=== PATIENT | male | born 1950 | race Caucasian/White ===

== ENCOUNTER 2017-04-11 02:53 | Emergency (ER) | payer BC, OTHER ==
[~2017-04-11] VITALS: Ht 182.9 cm; Wt 89.1 kg
[~2017-04-11 02:53] MED LIST: HYDR-3714 PO
[2017-04-11 02:56] VITALS: TEMP 37; Ht 182.9 cm; Wt 89.1 kg
[2017-04-11] MEDS ORDERED: ONDANSETRON INJ 2 MG/ML 2 ML VIAL IV STA (03:18)
[2017-04-11] MEDS ORDERED: HYDROmorphone INJ 1 MG/ML SYR IV STA (03:18)
[2017-04-11] MEDS ORDERED: SODIUM CHLORIDE 0.9% 1000ML 1,000 ML IV ONE (03:30)
[2017-04-11] MEDS ORDERED: OPTIRAY 320 IV PRN (03:30)
[2017-04-11] MEDS ORDERED: BISA1TAB25 PO (03:37)
[2017-04-11] MEDS ORDERED: ONDA8TAB6 PO (03:37)
[2017-04-11] MEDS ORDERED: CHEMO DRUG PO (03:37)
[2017-04-11] MEDS ORDERED: XLD/500 PO (03:37)
[2017-04-11] MEDS ORDERED: OXYC-57 PO (03:37)
[2017-04-11 03:46] LABS: BASO % 0.2 %; BASO ABS # 0.01 K/uL (0-0.2); COMPLETE YES; EOS % 3.8 %; HEMATOCRIT 37.4 % (42-52); IG% 0.2 %; LYMPH % 8.7 %; LYMPH ABS # 0.55 K/uL (1.2-3.4); MEAN CORPUSCULAR HEMOGLOBIN 29.2 pg (25-34); MEAN CORPUSCULAR HGB CONC 33.2 g/dl (32-36); MEAN PLATELET VOLUME 10.3 fL (7.4-10.4); MONO % 10.1 %; PLATELET COUNT 139 K/uL (130-400); RED BLOOD COUNT 4.25 M/uL (4.7-6.1); WHITE BLOOD COUNT 6.34 K/uL (4.8-10.8)
[2017-04-11 04:04] LABS: URINE APPEARANCE CLEAR (CLEAR); URINE BILIRUBIN NEG (NEG); URINE COLOR YELLOW; URINE NITRITE NEG (NEG); URINE SPECIFIC GRAVITY 1.023 (1.000-1.030); UROBILINOGEN NEG (NEG); ZZUR CULT IF INDIC CLEAN CATCH NO
[2017-04-11 04:04] LABS: BUN/CREATININE RATIO 11.7 (10-20); CALCIUM 8.7 mg/dl (8.5-10.1); CREATININE 1.1 mg/dl (0.60-1.40); MAGNESIUM 1.9 mg/dl (1.8-2.4); POTASSIUM 3.9 mmol/L (3.5-5.1)
[2017-04-11 04:05] LABS: MANUAL MICROSCOPIC REQUIRED? NO; REVIEW REQ? NO
[2017-04-11 04:06] LABS: ALB/GLOB RATIO 0.8 (0.9-2); INR 1.1 (0.9-1.1); PARTIAL THROMBOPLASTIN RATIO 1.1; PROTHROMBIN TIME (PATIENT) 11.8 SECONDS (9.0-12.0)
[2017-04-11] MEDS ORDERED: HYDROmorphone INJ 0.5 MG/0.5 ML SYR IV STA (05:57)
[2017-04-11] MEDS ORDERED: OXYC1TAB3 PO (05:58)
[2017-04-11 06:09] VITALS: BP 131/79; PULSE 77; O2SAT 96
--- NOTE | 2017-04-11 06:33 | EMERGENCY ROOM VISIT NOTE ---
ED Visit Note First contact with patient: 03:01 I have personally evaluated and examined this patient. I agree with assessment and plan of Saurabh Roque PA-C. Sudden onset left posterior back pain of uncertain etiology though now appears to be feeling better. Work-up benign with stable if not improving pancreatic mass that he is on oral chemo for.
--- NOTE | 2017-04-11 06:46 | DIAGNOSTIC IMAGING REPORT ---
CT ABD/PELVIS IV CONTRAST ONLY CLINICAL HISTORY: Abdominal pain, pancreatic carcinoma, nausea, vomiting. COMPARISON STUDY: 02/24/2015 TECHNIQUE: Following the IV administration of mL of Optiray-320, CT scan of the abdomen and pelvis was performed from the lung bases to the proximal femurs. Images are reviewed in the axial, sagittal, and coronal planes. IV contrast was administered without complication. A dose lowering technique was utilized adhering to the principles of ALARA. CT DOSE: 602.07 mGy.cm FINDINGS: Lower chest: The heart is normal in size and configuration, without pericardial effusion. The lung bases and pleural spaces are clear. Liver: There is mild hepatic steatosis. No focal masses are visualized. Gallbladder: Unremarkable. Spleen: Normal in size and attenuation. Pancreas: There is an enlarging pancreatic mass demonstrating vascular encasement. The mass currently measures 6.4 cm in diameter. 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 There are secondary upper abdominal varices/collaterals. The mass abuts and may invade the stomach. Adrenal glands: Unremarkable. Kidneys: There is symmetric renal cortical enhancement. The kidneys are normal in size without hydronephrosis. Bowel: There are no transition zones to indicate bowel obstruction. There are no findings to indicate acute diverticulitis. There are no findings to indicate acute appendicitis. There are multiple small ventral hernias, one of which contains a small knuckle of small bowel. This does not result in obstructive symptoms. Peritoneum: No free air is visualized. There is a small amount of free fluid in the pelvis. Vasculature: The abdominal aorta is normal in course and caliber. Adenopathy: There are no mildly enlarged perigastric lymph nodes, suspicious for metastatic adenopathy. Pelvic viscera: The bladder, and pelvic viscera are unremarkable. Skeletal structures: No destructive osseous lesions are seen. IMPRESSION: 1. Enlarging pancreatic mass currently measuring 6.4 cm. There is secondary vascular encasement with involvement of the splenic vein, celiac artery, and superior mesenteric artery and vein. The splenic vein appears occluded. 2. The mass abuts and may invade the stomach 3. Ventral hernias. No evidence of bowel obstruction. No evidence of free air Electronically signed by: Jose Starks M.D. 04/11/2017 6:44 AM Dictated Date/Time: 04/11/2017 6:37 AM
--- NOTE | 2017-04-11 06:50 | EMERGENCY ROOM VISIT NOTE ---
History First contact with patient: 03:01 Chief Complaint: ABDOMINAL PAIN Stated Complaint: PAINS IN STOMACH Nursing Triage Summary: Patient reports abdominal pain radiating around to back began a couple days ago. Patient is currently being treated for a tumor on his pancreas with oral medicine. Reports nausea, denies V/D. History of Present Illness The patient is a 67 year old male who presents to the Emergency Room with complaints of abdominal pain radiating to his back that began slowly worsening about 2 days ago. The patient has a history of pancreatic mass and is in the early stages of a new round of chemotherapy. He started chemotherapy 2 days ago , and is evidently scheduled for 14 more days. He is taking oral medication for this. The patient states that he is nauseated without vomiting. He does not have diarrhea. He is intermittently taking Percocet which usually controls his discomfort, he states last 2 days his pain has worsened. He does have Zofran at home which has helped him to prevent vomiting. He has not had fever or chills. No chest pain, chest tightness, or shortness of breath. No lower abdominal pain. He is able to use the bathroom is normal. Review of Systems More than 10 systems were reviewed and otherwise negative with the exception of history of present illness. Past Medical/Surgical History Medical Problems: (1) Pancreatic cancer (2) Pancreatic mass Family History Cancer Heart disease Hypertension Kidney stones Seizures Social History Smoking Status: Never Smoker Marital Status: Housing Status: lives with family Current/Historical Medications Scheduled Capecitabine (Xeloda), 1,500 MG PO Q12H Oxycodone Immediate Rel Tab (Roxicodone Ir), 1-2 TAB PO Q4H [Chemo Drug], 2 CAP PO HS Scheduled PRN Bisacodyl (Bisacodyl Ec), 5 MG PO HS PRN for Constipation Ondansetron Hcl (Zofran), 8 MG PO Q8 PRN for Nausea Oxycodone/Acetaminophen 5MG/325MG (Percocet 5MG/325MG), 1-2 TABLETS PO Q4H PRN for Pain Allergies Coded Allergies: No Known Allergies (Unverified , 04/11/17) Physical Exam Vital Signs Date Time Temp Pulse Resp B/P (MAP) Pulse Ox O2 Delivery O2 Flow Rate FiO2 04/11/17 06:09 77 16 131/79 96 04/11/17 04:29 87 18 110/70 95 Room Air 10/9/17 02:56 37.0 109 18 114/73 98 Room Air Physical Exam VITALS: Vitals are noted on the nurse's note and reviewed by myself. Vital signs stable. GENERAL: Well-appearing white male who is in no acute distress. She is cooperative with the examination. HEART: Regular rate and rhythm without murmurs gallops or rubs. LUNGS: Clear to auscultation bilaterally without wheezes, rales or rhonchi. No retractions or accessory muscle use. ABDOMEN: Positive normal bowel sounds x 4. Soft with mild tenderness in the epigastrium. No rebound or guarding. No lower abdominal tenderness. MUSCULOSKELETAL: No muscle atrophy, erythema, or edema noted. Full range of motion without joint tenderness in all extremities. No significant spinal tenderness or SI joint tenderness. Medical Decision & Procedures ER Provider Diagnostic Interpretation: Preliminary Findings Only See Final Report For Complete Findings CT ABDOMEN & PELVIS With Contrast: Impression: Large mass centered within the head/neck/body of the pancreas measuring 5.7 x 6.4 cm (2-24), consistent with known pancreatic cancer. This insinuates splenic vein, celiac artery, proximal SMA and SMV with multiple collaterals seen within the abdomen. Additionally, this mass appears to extend to the lesser curvature of the stomach with probable involvement. Additional findings: Lower thorax is unremarkable. Liver, gallbladder, spleen, and adrenal glands are unremarkable. Kidneys, ureters and urinary bladder are unremarkable. Appendix is unremarkable. Noninflamed colonic diverticulosis. Diastasis of the anterior abdominal wall musculature. Laboratory Results 04/11/17 03:30 Red Blood Count 4.25, Mean Corpuscular Volume 88.0, Mean Corpuscular Hemoglobin 29.2, Mean Corpuscular Hemoglobin Concent 33.2, Mean Platelet Volume 10.3, Neutrophils (%) (Auto) 77.0, Lymphocytes (%) (Auto) 8.7, Monocytes (%) (Auto) 10.1, Eosinophils (%) (Auto) 3.8, Basophils (%) (Auto) 0.2, Neutrophils # (Auto ) 4.89, Lymphocytes # (Auto) 0.55, Monocytes # (Auto) 0.64, Eosinophils # (Auto ) 0.24, Basophils # (Auto) 0.01 04/11/17 03:30 Test 04/11/17 03:18 04/11/17 03:30 Urine Color YELLOW Urine Appearance CLEAR (CLEAR) Urine pH 5.0 (4.5-7.5) Urine Specific [place] 1.023 (1.000-1.030) Urine Protein NEG (NEG) Urine Glucose (UA) NEG (NEG) Urine Ketones NEG (NEG) Urine Occult Blood NEG (NEG) Urine Nitrite NEG (NEG) Urine Bilirubin NEG (NEG) Urine Urobilinogen NEG (NEG) Urine Leukocyte Esterase NEG (NEG) White Blood Count 6.34 K/uL (4.8-10.8) Red Blood Count 4.25 M/uL (4.7-6.1) Hemoglobin 12.4 g/dL (14.0-18.0) Hematocrit 37.4 % (42-52) Mean Corpuscular Volume 88.0 fL (80-100) Mean Corpuscular Hemoglobin 29.2 pg (25-34) Mean Corpuscular Hemoglobin Concent 33.2 g/dl (32-36) Platelet Count 139 K/uL (130-400) Mean Platelet Volume 10.3 fL (7.4-10.4) Neutrophils (%) (Auto) 77.0 % Lymphocytes (%) (Auto) 8.7 % Monocytes (%) (Auto) 10.1 % Eosinophils (%) (Auto) 3.8 % Basophils (%) (Auto) 0.2 % Neutrophils # (Auto) 4.89 K/uL (1.4-6.5) Lymphocytes # (Auto) 0.55 K/uL (1.2-3.4) Monocytes # (Auto) 0.64 K/uL (0.11-0.59) Eosinophils # (Auto) 0.24 K/uL (0-0.5) Basophils # (Auto) 0.01 K/uL (0-0.2) RDW Standard Deviation 49.1 fL (36.4-46.3) RDW Coefficient of Variation 15.4 % (11.5-14.5) Immature Granulocyte % (Auto) 0.2 % Immature Granulocyte # (Auto) 0.01 K/uL (0.00-0.02) Prothrombin Time 11.8 SECONDS (9.0-12.0) Prothromb Time International Ratio 1.1 (0.9-1.1) Activated Partial Thromboplast Time 28.7 SECONDS (21.0-31.0) Partial Thromboplastin Ratio 1.1 Anion Gap 7.0 mmol/L (3-11) Est Creatinine Clear Calc Drug Dose 72.5 ml/min Estimated GFR () 80.6 Estimated GFR (Non- 69.6 BUN/Creatinine Ratio 11.7 (10-20) Calcium Level 8.7 mg/dl (8.5-10.1) Magnesium Level 1.9 mg/dl (1.8-2.4) Total Bilirubin 0.6 mg/dl (0.2-1) Aspartate Amino Transf (AST/SGOT) 6 U/L (15-37) Alanine Aminotransferase (ALT/SGPT) 11 U/L (12-78) Alkaline Phosphatase 84 U/L (45-117) Total Protein 7.1 gm/dl (6.4-8.2) Albumin 3.2 gm/dl (3.4-5.0) Globulin 3.9 gm/dl (2.5-4.0) Albumin/Globulin Ratio 0.8 (0.9-2) Amylase Level 16 U/L (25-115) Lipase 52 U/L (73-393) Medications Administered Medications (Trade) Dose Ordered Sig/Yolis Route Start Time Stop Time Status Last Admin Dose Admin Hydromorphone HCl (Dilaudid Inj) 1 mg NOW STAT IV 04/11/17 03:18 04/11/17 03:22 DC 04/11/17 03:48 1 MG Sodium Chloride 1,000 ml @ 999 mls/hr Q1H1M ONCE IV 04/11/17 03:30 04/11/17 04:30 DC 04/11/17 03:48 999 MLS/HR Ondansetron HCl (Zofran Inj) 4 mg NOW STAT IV 04/11/17 03:18 04/11/17 03:22 DC 04/11/17 03:48 4 MG Hydromorphone HCl (Dilaudid Inj) 0.5 mg NOW STAT IV 04/11/17 05:57 04/11/17 05:58 DC 04/11/17 06:00 0.5 MG ED Course Physical exam and history were performed. Nursing notes, EMR, and Medication List were personally reviewed. Patient appears to have abdominal pain after starting another round of chemotherapy 2 days ago for pancreatic cancer. On examination the patient has some mild tenderness in the epigastrium. IV access was established and labs were obtained. The patient was hydrated and medicated as above. Because of his history I did elect to perform a CT scan of the abdomen and pelvis with IV contrast. The patient is nauseated and I do not feel he is able tolerate oral contrast. The patient's blood work is as above and was reviewed. He does not have a significantly elevated white blood cell count, gross anemia, bandemia, or significant electrolyte imbalance. Lipase and transaminases are nondiagnostic. The patient CT scan is as above. He last had a CT scan here in this facility about 2 years ago, but did have outpatient CT scan done at [facility] in January 2017. His measurements appears to be stable if not slightly improved as far as size and dimension. He does not have signs of bleed or perforation on CT. I had a lengthy discussion with patient regarding his symptoms. I discussed the case with my attending physician, Dr. Ureña, who also independently evaluated the patient and remain closely involved in care and decision making. I had a lengthy discussion with patient regarding his diagnostic findings today. The patient did feel significantly better after medication here in the department. The patient does have Percocet at home and has sparingly been using this. He certainly could be reacting to the chemotherapy and require a higher dose of medication for the next few days. I will give him a prescription for OxyIR that he may use in addition to his Percocet if necessary. I also strongly recommended that he have close follow-up with his oncologist and primary care physician. The patient understands that it is appropriate to return to the ER with any worsening of his symptoms. He would like to try discharge home at this time, and I feel this is reasonable. The patient will be discharged home under the care of his who is acting as the pole truck driver today. The chart was completed utilizing [employer] Voice Recognition Software. Grammatical errors, random word insertions, pronoun errors, and incomplete sentences are an occasional consequence of this system due to software limitations, ambient noise, and hardware issues. Any formal questions or concerns about the content, text, or information contained within the body of this dictation should be directly addressed to the provider for clarification. . Medical Decision Differential diagnosis: Etiologies such as cancer pain, medication reaction to chemotherapy, perforation , appendicitis, diverticulitis, PUD, biliary pathology, UTI, pancreatitis, obstruction, mesenteric ischemia, aortic pathology, infections, inflammatory bowel disease, renal colic, as well as others were entertained. Impression Primary Impression: Abdominal pain Additional Impression: Pancreatic cancer Departure Information Dispostion Home / Self-Care Condition GOOD Prescriptions Oxycodone Immediate Rel Tab (ROXICODONE IR) 5 Mg Tab 1-2 TAB PO Q4H for Pain, #24 TAB Prov: Saurabh Roque PA-C 04/11/17 Forms Call Back Authorization, HOME CARE DOCUMENTATION FORM, IMPORTANT VISIT INFORMATION Patient Instructions [facility] Additional Instructions You were seen and evaluated today on an emergency basis only. This is not a substitute for, or an effort to provide, complete comprehensive medical care. It is not possible to recognize and treat all injuries or illnesses in a single emergency department visit. For this reason it is recommended that you followup with your oncologist and primary care physician today for ongoing care and evaluation. Oxycodone (OxyIR) 5mg: Take ONE or TWO pills every FOUR to SIX hours for breakthrough pain. Avoid alcohol, operating machinery or dangerous equipment, working on ladders or roofs, DRIVING, or situations where being under the influence may be dangerous. It is recommended to use an [id number] stool softener such as Colace, 100mg twice daily while taking this medication to avoid constipation. You are welcome to return to the emergency department anytime with new, worsening, or concerning symptoms. Problem Qualifiers
== END 2017-04-11 06:10 | disposition home or self-care (01) ==
LOC: C.EDB 02:54 → C.EDA 06:10
DX: R10.9 Unspecified abdominal pain (principal); C25.9 Malignant neoplasm of pancreas, unspecified; Z80.9 Family history of malignant neoplasm, unspecified; Z82.49 Family history of ischemic heart disease and other diseases of the circulatory system; Z84.1 Family history of disorders of kidney and ureter; Z82.0 Family history of epilepsy and other diseases of the nervous system; Z79.899 Other long term (current) drug therapy

== ENCOUNTER 2017-04-24 08:45 | Emergency (ER) | payer OTHER ==
[~2017-04-24] VITALS: Ht 182.9 cm; Wt 86.1 kg
[~2017-04-24 08:45] MED LIST changes: +BISA1TAB25 PO; +CHEMO DRUG PO; -HYDR-3714 PO; +OXYC1TAB3 PO; +XLD/500 PO
[2017-04-24 08:51] VITALS: TEMP 36.9; Ht 182.9 cm; Wt 86.1 kg
[2017-04-24] MEDS ORDERED: SODIUM CHLORIDE 0.9% 500ML 500 ML IV STA (09:11)
[2017-04-24] MEDS ORDERED: ONDANSETRON INJ 2 MG/ML 2 ML VIAL IV STA (09:11)
[2017-04-24] MEDS ORDERED: MoRPHine SULFATE 4 MG/ML 1 ML CARP\\VIAL IV STA (09:11)
[2017-04-24] MEDS ORDERED: SODIUM CHLORIDE 0.9% 1000ML 1,000 ML IV STA (09:11)
[2017-04-24 09:29] LABS: BASO % 0.2 %; BASO ABS # 0.02 K/uL (0-0.2); COMPLETE YES; EOS % 1.5 %; IG% 0.3 %; LYMPH % 4.3 %; LYMPH ABS # 0.48 K/uL (1.2-3.4); MEAN CORPUSCULAR HGB CONC 33.7 g/dl (32-36); MEAN PLATELET VOLUME 9.9 fL (7.4-10.4); MONO % 6.3 %; NEUT % 87.4 %; PLATELET COUNT 218 K/uL (130-400); RED BLOOD COUNT 4.27 M/uL (4.7-6.1); WHITE BLOOD COUNT 11.08 K/uL (4.8-10.8)
[2017-04-24] MEDS ORDERED: HYDROmorphone INJ 0.5 MG/0.5 ML SYR IV STA (09:37)
--- NOTE | 2017-04-24 09:41 | EMERGENCY ROOM VISIT NOTE ---
History Report prepared by Kianna: Tavo García Under the Supervision of: Dr. Chiquis Marshall M.D. First contact with patient: 09:08 Chief Complaint: ABDOMINAL PAIN Stated Complaint: SEVERE STOMACH PAINS Nursing Triage Summary: pt reports currently being tx for pancreatic CA last chemo . started with abdominal pain at that time , the nausea and pain have increased overnight and home meds not helping History of Present Illness The patient is a 67 year old male who presents to the Emergency Room with complaints of waxing and waning lower abdominal pain beginning a few weeks ago. The patient states that he is also experiencing some back pain that radiates from his abdomen. He notes that he can only lay on one side and any shift in position to his other side causes him pain. He denies any vomiting. He reports that he is able to pass gas. The patient states that he just recently finished chemotherapy for a pancreatic tumor. He reports that he had exploratory surgery but did have the tumor removed. He notes that the last time he ate was last night and that he ate a chicken pot pie. Source of History: patient Onset: the past few weeks Position: abdomen Timing: waxes/wanes Modifying Factors (Worsening): movement (from lying on one side to the other ) Associated Symptoms: + back pain, No vomiting Note: he states that he is able to pass gas. Review of Systems See HPI for pertinent positives & negatives. A total of 10 systems reviewed and were otherwise negative. Past Medical & Surgical Medical Problems: (1) Pancreatic cancer (2) Pancreatic mass Family History Cancer Heart disease Hypertension Kidney stones Seizures Social History Smoking Status: Never Smoker Marital Status: Housing Status: lives with family Current/Historical Medications Scheduled Fentanyl (Fentanyl), 1 PATCH TD q three days Oxycodone Immediate Rel Tab (Roxicodone Ir), 1-2 TAB PO Q4H Polyethylene Glycol 3350 (Miralax), 17 GM PO DAILY Scheduled PRN Bisacodyl (Bisacodyl Ec), 5 MG PO HS PRN for Constipation Morphine Sulfate Ir (Morphine Sulfate Ir), 15 MG PO Q12H PRN for Pain Ondansetron Hcl (Zofran), 8 MG PO Q8 PRN for Nausea Oxycodone/Acetaminophen 5MG/325MG (Percocet 5MG/325MG), 1-2 TABLETS PO Q4H PRN for Pain Allergies Coded Allergies: No Known Allergies (Unverified , 04/24/17) Physical Exam Vital Signs Date Time Temp Pulse Resp B/P (MAP) Pulse Ox O2 Delivery O2 Flow Rate FiO2 04/24/17 14:00 75 16 103/63 97 04/24/17 12:15 78 16 114/74 100 Room Air 04/24/17 09:44 87 20 116/72 98 Room Air 04/24/17 09:10 89 04/24/17 08:51 36.9 139 20 105/71 97 Room Air Physical Exam Vital signs reviewed. General: Chronically ill appearing, in some discomfort. HEENT: No scleral icterus, PERRLA, neck supple. Atraumatic. Cardiovascular: Regular rate and rhythm, no extra sounds. Pulmonary: Clear to auscultation bilaterally, normal work of breathing. Abdomen: Soft, nondistended, positive bowel sounds. Diffuse abdominal tenderness , no rebound, no guarding. No CVA tenderness. Musculoskeletal: Atraumatic, no peripheral edema. Neurologic: Patient awake alert and oriented x 3, full strength in all 4 extremities. Cranial nerves 2 through 12 grossly intact. Skin: Warm, dry, no rash Medical Decision & Procedures ER Provider Diagnostic Interpretation: Radiology results as stated below per my review and radiologist interpretation: CT ABD/PELVIS IV CONTRAST ONLY Lower chest: The heart is normal in size and configuration, without pericardial effusion. The lung bases and pleural spaces are clear. Liver: The contrast-enhanced liver is normal in size, contour, and attenuation. There is no intrahepatic biliary ductal dilatation. The hepatic veins and portal veins are patent. Gallbladder: Distended. No calculi are visualized. Spleen: Normal in size and attenuation. Pancreas: There is been no significant change in the 6.5 cm pancreatic head/neck mass. There is encasement of the superior mesenteric vein. There is encasement of the splenic artery. There is occlusion of the splenic vein. There is encasement of the superior mesenteric artery. The mass abuts the stomach and invasion cannot be excluded. Adrenal glands: Unremarkable. Kidneys: There is symmetric renal cortical enhancement. The kidneys are normal in size without hydronephrosis. Bowel: There are no transition zone to indicate bowel obstruction. There is colonic diverticulosis. There are no acute peridiverticular inflammatory changes. There are no findings to indicate acute appendicitis. There is mild fecal retention. Peritoneum: A ventral hernia is again visualized. Vasculature: There is no aortic dilatation. Upper abdominal varices are again evident. Adenopathy: There are mildly prominent lymph nodes in the gastrohepatic ligament and celiac region. Pelvic viscera: The prostate remains enlarged. Skeletal structures: No destructive osseous lesions are seen. IMPRESSION: 1. No significant change in the 6.5 cm hypodense pancreatic mass 2. Persistent splenic vein occlusion, persistent celiac, and superior mesenteric artery encasement. Persistent superior mesenteric vein and portal vein narrowing. 3. No evidence of bowel obstruction. No evidence of free air 4. Mild fecal retention Electronically signed by: Jose Starks M.D. 04/24/2017 12:13 PM Laboratory Results 04/24/17 09:00 Red Blood Count 4.27, Mean Corpuscular Volume 89.0, Mean Corpuscular Hemoglobin 30.0, Mean Corpuscular Hemoglobin Concent 33.7, Mean Platelet Volume 9.9, Neutrophils (%) (Auto) 87.4, Lymphocytes (%) (Auto) 4.3, Monocytes (%) (Auto) 6.3, Eosinophils (%) (Auto) 1.5, Basophils (%) (Auto) 0.2, Neutrophils # (Auto) 9.68, Lymphocytes # (Auto) 0.48, Monocytes # (Auto) 0.70, Eosinophils # (Auto) 0.17, Basophils # (Auto) 0.02 04/24/17 09:00 Test 04/24/17 09:00 White Blood Count 11.08 K/uL (4.8-10.8) Red Blood Count 4.27 M/uL (4.7-6.1) Hemoglobin 12.8 g/dL (14.0-18.0) Hematocrit 38.0 % (42-52) Mean Corpuscular Volume 89.0 fL (80-100) Mean Corpuscular Hemoglobin 30.0 pg (25-34) Mean Corpuscular Hemoglobin Concent 33.7 g/dl (32-36) Platelet Count 218 K/uL (130-400) Mean Platelet Volume 9.9 fL (7.4-10.4) Neutrophils (%) (Auto) 87.4 % Lymphocytes (%) (Auto) 4.3 % Monocytes (%) (Auto) 6.3 % Eosinophils (%) (Auto) 1.5 % Basophils (%) (Auto) 0.2 % Neutrophils # (Auto) 9.68 K/uL (1.4-6.5) Lymphocytes # (Auto) 0.48 K/uL (1.2-3.4) Monocytes # (Auto) 0.70 K/uL (0.11-0.59) Eosinophils # (Auto) 0.17 K/uL (0-0.5) Basophils # (Auto) 0.02 K/uL (0-0.2) RDW Standard Deviation 52.3 fL (36.4-46.3) RDW Coefficient of Variation 16.2 % (11.5-14.5) Immature Granulocyte % (Auto) 0.3 % Immature Granulocyte # (Auto) 0.03 K/uL (0.00-0.02) Anion Gap 9.0 mmol/L (3-11) Est Creatinine Clear Calc Drug Dose 65.4 ml/min Estimated GFR () 71.2 Estimated GFR (Non- 61.4 BUN/Creatinine Ratio 12.4 (10-20) Calcium Level 9.1 mg/dl (8.5-10.1) Total Bilirubin 0.6 mg/dl (0.2-1) Direct Bilirubin mg/dl (0-0.2) Aspartate Amino Transf (AST/SGOT) 17 U/L (15-37) Alanine Aminotransferase (ALT/SGPT) 15 U/L (12-78) Alkaline Phosphatase 77 U/L (45-117) Total Protein 7.6 gm/dl (6.4-8.2) Albumin 3.3 gm/dl (3.4-5.0) Lipase 44 U/L (73-393) Chemistry Specimen Hemolysis Laboratory results per my review. Medications Administered Medications (Trade) Dose Ordered Sig/Yolis Route Start Time Stop Time Status Last Admin Dose Admin Sodium Chloride 500 ml @ 999 mls/hr Q31M STAT IV 04/24/17 09:11 04/24/17 09:41 DC 04/24/17 09:11 999 MLS/HR Sodium Chloride 1,000 ml @ 125 mls/hr Q8H STAT IV 04/24/17 09:11 04/24/17 14:23 DC 04/24/17 09:22 125 MLS/HR Ondansetron HCl (Zofran Inj) 4 mg NOW STAT IV 04/24/17 09:11 04/24/17 09:13 DC 04/24/17 09:23 4 MG Morphine Sulfate (MoRPHine SULFATE INJ) 4 mg NOW STAT IV 04/24/17 09:11 04/24/17 09:13 DC 04/24/17 09:23 4 MG Hydromorphone HCl (Dilaudid Inj) 0.5 mg NOW STAT IV 04/24/17 09:37 04/24/17 09:38 DC 04/24/17 09:42 0.5 MG Hydromorphone HCl (Dilaudid Inj) 1 mg Q1HWA PRN IV 04/24/17 10:30 04/24/17 14:23 DC 04/24/17 12:15 1 MG Fentanyl (Duragesic Patch) 25 mcg NOW STAT TD 04/24/17 12:25 04/24/17 13:22 DC 04/24/17 13:20 25 MCG Fentanyl (Duragesic Patch) 50 mcg NOW STAT TD 04/24/17 13:20 04/24/17 13:22 DC 04/24/17 13:57 50 MCG ECG Indication: abdominal pain Rate (beats per minute): 89 Rhythm: normal sinus Findings: no acute ischemic change, no ectopy, other (previous anterior infarct ) ED Course 0910: Past medical records reviewed. The patient was evaluated in room A3. A complete history and physical examination was performed. 0911: Morphine Sulfate 4mg IV, Zofran Inj 4mg IV, Sodium Chloride 500 ml @ 999 mls/hr IV 0937: Dilaudid Inj 0.5mg IV 1225: Fentanyl 25mcg TD 1311: I reevaluated and updated the patient. 1320: Fentanyl 50mcg TD 1325: Upon reevaluation, the patient appeared to have improvement of his symptoms. I discussed findings with him. He verbalized agreement of the treatment plan. The patient was discharged home. Medical Decision Differentials include: small bowel obstruction, ischemic bowel, kidney stone, muscular strain, viral illness, post chemotherapeutic effects. This patient was evaluated and appeared to be in no significant distress. IV access was obtained and laboratory work was drawn. Patient was placed on the cardiac exercise physiologist. IV fluids were initiated. The patient was given IV morphine and Zofran without significant relief. He did receive several doses of IV Dilaudid for pain control. CT scan abdomen and pelvis was performed and reveals no significant changes from previous. There is a large pancreatic mass with significant vascular obstructions. Patient's laboratory work is fairly unrevealing. I suspect the patient is suffering from chronic pain related to the malignancy. He is not receiving any relief with oral morphine and when necessary Percocet. Patient was given a 50 g fentanyl patch. He was advised to use the Percocet as needed. He will use MiraLAX as needed for constipation. The patient will follow-up with his oncologist later in the week, case management will assist in scheduling this appointment. He will return to the ER for worsening of symptoms or any medical concerns. Blood Pressure Screening Patient's blood pressure: Normal blood pressure Blood pressure disposition: Did not require urgent referral Impression Primary Impression: Intractable abdominal pain Additional Impression: Pancreatic cancer Scribe Attestation The scribe's documentation has been prepared under my direction and personally reviewed by me in its entirety. I confirm that the note above accurately reflects all work, treatment, procedures, and medical decision making performed by me. Departure Information Dispostion Home / Self-Care Prescriptions Fentanyl (Fentanyl) 50 Mcg Tdsy 1 PATCH TD q three days for 14 Days, #5 PATCH Prov: Chiquis Marshall M.D. 04/24/17 Referrals No Doctor, Assigned (PCP) Forms Call Back Authorization, HOME CARE DOCUMENTATION FORM, IMPORTANT VISIT INFORMATION Patient Instructions My [facility] Additional Instructions Diagnosis: Intractable abdominal pain, pancreatic cancer Fentanyl patch 50 g every 3 days. Percocet one to 2 tablets every 4-6 hours as needed for severe pain. MiraLAX 1-2 capfuls daily as needed for BM. Increase the fiber in your diet. Case management will help arrange follow up with oncology, Dr. Hinojosa, this week. Return to the ER for worsening of symptoms or any medical concerns. Problem Qualifiers
[2017-04-24 09:47] LABS: ALKALINE PHOSPHATASE 77 U/L (45-117); ALT/SGPT 15 U/L (12-78); AST/SGOT 17 U/L (15-37); BLOOD UREA NITROGEN 15 mg/dl (7-18); BUN/CREATININE RATIO 12.4 (10-20); CALCIUM 9.1 mg/dl (8.5-10.1); CARBON DIOXIDE 25 mmol/L (21-32); CHLORIDE 98 mmol/L (98-107); CREATININE 1.22 mg/dl (0.60-1.40); GLUCOSE 155 mg/dl (70-99); SODIUM 132 mmol/L (136-145)
[2017-04-24] MEDS ORDERED: MORP15TA PO (10:09)
[2017-04-24] MEDS: HYDROmorphone INJ 1 MG/ML SYR IV PRN ×2 (10:23→12:15)
[2017-04-24] MEDS ORDERED: OPTIRAY 320 IV PRN (12:15)
--- NOTE | 2017-04-24 12:15 | DIAGNOSTIC IMAGING REPORT ---
CT ABD/PELVIS IV CONTRAST ONLY CLINICAL HISTORY: Abdominal pain, pancreatic carcinoma, COMPARISON STUDY: 04/11/2017 TECHNIQUE: Following the IV administration of 93 mL of Optiray-320, CT scan of the abdomen and pelvis was performed from the lung bases to the proximal femurs. Images are reviewed in the axial, sagittal, and coronal planes. IV contrast was administered without complication. A dose lowering technique was utilized adhering to the principles of ALARA. CT DOSE: 463.62 mGy.cm FINDINGS: Lower chest: The heart is normal in size and configuration, without pericardial effusion. The lung bases and pleural spaces are clear. Liver: The contrast-enhanced liver is normal in size, contour, and attenuation. There is no intrahepatic biliary ductal dilatation. The hepatic veins and portal veins are patent. Gallbladder: Distended. No calculi are visualized. Spleen: Normal in size and attenuation. Pancreas: There is been no significant change in the 6.5 cm pancreatic head/neck mass. There is encasement of the superior mesenteric vein. There is encasement of the splenic artery. There is occlusion of the splenic vein. There is encasement of the superior mesenteric artery. The mass abuts the stomach and invasion cannot be excluded. Adrenal glands: Unremarkable. Kidneys: There is symmetric renal cortical enhancement. The kidneys are normal in size without hydronephrosis. Bowel: There are no transition zone to indicate bowel obstruction. There is colonic diverticulosis. There are no acute peridiverticular inflammatory changes. There are no findings to indicate acute appendicitis. There is mild fecal retention. Peritoneum: A ventral hernia is again visualized. Vasculature: There is no aortic dilatation. Upper abdominal varices are again evident. Adenopathy: There are mildly prominent lymph nodes in the gastrohepatic ligament and celiac region. Pelvic viscera: The prostate remains enlarged. Skeletal structures: No destructive osseous lesions are seen. IMPRESSION: 1. No significant change in the 6.5 cm hypodense pancreatic mass 2. Persistent splenic vein occlusion, persistent celiac, and superior mesenteric artery encasement. Persistent superior mesenteric vein and portal vein narrowing. 3. No evidence of bowel obstruction. No evidence of free air 4. Mild fecal retention Electronically signed by: Jose Starks M.D. 04/24/2017 12:13 PM Dictated Date/Time: 04/24/2017 12:05 PM
[2017-04-24] MEDS ORDERED: FENTANYL 25 MCG/HR TDSY TD STA (12:25)
[2017-04-24] MEDS ORDERED: FENTANYL 50 MCG/HR TDSY TD STA (13:20)
[2017-04-24] MEDS ORDERED: DRGTP50 TD (13:27)
[2017-04-24 14:00] VITALS: BP 103/63; PULSE 75; O2SAT 97
[2017-04-26] MEDS ORDERED: OXYC-57 PO (03:37)
[2017-04-29] MEDS ORDERED: DRGTP75 TD ×2 (15:23→15:49)
[2017-04-29] MEDS ORDERED: DLD2 PO (15:23)
[2017-05-02] MEDS ORDERED: ONDA8TAB6 PO (03:37)
[2017-05-02] MEDS ORDERED: POLY335019 PO (10:09)
[2017-05-02] MEDS ORDERED: DLC5 PO (16:03)
[2017-05-02] MEDS ORDERED: TEMO1CAP PO (16:45)
[2017-05-02] MEDS ORDERED: XLD/500 PO (16:45)
== END 2017-04-24 13:55 | disposition home or self-care (01) ==
LOC: C.EDB 08:46 → C.EDA 13:55
DX: G89.3 Neoplasm related pain (acute) (chronic) (principal); C25.9 Malignant neoplasm of pancreas, unspecified; Z80.9 Family history of malignant neoplasm, unspecified; Z82.49 Family history of ischemic heart disease and other diseases of the circulatory system; Z84.1 Family history of disorders of kidney and ureter; Z82.0 Family history of epilepsy and other diseases of the nervous system; Z79.899 Other long term (current) drug therapy

== ENCOUNTER 2017-04-26 13:00 | Inpatient (IN) | payer OTHER, BC ==
[~2017-04-26] VITALS: Ht 182.9 cm; Wt 87.4 kg
[~2017-04-26 13:00] MED LIST changes: -CHEMO DRUG PO; +DRGTP50 TD; +MORP15TA PO; +OXYC-57 PO; -XLD/500 PO
[2017-04-26] MEDS ORDERED: ONDANSETRON INJ 2 MG/ML 2 ML VIAL IV STA (13:33)
[2017-04-26] MEDS ORDERED: MoRPHine SULFATE 10 MG/ML CARP/VIAL IV STA (13:33)
[2017-04-26 14:31] LABS: BASO % 0.1 %; BASO ABS # 0.01 K/uL (0-0.2); COMPLETE YES; EOS % 1.6 %; HEMATOCRIT 36.8 % (42-52); IG% 0.2 %; LYMPH % 5.1 %; LYMPH ABS # 0.48 K/uL (1.2-3.4); MEAN CELL VOLUME 88.5 fL (80-100); MEAN CORPUSCULAR HEMOGLOBIN 29.3 pg (25-34); MEAN CORPUSCULAR HGB CONC 33.2 g/dl (32-36); MEAN PLATELET VOLUME 10.3 fL (7.4-10.4); MONO % 5.6 %; NEUT % 87.4 %; PLATELET COUNT 225 K/uL (130-400); RED BLOOD COUNT 4.16 M/uL (4.7-6.1)
[2017-04-26 14:41] LABS: BUN/CREATININE RATIO 12.5 (10-20); CREATININE 1.2 mg/dl (0.60-1.40); POTASSIUM 3.9 mmol/L (3.5-5.1)
[2017-04-26] MEDS ORDERED: HYDROmorphone INJ 1 MG/ML SYR IV STA (15:04)
[2017-04-26] MEDS ORDERED: SODIUM CHLORIDE 0.9% 1000ML 1,000 ML IV SCH (15:48)
[2017-04-26] MEDS ORDERED: BISACODYL 10 MG SUPP PR PRN (16:00)
[2017-04-26] MEDS ORDERED: NALOXONE HCL 0.4 MG/1 ML VIAL/CARP IV PRN (16:00)
[2017-04-26] MEDS: ENOXAPARIN 40 MG/0.4 ML SYR SQ SCH ×2 (16:00→18:00)
[2017-04-26] MEDS ORDERED: HYDROmorphone HCL 0.5MG/ML 50 ML CASSETTE IV PRN (16:00)
[2017-04-26] MEDS ORDERED: XLD/500 PO (16:06)
[2017-04-26] MEDS ORDERED: TEMO1CAP7 PO (16:06)
[2017-04-26] MEDS: SODIUM CHLORIDE 0.9% 1000ML 1,000 ML IV SCH ×2 (16:41→23:06)
--- NOTE | 2017-04-26 16:58 | History and Physical ---
History & Physical Date & Time of Service: Apr 26, 2017 at 16:13 Chief Complaint: Abdominal Pain, Pancreatic Cancer Primary Care Physician: Blake Bush M.D. History of Present Illness Source: patient, clinic records, hospital records This is a 67 year old male with PMH of primary pancreatic neuroendocrine tumor who presents to the ED with abdominal pain. Patient follows with Dr. Hinojosa. Surgery was attempted in 2014 but he was found to have unresectable disease. Patient has undergone radiation approximately 2 years ago. He underwent chemotherapy infusion in the past (Etoposide/Platinol) which he did not respond to. He is currently on oral chemo, Xeloda and Temodar, and finished most recent cycle on Tuesday04/22/17. Pt reports abdominal pain throughout the course of his cancer which was previously controlled, but is more severe over the past 2 weeks. He localizes pain to periumbilical area and left and right mid-abdomen. Pt was seen in [facility] 2 days ago for abdominal pain, at which time CT a/p showed no significant change in the 6.5 cm hypodense pancreatic mass, persistent splenic vein occlusion, persistent celiac, and superior mesenteric, artery encasement, persistent superior mesenteric vein and portal vein narrowing , no evidence of bowel obstruction, no evidence of free air, mild fecal retention. Patient's morphine sulfate extended release was discontinued. He was started on 50 mcg Fentanyl patch and continued on Percocet 5-325 1-2 tabs q4h PRN. Pt continues with pain rated 10/10. Morphine 6 mg IV and Dilaudid 1 mg IV given in the ER did not help. He reports his nausea has been worse with the last round of oral chemo. No vomiting. Has been taking Zofran 8 mg q8h. He was eating normally before, but over past few days he is not eating/ drinking much. Last BM was 2 days ago. Has been taking Dulcolax and Miralax PRN. Pt's weight has trended down approximately 20 lb in past 6 weeks. He denies fever, chills, URI symptoms, cough, SOB, chest pain, diarrhea, dysuria, frequency, urgency, calf pain, edema. Past Medical/Surgical History Medical Problems: (1) History of renal stone Status: Chronic (2) Pancreatic cancer Permanent Comment: Back pain Studies revealing a mass of the head of the pancreas Status post EUS with biopsy 12/10/2013 high-grade neuroendocrine carcinoma Stage [id number] Status post neoadjuvant chemotherapy with etoposide and cisplatin for 4 cycles On 10/04/2014 surgical attempt and unresectable Status post completion of radiation therapy 01/19/2015 received 5400 cGy Status: Chronic Surgical Problems: (1) S/P laparotomy Permanent Comment: 10/04/2014, Dr. Otero, [facility] – [place], found to have unresectable disease Status: Chronic Family History Cancer Heart disease Hypertension Kidney stones Seizures Social History Smoking Status: Never Smoker Alcohol Use: none Marital Status: Housing status: lives with significant other Allergies Coded Allergies: No Known Allergies (Unverified , 04/26/17) Home Medications Scheduled Capecitabine (Xeloda), 500 MG PO UD Fentanyl (Fentanyl), 1 PATCH TD q three days Temozolomide (Temodar), 180 MG PO UD Scheduled PRN Bisacodyl (Bisacodyl EC), 1 TAB PO BID PRN for Constipation Ondansetron Hcl (Zofran), 8 MG PO Q8 PRN for Nausea Oxycodone/Acetaminophen 5MG/325MG (Percocet 5MG/325MG), 1-2 TABLETS PO Q4H PRN for Pain Polyethylene Glycol 3350 (Miralax), 17 GM PO DAILY PRN for Constipation Review of Systems Ten systems reviewed and negative except as noted in HPI. Physical Exam Vital Signs Date Time Temp Pulse Resp B/P (MAP) Pulse Ox O2 Delivery O2 Flow Rate FiO2 04/26/17 15:34 37.2 92 16 113/69 93 04/26/17 15:32 92 16 113/69 93 Room Air 04/26/17 13:15 37.2 104 20 98 Room Air General Appearance: WD/WN, + mild distress (mild distress due to pain), + pertinent finding (alert cooperative 67 year old male, lying in bed, at bedside) Head: normocephalic, atraumatic Eyes: normal inspection, sclerae normal ENT: normal ENT inspection (normal external inspection of ears, nose, lips), hearing grossly normal, pharynx normal Neck: supple, trachea midline Respiratory/Chest: lungs clear, normal breath sounds, no respiratory distress, no accessory muscle use Cardiovascular: regular rate, rhythm, no murmur Abdomen/GI: normal bowel sounds, soft, + pertinent finding (mildly tender in periumbilical area) Back: normal inspection, no CVA tenderness Extremities/Musculoskelatal: normal inspection, no calf tenderness, no pedal edema Neurologic/Psych: alert, normal mood/affect, oriented x 3 Skin: normal color, warm/dry Diagnostics Laboratory Results Results Past 24 Hours Test 04/26/17 14:02 04/26/17 14:59 Range/Units White Blood Count 9.40 4.8-10.8 K/uL Red Blood Count 4.16 4.7-6.1 M/uL Hemoglobin 12.2 14.0-18.0 g/dL Hematocrit 36.8 42-52 % Mean Corpuscular Volume 88.5 80-100 fL Mean Corpuscular Hemoglobin 29.3 25-34 pg Mean Corpuscular Hemoglobin Concent 33.2 32-36 g/dl Platelet Count 225 130-400 K/uL Mean Platelet Volume 10.3 7.4-10.4 fL Neutrophils (%) (Auto) 87.4 % Lymphocytes (%) (Auto) 5.1 % Monocytes (%) (Auto) 5.6 % Eosinophils (%) (Auto) 1.6 % Basophils (%) (Auto) 0.1 % Neutrophils # (Auto) 8.21 1.4-6.5 K/uL Lymphocytes # (Auto) 0.48 1.2-3.4 K/uL Monocytes # (Auto) 0.53 0.11-0.59 K/uL Eosinophils # (Auto) 0.15 0-0.5 K/uL Basophils # (Auto) 0.01 0-0.2 K/uL RDW Standard Deviation 52.0 36.4-46.3 fL RDW Coefficient of Variation 16.2 11.5-14.5 % Immature Granulocyte % (Auto) 0.2 % Immature Granulocyte # (Auto) 0.02 0.00-0.02 K/uL Sodium Level 132 136-145 mmol/L Potassium Level 3.9 3.5-5.1 mmol/L Chloride Level 98 98-107 mmol/L Carbon Dioxide Level 26 21-32 mmol/L Anion Gap 8.0 3-11 mmol/L Blood Urea Nitrogen 15 7-18 mg/dl Creatinine 1.20 0.60-1.40 mg/dl Est Creatinine Clear Calc Drug Dose 66.5 ml/min Estimated GFR () 72.6 Estimated GFR (Non- 62.6 BUN/Creatinine Ratio 12.5 10-20 Random Glucose 194 70-99 mg/dl Calcium Level 9.0 8.5-10.1 mg/dl Total Bilirubin 0.6 0.2-1 mg/dl Direct Bilirubin 0.2 0-0.2 mg/dl Aspartate Amino Transf (AST/SGOT) 9 15-37 U/L Alanine Aminotransferase (ALT/SGPT) 16 12-78 U/L Alkaline Phosphatase 76 45-117 U/L Total Protein 7.8 6.4-8.2 gm/dl Albumin 3.3 3.4-5.0 gm/dl Lipase 47 73-393 U/L Lactic Acid Level 1.3 0.4-2.0 mmol/L Impression Assessment and Plan INTRACTABLE ABDOMINAL PAIN In setting of pancreatic cancer Failed home Fentanyl patch and PRN Percocet CT a/p 04/24/17- no significant change in the 6.5 cm hypodense pancreatic mass , persistent splenic vein occlusion, persistent celiac, and superior mesenteric , artery encasement, persistent superior mesenteric vein and portal vein narrowing, no evidence of bowel obstruction, no evidence of free air, mild fecal retention LFT's, lipase WNL, will recheck in AM Consult pain management, discussed with Dr. 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 Hinojosa Consult oncology, Dr. Walter aware, will have Dr. Hinojosa see the patient Consider palliative care consult DVT PROPHYLAXIS Lovenox SQ- declined by patient, will add SCD's CODE STATUS Full code per my discussion with the patient DISPOSITION Admission med/ surg Follows with Dr. Bush for primary care Patient seen in collaboration with Dr. Augustine. Please see her addendum. ADDENDUM: I have seen and examined the patient and agree with the assessment and plan as above. On exam his abdomen is soft and non-tender with positive bowel sounds. Food is making the pain worse somewhat. May be caused by decreased blood flow to vessels that are encased by the mass vs referred pain vs other. Dilaudid ENGINEERING PATTERNMAKER, Pain Management consulted. Apprec recs in am. Cont IVF and supportive care measures. Davide, DO Resuscitation Status FULL RESUSCITATION VTE Prophylaxis VTE Risk Assessment Done? Y/N: Yes Risk Level: Moderate Given or contraindicated: Enoxaparin (Lovenox)SQ
[2017-04-26 17:16] VITALS: BP 103/76; PULSE 80; TEMP 36.7; O2SAT 99; Ht 182.9 cm; Wt 87.4 kg
[2017-04-26 17:42] LABS: INR 1.2 (0.9-1.1); PARTIAL THROMBOPLASTIN RATIO 1.2; PROTHROMBIN TIME (PATIENT) 12.4 SECONDS (9.0-12.0)
--- NOTE | 2017-04-26 17:48 | EMERGENCY ROOM VISIT NOTE ---
History Report prepared by Kianna: Tay Fine Under the Supervision of: Dr. Hugo Wolff D.O. First contact with patient: 13:20 Chief Complaint: ABDOMINAL PAIN Stated Complaint: SEVERE STOMACH PAINS History of Present Illness The patient is a 67 year old male who presents to the Emergency Room with complaints of persistent generalized abdominal pain beginning two weeks ago. He has a history of pancreatic cancer. He recently finished a 14 day treatment of chemotherapy. The patient also complains of nausea. He was seen in the ED two days ago for with similar symptoms. He states that he has not been eating much recently. The patient denies vomiting, fevers, urinary symptoms or diarrhea. He has a Fentanyl patch, and takes Oxycodone PRN. The patient's last bowel movement was two days ago. He has been taking Miralax for constipation. Nothing worsens his pain. Source of History: patient Onset: Two weeks ago Position: abdomen (generalized) Timing: other (persistent) Modifying Factors (Worsening): other (none) Associated Symptoms: + nausea, No fevers, No vomiting, No diarrhea, No urinary symptoms Review of Systems See HPI for pertinent positives & negatives. A total of 10 systems reviewed and were otherwise negative. Past Medical & Surgical Medical Problems: (1) History of renal stone (2) Pancreatic cancer Surgical Problems: (1) S/P laparotomy Family History Cancer Heart disease Hypertension Kidney stones Seizures Social History Smoking Status: Never Smoker Marital Status: Housing Status: lives with family Current/Historical Medications Scheduled Capecitabine (Xeloda), 500 MG PO UD Fentanyl (Fentanyl), 1 PATCH TD q three days Temozolomide (Temodar), 180 MG PO UD Scheduled PRN Bisacodyl (Bisacodyl EC), 1 TAB PO BID PRN for Constipation Ondansetron Hcl (Zofran), 8 MG PO Q8 PRN for Nausea Oxycodone/Acetaminophen 5MG/325MG (Percocet 5MG/325MG), 1-2 TABLETS PO Q4H PRN for Pain Polyethylene Glycol 3350 (Miralax), 17 GM PO DAILY PRN for Constipation Allergies Coded Allergies: No Known Allergies (Unverified , 04/26/17) Physical Exam Vital Signs Date Time Temp Pulse Resp B/P (MAP) Pulse Ox O2 Delivery O2 Flow Rate FiO2 04/26/17 13:15 37.2 104 20 98 Room Air Physical Exam GENERAL: Sitting up in bed, chronically ill appearing, in mild distress. EYE EXAM: normal conjunctiva. OROPHARYNX: no exudate, no erythema, lips, buccal mucosa, and tongue normal and mucous membranes are moist NECK: supple, no nuchal rigidity, no adenopathy, non-tender LUNGS: Clear to auscultation. Normal chest wall mechanics HEART: no murmurs, S1 normal and S2 normal ABDOMEN: abdomen soft, non-tender, normo-active bowel sounds, no masses, no rebound or guarding. BACK: Back is symmetrical on inspection and there is no deformity, no midline tenderness, no CVA tenderness. SKIN: no rashes and no bruising UPPER EXTREMITIES: upper extremities are grossly normal. LOWER EXTREMITIES: No pitting edema. NEURO EXAM: Normal sensorium, cranial nerves II-XII grossly intact, normal speech, no gross weakness of arms, no gross weakness of legs. Medical Decision & Procedures Laboratory Results 04/26/17 14:02 Red Blood Count 4.16, Mean Corpuscular Volume 88.5, Mean Corpuscular Hemoglobin 29.3, Mean Corpuscular Hemoglobin Concent 33.2, Mean Platelet Volume 10.3, Neutrophils (%) (Auto) 87.4, Lymphocytes (%) (Auto) 5.1, Monocytes (%) (Auto) 5.6, Eosinophils (%) (Auto) 1.6, Basophils (%) (Auto) 0.1, Neutrophils # (Auto) 8.21, Lymphocytes # (Auto) 0.48, Monocytes # (Auto) 0.53, Eosinophils # (Auto) 0.15, Basophils # (Auto) 0.01 04/26/17 14:02 Test 04/26/17 14:02 White Blood Count 9.40 K/uL (4.8-10.8) Red Blood Count 4.16 M/uL (4.7-6.1) Hemoglobin 12.2 g/dL (14.0-18.0) Hematocrit 36.8 % (42-52) Mean Corpuscular Volume 88.5 fL (80-100) Mean Corpuscular Hemoglobin 29.3 pg (25-34) Mean Corpuscular Hemoglobin Concent 33.2 g/dl (32-36) Platelet Count 225 K/uL (130-400) Mean Platelet Volume 10.3 fL (7.4-10.4) Neutrophils (%) (Auto) 87.4 % Lymphocytes (%) (Auto) 5.1 % Monocytes (%) (Auto) 5.6 % Eosinophils (%) (Auto) 1.6 % Basophils (%) (Auto) 0.1 % Neutrophils # (Auto) 8.21 K/uL (1.4-6.5) Lymphocytes # (Auto) 0.48 K/uL (1.2-3.4) Monocytes # (Auto) 0.53 K/uL (0.11-0.59) Eosinophils # (Auto) 0.15 K/uL (0-0.5) Basophils # (Auto) 0.01 K/uL (0-0.2) RDW Standard Deviation 52.0 fL (36.4-46.3) RDW Coefficient of Variation 16.2 % (11.5-14.5) Immature Granulocyte % (Auto) 0.2 % Immature Granulocyte # (Auto) 0.02 K/uL (0.00-0.02) Prothrombin Time 12.4 SECONDS (9.0-12.0) Prothromb Time International Ratio 1.2 (0.9-1.1) Activated Partial Thromboplast Time 31.5 SECONDS (21.0-31.0) Partial Thromboplastin Ratio 1.2 Anion Gap 8.0 mmol/L (3-11) Est Creatinine Clear Calc Drug Dose 66.5 ml/min Estimated GFR () 72.6 Estimated GFR (Non- 62.6 BUN/Creatinine Ratio 12.5 (10-20) Calcium Level 9.0 mg/dl (8.5-10.1) Total Bilirubin 0.6 mg/dl (0.2-1) Direct Bilirubin 0.2 mg/dl (0-0.2) Aspartate Amino Transf (AST/SGOT) 9 U/L (15-37) Alanine Aminotransferase (ALT/SGPT) 16 U/L (12-78) Alkaline Phosphatase 76 U/L (45-117) Total Protein 7.8 gm/dl (6.4-8.2) Albumin 3.3 gm/dl (3.4-5.0) Lipase 47 U/L (73-393) Laboratory results per my review. Medications Administered Medications (Trade) Dose Ordered Sig/Yolis Route Start Time Stop Time Status Last Admin Dose Admin Morphine Sulfate (MoRPHine SULFATE INJ) 6 mg NOW STAT IV 04/26/17 13:33 04/26/17 13:34 DC 04/26/17 14:01 6 MG Ondansetron HCl (Zofran Inj) 4 mg NOW STAT IV 04/26/17 13:33 04/26/17 13:34 DC 04/26/17 14:00 4 MG ED Course ED COURSE: Vital signs were reviewed and showed tachycardia The patients medical record was reviewed The above diagnostic studies were performed and reviewed. ED treatments and interventions as stated above. 1321: The patient was evaluated in room B3B. A complete history and physical examination was performed. 1333: Ordered Zofran Inj 4 mg IV, Morphine Sulfate 6 mg IV. 1445: Upon reevaluation, the patient is resting comfortably. I discussed my findings with the patient and he understands and agrees with the treatment plan. Based on the patients age, coexisting illnesses, exam and lab findings the decision to treat as an inpatient was made. The patient remained stable while under my care. The patient will be evaluated for further management. Medical Decision Differential diagnoses includes but is not limited to gastritis, peptic ulcer disease, GERD, gallbladder disease, pancreatitis, small bowel obstruction, acute coronary syndrome, pericarditis, ischemic bowel, irritable bowel disease, irritable bowel syndrome, appendicitis, diverticulitis, malignancy, hernia, urinary tract infection, torsion, perforation, trauma, infectious. Patient is a 67-year-old male who presents to ER for a pancreatic mass and abdominal pain. He notes he has been having worsening abdominal pain for the past 2-3 weeks. He is referred in by hematology/oncology for admission or worsening pain. He is currently taking Percocet 2 tabs every 4 hours along with afebrile patch. CBC all BMP, LFTs, bilirubin and lipase is unremarkable. Lactic acid was normal. INR was 1.2. Recent CT on 04/24 was reviewed. Discussed with hematology oncology. They recommend a holding on the CT and admission and discussion with GI for additional imaging. I felt this was reasonable as his abdominal exam was benign. He was given IV Dilaudid and morphine. Patient was updated at bedside and admitted to internal medicine. Consults Time Called: [phone] Consulting Physician: Dr. Hinojosa -Oncology Returned Call: [phone] I reviewed the patient's case with Dr. Hinojosa. He recommends admission for pain control. Additional Consults: Time Called: 1440 Consulted Physician: Dr. Davide Mosquera Returned Call: [phone] Additional Comments: I reviewed the patient's case with Dr. Augustine. Rj will evaluate the patient for further management. Impression Primary Impression: Intractable abdominal pain Additional Impression: Pancreatic cancer Scribe Attestation The scribe's documentation has been prepared under my direction and personally reviewed by me in its entirety. I confirm that the note above accurately reflects all work, treatment, procedures, and medical decision making performed by me. Departure Information Dispostion Being Evaluated By Hospitalist Referrals Blake Bush M.D. (PCP) Patient Instructions [facility] Problem Qualifiers Additional Impression: Pancreatic cancer Pancreatic malignancy location: unspecified Qualified Codes: C25.9 - Malignant neoplasm of pancreas, unspecified
[2017-04-26 19:19] VITALS: BP 121/71; PULSE 89; TEMP 37.4; O2SAT 98
[2017-04-26] MEDS: POLYETHYLENE (MIRALAX) 17 GM PACK PO SCH (20:07)
[2017-04-26] MEDS: BISACODYL 5 MG TABEC PO SCH (20:07)
[2017-04-26 20:39] LABS: URINE APPEARANCE CLEAR (CLEAR); URINE BILIRUBIN NEG (NEG); URINE COLOR YELLOW; URINE NITRITE NEG (NEG); URINE SPECIFIC GRAVITY 1.024 (1.000-1.030); UROBILINOGEN NEG (NEG); ZZUR CULT IF INDIC CLEAN CATCH NO
[2017-04-26 20:41] LABS: MANUAL MICROSCOPIC REQUIRED? NO; REVIEW REQ? NO
[2017-04-26] MEDS: ONDANSETRON INJ 2 MG/ML 2 ML VIAL IV PRN (23:05)
[2017-04-26] MEDS: CHECK FENTANYL PATCH PLACEMENT SCH (23:12)
[2017-04-26 23:43] VITALS: BP 103/66; PULSE 85; TEMP 37.2; O2SAT 96
[2017-04-27 04:20] VITALS: BP 104/65; PULSE 78; TEMP 37.4; O2SAT 96
[2017-04-27 06:18] LABS: BASO % 0.2 %; BASO ABS # 0.02 K/uL (0-0.2); COMPLETE YES; EOS % 2.1 %; HEMATOCRIT 35.4 % (42-52); IG% 0.2 %; LYMPH % 5.7 %; LYMPH ABS # 0.53 K/uL (1.2-3.4); MEAN CELL VOLUME 89.8 fL (80-100); MEAN CORPUSCULAR HEMOGLOBIN 29.9 pg (25-34); MEAN CORPUSCULAR HGB CONC 33.3 g/dl (32-36); NEUT % 83.8 %; PLATELET COUNT 229 K/uL (130-400); RED BLOOD COUNT 3.94 M/uL (4.7-6.1); WHITE BLOOD COUNT 9.24 K/uL (4.8-10.8)
[2017-04-27 06:44] LABS: BUN/CREATININE RATIO 10.9 (10-20); CALCIUM 8.7 mg/dl (8.5-10.1); CREATININE 1.09 mg/dl (0.60-1.40); POTASSIUM 4.1 mmol/L (3.5-5.1)
[2017-04-27 06:47] LABS: ALB/GLOB RATIO 0.8 (0.9-2)
[2017-04-27 07:07] VITALS: BP 110/56; PULSE 95; TEMP 37.3; O2SAT 97
[2017-04-27] MEDS: CHECK FENTANYL PATCH PLACEMENT SCH ×3 (07:37→23:40)
[2017-04-27] MEDS: POLYETHYLENE (MIRALAX) 17 GM PACK PO SCH ×2 (07:38→20:15)
[2017-04-27] MEDS: SODIUM CHLORIDE 0.9% 1000ML 1,000 ML IV SCH ×3 (07:39→23:40)
[2017-04-27] MEDS: BISACODYL 5 MG TABEC PO SCH ×2 (07:47→20:15)
[2017-04-27 08:19] VITALS: O2SAT 96
[2017-04-27] MEDS ORDERED: OXYCODONE HCL IR 5 MG TAB (IMMEDIATE RELEASE) PO ONE (09:30)
[2017-04-27] MEDS ORDERED: OXYCODONE HCL IR 5 MG TAB (IMMEDIATE RELEASE) ONE (09:33)
[2017-04-27] MEDS ORDERED: FENTANYL PATCH REMOVE & WASTE SCH (09:59)
[2017-04-27] MEDS ORDERED: FENTANYL 75 MCG/HR TDSY TD SCH (10:00)
--- NOTE | 2017-04-27 10:14 | Pain Management Consultation ---
Pain Management Consultation Date of Consultation Apr 27, 2017. Reason for Consultation Abdominal pain Pain Location 1 - 2 - History Mr. Engle is a 67 year old white male that is being seen in consultation at the [facility] for abdominal pain secondary to Pancreatic cancer. The abdominal pain is located in the upper abdomen and radiates into the back. He describes a constant aching and occasional sharp stabbing pains. He states that the pain cannot be aggravated with palpation but feels deeper in the abdomen. When he leans towards the right he develops increased pain, nausea , and vomiting. Patient was on Fentanyl patch 50mcg/hr and Percocet at home which was not adequately controlling his pain. Patient's last chemotherapy treatment was 04/22/17. He is not a surgical candidate at this time. Pain is currently 8/10. He denies any currently nausea, vomiting, constipation, or urinary sx. + decreased appetite. Case discussed with Dr. Rogers Past Medical/Surgical History (1) Intractable abdominal pain (2) History of renal stone (3) Pancreatic cancer (4) S/P laparotomy Family History Cancer Heart disease Hypertension Kidney stones Seizures Social / Work History Alcohol Use: none Drug Use: none Marital Status: Housing Status: lives with significant other Allergies Coded Allergies: No Known Allergies (Unverified , 04/26/17) Medications Current Inpatient Medications Medications (Trade) Dose Ordered Sig/Yolis Route Start Time Stop Time Status Last Admin Dose Admin Enoxaparin Sodium (Lovenox Inj) 40 mg Q24H SQ 04/26/17 16:00 05/26/17 15:59 04/26/17 18:00 40 MG Ondansetron HCl (Zofran Inj) 4 mg Q6H PRN IV 04/26/17 15:30 05/26/17 15:29 04/26/17 23:05 4 MG Sodium Chloride 1,000 ml @ 125 mls/hr Q8H IV 04/26/17 16:00 05/26/17 15:59 04/27/17 07:39 125 MLS/HR Bisacodyl (Dulcolax Tab) 5 mg BID PO 04/26/17 20:00 05/26/17 19:59 04/27/17 07:47 5 MG Polyethylene (Miralax Powder Packet) 17 gm BID PO 04/26/17 20:00 05/26/17 19:59 04/27/17 07:38 17 GM Bisacodyl (Dulcolax Supp) 10 mg DAILY PRN OK 04/26/17 16:00 05/26/17 15:59 Fentanyl (Duragesic Patch) 75 mcg Q3D@0900 TD 04/27/17 10:00 05/11/17 09:59 Miscellaneous (Fentanyl Patch Remove & Waste) 1 ea Q3D@0859 N/A 04/27/17 09:59 05/27/17 09:58 Miscellaneous Information (Check Fentanyl Patch Placement) 1 ea QS N/A 04/27/17 16:00 05/27/17 15:59 Hydromorphone HCl (Dilaudid Tab) 2 mg Q4 PRN PO 04/27/17 10:00 05/11/17 09:59 UNV Hydromorphone HCl (Dilaudid Inj) 1 mg Q3HWA PRN IV 04/27/17 10:00 05/11/17 09:59 UNV Review of Systems Denies any constitutional, cardiac, pulmonary, neurological, GI, , extremity, endocrine, neuro, ENT, dermatological, or musculoskeletal complaints other than stated in HPI Physical Exam Height & Weight: Height 6 feet, 0.00 inches. Weight 86.000 (Kilograms) 189 (Pounds) Last Vital Signs Documentation Date Time Temp Pulse Resp B/P (MAP) Pulse Ox O2 Delivery O2 Flow Rate FiO2 04/27/17 08:19 96 Room Air 04/27/17 07:07 37.3 95 14 110/56 (74) Exam: GENERAL: Mr. Engle is a 67 y/o white male that appears his stated age. Speech and cognition is intact. Mood and affect is appropriate. He is sitting quietly in the exam room, in no acute distress. HEAD: Normocephalic; atraumatic. EYES: Pupils are round, equal, and reactive to light; EOM intact. CHEST: Regular chest respiration and excursion. ABDOMEN: Active bowel sounds throughout; mild distention. Non-tender to palpation. No peritoneal signs. No CVA tenderness bilaterally. BACK: No midline or facet tenderness. Negative straight leg raise bilaterally. No SI joint tenderness. NEURO: CN II-XII grossly intact with no focal deficits noted. SKIN: No lesions, erythema, or rashes noted. Laboratory Laboratory Results (Last CBC): 04/27/17 05:39 Red Blood Count 3.94 L, Mean Corpuscular Volume 89.8, Mean Corpuscular Hemoglobin 29.9, Mean Corpuscular Hemoglobin Concent 33.3, Mean Platelet Volume 10.0, Neutrophils (%) (Auto) 83.8, Lymphocytes (%) (Auto) 5.7, Monocytes (%) ( Auto) 8.0, Eosinophils (%) (Auto) 2.1, Basophils (%) (Auto) 0.2, Neutrophils # ( Auto) 7.74 H, Lymphocytes # (Auto) 0.53 L, Monocytes # (Auto) 0.74 H, Eosinophils # (Auto) 0.19, Basophils # (Auto) 0.[address] ABD/PELVIS IV CONTRAST ONLY CLINICAL HISTORY: Abdominal pain, pancreatic carcinoma, COMPARISON STUDY: 04/11/2017 TECHNIQUE: Following the IV administration of 93 mL of Optiray-320, CT scan of the abdomen and pelvis was performed from the lung bases to the proximal femurs. Images are reviewed in the axial, sagittal, and coronal planes. IV contrast was administered without complication. A dose lowering technique was utilized adhering to the principles of ALARA. CT DOSE: 463.62 mGy.cm FINDINGS: Lower chest: The heart is normal in size and configuration, without pericardial effusion. The lung bases and pleural spaces are clear. Liver: The contrast-enhanced liver is normal in size, contour, and attenuation. There is no intrahepatic biliary ductal dilatation. The hepatic veins and portal veins are patent. Gallbladder: Distended. No calculi are visualized. Spleen: Normal in size and attenuation. Pancreas: There is been no significant change in the 6.5 cm pancreatic head/neck mass. There is encasement of the superior mesenteric vein. There is encasement of the splenic artery. There is occlusion of the splenic vein. There is encasement of the superior mesenteric artery. The mass abuts the stomach and invasion cannot be excluded. Adrenal glands: Unremarkable. Kidneys: There is symmetric renal cortical enhancement. The kidneys are normal in size without hydronephrosis. Bowel: There are no transition zone to indicate bowel obstruction. There is colonic diverticulosis. There are no acute peridiverticular inflammatory changes. There are no findings to indicate acute appendicitis. There is mild fecal retention. Peritoneum: A ventral hernia is again visualized. Vasculature: There is no aortic dilatation. Upper abdominal varices are again evident. Adenopathy: There are mildly prominent lymph nodes in the gastrohepatic ligament and celiac region. Pelvic viscera: The prostate remains enlarged. Skeletal structures: No destructive osseous lesions are seen. IMPRESSION: 1. No significant change in the 6.5 cm hypodense pancreatic mass 2. Persistent splenic vein occlusion, persistent celiac, and superior mesenteric artery encasement. Persistent superior mesenteric vein and portal vein narrowing. 3. No evidence of bowel obstruction. No evidence of free air 4. Mild fecal retention Electronically signed by: Jose Starks M.D. 04/24/2017 12:13 PM Dictated Date/Time: 04/24/2017 12:05 PM [place] Drug Monitoring Program Search Results: patient reviewed within database (Prescriptions from Dr. Hinojosa. Consistent with pharmacy, refill dates.) Opioid Risk Assessment Risk assessment performed, minimal risk identified Assessment 1. Pancreatic cancer Recommendations 1. Increase Fentanyl patch to 75mcg/hr. 2. Will initiate the patient on oral Dilaudid 2mg PO x 4 hours PRN pain. 3. Discontinue Dilaudid MOLD PULLER. 4. Dilaudid 1mg IV x 3 hours for breakthrough pain. 5. We have discussed a possible Celiac Plexus Nerve Block to help with the patient's pain. The procedure was explained to him. He would like to discuss the procedure with his Oncologist prior to deciding on pursuing the procedure. Procedure may be performed in either an inpatient or outpatient basis.
[2017-04-27] MEDS: HYDROmorphone INJ 1 MG/ML SYR IV PRN ×4 (10:24→22:56)
--- NOTE | 2017-04-27 11:47 | Progress Note ---
Medicine Progress Note Date & Time of Visit: Apr 27, 2017 at 11:28. Subjective Pt was seen and examined Sitting in bed with no distress Pt said that he continues to have pain in his abdomen He said that he nausea improves Denies any chest pain, palpitation, dizziness and SOB Objective Last 8 Hrs Date Time Temp Pulse Resp B/P (MAP) Pulse Ox O2 Delivery O2 Flow Rate FiO2 04/27/17 11:01 Room Air 04/27/17 08:19 96 Room Air 04/27/17 07:07 37.3 95 14 110/56 (74) 97 Room Air 04/27/17 04:20 37.4 78 18 104/65 (78) 96 Room Air Physical Exam: General- No acute distress Head- atraumatic Eyes- PERRL, EOMI ENT- oropharynx clear Neck- supple, no JVD Lungs- clear to auscultation Heart- regular rhythm Abdomen- normal bowel sounds, +tender Extremities- no calf tenderness Neuro- alert, oriented x 3; PERRL, EOMI Skin- warm & dry Laboratory Results: Last 24 Hours Test 04/26/17 14:02 04/26/17 14:59 04/27/17 05:39 White Blood Count 9.40 K/uL 9.24 K/uL Red Blood Count 4.16 M/uL 3.94 M/uL Hemoglobin 12.2 g/dL 11.8 g/dL Hematocrit 36.8 % 35.4 % Mean Corpuscular Volume 88.5 fL 89.8 fL Mean Corpuscular Hemoglobin 29.3 pg 29.9 pg Mean Corpuscular Hemoglobin Concent 33.2 g/dl 33.3 g/dl Platelet Count 225 K/uL 229 K/uL Mean Platelet Volume 10.3 fL 10.0 fL Neutrophils (%) (Auto) 87.4 % 83.8 % Lymphocytes (%) (Auto) 5.1 % 5.7 % Monocytes (%) (Auto) 5.6 % 8.0 % Eosinophils (%) (Auto) 1.6 % 2.1 % Basophils (%) (Auto) 0.1 % 0.2 % Neutrophils # (Auto) 8.21 K/uL 7.74 K/uL Lymphocytes # (Auto) 0.48 K/uL 0.53 K/uL Monocytes # (Auto) 0.53 K/uL 0.74 K/uL Eosinophils # (Auto) 0.15 K/uL 0.19 K/uL Basophils # (Auto) 0.01 K/uL 0.02 K/uL RDW Standard Deviation 52.0 fL 53.2 fL RDW Coefficient of Variation 16.2 % 16.4 % Immature Granulocyte % (Auto) 0.2 % 0.2 % Immature Granulocyte # (Auto) 0.02 K/uL 0.02 K/uL Prothrombin Time 12.4 SECONDS Prothromb Time International Ratio 1.2 Activated Partial Thromboplast Time 31.5 SECONDS Partial Thromboplastin Ratio 1.2 Sodium Level 132 mmol/L 134 mmol/L Potassium Level 3.9 mmol/L 4.1 mmol/L Chloride Level 98 mmol/L 100 mmol/L Carbon Dioxide Level 26 mmol/L 26 mmol/L Anion Gap 8.0 mmol/L 8.0 mmol/L Blood Urea Nitrogen 15 mg/dl 12 mg/dl Creatinine 1.20 mg/dl 1.09 mg/dl Est Creatinine Clear Calc Drug Dose 66.5 ml/min 73.2 ml/min Estimated GFR () 72.6 81.5 Estimated GFR (Non- 62.6 70.4 BUN/Creatinine Ratio 12.5 10.9 Random Glucose 194 mg/dl 125 mg/dl Calcium Level 9.0 mg/dl 8.7 mg/dl Total Bilirubin 0.6 mg/dl 0.8 mg/dl Direct Bilirubin 0.2 mg/dl Aspartate Amino Transf (AST/SGOT) 9 U/L 8 U/L Alanine Aminotransferase (ALT/SGPT) 16 U/L 15 U/L Alkaline Phosphatase 76 U/L 68 U/L Total Protein 7.8 gm/dl 7.1 gm/dl Albumin 3.3 gm/dl 3.1 gm/dl Lipase 47 U/L 44 U/L Hepatitis C Antibody Screen NEG Lactic Acid Level 1.3 mmol/L Globulin 4.0 gm/dl Albumin/Globulin Ratio 0.8 Assessment & Plan INTRACTABLE ABDOMINAL PAIN Due to pancreatic cancer Had a CT abd/pelvis done on 04/24/17 showed no significant change in the 6.5 cm hypodense pancreatic mass, persistent splenic vein occlusion, persistent celiac , and superior mesenteric, artery encasement, persistent superior mesenteric vein and portal vein narrowing, no evidence of bowel obstruction, no evidence of free air, mild fecal retention Pain management was consulted Will advanced diet Pain management discussed with pt for possible Celiac Plexus Nerve Block to help with the pain Pt will wait to speak to Dr. Hinojosa before making a decision about the nerve block Was on [employer] TE[employer]ER pump that was discontinued Fentanyl increased to 75mcg and started on Dilaudid PO PANCREATIC NEUROENDOCRINE CARCINOMA Nonresectable disease, s/p radiation, on oral chemotherapy (Xeloda and Temodar) - most recent cycle completed 04/22/17 Oncology on board Will consult palliative care after talking to oncology DVT PROPHYLAXIS Lovenox SQ- declined by patient On SCD's CODE STATUS Full code DISPOSITION Follows with Dr. Bush for primary care Consultants: Pain management Oncology Current Inpatient Medications: Current Inpatient Medications Medications (Trade) Dose Ordered Sig/Yolis Route Start Time Stop Time Status Last Admin Dose Admin Enoxaparin Sodium (Lovenox Inj) 40 mg Q24H SQ 04/26/17 16:00 05/26/17 15:59 04/26/17 18:00 40 MG Ondansetron HCl (Zofran Inj) 4 mg Q6H PRN IV 04/26/17 15:30 05/26/17 15:29 04/26/17 23:05 4 MG Sodium Chloride 1,000 ml @ 125 mls/hr Q8H IV 04/26/17 16:00 05/26/17 15:59 04/27/17 07:39 125 MLS/HR Bisacodyl (Dulcolax Tab) 5 mg BID PO 04/26/17 20:00 05/26/17 19:59 04/27/17 07:47 5 MG Polyethylene (Miralax Powder Packet) 17 gm BID PO 04/26/17 20:00 05/26/17 19:59 04/27/17 07:38 17 GM Bisacodyl (Dulcolax Supp) 10 mg DAILY PRN OK 04/26/17 16:00 05/26/17 15:59 Fentanyl (Duragesic Patch) 75 mcg Q3D@0900 TD 04/27/17 10:00 05/11/17 09:59 04/27/17 10:20 75 MCG Miscellaneous (Fentanyl Patch Remove & Waste) 1 ea Q3D@0859 N/A 04/27/17 09:59 05/27/17 09:58 04/27/17 10:37 1 EA Miscellaneous Information (Check Fentanyl Patch Placement) 1 ea QS N/A 04/27/17 16:00 05/27/17 15:59 Hydromorphone HCl (Dilaudid Tab) 2 mg Q4 PRN PO 04/27/17 10:00 05/11/17 09:59 Hydromorphone HCl (Dilaudid Inj) 1 mg Q3HWA PRN IV 04/27/17 10:00 05/11/17 09:59 04/27/17 10:24 1 MG
[2017-04-27 14:52] VITALS: BP 116/73; PULSE 79; TEMP 37
[2017-04-27] MEDS ORDERED: FENTANYL 50 MCG/HR TDSY TD SCH (16:00)
[2017-04-27] MEDS: ENOXAPARIN 40 MG/0.4 ML SYR SQ SCH (16:20)
[2017-04-27] MEDS: HYDROmorphone HCL 2 MG TAB PO PRN (17:58)
[2017-04-27] MEDS: ONDANSETRON INJ 2 MG/ML 2 ML VIAL IV PRN (19:19)
[2017-04-27 19:26] VITALS: BP 115/71; PULSE 90; TEMP 37.5; O2SAT 98
[2017-04-28] VITALS (8 sets, daily range): BP systolic 102–130; BP diastolic 57–72; PULSE 84–96; TEMP 36.5–37.8; O2SAT 95–99
[2017-04-28] MEDS: HYDROmorphone HCL 2 MG TAB PO PRN ×3 (05:45→19:58)
[2017-04-28] MEDS: ONDANSETRON INJ 2 MG/ML 2 ML VIAL IV PRN ×3 (07:07→23:10)
[2017-04-28] MEDS: SODIUM CHLORIDE 0.9% 1000ML 1,000 ML IV SCH ×2 (07:08→17:22)
[2017-04-28] MEDS: CHECK FENTANYL PATCH PLACEMENT SCH ×2 (07:08→15:29)
--- NOTE | 2017-04-28 07:30 | ONCOLOGY CONSULTATION ---
DATE OF CONSULTATION: 04/28/2017 CONSULTATION WAS REQUESTED BY: Dr. Hernandez. REASON FOR CONSULTATION: Uncontrolled pain, pancreatic cancer. HISTORY OF PRESENT ILLNESS: Mr. Engle is a 67-year-old gentleman with a neuroendocrine cancer of the pancreas, who is currently receiving palliative chemotherapy with Xeloda and Temodar. Despite resuming chemotherapy, he has had progressive increase in midepigastric pain. He had presented multiple times to my office and sent to the Emergency Department at [facility]. He called my office on the day of admission again complaining of severe pain and I instructed him to go to the Emergency Department at [facility] for admission. He was seen this morning in his hospital room. He states he slept all night, which is the first time in many weeks. His pain is currently under fairly good control. He was seen in consultation by pain management. They discussed with him the possibility of a celiac nerve block. I reviewed this with him in detail and told him I felt that that would be very appropriate. I will continue to follow along while he remains hospitalized. I will defer pain management to Dr. Rogers. Again, the patient and I both agree with going ahead with a celiac axis nerve block while he is hospitalized. MEAGHAN
[2017-04-28] MEDS: POLYETHYLENE (MIRALAX) 17 GM PACK PO SCH ×2 (08:00→20:01)
[2017-04-28] MEDS: BISACODYL 5 MG TABEC PO SCH ×2 (08:00→20:01)
--- NOTE | 2017-04-28 09:33 | Pain Management Progress Note ---
Pain Management Progress Note Date of Service Apr 28, 2017. Subjective Mr. Engle is a 67 year old white male with upper abdominal pain secondary to pancreatic cancer. Yesterday the Fentanyl was increased from 50mcg/hr to 75mcg/hr and he was ordered PO Dilaudid 2mg x 4 hours. Patient states that his pain was not well controlled yesterday that he did require IV Dilaudid for breakthrough pain. This morning his pain is a 3/10 but he is limiting his movement as it does exacerbate his pain. Pain does remain in the upper abdomen and radiates into the back. Patient denies any nausea, vomiting, urinary sx, constipation, diarrhea. Case discussed with Dr. Rogers Objective Vital Signs: Last Vital Signs Documentation Date Time Temp Pulse Resp B/P (MAP) Pulse Ox O2 Delivery O2 Flow Rate FiO2 04/28/17 07:10 37.1 84 16 102/63 (76) 99 Room Air 04/27/17 14:52 98 Physical Exam: GENERAL: Mr. Engle is a 67 y/o white male that appears his stated age. Speech and cognition is intact. Mood and affect is appropriate. He is sitting quietly in the exam room, in no acute distress. ABDOMEN: Active bowel sounds throughout; mild distention. Non-tender to palpation. No peritoneal signs. No CVA tenderness bilaterally. NEURO: CN II-XII grossly intact with no focal deficits noted. Laboratory Laboratory Findings 04/27/17 05:39 Red Blood Count 3.94 L, Mean Corpuscular Volume 89.8, Mean Corpuscular Hemoglobin 29.9, Mean Corpuscular Hemoglobin Concent 33.3, Mean Platelet Volume 10.0, Neutrophils (%) (Auto) 83.8, Lymphocytes (%) (Auto) 5.7, Monocytes (%) ( Auto) 8.0, Eosinophils (%) (Auto) 2.1, Basophils (%) (Auto) 0.2, Neutrophils # ( Auto) 7.74 H, Lymphocytes # (Auto) 0.53 L, Monocytes # (Auto) 0.74 H, Eosinophils # (Auto) 0.19, Basophils # (Auto) 0.02 Assessment 1. Intractable abdominal pain secondary to pancreatic cancer. Recommendations 1. Plan for a Celiac Plexus block for tomorrow morning at 815AM with Dr. Rogers. Procedure was again reviewed with the patient and he would like to proceed. NPO after midnight. Levenox has been held. 2. Continue Fentanyl patch 75mcg/hr. 3. Increase Dilaudid PO to 4mg x 4 hours PRN pain 4. Patient will use IV Dilaudid only if PO medications are not effective
[2017-04-28] MEDS ORDERED: NURSING VERBAL MED ORDER ONE (12:30)
--- NOTE | 2017-04-28 12:50 | Anesthesiology Progress Note ---
Anesthesia Progress Note Date of Service Apr 28, 2017. Progress Notes Pt is a 67M for celiac plexus block on 04/29/17. Pt has h/o pancreatic neuroendocrine tumor causing intractable abdominal pain. Pt is otherwise healthy and has good functional status. Pt is an acceptable candidate for MAC vs. GA. Consent was obtained from the pt. All questions/concerns were addressed.
--- NOTE | 2017-04-28 18:47 | Progress Note ---
Medicine Progress Note Date & Time of Visit: Apr 28, 2017 at 09:43. Subjective Pt was seen and examined Sitting in bed with no distress Pt said that his pain improved Plan to get the celiac plexus saad done tomorrow Objective Last 8 Hrs Date Time Temp Pulse Resp B/P (MAP) Pulse Ox O2 Delivery O2 Flow Rate FiO2 04/28/17 16:00 Room Air 04/28/17 14:35 37.1 96 18 105/63 (77) 95 Room Air 04/28/17 12:13 Room Air 04/28/17 11:13 37.1 90 16 130/63 (85) 95 Room Air Physical Exam: General- No acute distress Head- atraumatic Eyes- PERRL, EOMI ENT- oropharynx clear Neck- supple, no JVD Lungs- clear to auscultation Heart- regular rhythm Abdomen- normal bowel sounds, +tender Extremities- no calf tenderness Neuro- alert, oriented x 3; PERRL, EOMI Skin- warm & dry Assessment & Plan INTRACTABLE ABDOMINAL PAIN Due to pancreatic cancer Had a CT abd/pelvis done on 04/24/17 showed no significant change in the 6.5 cm hypodense pancreatic mass, persistent splenic vein occlusion, persistent celiac , and superior mesenteric, artery encasement, persistent superior mesenteric vein and portal vein narrowing, no evidence of bowel obstruction, no evidence of free air, mild fecal retention Pain management was consulted Will advanced diet Pain management discussed with pt for possible Celiac Plexus Nerve Block to help with the pain Pt will wait to speak to Dr. 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 Bush for primary care Consultants: Pain management Oncology Current Inpatient Medications: Current Inpatient Medications Medications (Trade) Dose Ordered Sig/Yolis Route Start Time Stop Time Status Last Admin Dose Admin Enoxaparin Sodium (Lovenox Inj) 40 mg Q24H SQ 04/26/17 16:00 11/23/17 15:59 Future Hold 04/27/17 16:20 40 MG Ondansetron HCl (Zofran Inj) 4 mg Q6H PRN IV 04/26/17 15:30 05/26/17 15:29 04/28/17 14:54 4 MG Sodium Chloride 1,000 ml @ 75 mls/hr [id number] IV 04/26/17 16:00 05/26/17 15:59 04/28/17 17:22 75 MLS/HR Bisacodyl (Dulcolax Tab) 5 mg BID PO 04/26/17 20:00 05/26/17 19:59 04/27/17 20:15 5 MG Polyethylene (Miralax Powder Packet) 17 gm BID PO 04/26/17 20:00 05/26/17 19:59 04/27/17 20:15 17 GM Bisacodyl (Dulcolax Supp) 10 mg DAILY PRN DE 04/26/17 16:00 05/26/17 15:59 Fentanyl (Duragesic Patch) 75 mcg Q3D@0900 TD 04/27/17 10:00 05/11/17 09:59 04/27/17 10:20 75 MCG Miscellaneous (Fentanyl Patch Remove & Waste) 1 ea Q3D@0859 N/A 04/27/17 09:59 05/27/17 09:58 04/27/17 10:37 1 EA Miscellaneous Information (Check Fentanyl Patch Placement) 1 ea QS N/A 04/27/17 16:00 05/27/17 15:59 04/28/17 15:29 1 EA Hydromorphone HCl (Dilaudid Inj) 1 mg Q3HWA PRN IV 04/27/17 10:00 05/11/17 09:59 04/27/17 22:56 1 MG Hydromorphone HCl (Dilaudid Tab) 4 mg Q4 PRN PO 04/28/17 09:15 05/11/17 09:59 04/28/17 09:21 4 MG
[2017-04-28] MEDS ORDERED: ACETAMINOPHEN 325 MG TAB ONE (19:56)
[2017-04-28] MEDS ORDERED: ACETAMINOPHEN 325 MG TAB PO PRN (20:00)
[2017-04-29] VITALS (7 sets, daily range): BP systolic 97–126; BP diastolic 60–80; PULSE 75–98; TEMP 36.8–37.3; O2SAT 95–99
[2017-04-29 04:50] LABS: BASO % 0.1 %; BASO ABS # 0.01 K/uL (0-0.2); EOS % 2.7 %; HEMATOCRIT 29.4 % (42-52); IG% 0.3 %; LYMPH % 6.9 %; LYMPH ABS # 0.48 K/uL (1.2-3.4); MEAN CELL VOLUME 89.4 fL (80-100); MEAN CORPUSCULAR HEMOGLOBIN 29.8 pg (25-34); MEAN PLATELET VOLUME 9.5 fL (7.4-10.4); MONO % 9.7 %; NEUT % 80.3 %; PLATELET COUNT 173 K/uL (130-400); RED BLOOD COUNT 3.29 M/uL (4.7-6.1); WHITE BLOOD COUNT 6.91 K/uL (4.8-10.8)
[2017-04-29 04:59] LABS: INR 1.3 (0.9-1.1); PROTHROMBIN TIME (PATIENT) 13.5 SECONDS (9.0-12.0)
[2017-04-29 05:02] LABS: COMPLETE YES; MEAN CORPUSCULAR HGB CONC 33.3 g/dl (32-36)
[2017-04-29] MEDS: SODIUM CHLORIDE 0.9% 1000ML 1,000 ML IV SCH (07:01)
[2017-04-29] MEDS: HYDROmorphone INJ 1 MG/ML SYR IV PRN (07:02)
[2017-04-29] MEDS: CHECK FENTANYL PATCH PLACEMENT SCH ×3 (07:41→15:52)
[2017-04-29] MEDS: BISACODYL 5 MG TABEC PO SCH (08:00)
[2017-04-29] MEDS: POLYETHYLENE (MIRALAX) 17 GM PACK PO SCH (08:00)
--- NOTE | 2017-04-29 08:07 | History & Physical Bridge Note ---
H&P Re-Evaluation Bridge Note: I have examined the patient, reviewed the History & Physical and in the interval since the performance of the History & Physical I have noted the following changes of clinical significance: No changes noted
[2017-04-29] MEDS ORDERED: EpINEphrine INJ 1MG/ML AMP 1 MG/ML AMP ONE (08:43)
[2017-04-29] MEDS ORDERED: ROPIVACAINE 0.5% 5 MG/ML 30 ML VIAL ONE (08:43)
[2017-04-29] MEDS ORDERED: FENTANYL CITRATE INJ 50 MCG/1 ML 2 ML VIAL ONE (08:55)
[2017-04-29] MEDS ORDERED: DEXAMETHASONE **PF** INJ 10 MG/ML VIAL ONE (08:55)
[2017-04-29] MEDS ORDERED: MIDAZOLAM HCL 1 MG/ML 2ML VIAL ONE (08:55)
[2017-04-29] MEDS ORDERED: LIDOCAINE HCL 1% 20 ML VIAL ONE (08:56)
[2017-04-29] MEDS ORDERED: PROPOFOL IV EMULSION 10 MG/ML 20 ML VIAL IV ONE (08:56)
[2017-04-29] MEDS ORDERED: ONDANSETRON INJ 2 MG/ML 2 ML VIAL ONE (08:56)
[2017-04-29] MEDS ORDERED: ONDANSETRON INJ 2 MG/ML 2 ML VIAL IV PRN (09:00)
[2017-04-29] MEDS ORDERED: HYDROmorphone INJ 1 MG/ML SYR IV PRN (09:00)
[2017-04-29] MEDS ORDERED: FENTANYL CITRATE INJ 50 MCG/1 ML 2 ML VIAL IV PRN (09:00)
[2017-04-29] MEDS ORDERED: EpHEDrine SULFATE INJ 50 MG/ML AMP IV PRN (09:00)
[2017-04-29] MEDS ORDERED: ATROPINE SULFATE 0.1 MG/ML 5ML SYR IV PRN (09:00)
--- NOTE | 2017-04-29 09:41 | Pain Clinic Procedure Note ---
Pain Management Procedure Note Procedure Date Apr 29, 2017. Procedure Description Procedure: celiac plexus block Procedure Time Out: side/site verified, patient ID confirmed, correct procedure Consent Obtained: written Performed By: Dr. China Rogers Indications: diagnostic, therapeutic Contraindications: none Pre Procedure Vital Signs Date Time Temp Pulse Resp B/P (MAP) Pulse Ox O2 Delivery O2 Flow Rate FiO2 04/29/17 07:24 36.9 98 18 126/80 (95) 95 Room Air 04/29/17 03:56 37.2 83 20 110/67 (81) 99 Room Air ASA Class: 3 Description: CELIAC PLEXUS BLOCK Diagnosis: pancreatic cancer Side injected: right Surgeon: Dr. China Rogers Anesthesia: MAC Material forwarded to lab: none Complications noted: none EBL: 0ml IVF: per anesthetic record Prior to starting, the Patients diagnosis and the procedure were reviewed with the patient in detail. Possible risks, complications and alternative therapies were also reviewed. Patients questions were answered. Informed consent was obtained. Allergies and medication list was reviewed. A peripheral IV was started and one liter of normal saline was administered. Ancef was given IV prior to the start of the injection. IV sedation was given per anesthetic record. The patient was brought to the operating room and placed in prone position on the table. Immediately prior to starting the procedure, a time out was conducted with the staff and the patient where the Patient was identified , proposed procedure was verified, consent was reviewed and the proper site for the planned procedure was identified. Fluoroscopy was utilized in performing the procedure to assist in placement of the needle, to evaluate the final position on the needle prior to injection and to avoid intravascular injection. The thoracolumbar spine area was prepped with Duraprep and Betadine solution. Sterile drapes were applied. Next, a true AP view of the L1 vertebral body was identified. The C-arm was then oblique to the appropriate side approximately 35 degrees so that the superior lateral margin of the vertebral body was congruent with the transverse process. 1% lidocaine, 8 cc, was infiltrated in the skin and subcutaneous tissues using a 27 gauge needle. Then a 7 inch Quincke spinal needle was introduced at the superior lateral margin of the L1 vertebral body and advanced until contact was made with the vertebral body. The needle was the rotated and walked off laterally from the vertebral body. Next, a lateral Xray was taken and the needle was advanced until it lied just anterior to the L1 vertebral body. This was confirmed in AP view. A 6 inch micro bore tubing was attached to the needle. Next, 3ml of Isovue 300 contrast was injected showing typical spread along the celiac plexus. Digital subtraction imaging showed no vascular uptake. This was confirmed again in AP view. No heme or paresthesias were noted. No CSF was noted. Next 15ml of 0.5 % Ropivacaine with 1:200,000 Epinephrine mixed with 3ml of contrast and 10mg of preservative free dexamethasone was injected in 5ml aliquots after negative aspiration for blood or CSF. No complications were noted. There were no signs or symptoms of local anesthetic toxicity. The needle was withdrawn. Adequate hemostasis was noted. A sterile Band-Aid was applied at the injection site. Patient was able to log roll back to the supine position. Patient was taken to the recovery room without complications noted. Should the patient have relief with this diagnostic procedure, I will plan for neurolytic block in the future. Complications: none Patient Tolerated Procedure: well Post-procedure Vital Signs: reviewed and stable
[2017-04-29] MEDS ORDERED: IOPAMIDOL IV ONE (10:03)
--- NOTE | 2017-04-29 10:26 | Anesthesiology Progress Note ---
Anesthesia Post Op Note Date & Time Apr 29, 2017 at 10:26 Vital Signs Pain Intensity: 0 Vital Signs Past 12 Hours Date Time Temp Pulse Resp B/P (MAP) Pulse Ox O2 Delivery O2 Flow Rate FiO2 04/29/17 10:15 37 79 14 92/61 (80) 95 Room Air 04/29/17 10:05 79 19 98/55 100 Room Air 04/29/17 09:55 88 15 104/69 100 Mask 10 04/29/17 09:49 37.0 85 16 120/79 100 Mask 10 04/29/17 07:24 36.9 98 18 126/80 (95) 95 Room Air 04/29/17 03:56 37.2 83 20 110/67 (81) 99 Room Air 04/28/17 23:59 36.7 95 20 111/65 (80) 97 Room Air 04/28/17 23:19 Room Air Notes Mental Status: alert / awake / arousable, participated in evaluation Pt Amnestic to Procedure: Yes Nausea / Vomiting: adequately controlled Pain: adequately controlled Airway Patency, RR, SpO2: stable & adequate BP & HR: stable & adequate Hydration State: stable & adequate Anesthetic Complications: no major complications apparent
--- NOTE | 2017-04-29 11:04 | Pain Management Consultation ---
Pain Consultation Date of Service Apr 29, 2017. Pain Consultation The patient reports his pain level went from 8-10/10 to 2/10 with celiac block. He would be good candidate for celiac plexus neurolysis should he have recurrence of pain. I told him that A from a pain perspective, he may be discharged today with sentinel an oral breakthrough medications. He is welcome to follow up in our office should he have recurrence of pain. If he is still admitted early next week we will follow-up with him as inpatient and if he has recurrence of pain would plan to do an inpatient neurolytic celiac plexus block. Because preservative-free dexamethasone was given during his diagnostic celiac block he may have sustained pain relief with this injection. This was discussed with the patient and all his questions were answered.
--- NOTE | 2017-04-29 15:15 | Progress Note ---
Medicine Progress Note Date & Time of Visit: Apr 29, 2017 at 12:57. Subjective Pt was seen and examined Sitting in bed comfortable with no distress Pt said that his pain improved after the celiac plexus block He said that now his pain his very minimal Denies any numbness, palpitation and SOB Objective Last 8 Hrs Date Time Temp Pulse Resp B/P (MAP) Pulse Ox O2 Delivery O2 Flow Rate FiO2 04/29/17 13:00 36.8 83 18 112/74 (87) 98 Room Air 04/29/17 12:30 Room Air 04/29/17 11:30 37.2 89 20 97/60 (72) 95 Room Air 04/29/17 11:30 37.0 81 18 117/71 (86) 97 Room Air 04/29/17 11:00 37.3 88 20 116/70 (85) 97 Room Air 04/29/17 10:45 37 79 17 100/56 94 Room Air 04/29/17 10:35 77 17 92/55 93 Room Air 04/29/17 10:25 76 16 93/51 (71) 93 Room Air 04/29/17 10:15 37 79 14 92/61 (80) 95 Room Air 04/29/17 10:05 79 19 98/55 100 Room Air 04/29/17 09:55 88 15 104/69 100 Mask 10 04/29/17 09:49 37.0 85 16 120/79 100 Mask 10 04/29/17 07:24 36.9 98 18 126/80 (95) 95 Room Air Physical Exam: General- No acute distress Head- atraumatic Eyes- PERRL, EOMI ENT- oropharynx clear Neck- supple, no JVD Lungs- clear to auscultation Heart- regular rhythm Abdomen- normal bowel sounds, +tender Extremities- no calf tenderness Neuro- alert, oriented x 3; PERRL, EOMI Skin- warm & dry Laboratory Results: Last 24 Hours Test 04/29/17 04:41 White Blood Count 6.91 K/uL Red Blood Count 3.29 M/uL Hemoglobin 9.8 g/dL Hematocrit 29.4 % Mean Corpuscular Volume 89.4 fL Mean Corpuscular Hemoglobin 29.8 pg Mean Corpuscular Hemoglobin Concent 33.3 g/dl Platelet Count 173 K/uL Mean Platelet Volume 9.5 fL Neutrophils (%) (Auto) 80.3 % Lymphocytes (%) (Auto) 6.9 % Monocytes (%) (Auto) 9.7 % Eosinophils (%) (Auto) 2.7 % Basophils (%) (Auto) 0.1 % Neutrophils # (Auto) 5.54 K/uL Lymphocytes # (Auto) 0.48 K/uL Monocytes # (Auto) 0.67 K/uL Eosinophils # (Auto) 0.19 K/uL Basophils # (Auto) 0.01 K/uL RDW Standard Deviation 53.4 fL RDW Coefficient of Variation 16.5 % Immature Granulocyte % (Auto) 0.3 % Immature Granulocyte # (Auto) 0.02 K/uL Prothrombin Time 13.5 SECONDS Prothromb Time International Ratio 1.3 Assessment & Plan INTRACTABLE ABDOMINAL PAIN Due to pancreatic cancer Had a CT abd/pelvis done on 04/24/17 showed no significant change in the 6.5 cm hypodense pancreatic mass, persistent splenic vein occlusion, persistent celiac , and superior mesenteric, artery encasement, persistent superior mesenteric vein and portal vein narrowing, no evidence of bowel obstruction, no evidence of free air, mild fecal retention Pain management was consulted Will advanced diet Pain management discussed with pt for possible Celiac Plexus Nerve Block to help with the pain Pt will wait to speak to Dr. 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 pump that was discontinued Fentanyl increased to 75mcg and started on Dilaudid PO Continue fentanyl patch and PO Dilaudid Pain improved S/p Celiac plexus block this morning Tolerated procedure well with no complication Pain improved significantly Case discussed with Pain management If pain reoccurs, he will be candidate for celiac plexus neurolysis as pain management Follow up with pain management in 2 weeks, if pain reoccurs continue fentanyl patch and po Dilaudid for break through pain PANCREATIC NEUROENDOCRINE CARCINOMA Nonresectable disease, s/p radiation, on oral chemotherapy (Xeloda and Temodar) - most recent cycle completed 04/22/17 Oncology on board DVT PROPHYLAXIS Lovenox SQ- declined by patient On SCD's CODE STATUS Full code DISPOSITION Follows with Dr. Bush for primary care on 05/06 @ 9:45 AM Follow up with Pain management Consultants: Pain management Oncology Procedures: Celiac Plexus Block Current Inpatient Medications: Current Inpatient Medications Medications (Trade) Dose Ordered Sig/Yolis Route Start Time Stop Time Status Last Admin Dose Admin Enoxaparin Sodium (Lovenox Inj) 40 mg Q24H SQ 04/26/17 16:00 05/26/17 15:59 Future hold 04/27/17 16:20 40 MG Ondansetron HCl (Zofran Inj) 4 mg Q6H PRN IV 04/26/17 15:30 05/26/17 15:29 04/28/17 23:10 4 MG Sodium Chloride 1,000 ml @ 75 mls/hr [id number] IV 04/26/17 16:00 05/26/17 15:59 04/29/17 07:01 75 MLS/HR Bisacodyl (Dulcolax Tab) 5 mg BID PO 04/26/17 20:00 05/26/17 19:59 04/28/17 20:01 5 MG Polyethylene (Miralax Powder Packet) 17 gm BID PO 04/26/17 20:00 05/26/17 19:59 04/28/17 20:01 17 GM Bisacodyl (Dulcolax Supp) 10 mg DAILY PRN ID 04/26/17 16:00 05/26/17 15:59 Fentanyl (Duragesic Patch) 75 mcg Q3D@0900 TD 04/27/17 10:00 05/11/17 09:59 04/27/17 10:20 75 MCG Miscellaneous (Fentanyl Patch Remove & Waste) 1 ea Q3D@0859 N/A 04/27/17 09:59 05/27/17 09:58 04/27/17 10:37 1 EA Miscellaneous Information (Check Fentanyl Patch Placement) 1 ea QS N/A 04/27/17 16:00 05/27/17 15:59 04/29/17 07:41 1 EA Hydromorphone HCl (Dilaudid Inj) 1 mg Q3HWA PRN IV 04/27/17 10:00 05/11/17 09:59 04/29/17 07:02 1 MG Hydromorphone HCl (Dilaudid Tab) 4 mg Q4 PRN PO 04/28/17 09:15 05/11/17 09:59 04/28/17 19:58 4 MG Acetaminophen (Tylenol Tab) 650 mg Q6 PRN PO 04/28/17 20:00 05/28/17 19:59
[2017-04-29] MEDS ORDERED: DRGTP75 TD ×2 (15:23→15:49)
[2017-04-29] MEDS ORDERED: HYDR2TAB3 PO (15:23)
--- NOTE | 2017-04-29 15:32 | Discharge Instructions ---
Discharge Instructions Date of Service Apr 29, 2017. Admission Reason for Admission: Abdominal Pain, Pancreatic Cancer Discharge Discharge Diagnosis / Problem: INTRACTABLE ABDOMINAL PAIN, PANCREATIC NEUROENDOCRINE CARCINOMA Discharge Goals Goal(s): Decrease discomfort, Improve function, Improve disease control Activity Recommendations Activity Limitations: resume your previous activity (as tolerated) . Instructions / Follow-Up Instructions / Follow-Up Follows with your primary care provider Dr. Bush on 05/06 @ 9:45 AM Follow up with Pain management Dr. Rogers in 2 weeks (Please call to schedule for the appointment) Follow up with your Oncology Dr. Hinojosa ( ( Already had an appointment with Dr. Hinojosa, keep the appointment as per Dr. Hinojosa) Dilaudid as needed for break through pain (Please hold for lethargy and drowsiness) Do not drive or operate any machine while on narcotic (Dilaudid/fentanyl patch) Current Hospital Diet Patient's current hospital diet: Regular Diet Discharge Diet Recommended Diet: Regular Diet Procedures Procedures Performed: Diagnostic Celiac Plexus Block Pending Studies Studies pending at discharge: no Medical Emergencies . Who to Call and When: Medical Emergencies: If at any time you feel your situation is an emergency, please call 911 immediately. . Non-Emergent Contact Non-Emergency issues call your: Primary Care Provider Call Non-Emergent contact if: your pain is not controlled, your pain is worsening, you have any medication questions . . "Provider Documentation" section prepared by Slim Maxwell. . VTE Core Measure Inpt VTE Proph given/why not?: Enoxaparin (Lovenox) [place] Drug Monitoring Program Search Results: patient reviewed within database
[2017-04-29] MEDS ORDERED: FENTANYL PATCH REMOVE & WASTE SCH (16:29)
[2017-04-29] MEDS ORDERED: FENTANYL 75 MCG/HR TDSY TD ONE (16:30)
[2017-04-30] MEDS ORDERED: FENTANYL PATCH REMOVE & WASTE SCH (16:30)
[2017-05-02] MEDS ORDERED: ONDA8TAB6 PO (03:37)
--- NOTE | 2017-05-02 07:52 | Discharge Summary ---
Discharge Summary Date of Service May 02, 2017. Discharge Summary Admission Date: Apr 26, 2017 at 14:56 Discharge Date: Apr 29, 2017 Discharge Disposition: Home Principal Diagnosis: INTRACTABLE ABDOMINAL PAIN Secondary Diagnoses/Problems: PANCREATIC NEUROENDOCRINE CARCINOMA Procedures: Celiac Plexus Block Consultations: Pain management Oncology Medication Reconciliation New Medications: Fentanyl (Duragesic) 75 Mcg Tdsy 75 MCG TD Q3D@0900, #2 hold for drowsiness and lethargy Hydromorphone HCl (Hydromorphone HCl) 2 Mg Tab 2 MG PO Q4 PRN for Pain for 5 Days, #30 TAB Hold for drowsiness and lethargy Continued Medications: Bisacodyl (Bisacodyl EC) 5 Mg Tabec 1 TAB PO BID PRN for Constipation Capecitabine (Xeloda) 500 Mg Tab 500 MG PO UD, TAB Take 3 tabs twice daily for days 1-14 every 28 days. Ondansetron Hcl (Zofran) 8 Mg Tab 8 MG PO Q8 PRN for Nausea, TAB Polyethylene Glycol 3350 (Miralax) 1 Pow Pow 17 GM PO DAILY PRN for Constipation, #255 GM Temozolomide (Temodar) 180 Mg Cap 180 MG PO UD Take 2 capsules together on days 10-14 every 28 days. Discontinued Medications: Fentanyl (Fentanyl) 50 Mcg Tdsy 1 PATCH TD q three days for 14 Days, #5 PATCH Oxycodone/Acetaminophen 5MG/325MG (Percocet 5MG/325MG) Tab 1-2 TABLETS PO Q4H PRN for Pain, TAB PAIN Admission Information HPI (per Admitting provider): This is a 67 year old male with PMH of primary pancreatic neuroendocrine tumor who presents to the ED with abdominal pain. Patient follows with Dr. Hinojosa. Surgery was attempted in 2014 but he was found to have unresectable disease. Patient has undergone radiation approximately 2 years ago. He underwent chemotherapy infusion in the past (Etoposide/Platinol) which he did not respond to. He is currently on oral chemo, Xeloda and Temodar, and finished most recent cycle on Tuesday04/22/17. Pt reports abdominal pain throughout the course of his cancer which was previously controlled, but is more severe over the past 2 weeks. He localizes pain to periumbilical area and left and right mid-abdomen. Pt was seen in [facility] ER 2 days ago for abdominal pain, at which time CT a/p showed no significant change in the 6.5 cm hypodense pancreatic mass, persistent splenic vein occlusion, persistent celiac, and superior mesenteric, artery encasement, persistent superior mesenteric vein and portal vein narrowing , no evidence of bowel obstruction, no evidence of free air, mild fecal retention. Patient's morphine sulfate extended release was discontinued. He was started on 50 mcg Fentanyl patch and continued on Percocet 5-325 1-2 tabs q4h PRN. Pt continues with pain rated 10/10. Morphine 6 mg IV and Dilaudid 1 mg IV given in the ER did not help. He reports his nausea has been worse with the last round of oral chemo. No vomiting. Has been taking Zofran 8 mg q8h. He was eating normally before, but over past few days he is not eating/ drinking much. Last BM was 2 days ago. Has been taking Dulcolax and Miralax PRN. Pt's weight has trended down approximately 20 lb in past 6 weeks. He denies fever, chills, URI symptoms, cough, SOB, chest pain, diarrhea, dysuria, frequency, urgency, calf pain, edema. Physical Exam (per Admitting): General Appearance: WD/WN, + mild distress (mild distress due to pain), + pertinent finding (alert cooperative 67 year old male, lying in bed, at bedside) Head: normocephalic, atraumatic Eyes: normal inspection, sclerae normal ENT: normal ENT inspection (normal external inspection of ears, nose, lips) , hearing grossly normal, pharynx normal Neck: supple, trachea midline Respiratory/Chest: lungs clear, normal breath sounds, no respiratory distress, no accessory muscle use Cardiovascular: regular rate, rhythm, no murmur Abdomen/GI: normal bowel sounds, soft, + pertinent finding (mildly tender in periumbilical area) Back: normal inspection, no CVA tenderness Extremities/Musculoskelatal: normal inspection, no calf tenderness, no pedal edema Neurologic/Psych: alert, normal mood/affect, oriented x 3 Skin: normal color, warm/dry Hospital Course INTRACTABLE ABDOMINAL PAIN Due to pancreatic cancer Had a CT abd/pelvis done on 04/24/17 showed no significant change in the 6.5 cm hypodense pancreatic mass, persistent splenic vein occlusion, persistent celiac , and superior mesenteric, artery encasement, persistent superior mesenteric vein and portal vein narrowing, no evidence of bowel obstruction, no evidence of free air, mild fecal retention Pain management was consulted Will advanced diet Pain management discussed with pt for possible Celiac Plexus Nerve Block to help with the pain Pt will wait to speak to Dr. Hinojosa before making a decision about the nerve block Was on [employer] pump that was discontinued Fentanyl increased to 75mcg and started on Dilaudid PO Continue fentanyl patch and PO Dilaudid Pain improved S/p Celiac plexus block this morning Tolerated procedure well with no complication Pain improved significantly Case discussed with Pain management If pain reoccurs, he will be candidate for celiac plexus neurolysis as pain management Follow up with pain management in 2 weeks, if pain reoccurs continue fentanyl patch and po Dilaudid for break through pain PANCREATIC NEUROENDOCRINE CARCINOMA Nonresectable disease, s/p radiation, on oral chemotherapy (Xeloda and Temodar) - most recent cycle completed 04/22/17 Oncology on board DVT PROPHYLAXIS Lovenox SQ- declined by patient On SCD's CODE STATUS Full code DISPOSITION Follows with Dr. Bush for primary care on 05/06 @ 9:45 AM Follow up with Pain management Total time spent on discharge = 35 minutes This includes examination of the patient, discharge planning, medication reconciliation, and communication with other providers. Discharge Instructions Discharge Instructions Date of Service Apr 29, 2017. Admission Reason for Admission: Abdominal Pain, Pancreatic Cancer Discharge Discharge Diagnosis / Problem: INTRACTABLE ABDOMINAL PAIN, PANCREATIC NEUROENDOCRINE CARCINOMA Discharge Goals Goal(s): Decrease discomfort, Improve function, Improve disease control Activity Recommendations Activity Limitations: resume your previous activity (as tolerated) . Instructions / Follow-Up Instructions / Follow-Up Follows with your primary care provider Dr. Bush on 05/06 @ 9:45 AM Follow up with Pain management Dr. Rogers in 2 weeks (Please call to schedule for the appointment) Follow up with your Oncology Dr. Hinojosa ( ( Already had an appointment with Dr. Hinojosa, keep the appointment as per Dr. Hinojosa) Dilaudid as needed for break through pain (Please hold for lethargy and drowsiness) Do not drive or operate any machine while on narcotic (Dilaudid/fentanyl patch) Current Hospital Diet Patient's current hospital diet: Regular Diet Discharge Diet Recommended Diet: Regular Diet Procedures Procedures Performed: Diagnostic Celiac Plexus Block Pending Studies Studies pending at discharge: no Medical Emergencies . Who to Call and When: Medical Emergencies: If at any time you feel your situation is an emergency, please call 911 immediately. . Non-Emergent Contact Non-Emergency issues call your: Primary Care Provider Call Non-Emergent contact if: your pain is not controlled, your pain is worsening, you have any medication questions . . "Provider Documentation" section prepared by Slim Maxwell. . VTE Core Measure Inpt VTE Proph given/why not?: Enoxaparin (Lovenox)[facility] Drug Monitoring Program Search Results: patient reviewed within database Additional Copies To Blake Bush M.D.
[2017-05-02] MEDS ORDERED: POLY335019 PO (10:09)
[2017-05-02] MEDS ORDERED: DLC5 PO (16:03)
[2017-05-02] MEDS ORDERED: TEMO1CAP PO (16:45)
[2017-05-02] MEDS ORDERED: XLD/500 PO (16:45)
[2017-05-09] MEDS ORDERED: DRGTP25 TD (15:11)
[2017-05-09] MEDS ORDERED: DLD/2 PO (15:11)
[2017-05-09] MEDS ORDERED: DRGTP12 TD (15:11)
[2017-05-09] MEDS ORDERED: DRGTP100 TD (15:11)
[2017-05-09] MEDS ORDERED: GLC500 PO (15:11)
== END 2017-04-29 17:11 | disposition home or self-care (01) | DRG 948 ==
LOC: C.EDB 13:00 → C.4E 14:56 → ENRESERV 15:20
PROVIDERS: ADMIT Hospitalist; ATTEND Internal Medicine
PROC: 3E0R3NZ Introduction of Analgesics, Hypnotics, Sedatives into Spinal Canal, Percutaneous Approach (ICD-10-PCS; principal; 2017-04-29 08:15)
DX: G89.3 Neoplasm related pain (acute) (chronic) (principal); D3A.8 Other benign neuroendocrine tumors; Z82.49 Family history of ischemic heart disease and other diseases of the circulatory system; Z82.0 Family history of epilepsy and other diseases of the nervous system

== ENCOUNTER 2017-05-10 09:27 | Inpatient (IN) | payer OTHER, BC ==
[~2017-05-10] VITALS: Ht 182.9 cm; Wt 70.7 kg
[~2017-05-10 09:27] MED LIST changes: -BISA1TAB25 PO; +DLC5 PO; +DLD/2 PO; +DRGTP100 TD; +DRGTP12 TD; +DRGTP25 TD; -DRGTP50 TD; +GLC500 PO; -MORP15TA PO; +ONDA8TAB6 PO; -OXYC-57 PO; -OXYC1TAB3 PO; +POLY335019 PO
[2017-05-10] MEDS ORDERED: HYDROmorphone INJ 2 MG/ML SYR/VIAL IV STA ×2 (09:44→10:01)
[2017-05-10 10:39] LABS: BASO % 0.1 %; BASO ABS # 0.01 K/uL (0-0.2); COMPLETE YES; EOS % 0.7 %; IG% 0.3 %; LYMPH % 3.4 %; LYMPH ABS # 0.37 K/uL (1.2-3.4); MEAN CELL VOLUME 89.7 fL (80-100); MEAN CORPUSCULAR HEMOGLOBIN 29.8 pg (25-34); MEAN CORPUSCULAR HGB CONC 33.2 g/dl (32-36); MEAN PLATELET VOLUME 10.7 fL (7.4-10.4); MONO % 4.6 %; NEUT % 90.9 %; PLATELET COUNT 143 K/uL (130-400); RED BLOOD COUNT 3.79 M/uL (4.7-6.1); WHITE BLOOD COUNT 10.76 K/uL (4.8-10.8)
[2017-05-10 10:58] LABS: BUN/CREATININE RATIO 13.1 (10-20); CALCIUM 8.8 mg/dl (8.5-10.1); CREATININE 0.93 mg/dl (0.60-1.40); POTASSIUM 4.1 mmol/L (3.5-5.1)
[2017-05-10] MEDS ORDERED: ACETAMINOPHEN 325 MG TAB PO PRN (11:15)
--- NOTE | 2017-05-10 11:17 | EMERGENCY ROOM VISIT NOTE ---
History First contact with patient: 09:34 Chief Complaint: ABDOMINAL PAIN Stated Complaint: SEVERE ABD PAIN Nursing Triage Summary: pt c/o bilat abd lower abd pain started last night . pt reports he left here last night after being in patient for 1 week. vomited x 1 this am has hx of pancreatic tumor History of Present Illness The patient is a 67 year old male with a history of pancreatic cancer who presents to the Emergency Room with complaints of severe abdominal pain. The patient states that he was just discharged last evening at 5 PM. The patient has had persistent abdominal pain which she is under the care of pain management. He recently underwent a plexus block which gave him 50% pain improvement. The patient states it has not lasted. He was discharged with a fentanyl patch and Dilaudid 4 mg every 3 hours. The patient has been taking the Dilaudid as prescribed without any relief of his pain. His last dose was 3 hours ago. The patient also admits to 2 episodes of vomiting this morning. He denies any change in bowel habits, urinary symptoms, frequency, hematuria, dysuria. The states that they have an appointment with Dr. Gomez tomorrow since he is currently off his oral chemotherapy. His last dose was April 22. He was to start 14 days after the last dose but did not do to his chronic abdominal pain. She also states that they were to meet with pain management in 1 week for other pain management options. Review of Systems 10 system review was performed and was negative unless stated otherwise history of present illness. Past Medical/Surgical History Medical Problems: (1) History of renal stone (2) Pancreatic cancer Surgical Problems: (1) S/P laparotomy Family History Cancer Heart disease Hypertension Kidney stones Seizures Social History Smoking Status: Never Smoker Marital Status: Housing Status: lives with family Current/Historical Medications Scheduled Fentanyl (Fentanyl), 1 PATCH TD Q72H Fentanyl (Fentanyl), 100 MCG TD Q72H Fentanyl (Fentanyl), 25 MCG TD Q72H Metformin HCl (Metformin HCl), 500 MG PO QDB Scheduled PRN Bisacodyl (Bisacodyl EC), 1 TAB PO BID PRN for Constipation Hydromorphone HCl (Hydromorphone HCl), 4 MG PO Q3HWA PRN for Pain Ondansetron Hcl (Zofran), 8 MG PO Q8 PRN for Nausea Polyethylene Glycol 3350 (Miralax), 17 GM PO DAILY PRN for Constipation Allergies Coded Allergies: No Known Allergies (Unverified , 05/02/17) Physical Exam Vital Signs Date Time Temp Pulse Resp B/P (MAP) Pulse Ox O2 Delivery O2 Flow Rate FiO2 05/10/17 11:09 86 18 118/76 96 Room Air 05/10/17 10:30 84 16 117/75 93 Room Air 05/10/17 10:25 116/71 05/10/17 10:05 95 05/10/17 10:04 96 28 99 05/10/17 09:59 92 16 108/81 92 Room Air 05/10/17 09:29 36.8 113 18 120/74 98 Room Air Physical Exam GENERAL: 67-year-old male appears uncomfortable secondary to abdominal pain. MENTAL STATUS: Alert and oriented 3. EYES: No icterus noted MOUTH: Mucosa is moist NECK: Supple, no lymphadenopathy noted. No carotid bruits noted. LUNGS: Clear auscultation without wheezes rales or rhonchi. CARDIAC: Regular rate and rhythm without murmur. Pulses is full and equal throughout. BACK: No CVA tenderness noted. ABDOMEN: Positive bowel sounds all 4 quadrants. Soft, the patient has diffuse tenderness over the entire upper quadrant with guarding. Lower abdomen minimally tender to palpation. EXTREMITIES: No cyanosis or edema noted. Medical Decision & Procedures Laboratory Results 05/10/17 10:26 Red Blood Count 3.79, Mean Corpuscular Volume 89.7, Mean Corpuscular Hemoglobin 29.8, Mean Corpuscular Hemoglobin Concent 33.2, Mean Platelet Volume 10.7, Neutrophils (%) (Auto) 90.9, Lymphocytes (%) (Auto) 3.4, Monocytes (%) (Auto) 4.6, Eosinophils (%) (Auto) 0.7, Basophils (%) (Auto) 0.1, Neutrophils # (Auto) 9.77, Lymphocytes # (Auto) 0.37, Monocytes # (Auto) 0.50, Eosinophils # (Auto) 0.08, Basophils # (Auto) 0.01 05/10/17 10:26 Test 05/10/17 10:26 White Blood Count 10.76 K/uL (4.8-10.8) Red Blood Count 3.79 M/uL (4.7-6.1) Hemoglobin 11.3 g/dL (14.0-18.0) Hematocrit 34.0 % (42-52) Mean Corpuscular Volume 89.7 fL (80-100) Mean Corpuscular Hemoglobin 29.8 pg (25-34) Mean Corpuscular Hemoglobin Concent 33.2 g/dl (32-36) Platelet Count 143 K/uL (130-400) Mean Platelet Volume 10.7 fL (7.4-10.4) Neutrophils (%) (Auto) 90.9 % Lymphocytes (%) (Auto) 3.4 % Monocytes (%) (Auto) 4.6 % Eosinophils (%) (Auto) 0.7 % Basophils (%) (Auto) 0.1 % Neutrophils # (Auto) 9.77 K/uL (1.4-6.5) Lymphocytes # (Auto) 0.37 K/uL (1.2-3.4) Monocytes # (Auto) 0.50 K/uL (0.11-0.59) Eosinophils # (Auto) 0.08 K/uL (0-0.5) Basophils # (Auto) 0.01 K/uL (0-0.2) RDW Standard Deviation 53.4 fL (36.4-46.3) RDW Coefficient of Variation 16.4 % (11.5-14.5) Immature Granulocyte % (Auto) 0.3 % Immature Granulocyte # (Auto) 0.03 K/uL (0.00-0.02) Anion Gap 10.0 mmol/L (3-11) Est Creatinine Clear Calc Drug Dose 85.8 ml/min Estimated GFR () 98.8 Estimated GFR (Non- 85.2 BUN/Creatinine Ratio 13.1 (10-20) Calcium Level 8.8 mg/dl (8.5-10.1) Total Bilirubin 0.9 mg/dl (0.2-1) Direct Bilirubin 0.3 mg/dl (0-0.2) Aspartate Amino Transf (AST/SGOT) 23 U/L (15-37) Alanine Aminotransferase (ALT/SGPT) 32 U/L (12-78) Alkaline Phosphatase 109 U/L (45-117) Total Protein 7.3 gm/dl (6.4-8.2) Albumin 3.2 gm/dl (3.4-5.0) Lipase 217 U/L (73-393) Medications Administered Medications (Trade) Dose Ordered Sig/Yolis Route Start Time Stop Time Status Last Admin Dose Admin Hydromorphone HCl (Dilaudid Inj) 2 mg NOW STAT IV 05/10/17 09:44 05/10/17 09:48 DC 05/10/17 10:11 2 MG Hydromorphone HCl (Dilaudid Inj) 2 mg NOW STAT IV 05/10/17 10:01 05/10/17 10:02 DC 05/10/17 10:11 2 MG ED Course The patient was evaluated. The patient's EMR medication list were reviewed. IV access was obtained. CBC and differential, renal profile, LFTs and lipase levels were ordered. The patient was given Dilaudid 4 mg IV. Labs are reviewed. The patient's white count is normal. Patient was slightly anemic. The patient was independently evaluated by Dr. lemos who agrees with treatment plan. I spoke with the management, Dr. Rogers about the patient. She states that they cannot to another procedure for another 2 weeks. She states his only option is to be on a pain pump. I spoke with the hospitalist who will do the admission. Medical Decision The patient was just hospitalized and sent home yesterday therefore I do not feel any additional imaging is necessary. Basic labs were drawn. I contacted pain management since this patient is terminally ill with pancreatic cancer. Management is basically for pain control. He was not a candidate for surgery. Currently he is not on any chemotherapy. He was due to start another treatment but did not due to his pain. The patient was admitted for pain control and possibly pain pump placement. Impression Primary Impression: Intractable abdominal pain Departure Information Dispostion Being Evaluated By Hospitalist Condition GOOD Referrals Blake Bush M.D. (PCP) Patient Instructions My [facility]
[2017-05-10 12:13] VITALS: BP 105/66; PULSE 91; TEMP 36.6; O2SAT 100
[2017-05-10] MEDS ORDERED: HYDROmorphone HCL 2 MG TAB ONE (12:48)
[2017-05-10] MEDS ORDERED: GLUCOSE 40% GEL 15 GM TUBE PO PRN (13:00)
[2017-05-10] MEDS ORDERED: GLUCAGON FOR INJ 1 MG VIAL SQ PRN (13:00)
[2017-05-10] MEDS ORDERED: GLUCOSE 10 TABS/TUBE PO PRN (13:00)
[2017-05-10] MEDS ORDERED: DEXTROSE 50% 50 ML SYR IV PRN (13:00)
--- NOTE | 2017-05-10 13:16 | History and Physical ---
History & Physical Date & Time of Service: May 10, 2017 at 12:01 Chief Complaint: Abdominal Pain Primary Care Physician: Blake Bush M.D. History of Present Illness 67 year old male who presents to the ED with abdominal pain. Patient has unresectable pancreatic cancer and has been admitted to [facility] recently for intractable pain due to the cancer. He was just discharged yesterday after being admitted since 05/02. During that admission, patient's Fentanyl patch and PO Dilaudid doses were increased. He also received a Celiac blokc on 05/04. During his last two days in the hospital, patient did not require any additional IV Dilaudid for break through pain. He reports his appetite was good and he was eating well. After returning home, patient reports he woke up in the middle of the night in severe abdominal pain. He reports he always had some degree of abdominal pain in the RUQ however when the pain is severe it is located over the entire abdomen. Patient reports one episode of vomiting this morning but feels like it was due to severe pain. No hematemesis or coffee ground emesis. He reports a normal bowel movement yesterday. No diarrhea. He denies chest pain and shortness of breath. No lightheadedness, dizziness, diaphoresis, or syncopal events. He denies fever and chills. No urinary symptoms. In the ED, patient was given Dilaudid 4mg IV and reports much improvement in his pain. Labs are unremarkable. Vitals are stable. Past Medical/Surgical History Medical Problems: (1) History of renal stone Status: Chronic (2) Pancreatic cancer Permanent Comment: Back pain Studies revealing a mass of the head of the pancreas Status post EUS with biopsy 12/10/2013 high-grade neuroendocrine carcinoma Stage [id number] Status post neoadjuvant chemotherapy with etoposide and cisplatin for 4 cycles On 10/04/2014 surgical attempt and unresectable Status post completion of radiation therapy 01/19/2015 received 5400 cGy Status: Chronic Surgical Problems: (1) S/P laparotomy Permanent Comment: 10/04/2014, Dr. Otero, [facility], found to have unresectable disease Status: Chronic Family History Heart disease FATHER BROTHER Social History Smoking Status: Never Smoker Alcohol Use: none Immunizations History of Tetanus Vaccine?: Yes Tetanus Immunization Date: Sep 10, 2010 History of Pneumococcal: Yes Pneumococcal Date: Sep 18, 2014 Allergies Coded Allergies: No Known Allergies (Unverified , 05/02/17) Home Medications Scheduled Fentanyl (Fentanyl), 1 PATCH TD Q72H Fentanyl (Fentanyl), 100 MCG TD Q72H Fentanyl (Fentanyl), 25 MCG TD Q72H Metformin HCl (Metformin HCl), 500 MG PO QDB Scheduled PRN Bisacodyl (Bisacodyl EC), 1 TAB PO BID PRN for Constipation Hydromorphone HCl (Hydromorphone HCl), 4 MG PO Q3HWA PRN for Pain Ondansetron Hcl (Zofran), 8 MG PO Q8 PRN for Nausea Polyethylene Glycol 3350 (Miralax), 17 GM PO DAILY PRN for Constipation Review of Systems ROS per HPI, all other systems reviewed and negative Physical Exam Vital Signs Date Time Temp Pulse Resp B/P (MAP) Pulse Ox O2 Delivery O2 Flow Rate FiO2 05/10/17 11:09 86 18 118/76 96 Room Air 05/10/17 10:30 84 16 117/75 93 Room Air 05/10/17 10:25 116/71 05/10/17 10:05 95 05/10/17 10:04 96 28 99 05/10/17 09:59 92 16 108/81 92 Room Air 05/10/17 09:29 36.8 113 18 120/74 98 Room Air General Appearance: WD/WN, no apparent distress Head: normocephalic, atraumatic Eyes: normal inspection, EOMI, sclerae normal ENT: hearing grossly normal, + pertinent finding (mucous membranes moist) Neck: supple, no JVD, trachea midline Respiratory/Chest: lungs clear, normal breath sounds, no respiratory distress Cardiovascular: regular rate, rhythm, no edema, normal peripheral pulses Abdomen/GI: normal bowel sounds, soft, no organomegaly, + tenderness (RUQ) Extremities/Musculoskelatal: normal inspection, no calf tenderness, normal capillary refill Neurologic/Psych: no motor/sensory deficits, alert, normal mood/affect, oriented x 3 Skin: normal color, warm/dry Diagnostics Laboratory Results Results Past 24 Hours Test 05/10/17 10:26 Range/Units White Blood Count 10.76 4.8-10.8 K/uL Red Blood Count 3.79 4.7-6.1 M/uL Hemoglobin 11.3 14.0-18.0 g/dL Hematocrit 34.0 42-52 % Mean Corpuscular Volume 89.7 80-100 fL Mean Corpuscular Hemoglobin 29.8 25-34 pg Mean Corpuscular Hemoglobin Concent 33.2 32-36 g/dl Platelet Count 143 130-400 K/uL Mean Platelet Volume 10.7 7.4-10.4 fL Neutrophils (%) (Auto) 90.9 % Lymphocytes (%) (Auto) 3.4 % Monocytes (%) (Auto) 4.6 % Eosinophils (%) (Auto) 0.7 % Basophils (%) (Auto) 0.1 % Neutrophils # (Auto) 9.77 1.4-6.5 K/uL Lymphocytes # (Auto) 0.37 1.2-3.4 K/uL Monocytes # (Auto) 0.50 0.11-0.59 K/uL Eosinophils # (Auto) 0.08 0-0.5 K/uL Basophils # (Auto) 0.01 0-0.2 K/uL RDW Standard Deviation 53.4 36.4-46.3 fL RDW Coefficient of Variation 16.4 11.5-14.5 % Immature Granulocyte % (Auto) 0.3 % Immature Granulocyte # (Auto) 0.03 0.00-0.02 K/uL Sodium Level 132 136-145 mmol/L Potassium Level 4.1 3.5-5.1 mmol/L Chloride Level 97 98-107 mmol/L Carbon Dioxide Level 25 21-32 mmol/L Anion Gap 10.0 3-11 mmol/L Blood Urea Nitrogen 12 7-18 mg/dl Creatinine 0.93 0.60-1.40 mg/dl Est Creatinine Clear Calc Drug Dose 85.8 ml/min Estimated GFR () 98.8 Estimated GFR (Non- 85.2 BUN/Creatinine Ratio 13.1 10-20 Random Glucose 166 70-99 mg/dl Calcium Level 8.8 8.5-10.1 mg/dl Total Bilirubin 0.9 0.2-1 mg/dl Direct Bilirubin 0.3 0-0.2 mg/dl Aspartate Amino Transf (AST/SGOT) 23 15-37 U/L Alanine Aminotransferase (ALT/SGPT) 32 12-78 U/L Alkaline Phosphatase 109 45-117 U/L Total Protein 7.3 6.4-8.2 gm/dl Albumin 3.2 3.4-5.0 gm/dl Lipase 217 73-393 U/L Impression Assessment and Plan INTRACTABLE ABDOMINAL PAIN, PANCREATIC CANCER - admit to med/surg - patient presenting severe abdominal pain; was just discharged from [facility] 05/09 for intractable abdominal pain due to pancreatic cancer - during admission patient received a celiac plexus block on 05/04, and Fentanyl patch and PO Dilaudid doses were increased - patient received Dilaudid 4mg IV in the ED and is currently comfortable - case discussed with Sandra Deleon PA-C with pain management - for now will continue current Fentanyl patch and PO Dilaudid regimens with IV Dilaudid for breath through - possible options going forward - home TRUCK STRIKER (if patient will be on hospice) vs. implantable morphine pump (if patient's lief expectancy is greater than 3 month) - heme/onc consult to help with these discussions with patient DM - HGB A1C 7.6 05/03 - hold metformin and utilize SSI while hospitalized DVT PROPHYLAXIS - SQ Lovenox DISPO - The patient will be placed as observation status for now until further work up is complete. ADDENDUM: This is a 67 year old male with a PMH of pancreatic CA on oral chemotherapy (14 on and 14 off), recently admitted with pain secondary to the cancer. Was sent home with Fentanyl patch and oral Dilaudid. States that after getting home is pain recurred and had to come back to the hospital secondary to the pain. Was given IV Dilaudid in the ED; restarted Fentanyl patch. Plan: consult pain management for further input; consult Hem/Onc Continue Fentanyl Patch and oral Dilaudid Started on IV Dilaudid for breakthrough pain Hold Metformin and start insulin sliding scale while inpatient VTE Prophylaxis VTE Risk Assessment Done? Y/N: Yes Risk Level: Moderate
[2017-05-10] MEDS ORDERED: HYDROmorphone INJ 2 MG/ML SYR/VIAL IV PRN (13:45)
[2017-05-10] MEDS ORDERED: FENTANYL 12 MCG/HR TDSY TD SCH (14:00)
[2017-05-10] MEDS ORDERED: FENTANYL 100 MCG/HR TDSY TD SCH (14:00)
[2017-05-10] MEDS ORDERED: FENTANYL 25 MCG/HR TDSY TD SCH (14:00)
[2017-05-10 14:10] VITALS: BP 105/66; PULSE 91; TEMP 36.6; O2SAT 100; BMI 24.7
[2017-05-10] MEDS ORDERED: IV FLUIDS COMPLETED PRN (14:30)
[2017-05-10 15:09] VITALS: BP 105/61; PULSE 76; TEMP 36.7; O2SAT 100
[2017-05-10] MEDS: ENOXAPARIN 40 MG/0.4 ML SYR SQ SCH (15:14)
[2017-05-10 16:00] VITALS: O2SAT 100
[2017-05-10] MEDS: POLYETHYLENE (MIRALAX) 17 GM PACK PO PRN (16:04)
[2017-05-10] MEDS: HYDROmorphone HCL 2 MG TAB PO PRN ×3 (16:06→22:26)
[2017-05-10] MEDS: CHECK FENTANYL PATCH PLACEMENT SCH (16:27)
[2017-05-10] MEDS: INSULIN ASPART 100 UNITS/ML 3 ML PEN SC SCH ×2 (16:30→21:00)
[2017-05-10] MEDS: HYDROmorphone INJ 2 MG/ML SYR/VIAL IV PRN ×3 (16:55→23:50)
[2017-05-10 19:18] VITALS: BP 109/70; PULSE 81; TEMP 36.6; O2SAT 98
[2017-05-10 23:00] VITALS: BP_SYST 103; BP_SYST 99; BP_DIAS 63; BP_DIAS 64; PULSE 90; TEMP 36.7; O2SAT 96
[2017-05-11] VITALS (7 sets, daily range): BP systolic 95–100; BP diastolic 51–60; PULSE 73–91; TEMP 36.6–36.9; O2SAT 96–100
[2017-05-11] MEDS: HYDROmorphone HCL 2 MG TAB PO PRN ×7 (02:26→23:36)
[2017-05-11] MEDS: CHECK FENTANYL PATCH PLACEMENT SCH ×4 (03:44→23:36)
[2017-05-11] MEDS: HYDROmorphone INJ 2 MG/ML SYR/VIAL IV PRN (05:14)
[2017-05-11 06:59] LABS: HEMATOCRIT 32.5 % (42-52); MEAN CORPUSCULAR HEMOGLOBIN 29.4 pg (25-34); MEAN CORPUSCULAR HGB CONC 32.3 g/dl (32-36); MEAN PLATELET VOLUME 10.5 fL (7.4-10.4); PLATELET COUNT 153 K/uL (130-400); RED BLOOD COUNT 3.57 M/uL (4.7-6.1); WHITE BLOOD COUNT 6.94 K/uL (4.8-10.8)
[2017-05-11 07:27] LABS: BUN/CREATININE RATIO 15.1 (10-20); CALCIUM 8.9 mg/dl (8.5-10.1); CREATININE 0.86 mg/dl (0.60-1.40); POTASSIUM 4.4 mmol/L (3.5-5.1)
[2017-05-11] MEDS: POLYETHYLENE (MIRALAX) 17 GM PACK PO PRN (07:49)
[2017-05-11] MEDS: INSULIN ASPART 100 UNITS/ML 3 ML PEN SC SCH ×4 (08:47→20:41)
[2017-05-11 10:02] LABS: INR 1.2 (0.9-1.1); PROTHROMBIN TIME (PATIENT) 13.1 SECONDS (9.0-12.0)
[2017-05-11] MEDS ORDERED: DULOXETINE (CYMBALTA) 30 MG CAP PO SCH (12:00)
[2017-05-11] MEDS: ENOXAPARIN 40 MG/0.4 ML SYR SQ SCH (12:52)
[2017-05-11] MEDS: HYDROmorphone INJ 1 MG/ML SYR IV PRN ×3 (13:00→21:48)
--- NOTE | 2017-05-11 14:09 | Pain Management Consultation ---
Pain Management Consultation Date of Consultation May 11, 2017. Reason for Consultation Intractable abdominal pain History Mr. Engle is a 67 year old white male with pancreatic cancer that measures 8cm. Patient has been admitted to the hospital on 04/26 and 05/01. He was discharged from the hospital most recently on 05/09. Patient was at home and started to develop 10/10 epigastric pain. He tried to take #2 tablets of the oral Dilaudid but it did not alleviate the pain. Within 30 minutes he decided that the pain was excruciating so he went to the Emergency Department. He was given 4mg of IV Dilaudid and was admitted for pain control. Patient is on Fentanyl patch 137mcg/hr and oral Dilaudid 4mg PO x 3 hrs PRN. He denies any side effects from the medications. He states that the acute flare up has resolved and his pain is currently a 3/10. When walking around the room last night, the pain is ranging from 3-5/10. Patient denies any nausea, vomiting, constipation, constitutional complaints. Case discussed with Dr. Rogers Past Medical/Surgical History (1) Pancreatic cancer (2) History of renal stone (3) S/P laparotomy Family History Heart disease FATHER BROTHER Social / Work History Smoking Status: Never smoker Alcohol Use: none Drug Use: none Marital Status: Housing Status: lives with family Allergies Coded Allergies: No Known Allergies (Unverified , 05/02/17) Medications Current Inpatient Medications Medications (Trade) Dose Ordered Sig/Yolis Route Start Time Stop Time Status Last Admin Dose Admin Enoxaparin Sodium (Lovenox Inj) 40 mg Q24H SQ 05/10/17 14:00 06/09/17 13:59 05/10/17 15:14 40 MG Acetaminophen (Tylenol Tab) 650 mg Q4H PRN PO 05/10/17 11:15 06/09/17 11:14 Ondansetron HCl (Zofran Inj) 4 mg Q6H PRN IV 05/10/17 11:15 06/09/17 11:14 Bisacodyl (Dulcolax Tab) 5 mg BID PRN PO 05/10/17 11:45 06/09/17 11:44 Fentanyl (Duragesic Patch) 25 mcg Q72H TD 05/10/17 14:00 05/24/17 13:59 05/10/17 13:56 25 MCG Fentanyl (Duragesic Patch) 100 mcg Q72H TD 05/10/17 14:00 05/24/17 13:59 05/10/17 13:57 100 MCG Hydromorphone HCl (Dilaudid Tab) 4 mg Q3HWA PRN PO 05/10/17 11:45 05/24/17 11:44 05/11/17 07:52 4 MG Polyethylene (Miralax Powder Packet) 17 gm DAILY PRN PO 05/10/17 11:45 06/09/17 11:44 05/11/17 07:49 17 GM Miscellaneous (Fentanyl Patch Remove & Waste) 1 ea Q3D N/A 05/13/17 13:59 06/12/17 13:58 Miscellaneous Information (Check Fentanyl Patch Placement) 1 ea QS N/A 05/10/17 16:00 06/09/17 15:59 05/11/17 07:50 1 EA Fentanyl (Duragesic Patch) 12 mcg Q72H TD 05/10/17 14:00 05/24/17 13:59 05/10/17 13:56 12 MCG Insulin Aspart (novoLOG ASPART) SLIDING SCALE If C... ACHS SC 05/10/17 16:30 06/09/17 16:29 05/11/17 08:47 1 UNITS Glucose (Glucose 40% Gel) 15-30 GRAMS 15 GRAMS... UD PRN PO 05/10/17 13:00 06/09/17 12:59 Glucose (Glucose Chew Tab) 4-8 Tablets 4 Tabl... UD PRN PO 05/10/17 13:00 06/09/17 12:59 Dextrose (Dextrose 50% 50ML Syringe) 25-50ML OF 50% DW IV FOR... UD PRN IV 05/10/17 13:00 06/09/17 12:59 Glucagon (Glucagon Inj) 1 mg UD PRN SQ 05/10/17 13:00 06/09/17 12:59 Miscellaneous (Iv Fluids Completed) 1 ea PRN PRN N/A 05/10/17 14:30 05/10/18 14:29 Hydromorphone HCl (Dilaudid Inj) 3 mg Q3HWA PRN IV 05/10/17 16:45 05/24/17 13:44 05/11/17 05:14 3 MG Duloxetine HCl (Cymbalta Cap) 30 mg QAM PO 05/11/17 09:30 06/10/17 09:29 UNV Review of Systems Denies any constitutional, cardiac, pulmonary, neurological, GI, , extremity, endocrine, neuro, ENT, dermatological, or musculoskeletal complaints other than stated in HPI Physical Exam Height & Weight: Height 6 feet, 0.00 inches. Weight 80.200 (Kilograms) 176 (Pounds) Last Vital Signs Documentation Date Time Temp Pulse Resp B/P (MAP) Pulse Ox O2 Delivery O2 Flow Rate FiO2 05/11/17 07:22 36.6 73 18 100/59 (73) 98 Room Air Exam: GENERAL: Mr. Engle is a 67 y/o white male that appears his stated age. Speech and cognition is intact. Mood and affect is appropriate. Patient is sitting in the hospital bed, in no acute distress. ABDOMEN: Active bowel sounds throughout; non-tender to palpation. No peritoneal signs. No CVA tenderness bilaterally. NEURO: CN II-XII grossly intact with no focal deficits noted. Laboratory Laboratory Results (Last CBC): 05/11/17 06:22 Assessment 1. Intractable midepigastric abdominal pain with known history of pancreatic cancer and 8 cm mass Recommendations 1. Will initiate the patient on Cymbalta 30mg daily for increased pain relief 2. Dilaudid IV was decreased to 1mg x 3 hours 3. Continue Fentanyl at 137mcg/hr 4. Continue Dilaudid 4mg PO x 3 hrs PRN 5. Do not want to pursue an intrathecal Morphine pump as the patient is describing an acute flare up of pain that resulted in readmission. A pump would not provide acute pain relief such as the oral opioids would. His chronic pain is well controlled with Fentanyl and oral Dilaudid 6. May consider a splanchnic nerve block
--- NOTE | 2017-05-11 17:29 | Progress Note ---
Medicine Progress Note Date & Time of Visit: May 11, 2017 at 1300. Subjective -tolerating PO -was able to tolerate PO dilaudid without much pain but needed IV dilaudid just after finishing lunch -denies any relationship of his back pain or abdominal pain with food -reports some constipation. Objective Last 8 Hrs Date Time Temp Pulse Resp B/P (MAP) Pulse Ox O2 Delivery O2 Flow Rate FiO2 05/11/17 15:18 36.6 82 20 97/58 (71) 99 Room Air 05/11/17 12:04 36.9 91 18 96/60 (72) 100 Room Air Physical Exam: GEN: WNWD, in no acute distress, alert and appropriate HEENT: NC/AT, PERRL, normal sclerae, MMM CARDIO: reg rate, S1/2 heard without m/g/r LUNGS: CTA bilaterally, no crackles, rales or wheezes, good diaphragmatic excursion ABD: soft, non-tender, non-distended, no rebound or guarding, +BS BACK: no TTP along paraspinal musculature or PSIS-pt reports pain right over posterior iliac creat on the R side. EXTREMITY: RP and DP palpable 2+ bilat, no LE swelling or edema, extremities are warm and well-perfused NEURO: CN 2-12 grossly intact MUSC: 5/5 strength throughout, no focal deficits SKIN: warm and dry Laboratory Results: 05/11/17 06:22 05/11/17 06:22 Test 05/10/17 10:26 05/11/17 06:22 05/11/17 09:40 05/11/17 16:42 Immature Granulocyte % (Auto) 0.3 % White Blood Count 10.76 K/uL (4.8-10.8) Red Blood Count 3.79 M/uL (4.7-6.1) 3.57 M/uL (4.7-6.1) Hemoglobin 11.3 g/dL (14.0-18.0) Hematocrit 34.0 % (42-52) Mean Corpuscular Volume 89.7 fL (80-100) 91.0 fL (80-100) Mean Corpuscular Hemoglobin 29.8 pg (25-34) 29.4 pg (25-34) Mean Corpuscular Hemoglobin Concent 33.2 g/dl (32-36) 32.3 g/dl (32-36) Platelet Count 143 K/uL (130-400) Mean Platelet Volume 10.7 fL (7.4-10.4) 10.5 fL (7.4-10.4) Neutrophils (%) (Auto) 90.9 % Lymphocytes (%) (Auto) 3.4 % Monocytes (%) (Auto) 4.6 % Eosinophils (%) (Auto) 0.7 % Basophils (%) (Auto) 0.1 % Neutrophils # (Auto) 9.77 K/uL (1.4-6.5) Lymphocytes # (Auto) 0.37 K/uL (1.2-3.4) Monocytes # (Auto) 0.50 K/uL (0.11-0.59) Eosinophils # (Auto) 0.08 K/uL (0-0.5) Basophils # (Auto) 0.01 K/uL (0-0.2) Immature Granulocyte # (Auto) 0.03 K/uL (0.00-0.02) Total Bilirubin 0.9 mg/dl (0.2-1) Direct Bilirubin 0.3 mg/dl (0-0.2) Aspartate Amino Transf (AST/SGOT) 23 U/L (15-37) Alanine Aminotransferase (ALT/SGPT) 32 U/L (12-78) Alkaline Phosphatase 109 U/L (45-117) Total Protein 7.3 gm/dl (6.4-8.2) Albumin 3.2 gm/dl (3.4-5.0) Lipase 217 U/L (73-393) RDW Standard Deviation 54.6 fL (36.4-46.3) RDW Coefficient of Variation 16.5 % (11.5-14.5) Anion Gap 5.0 mmol/L (3-11) Est Creatinine Clear Calc Drug Dose 92.8 ml/min Estimated GFR () 104.7 Estimated GFR (Non- 90.4 BUN/Creatinine Ratio 15.1 (10-20) Calcium Level 8.9 mg/dl (8.5-10.1) Prothrombin Time 13.1 SECONDS (9.0-12.0) Prothromb Time International Ratio 1.2 (0.9-1.1) Bedside Glucose 117 mg/dl (70-99) Last 24 Hours Test 05/10/17 19:50 05/11/17 06:22 05/11/17 07:41 05/11/17 09:40 Bedside Glucose 131 mg/dl 130 mg/dl White Blood Count 6.94 K/uL Red Blood Count 3.57 M/uL Hemoglobin 10.5 g/dL Hematocrit 32.5 % Mean Corpuscular Volume 91.0 fL Mean Corpuscular Hemoglobin 29.4 pg Mean Corpuscular Hemoglobin Concent 32.3 g/dl RDW Standard Deviation 54.6 fL RDW Coefficient of Variation 16.5 % Platelet Count 153 K/uL Mean Platelet Volume 10.5 fL Sodium Level 134 mmol/L Potassium Level 4.4 mmol/L Chloride Level 98 mmol/L Carbon Dioxide Level 31 mmol/L Anion Gap 5.0 mmol/L Blood Urea Nitrogen 13 mg/dl Creatinine 0.86 mg/dl Est Creatinine Clear Calc Drug Dose 92.8 ml/min Estimated GFR () 104.7 Estimated GFR (Non- 90.4 BUN/Creatinine Ratio 15.1 Random Glucose 129 mg/dl Calcium Level 8.9 mg/dl Prothrombin Time 13.1 SECONDS Prothromb Time International Ratio 1.2 Test 05/11/17 11:12 05/11/17 16:42 Bedside Glucose 125 mg/dl 117 mg/dl Assessment & Plan 67 yo M recently discharged a couple of days ago presents to the hospital with intractable back pain. He has active pancreatic cancer without much abdominal pain on the scheduled dilaudid. He is tolerating PO. He reports the back pain is worse despite a recent celiac plexus block. Hematology was consulted and admitting [employer]ER spoke with Dr. Hinojosa by phone; was told that his has a good prognosis at this point and it would be reasonable for him to get a implanted pain stimulator by the pain team. This was communicated to AWILDA Eric by phone. Pain saw him today and started him on Cymbalta. Continuing on IV dilaudid for breakthrough pain. 1. Active back and abdominal pain in setting of active pancreatic cancer. Pain Management consulted with plan to add Cymbalta and consider splanchnic nerve block to control current flare. They feel intrathecal morphine pump is not warranted at this time per notes. Celiac plexus block on 05/04-two days of pain relief only. Per H/O prognosis is good and reasonable to receive the intrathecal morphine pump. Cont Fentanyl patch and Dilaudid PO with IV for breakthrough pain. Cymbalta started per pain team. 2. DMII-holding outpatient metformin and cont ISS with carb coverage as inpatient. 3. Anemia related to chronic disease-at baseline, no indication for transfusion at this time. Cont to monitor. Full Code, No mech ventilation DVT PROPHYLAXIS- SQ Lovenox DISPO-changed to full admission. [facility] Consult[facility]: Pain Management-Dr. China Rogers Current Inpatient Medications: Current Inpatient Medications Medications (Trade) Dose Ordered Sig/Yolis Route Start Time Stop Time Status Last Admin Dose Admin Enoxaparin Sodium (Lovenox Inj) 40 mg Q24H SQ 05/10/17 14:00 06/09/17 13:59 05/11/17 12:52 40 MG Acetaminophen (Tylenol Tab) 650 mg Q4H PRN PO 05/10/17 11:15 06/09/17 11:14 Ondansetron HCl (Zofran Inj) 4 mg Q6H PRN IV 05/10/17 11:15 06/09/17 11:14 Bisacodyl (Dulcolax Tab) 5 mg BID PRN PO 05/10/17 11:45 06/09/17 11:44 Fentanyl (Duragesic Patch) 25 mcg Q72H TD 05/10/17 14:00 05/24/17 13:59 05/10/17 13:56 25 MCG Fentanyl (Duragesic Patch) 100 mcg Q72H TD 05/10/17 14:00 05/24/17 13:59 05/10/17 13:57 100 MCG Hydromorphone HCl (Dilaudid Tab) 4 mg Q3HWA PRN PO 05/10/17 11:45 05/24/17 11:44 05/11/17 16:58 4 MG Polyethylene (Miralax Powder Packet) 17 gm DAILY PRN PO 05/10/17 11:45 06/09/17 11:44 05/11/17 07:49 17 GM Miscellaneous (Fentanyl Patch Remove & Waste) 1 ea Q3D N/A 05/13/17 13:59 06/12/17 13:58 Miscellaneous Information (Check Fentanyl Patch Placement) 1 ea QS N/A 05/10/17 16:00 06/09/17 15:59 05/11/17 16:59 1 EA Fentanyl (Duragesic Patch) 12 mcg Q72H TD 05/10/17 14:00 05/24/17 13:59 05/10/17 13:56 12 MCG Insulin Aspart (novoLOG ASPART) SLIDING SCALE If C... ACHS SC 05/10/17 16:30 06/09/17 16:29 05/11/17 12:51 3 UNITS Glucose (Glucose 40% Gel) 15-30 GRAMS 15 GRAMS... UD PRN PO 05/10/17 13:00 06/09/17 12:59 Glucose (Glucose Chew Tab) 4-8 Tablets 4 Tabl... UD PRN PO 05/10/17 13:00 06/09/17 12:59 Dextrose (Dextrose 50% 50ML Syringe) 25-50ML OF 50% DW IV FOR... UD PRN IV 05/10/17 13:00 06/09/17 12:59 Glucagon (Glucagon Inj) 1 mg UD PRN SQ 05/10/17 13:00 06/09/17 12:59 Miscellaneous (Iv Fluids Completed) 1 ea PRN PRN N/A 05/10/17 14:30 05/10/18 14:29 Duloxetine HCl (Cymbalta Cap) 30 mg QAM PO 05/11/17 12:00 06/10/17 11:59 05/11/17 12:51 30 MG Hydromorphone HCl (Dilaudid Inj) 1 mg Q3HWA PRN IV 05/11/17 10:00 05/24/17 13:44 05/11/17 13:00 1 MG
[2017-05-12] VITALS (8 sets, daily range): BP systolic 95–111; BP diastolic 57–75; PULSE 92–107; TEMP 36.4–36.8; O2SAT 94–99; BMI 24.0
[2017-05-12] MEDS: HYDROmorphone INJ 1 MG/ML SYR IV PRN ×3 (00:48→11:13)
[2017-05-12] MEDS: HYDROmorphone HCL 2 MG TAB PO PRN ×8 (04:09→21:16)
[2017-05-12 07:04] LABS: HEMATOCRIT 31.7 % (42-52); MEAN CELL VOLUME 91.1 fL (80-100); MEAN CORPUSCULAR HEMOGLOBIN 29.3 pg (25-34); MEAN CORPUSCULAR HGB CONC 32.2 g/dl (32-36); MEAN PLATELET VOLUME 11.1 fL (7.4-10.4); PLATELET COUNT 162 K/uL (130-400); RED BLOOD COUNT 3.48 M/uL (4.7-6.1); WHITE BLOOD COUNT 7.89 K/uL (4.8-10.8)
[2017-05-12 07:28] LABS: BUN/CREATININE RATIO 13.3 (10-20); CALCIUM 8.9 mg/dl (8.5-10.1); CREATININE 0.93 mg/dl (0.60-1.40); POTASSIUM 4.2 mmol/L (3.5-5.1)
[2017-05-12] MEDS: INSULIN ASPART 100 UNITS/ML 3 ML PEN SC SCH ×4 (09:06→21:15)
[2017-05-12] MEDS: CHECK FENTANYL PATCH PLACEMENT SCH ×2 (09:09→16:59)
[2017-05-12] MEDS: POLYETHYLENE (MIRALAX) 17 GM PACK PO SCH (09:10)
[2017-05-12] MEDS ORDERED: FENTANYL 25 MCG/HR TDSY TD SCH (09:30)
[2017-05-12] MEDS ORDERED: METHYLNALTREXONE BROMIDE INJ 12 MG/0.6 ML SYR SQ ONE (09:30)
[2017-05-12] MEDS: DULOXETINE HCL 60 MG CAP PO SCH (10:31)
[2017-05-12] MEDS ORDERED: HYDROmorphone INJ 2 MG/ML SYR/VIAL IV STA (11:38)
[2017-05-12] MEDS ORDERED: LORAZEPAM INJ 0.5 MG in SYRINGE 0.25 ML IV STA (11:38)
--- NOTE | 2017-05-12 11:39 | Progress Note ---
Medicine Progress Note Date & Time of Visit: May 12, 2017 at 11:39 . Subjective Severe epigastric pain radiating to back. Associated with nausea, no emesis. Constipated; good results after receiving methylnaltrexone. No fever. No chest pain. No cough or SOB. No urinary symptoms. . Objective Last 8 Hrs Date Time Temp Pulse Resp B/P (MAP) Pulse Ox O2 Delivery O2 Flow Rate FiO2 05/12/17 11:03 94 Room Air 05/12/17 08:11 36.7 98 16 102/75 (84) 94 05/12/17 08:00 Room Air 05/12/17 05:15 36.8 96 18 96/60 (72) 97 Room Air Physical Exam: General- sitting on edge of bed, appears to be very uncomfortable Eyes- anicteric Lungs- clear Heart- RRR Abdomen- quiet bowel sounds, slightly distended, + epigastric tenderness Extremities- no pretibial edema or calf tenderness Neuro- alert . Laboratory Results: Last 24 Hours Test 05/11/17 16:42 05/11/17 20:09 05/12/17 06:23 05/12/17 07:55 Bedside Glucose 117 mg/dl 166 mg/dl 131 mg/dl White Blood Count 7.89 K/uL Red Blood Count 3.48 M/uL Hemoglobin 10.2 g/dL Hematocrit 31.7 % Mean Corpuscular Volume 91.1 fL Mean Corpuscular Hemoglobin 29.3 pg Mean Corpuscular Hemoglobin Concent 32.2 g/dl RDW Standard Deviation 54.0 fL RDW Coefficient of Variation 16.4 % Platelet Count 162 K/uL Mean Platelet Volume 11.1 fL Sodium Level 132 mmol/L Potassium Level 4.2 mmol/L Chloride Level 98 mmol/L Carbon Dioxide Level 28 mmol/L Anion Gap 6.0 mmol/L Blood Urea Nitrogen 12 mg/dl Creatinine 0.93 mg/dl Est Creatinine Clear Calc Drug Dose 85.8 ml/min Estimated GFR () 98.8 Estimated GFR (Non- 85.2 BUN/Creatinine Ratio 13.3 Random Glucose 137 mg/dl Calcium Level 8.9 mg/dl 25-Hydroxy Vitamin D Total 21.4 ng/ml Assessment & Plan INTRACTABLE PAIN Due to unresectable pancreatic Ca. Pain Management consulted. S/P neurolytic celiac block. Fentanyl patch dose increased to 162 mcg/hr. Duloxetine dose increased to 60 mg daily. Hydromorphone for breakthrough pain. Intrathecal opiate pump may offer benefit. Continue bowel regimen. PANCREATIC CA Discussed with Medical Oncology. 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 Receiving palliative chemotherapy. Prognosis difficult to predict, but expected to be > 6 months. DM TYPE 2 Usually managed with metformin at home. Hgb A1C 7.6 on 05/03/17. Hold metformin during hospital stay. FBS today = 131. Continue NovoLog coverage. VITAMIN D DEFICIENCY 25-OH D = 21. Supplement. ANXIETY / DEPRESSION Secondary to pain and underlying malignancy. Receiving duloxetine for pain management. Consider addition of benzodiazepine or other agent. Consider addition of TCA. VTE PROPHYLAXIS SQ enoxaparin. Ambulate. DISPOSITION Expected discharge to home with home health services. Family Medicine follow-up with Dr. Bush. Medical Oncology follow-up with Dr. Hinojosa. Pain Management follow-up with Dr. Rogers. . Consultants: Pain Management-Dr. China Rogers Current Inpatient Medications: Current Inpatient Medications Medications (Trade) Dose Ordered Sig/Yolis Route Start Time Stop Time Status Last Admin Dose Admin Enoxaparin Sodium (Lovenox Inj) 40 mg Q24H SQ 05/10/17 14:00 06/09/17 13:59 05/11/17 12:52 40 MG Acetaminophen (Tylenol Tab) 650 mg Q4H PRN PO 05/10/17 11:15 06/09/17 11:14 Ondansetron HCl (Zofran Inj) 4 mg Q6H PRN IV 05/10/17 11:15 06/09/17 11:14 Bisacodyl (Dulcolax Tab) 5 mg BID PRN PO 05/10/17 11:45 06/09/17 11:44 Fentanyl (Duragesic Patch) 25 mcg Q72H TD 05/10/17 14:00 05/13/17 13:59 05/10/17 13:56 25 MCG Fentanyl (Duragesic Patch) 100 mcg Q72H TD 05/10/17 14:00 05/13/17 13:59 05/10/17 13:57 100 MCG Polyethylene (Miralax Powder Packet) 17 gm DAILY PRN PO 05/10/17 11:45 06/09/17 11:44 05/11/17 07:49 17 GM Miscellaneous Information (Check Fentanyl Patch Placement) 1 ea QS N/A 05/10/17 16:00 05/13/17 13:59 05/12/17 09:09 1 EA Fentanyl (Duragesic Patch) 12 mcg Q72H TD 05/10/17 14:00 05/13/17 13:59 05/10/17 13:56 12 MCG Insulin Aspart (novoLOG ASPART) SLIDING SCALE If C... ACHS SC 05/10/17 16:30 06/09/17 16:29 05/11/17 20:41 1 UNITS Glucose (Glucose 40% Gel) 15-30 GRAMS 15 GRAMS... UD PRN PO 05/10/17 13:00 06/09/17 12:59 Glucose (Glucose Chew Tab) 4-8 Tablets 4 Tabl... UD PRN PO 05/10/17 13:00 06/09/17 12:59 Dextrose (Dextrose 50% 50ML Syringe) 25-50ML OF 50% DW IV FOR... UD PRN IV 05/10/17 13:00 06/09/17 12:59 Glucagon (Glucagon Inj) 1 mg UD PRN SQ 05/10/17 13:00 06/09/17 12:59 Miscellaneous (Iv Fluids Completed) 1 ea PRN PRN N/A 05/10/17 14:30 05/10/18 14:29 Hydromorphone HCl (Dilaudid Inj) 1 mg Q3HWA PRN IV 05/11/17 10:00 05/24/17 13:44 05/12/17 11:13 1 MG Polyethylene (Miralax Powder Packet) 17 gm DAILY PO 05/12/17 08:00 06/11/17 07:59 05/12/17 09:10 17 GM Duloxetine HCl (Cymbalta Cap) 60 mg QAM PO 05/12/17 10:00 06/11/17 09:59 05/12/17 10:31 60 MG Hydromorphone HCl (Dilaudid Tab) 4 mg Q1H PRN PO 05/12/17 09:00 05/26/17 08:59 05/12/17 10:30 4 MG Docusate Sodium (coLACE CAP) 100 mg BID PO 05/12/17 20:00 06/11/17 19:59 Fentanyl (Duragesic Patch) 25 mcg TODAY@0930 TD 05/12/17 09:30 05/13/17 13:59 05/12/17 10:31 25 MCG Miscellaneous (Fentanyl Patch Remove & Waste) 1 ea Q72H N/A 05/13/17 13:59 06/12/17 13:58 Miscellaneous Information (Check Fentanyl Patch Placement) 1 ea QS N/A 05/13/17 16:00 06/12/17 15:59 Fentanyl (Duragesic Patch) 100 mcg Q72H TD 05/13/17 14:00 05/27/17 13:59 Fentanyl (Duragesic Patch) 50 mcg Q72H TD 05/13/17 14:00 05/27/17 13:59 Fentanyl (Duragesic Patch) 12 mcg Q72H TD 05/13/17 14:00 05/27/17 13:59
--- NOTE | 2017-05-12 11:59 | Pain Management Progress Note ---
Pain Management Progress Note Date of Service May 12, 2017. Subjective Mr. Engle is a 67 year old white male with pancreatic cancer that measures 8cm. Patient has been admitted to the hospital on 04/26 and 05/01. He was discharged from the hospital most recently on 05/09. Patient was at home and started to develop 10/10 epigastric pain. He tried to take #2 tablets of the oral Dilaudid but it did not alleviate the pain. Within 30 minutes he decided that the pain was excruciating so he went to the Emergency Department. He was given 4mg of IV Dilaudid and was admitted for pain control. Patient is on Fentanyl patch 137mcg/hr and oral Dilaudid 4mg PO x 3 hrs PRN. He denies any side effects from the medications. He states that the acute flare up has resolved and his pain is currently a 3/10. When walking around the room last night, the pain is ranging from 3-5/10. Patient denies any nausea, vomiting, constipation, constitutional complaints. Pain Location 1 - 2 - Objective Vital Signs: Last Vital Signs Documentation Date Time Temp Pulse Resp B/P (MAP) Pulse Ox O2 Delivery O2 Flow Rate FiO2 05/12/17 11:03 94 Room Air 05/12/17 08:11 36.7 98 16 102/75 (84) Physical Exam: GENERAL: C6 to 6-year-old male who is awake, alert and oriented. Appears well developed. Is in mild distress at the present time laying in the left lateral decubitus position in his hospital bed. PSYCHIATRIC: Demonstrates normal and clear sensorium. Mood and affect are appropriate. Short-term and long-term memory is intact. He is tearful at times during the examination HEAD AND NECK: No obvious trauma. Demonstrates full range of motion of the cervical spine. No lymphadenopathy is noted. Trachea midline. EARS, EYES AND NOSE: Mucous membranes pink and moist. No mucosal lesions noted. Tongue midline. LUNGS: No audible wheezes or rhonchi. Normal chest excursion. CARDIAC: Regular rate and rhythm ABDOMEN: Normal bowel sounds. Mild tenderness but no rebound noted. There is some distention but no appreciable ascites. Tenderness appears to be located in bilateral lower quadrants right greater than left. Does appear to have a large stool volume BACK: Inspection of the lumbar spine demonstrates normal curvatures. No lesions are noted in the lumbar spine region. Provocative testing of the facet joints and the sacroiliac joints bilaterally including 5 provocative tests are negative. No myofascial tenderness or trigger points identifiable in the paraspinous musculature. Neurologically, straight leg raising is negative bilaterally past 90 and no changes noted Achilles stretch. NEUROLOGICAL: Cranial nerves II through XII grossly intact. No gross sensory or motor deficits noted in the upper extremity. Sensation and motor strength in the lower extremity are symmetrical without deficit. No pathologic reflexes are noted in the lower extremities. Gait is within normal limits he is able to turn in his bed with mild discomfort. Laboratory Laboratory Findings 05/12/17 06:[address]: reports reviewed CT Findings Patient: SABRINA ENGLE Address1: [address] [facility] Rec: [id number] Address2: Acct ID: [id number] [facility] Zip: [place] [address] Date: 1950 Sex: M Room/Bed: [facility] Ref Phy: Blake Bush M.D. SC: Kalpana Att Phy: Slim Maxwell M.D. Report #: [id number] Kaleigh Phy: Blake Bush M.D. Test: APWO Admit Phy: Slim Maxwell M.D. Parking Meter Servicer: BRENNA Interpreting Phy: Jose Starks M.D. Diagnosis: INTRACTABLE ABD PAIN, PANCREATIC CANCER Ordering Phy: Khai Crowell M.D. Service Date: 05/03/17 Admit Date: 05/02/1710/30/17 MNE: [id number] CONF: DICTATED BY: Jose Starks M.D.]] CC: Slim Maxwell M.D. Oconer, Joseph N., M.D. Oesterling, Brett, M.D. Endcc: [~ rep ct add3]] CT SCAN OF THE ABDOMEN AND PELVIS WITHOUT CONTRAST CLINICAL HISTORY: Severe right flank pain COMPARISON STUDY: 05/02/2017 TECHNIQUE: CT scan of the abdomen and pelvis was performed from the lung bases to the proximal femurs. Images are reviewed in the axial, sagittal, and coronal planes. IV contrast was not administered for this examination. A dose lowering technique was utilized adhering to the principles of ALARA. CT DOSE: 532.37 mGy.cm FINDINGS: Lower chest: The heart is normal in size and configuration, without pericardial effusion. The lung bases and pleural spaces are clear. Liver: The unenhanced liver is normal in size, contour, and attenuation. There is no intrahepatic biliary ductal dilatation. Gallbladder: There is vicarious excretion of contrast Spleen: Normal in size and attenuation. Pancreas: There is an 8 cm pancreatic mass demonstrating vascular encasement Adrenal glands: Unremarkable. Kidneys: There is faint residual contrast enhancement from the patient's preceding CT scan. There is no hydronephrosis. Bowel: There are no transition zones indicate bowel obstruction. There is no acute appendicitis. There is no acute diverticulitis. Peritoneum: There is a smaller free pelvic fluid. No free air is visualized. There is a fat-containing ventral hernia. There is a fat-containing ventral hernia. Vasculature: The abdominal aorta is normal in course and caliber. Adenopathy: None. Pelvic viscera: The prostate is mildly enlarged. Skeletal structures: No destructive osseous lesions are seen. IMPRESSION: 1. Persistent large pancreatic mass demonstrating vascular encasement and possible invasion of the stomach 2. Upper abdominal varices 3. Fat-containing ventral hernia 4. Mild fecal retention 5. Small amount of pelvic ascites 6. No evidence of bowel obstruction. No evidence of free air. 7. No evidence of hydronephrosis [place] Drug Monitoring Program Search Results: patient reviewed within database, no issues identified Opioid Risk Assessment Risk assessment performed, no issues identified Assessment 1. Intractable midepigastric abdominal pain with known history of pancreatic cancer and 8 cm mass 2. Opiate-induced constipation Recommendations 1. Will increase Cymbalta to 60mg daily to diminish pain burden 2. Continue Dilaudid IV 1mg x 3 hours only as a backup pain relief, rely on PO first 3. Increase Fentanyl to 162mcg/hr 4. Increase Dilaudid 4mg PO x 1 hr PRN to diminish flares. Will need home emergency narcan to utilize for rescue. 5. Will speak with pharmacy about education surrounding IM injection of Narcan at home. 6. The patient relayed to me that he could use additional support at home for him and his . Will have nursing speak with social work about securing on in -home nursing support. 7. Should this plan fail could consider intrathecal opiate pump as his life expectancy at this point is greater than 6 months per oncology. 8. Neurolytic celiac block appears to continue to be 50% effective. Would not consider a splanchnic nerve block at this time as it is unlikely to provide additional benefit. 9. Will order Relistor today as the patient hasn't had a bowel movement in 3 days. Additionally added Colace to his bowel regimen.
[2017-05-12] MEDS: ENOXAPARIN 40 MG/0.4 ML SYR SQ SCH (13:44)
--- NOTE | 2017-05-12 14:52 | Pain Management Consultation ---
Pain Consultation Date of Service May 12, 2017. Pain Consultation I spent about 20 minutes with the patient and his talking about pain management options that were outlined in my progress note this morning. They were provided supplementary information about intrathecal pumps and the plan is for a family meeting tomorrow between 10:30 and 11 to defer further discuss options. All questions were answered on prior to close of today's visit
[2017-05-12] MEDS: DOCUSATE SODIUM 100 MG CAP PO SCH (21:16)
[2017-05-13] MEDS: HYDROmorphone HCL 2 MG TAB PO PRN ×9 (00:03→23:56)
[2017-05-13] MEDS: CHECK FENTANYL PATCH PLACEMENT SCH ×6 (00:04→23:57)
[2017-05-13 04:17] VITALS: BP 114/70; PULSE 88; TEMP 36.7; O2SAT 98
[2017-05-13] MEDS: ONDANSETRON INJ 2 MG/ML 2 ML VIAL IV PRN (07:31)
[2017-05-13] MEDS: POLYETHYLENE (MIRALAX) 17 GM PACK PO SCH (07:36)
[2017-05-13 08:06] VITALS: BP 119/72; PULSE 96; TEMP 36.8; O2SAT 97
[2017-05-13] MEDS: CHOLECALCIFEROL 1000 INTER.UNIT TAB PO SCH (08:35)
[2017-05-13] MEDS: DOCUSATE SODIUM 100 MG CAP PO SCH ×2 (08:35→20:45)
[2017-05-13] MEDS: DULOXETINE HCL 60 MG CAP PO SCH (08:35)
[2017-05-13] MEDS: INSULIN ASPART 100 UNITS/ML 3 ML PEN SC SCH ×4 (09:45→20:59)
[2017-05-13] MEDS: HYDROmorphone INJ 1 MG/ML SYR IV PRN (10:12)
[2017-05-13] MEDS ORDERED: FENTANYL PATCH REMOVE & WASTE ONE (11:30)
[2017-05-13 11:50] VITALS: BP 105/63; PULSE 78; TEMP 36.7; O2SAT 97
[2017-05-13] MEDS ORDERED: FENTANYL 100 MCG/HR TDSY TD SCH ×2 (12:00→14:00)
[2017-05-13] MEDS ORDERED: FENTANYL 12 MCG/HR TDSY TD SCH ×2 (12:00→14:00)
--- NOTE | 2017-05-13 13:51 | Pain Management Progress Note ---
Pain Management Progress Note Date of Service May 13, 2017. Subjective Mr. Engle is a 67 year old white male with pancreatic cancer that measures 8cm. Patient has been admitted to the hospital on 04/26 and 05/01. He was discharged from the hospital most recently on 05/09. Patient was at home and started to develop 10/10 epigastric pain. He tried to take #2 tablets of the oral Dilaudid but it did not alleviate the pain. Within 30 minutes he decided that the pain was excruciating so he went to the Emergency Department. Over the last 24 hours his Fentanyl patch was increased to 162mcg/hr and oral Dilaudid 4mg PO x 1 hrs PRN. He utilized 36 mg of oral hydromorphone over the last 24 hours. He reports that he starting to have side effects from medication including constipation (improved with Relistor) and dizziness. Patient denies any current nausea, vomiting, constipation, or constitutional complaints. He does admit to diminished appetite. Pain currently ranges between 4 and 6 out of 10 worst with activity and eating. Pain Location 1 - 2 - Objective Vital Signs: Last Vital Signs Documentation Date Time Temp Pulse Resp B/P (MAP) Pulse Ox O2 Delivery O2 Flow Rate FiO2 05/13/17 11:50 36.7 78 18 105/63 (77) 97 Room Air Physical Exam: GENERAL: 67-year-old male who is awake, alert and oriented. Appears well developed. In no acute distress accompanied by his . PSYCHIATRIC: Demonstrates normal and clear sensorium. Mood and affect are appropriate. Short-term and long-term memory is intact. HEAD AND NECK: No obvious trauma. Demonstrates full range of motion of the cervical spine. No lymphadenopathy is noted. Trachea midline. EARS, EYES AND NOSE: Mucous membranes pink and moist. No mucosal lesions noted. Tongue midline. LUNGS: No audible wheezes or rhonchi. Normal chest excursion. CARDIAC: Regular rate and rhythm ABDOMEN: Normal bowel sounds. Mild tenderness but no rebound noted. There is some distention but no appreciable ascites. Tenderness appears to be located in bilateral lower quadrants right greater than left. BACK: Inspection of the lumbar spine demonstrates normal curvatures. No lesions are noted in the lumbar spine region. No myofascial tenderness or trigger points identifiable in the paraspinous musculature. Neurologically, straight leg raising is negative bilaterally past 90 and no changes noted Achilles stretch. NEUROLOGICAL: Cranial nerves II through XII grossly intact. No gross sensory or motor deficits noted in the upper extremity. Sensation and motor strength in the lower extremity are symmetrical without deficit. No pathologic reflexes are noted in the lower extremities. He is able to sit up in his bed without significant difficulty. Laboratory Laboratory Review: results personally reviewed by me Laboratory Findings 05/12/17 06:23 [place] Drug Monitoring Program Search Results: patient reviewed within database, no issues identified Opioid Risk Assessment Risk assessment performed, no issues identified Assessment 1. Intractable midepigastric abdominal pain with known history of pancreatic cancer and 8 cm mass 2. Opiate-induced constipation 3. Anxiety Recommendations A family meeting was held today (for approximately 40 minutes) between Dr. Liu the attending hospitalist, myself, Spike from case management, and Ria VELASQUEZ from oncology. The decision was made to move forward with epidural catheter intrathecal pump trial with implantation during this hospitalization provided that he has good efficacy. Since will be made to his fentanyl over the weekend in preparation to epidural trial on 05/16/2017. He will be made nothing by mouth after midnight and will hold Lovenox 24 hours prior to the procedure. In addition: 1. Continue Cymbalta to 60mg daily to diminish pain burden. 2. Orders were written for Ativan 0.5 mg by mouth every morning and 1 mg by mouth daily at bedtime to diminish anxiety. Additionally Ativan 0.5 mg by mouth every 8 when necessary anxiety was written for. 3. Continue Dilaudid IV 1mg x 3 hours only as a backup pain relief, rely on PO first 4. Increase Fentanyl to 212mcg/hr 5. Continue Dilaudid 4mg PO x 1 hr PRN to diminish flares. 6. Neurolytic celiac block remains 50% effective. Would not consider a splanchnic nerve block at this time as it is unlikely to provide additional benefit. 9. Will order Relistor today when necessary constipation every other day.
[2017-05-13] MEDS ORDERED: FENTANYL PATCH REMOVE & WASTE SCH ×2 (13:59)
[2017-05-13] MEDS ORDERED: FENTANYL 50 MCG/HR TDSY TD SCH (14:00)
[2017-05-13] MEDS: ENOXAPARIN 40 MG/0.4 ML SYR SQ SCH (14:08)
[2017-05-13 16:00] VITALS: O2SAT 97
[2017-05-13] MEDS ORDERED: CHECK FENTANYL PATCH PLACEMENT SCH (16:00)
[2017-05-13 16:12] VITALS: BP 109/60; PULSE 78; TEMP 36.9; O2SAT 97
[2017-05-13 19:52] VITALS: BP 96/59; PULSE 82; TEMP 36.7; O2SAT 93
--- NOTE | 2017-05-13 20:31 | Progress Note ---
Medicine Progress Note Date & Time of Visit: May 13, 2017 at 15:20 . Subjective Family meeting this morning with Pain Management and Case Management. Reassessed this afternoon. Continues to have intermittent severe epigastric pain. No nausea or vomiting. No bowel movement today (had one yesterday). No fever. No chest pain. No cough or SOB. . Objective Last 8 Hrs Date Time Temp Pulse Resp B/P (MAP) Pulse Ox O2 Delivery O2 Flow Rate FiO2 05/13/17 19:52 36.7 82 20 96/59 (71) 93 Room Air 05/13/17 16:12 36.9 78 16 109/60 (76) 97 Room Air 05/13/17 16:00 97 Room Air Physical Exam: General- -c-o-l-t-i-n-g- -o-n- -e-d-g-e- -o-f- -b-e-d--,- -c-y-m-e-a-r-s- -t-o- -b-e- -v-e-r-y- -y-z-c-s-j-o-t-k-r-a-b-l-e- no acute distress [correction GANGA 05/14/17 @ 16:25] Eyes- anicteric Lungs- clear Heart- RRR Abdomen- quiet bowel sounds, slightly distended, + epigastric tenderness Extremities- no pretibial edema or calf tenderness Neuro- alert . Laboratory Results: Last 24 Hours Test 05/13/17 07:56 05/13/17 12:00 05/13/17 17:18 Bedside Glucose 152 mg/dl 168 mg/dl 149 mg/dl Assessment & Plan INTRACTABLE PAIN Due to unresectable pancreatic Ca. Pain Management consulted. S/P neurolytic celiac block. Fentanyl patch dose increased to 212 mcg/hr. Duloxetine dose increased to 60 mg daily. Hydromorphone for breakthrough pain. Intrathecal opiate pump may offer benefit. Epidural trial anticipated. Continue bowel regimen. PANCREATIC CA Discussed with Medical Oncology. 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 Receiving palliative chemotherapy. Prognosis difficult to predict, but expected to be > 6 months. DM TYPE 2 Usually managed with metformin at home. Hgb A1C 7.6 on 05/03/17. Hold metformin during hospital stay. FBS today = 152. Continue NovoLog coverage. VITAMIN D DEFICIENCY 25-OH D = 21. Supplement. ANXIETY / DEPRESSION Secondary to pain and underlying malignancy. Receiving duloxetine for pain management. Add lorazepam for anxiety and insomnia. VTE PROPHYLAXIS SQ enoxaparin. Ambulate. DISPOSITION Expected discharge to home with home health services. Family Medicine follow-up with Dr. Bush. Medical Oncology follow-up with Dr. Hinojosa. Pain Management follow-up with Dr. Rogers. . Consultants: Pain Management-Dr. China Rogers Current Inpatient Medications: Current Inpatient Medications Medications (Trade) Dose Ordered Sig/Yolis Route Start Time Stop Time Status Last Admin Dose Admin Enoxaparin Sodium (Lovenox Inj) 40 mg Q24H SQ 05/10/17 14:00 06/09/17 13:59 Future Hold 05/13/17 14:08 40 MG Acetaminophen (Tylenol Tab) 650 mg Q4H PRN PO 05/10/17 11:15 06/09/17 11:14 Ondansetron HCl (Zofran Inj) 4 mg Q6H PRN IV 05/10/17 11:15 06/09/17 11:14 05/13/17 07:31 4 MG Bisacodyl (Dulcolax Tab) 5 mg BID PRN PO 05/10/17 11:45 06/09/17 11:44 Polyethylene (Miralax Powder Packet) 17 gm DAILY PRN PO 05/10/17 11:45 06/09/17 11:44 05/11/17 07:49 17 GM Insulin Aspart (novoLOG ASPART) SLIDING SCALE If C... ACHS SC 05/10/17 16:30 06/09/17 16:29 05/12/17 21:15 1 UNITS Glucose (Glucose 40% Gel) 15-30 GRAMS 15 GRAMS... UD PRN PO 05/10/17 13:00 06/09/17 12:59 Glucose (Glucose Chew Tab) 4-8 Tablets 4 Tabl... UD PRN PO 05/10/17 13:00 06/09/17 12:59 Dextrose (Dextrose 50% 50ML Syringe) 25-50ML OF 50% DW IV FOR... UD PRN IV 05/10/17 13:00 06/09/17 12:59 Glucagon (Glucagon Inj) 1 mg UD PRN SQ 05/10/17 13:00 12/7/17 12:59 Miscellaneous (Iv Fluids Completed) 1 ea PRN PRN N/A 05/10/17 14:30 05/10/18 14:29 Hydromorphone HCl (Dilaudid Inj) 1 mg Q3HWA PRN IV 05/11/17 10:00 05/24/17 13:44 05/13/17 10:12 1 MG Polyethylene (Miralax Powder Packet) 17 gm DAILY PO 05/12/17 08:00 06/11/17 07:59 05/13/17 07:36 17 GM Duloxetine HCl (Cymbalta Cap) 60 mg QAM PO 05/12/17 10:00 06/11/17 09:59 05/13/17 08:35 60 MG Hydromorphone HCl (Dilaudid Tab) 4 mg Q1H PRN PO 05/12/17 09:00 05/26/17 08:59 05/13/17 17:43 4 MG Docusate Sodium (coLACE CAP) 100 mg BID PO 05/12/17 20:00 06/11/17 19:59 05/13/17 08:35 100 MG Cholecalciferol (Vitamin D Tab) 1,000 inter.unit QAM PO 05/13/17 08:00 06/12/17 07:59 05/13/17 08:35 1,000 INTER.UNIT Lorazepam (Ativan Tab) 1 mg HS PO 05/13/17 21:00 06/12/17 20:59 Lorazepam (Ativan Tab) 0.5 mg QAM PO 05/14/17 08:00 06/13/17 07:59 Lorazepam (Ativan Tab) 0.5 mg Q8 PRN PO 05/13/17 11:15 06/12/17 11:14 Fentanyl (Duragesic Patch) 200 mcg Q3D@0900 TD 05/13/17 12:00 05/27/17 11:59 05/13/17 12:16 200 MCG Miscellaneous Information (Check Fentanyl Patch Placement) 2 ea QS N/A 05/13/17 16:00 06/12/17 15:59 05/13/17 16:00 2 EA Miscellaneous (Fentanyl Patch Remove & Waste) 2 ea Q3D@0859 N/A 05/16/17 08:59 06/15/17 08:58 Fentanyl (Duragesic Patch) 12 mcg Q3D@0900 TD 05/13/17 12:00 05/27/17 11:59 05/13/17 12:15 12 MCG Miscellaneous (Fentanyl Patch Remove & Waste) 1 ea Q3D@0859 N/A 05/16/17 08:59 06/15/17 08:58 Miscellaneous Information (Check Fentanyl Patch Placement) 1 ea QS N/A 05/13/17 16:00 06/12/17 15:59 05/13/17 16:00 1 EA
[2017-05-13] MEDS: LORAZEPAM 1 MG TAB PO SCH (20:47)
[2017-05-13] MEDS ORDERED: LORAZEPAM 1 MG TAB PO SCH (21:00)
[2017-05-14] VITALS (10 sets, daily range): BP systolic 88–108; BP diastolic 58–68; PULSE 75–97; TEMP 36.5–36.8; O2SAT 92–98; BMI 23.6
[2017-05-14] MEDS: HYDROmorphone HCL 2 MG TAB PO PRN ×4 (04:02→17:00)
[2017-05-14] MEDS: CHECK FENTANYL PATCH PLACEMENT SCH ×4 (07:44→15:41)
[2017-05-14] MEDS: DULOXETINE HCL 60 MG CAP PO SCH (07:45)
[2017-05-14] MEDS: CHOLECALCIFEROL 1000 INTER.UNIT TAB PO SCH (07:45)
[2017-05-14] MEDS: DOCUSATE SODIUM 100 MG CAP PO SCH ×2 (07:45→20:19)
[2017-05-14] MEDS: POLYETHYLENE (MIRALAX) 17 GM PACK PO SCH (07:45)
[2017-05-14] MEDS: LORAZEPAM 0.5 MG TAB PO SCH (07:46)
[2017-05-14] MEDS ORDERED: LORAZEPAM 0.5 MG TAB PO SCH (08:00)
[2017-05-14] MEDS: INSULIN ASPART 100 UNITS/ML 3 ML PEN SC SCH ×4 (09:00→20:20)
[2017-05-14] MEDS ORDERED: METHYLNALTREXONE BROMIDE INJ 12 MG/0.6 ML SYR SQ ONE (16:00)
[2017-05-14] MEDS: ENOXAPARIN 40 MG/0.4 ML SYR SQ SCH (16:04)
--- NOTE | 2017-05-14 18:24 | Progress Note ---
Medicine Progress Note Date & Time of Visit: May 14, 2017 at 13:45 . Subjective Pain under better control, but still requiring PRN dosing of hydromorphone for breakthrough pain. No nausea or vomiting. Constipated. No chest pain. No cough or shortness of breath. . Objective Last 8 Hrs Date Time Temp Pulse Resp B/P (MAP) Pulse Ox O2 Delivery O2 Flow Rate FiO2 05/14/17 15:48 36.5 94 16 95/58 (70) 96 Room Air 05/14/17 12:57 99/62 (74) 05/14/17 11:55 36.7 83 18 88/58 (68) 93 Room Air Physical Exam: General- lying in bed, no distress Lungs- clear Heart- RRR Abdomen- + bowel sounds, nondistended, soft, nontender Extremities- no pretibial edema or calf tenderness Neuro- alert, mild confusion . Laboratory Results: Last 24 Hours Test 05/13/17 20:27 05/14/17 07:50 05/14/17 11:55 05/14/17 16:40 Bedside Glucose 154 mg/dl 123 mg/dl 124 mg/dl 128 mg/dl Assessment & Plan INTRACTABLE PAIN Due to unresectable pancreatic Ca. Pain Management consulted. S/P neurolytic celiac block. Fentanyl patch dose increased to 212 mcg/hr. Duloxetine dose increased to 60 mg daily. Hydromorphone for breakthrough pain. Intrathecal opiate pump may offer benefit. Epidural trial anticipated. Continue bowel regimen. PANCREATIC CA Discussed with Medical Oncology. 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 Receiving palliative chemotherapy. Prognosis difficult to predict, but expected to be > 6 months. DM TYPE 2 Usually managed with metformin at home. Hgb A1C 7.6 on 05/03/17. Hold metformin during hospital stay. FBS today = 123. Continue NovoLog coverage. VITAMIN D DEFICIENCY 25-OH D = 21. Supplement. ANXIETY / DEPRESSION Secondary to pain and underlying malignancy. Receiving duloxetine for pain management. Added lorazepam for anxiety and insomnia. OPIATE [employer] CONSTIPATION No bowel movement for 2 days. Continue -v-m-b-e-n-k-s-i-n- docusate sodium and polyethylene. [corrected GANGA 06/19 @ 08:36] Methylnaltrexone SQ today. VTE PROPHYLAXIS SQ enoxaparin. Ambulate. DISPOSITION Expected discharge to home with home health services. Family Medicine follow-up with Dr. Bush. Medical Oncology follow-up with Dr. Hinojosa. Pain Management follow-up with Dr. Rogers. . Consultants: Pain Management-Dr. China Rogers Current Inpatient Medications: Current Inpatient Medications Medications (Trade) Dose Ordered Sig/Yolis Route Start Time Stop Time Status Last Admin Dose Admin Enoxaparin Sodium (Lovenox Inj) 40 mg Q24H SQ 05/10/17 14:00 06/09/17 13:59 Future Hold 05/14/17 16:04 40 MG Acetaminophen (Tylenol Tab) 650 mg Q4H PRN PO 05/10/17 11:15 06/09/17 11:14 Ondansetron HCl (Zofran Inj) 4 mg Q6H PRN IV 05/10/17 11:15 06/09/17 11:14 05/13/17 07:31 4 MG Bisacodyl (Dulcolax Tab) 5 mg BID PRN PO 05/10/17 11:45 06/09/17 11:44 Polyethylene (Miralax Powder Packet) 17 gm DAILY PRN PO 05/10/17 11:45 06/09/17 11:44 05/11/17 07:49 17 GM Insulin Aspart (novoLOG ASPART) SLIDING SCALE If C... ACHS SC 05/10/17 16:30 06/09/17 16:29 05/14/17 17:52 2 UNITS Glucose (Glucose 40% Gel) 15-30 GRAMS 15 GRAMS... UD PRN PO 05/10/17 13:00 06/09/17 12:59 Glucose (Glucose Chew Tab) 4-8 Tablets 4 Tabl... UD PRN PO 05/10/17 13:00 06/09/17 12:59 Dextrose (Dextrose 50% 50ML Syringe) 25-50ML OF 50% DW IV FOR... UD PRN IV 05/10/17 13:00 06/09/17 12:59 Glucagon (Glucagon Inj) 1 mg UD PRN SQ 05/10/17 13:00 06/09/17 12:59 Miscellaneous (Iv Fluids Completed) 1 ea PRN PRN N/A 05/10/17 14:30 05/10/18 14:29 Hydromorphone HCl (Dilaudid Inj) 1 mg Q3HWA PRN IV 05/11/17 10:00 05/24/17 13:44 05/13/17 10:12 1 MG Polyethylene (Miralax Powder Packet) 17 gm DAILY PO 05/12/17 08:00 06/11/17 07:59 05/14/17 07:45 17 GM Duloxetine HCl (Cymbalta Cap) 60 mg QAM PO 05/12/17 10:00 06/11/17 09:59 05/14/17 07:45 60 MG Hydromorphone HCl (Dilaudid Tab) 4 mg Q1H PRN PO 05/12/17 09:00 05/26/17 08:59 05/14/17 17:00 4 MG Docusate Sodium (coLACE CAP) 100 mg BID PO 05/12/17 20:00 06/11/17 19:59 05/14/17 07:45 100 MG Cholecalciferol (Vitamin D Tab) 1,000 inter.unit QAM PO 05/13/17 08:00 06/12/17 07:59 05/14/17 07:45 1,000 INTER.UNIT Lorazepam (Ativan Tab) 0.5 mg Q8 PRN PO 05/13/17 11:15 06/12/17 11:14 Fentanyl (Duragesic Patch) 200 mcg Q3D@0900 TD 05/13/17 12:00 05/27/17 11:59 05/13/17 12:16 200 MCG Miscellaneous Information (Check Fentanyl Patch Placement) 2 ea QS N/A 05/13/17 16:00 06/12/17 15:59 05/14/17 15:41 2 EA Miscellaneous (Fentanyl Patch Remove & Waste) 2 ea Q3D@0859 N/A 05/16/17 08:59 06/15/17 08:58 Fentanyl (Duragesic Patch) 12 mcg Q3D@0900 TD 05/13/17 12:00 05/27/17 11:59 05/13/17 12:15 12 MCG Miscellaneous (Fentanyl Patch Remove & Waste) 1 ea Q3D@0859 N/A 05/16/17 08:59 06/15/17 08:58 Miscellaneous Information (Check Fentanyl Patch Placement) 1 ea QS N/A 05/13/17 16:00 06/12/17 15:59 05/14/17 15:41 1 EA Lorazepam (Ativan Tab) 1 mg HS PO 05/13/17 21:00 06/12/17 20:59 05/13/17 20:47 1 MG Lorazepam (Ativan Tab) 0.5 mg DAILY PO 05/14/17 08:00 06/13/17 07:59 05/14/17 07:46 0.5 MG
[2017-05-14] MEDS: LORAZEPAM 1 MG TAB PO SCH (20:19)
--- NOTE | 2017-05-14 21:17 | Progress Note ---
Progress Note Date of Service May 14, 2017. Progress Note Mr. Engle is a 67 yo male admitted with chronic pain secondary to unresectable pancreatic neuroendocrine cancer. He recently received a celiac plexus block and changes to his narcotic pain medicine without relief and now is scheduled for intrathecal pain pump trial. His PMH is significant for NIDDM , kidney stones, anxiety and depression. Patient denies any prior problems with anesthesia. On exam: heart has a RRR without M/R/G, lungs are clear throughout, and airway is a Mallampati III with good mouth opening and appropriate ROM in the neck. Mr. Engle was consented for MAC and GA. He was instructed to remain NPO after midnight tomorrow except for a sip of water with pills. Orders are already in place to hold his enoxaparin starting 05/15. Patient may take all other medicine as needed with a sip of water up to 2 hours prior to scheduled procedure. Please contact Anesthesia with any questions or concerns. Amy Bang MD, PhD
[2017-05-15 04:21] VITALS: BP 111/67; PULSE 76; TEMP 36.6; O2SAT 94
[2017-05-15 06:22] LABS: HEMATOCRIT 30.4 % (42-52); MEAN CELL VOLUME 89.1 fL (80-100); MEAN CORPUSCULAR HEMOGLOBIN 29.6 pg (25-34); MEAN CORPUSCULAR HGB CONC 33.2 g/dl (32-36); MEAN PLATELET VOLUME 10.4 fL (7.4-10.4); PLATELET COUNT 195 K/uL (130-400); RED BLOOD COUNT 3.41 M/uL (4.7-6.1); WHITE BLOOD COUNT 10.52 K/uL (4.8-10.8)
[2017-05-15 06:45] LABS: INR 1.3 (0.9-1.1); PROTHROMBIN TIME (PATIENT) 13.5 SECONDS (9.0-12.0)
[2017-05-15 06:53] VITALS: BMI 23.8
[2017-05-15 07:19] VITALS: BP 103/65; PULSE 84; TEMP 36.7; O2SAT 95
[2017-05-15] MEDS: LORAZEPAM 0.5 MG TAB PO SCH (08:00)
[2017-05-15] MEDS: DOCUSATE SODIUM 100 MG CAP PO SCH ×2 (08:07→19:26)
[2017-05-15] MEDS: DULOXETINE HCL 60 MG CAP PO SCH (08:07)
[2017-05-15] MEDS: CHOLECALCIFEROL 1000 INTER.UNIT TAB PO SCH (08:08)
[2017-05-15] MEDS: POLYETHYLENE (MIRALAX) 17 GM PACK PO SCH ×2 (08:08→19:26)
[2017-05-15] MEDS: CHECK FENTANYL PATCH PLACEMENT SCH ×4 (08:08)
--- NOTE | 2017-05-15 08:35 | Progress Note ---
Medicine Progress Note Date & Time of Visit: May 15, 2017 at 07:50 . Subjective Improved pain control last 48 hours, but more confused. No fever. No cough or shortness of breath. No nausea or vomiting. No bowel movement despite bowel regimen including a demonstration of methylnaltrexone yesterday. Voiding without difficulty. . Objective Last 8 Hrs Date Time Temp Pulse Resp B/P (MAP) Pulse Ox O2 Delivery O2 Flow Rate FiO2 05/15/17 07:19 36.7 84 20 103/65 (78) 95 05/15/17 04:21 36.6 76 18 111/67 (82) 94 Room Air Physical Exam: General- lying in bed, no distress Eyes- anicteric Lungs- clear Heart- RRR Abdomen- quiet bowel sounds, slightly distended, mild epigastric tenderness Extremities- no pretibial edema or calf tenderness Neuro- alert, somewhat confused . Laboratory Results: Last 24 Hours Test 05/14/17 11:55 05/14/17 16:40 05/14/17 20:01 05/15/17 05:52 Bedside Glucose 124 mg/dl 128 mg/dl 119 mg/dl White Blood Count 10.52 K/uL Red Blood Count 3.41 M/uL Hemoglobin 10.1 g/dL Hematocrit 30.4 % Mean Corpuscular Volume 89.1 fL Mean Corpuscular Hemoglobin 29.6 pg Mean Corpuscular Hemoglobin Concent 33.2 g/dl RDW Standard Deviation 52.7 fL RDW Coefficient of Variation 16.5 % Platelet Count 195 K/uL Mean Platelet Volume 10.4 fL Prothrombin Time 13.5 SECONDS Prothromb Time International Ratio 1.3 Test 05/15/17 07:52 Bedside Glucose 160 mg/dl Assessment & Plan INTRACTABLE PAIN Due to unresectable pancreatic Ca. Pain Management consulted. S/P neurolytic celiac block. Fentanyl patch dose increased to 212 mcg/hr. Duloxetine dose increased to 60 mg daily. Hydromorphone ordered for breakthrough pain. Pain is under better control, but at the cost of increasing confusion. Intrathecal opiate pump may offer benefit with fewer systemic side effects. Epidural trial anticipated tomorrow. Continue bowel regimen. PANCREATIC CA Discussed with Medical Oncology. 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 Receiving palliative chemotherapy. Prognosis difficult to predict, but expected to be > 6 months. DM TYPE 2 Usually managed with metformin at home. Hgb A1C 7.6 on 05/03/17. Hold metformin during hospital stay. FBS today = 160. Continue NovoLog coverage. VITAMIN D DEFICIENCY 25-OH D = 21. Supplement. ANXIETY / DEPRESSION / INSOMNIA Secondary to pain and underlying malignancy. Receiving duloxetine for pain management. Added lorazepam for anxiety and insomnia. OPIATE ASSOCIATED CONSTIPATION Constipated. Methylnaltrexone SQ administered yesterday. Continue docusate sodium and polyethylene. VTE PROPHYLAXIS SQ enoxaparin- hold for epidural and intrathecal pump. SCD's. Ambulate. DISPOSITION Expected discharge to home with home health services. Family Medicine follow-up with Dr. Bush. Medical Oncology follow-up with Dr. Hinojosa. Pain Management follow-up with Dr. Rogers. . Consultants: Pain Management-Dr. China Rogers Current Inpatient Medications: Current Inpatient Medications Medications (Trade) Dose Ordered Sig/Yolis Route Start Time Stop Time Status Last Admin Dose Admin Enoxaparin Sodium (Lovenox Inj) 40 mg Q24H SQ 05/10/17 14:00 06/09/17 13:59 Future Hold 05/14/17 16:04 40 MG Acetaminophen (Tylenol Tab) 650 mg Q4H PRN PO 05/10/17 11:15 06/09/17 11:14 Ondansetron HCl (Zofran Inj) 4 mg Q6H PRN IV 05/10/17 11:15 06/09/17 11:14 05/13/17 07:31 4 MG Bisacodyl (Dulcolax Tab) 5 mg BID PRN PO 05/10/17 11:45 06/09/17 11:44 Polyethylene (Miralax Powder Packet) 17 gm DAILY PRN PO 05/10/17 11:45 06/09/17 11:44 05/11/17 07:49 17 GM Insulin Aspart (novoLOG ASPART) SLIDING SCALE If C... ACHS SC 05/10/17 16:30 06/09/17 16:29 05/14/17 17:52 2 UNITS Glucose (Glucose 40% Gel) 15-30 GRAMS 15 GRAMS... UD PRN PO 05/10/17 13:00 06/09/17 12:59 Glucose (Glucose Chew Tab) 4-8 Tablets 4 Tabl... UD PRN PO 05/10/17 13:00 06/09/17 12:59 Dextrose (Dextrose 50% 50ML Syringe) 25-50ML OF 50% DW IV FOR... UD PRN IV 05/10/17 13:00 06/09/17 12:59 Glucagon (Glucagon Inj) 1 mg UD PRN SQ 05/10/17 13:00 06/09/17 12:59 Miscellaneous (Iv Fluids Completed) 1 ea PRN PRN N/A 05/10/17 14:30 05/10/18 14:29 Hydromorphone HCl (Dilaudid Inj) 1 mg Q3HWA PRN IV 05/11/17 10:00 05/24/17 13:44 05/13/17 10:12 1 MG Polyethylene (Miralax Powder Packet) 17 gm DAILY PO 05/12/17 08:00 06/11/17 07:59 05/15/17 08:08 17 GM Duloxetine HCl (Cymbalta Cap) 60 mg QAM PO 05/12/17 10:00 06/11/17 09:59 05/15/17 08:07 60 MG Hydromorphone HCl (Dilaudid Tab) 4 mg Q1H PRN PO 05/12/17 09:00 05/26/17 08:59 05/14/17 17:00 4 MG Docusate Sodium (coLACE CAP) 100 mg BID PO 05/12/17 20:00 06/11/17 19:59 05/15/17 08:07 100 MG Cholecalciferol (Vitamin D Tab) 1,000 inter.unit QAM PO 05/13/17 08:00 06/12/17 07:59 05/15/17 08:08 1,000 INTER.UNIT Lorazepam (Ativan Tab) 0.5 mg Q8 PRN PO 05/13/17 11:15 06/12/17 11:14 Fentanyl (Duragesic Patch) 200 mcg Q3D@0900 TD 05/13/17 12:00 05/27/17 11:59 05/13/17 12:16 200 MCG Miscellaneous Information (Check Fentanyl Patch Placement) 2 ea QS N/A 05/13/17 16:00 06/12/17 15:59 05/15/17 08:08 2 EA Miscellaneous (Fentanyl Patch Remove & Waste) 2 ea Q3D@0859 N/A 05/16/17 08:59 06/15/17 08:58 Fentanyl (Duragesic Patch) 12 mcg Q3D@0900 TD 05/13/17 12:00 05/27/17 11:59 05/13/17 12:15 12 MCG Miscellaneous (Fentanyl Patch Remove & Waste) 1 ea Q3D@0859 N/A 05/16/17 08:59 06/15/17 08:58 Miscellaneous Information (Check Fentanyl Patch Placement) 1 ea QS N/A 05/13/17 16:00 06/12/17 15:59 05/15/17 08:08 1 EA Lorazepam (Ativan Tab) 1 mg HS PO 05/13/17 21:00 06/12/17 20:59 05/14/17 20:19 1 MG Lorazepam (Ativan Tab) 0.5 mg DAILY PO 05/14/17 08:00 06/13/17 07:59 05/14/17 07:46 0.5 MG
[2017-05-15] MEDS: INSULIN ASPART 100 UNITS/ML 3 ML PEN SC SCH ×4 (08:57→20:45)
[2017-05-15] MEDS: HYDROmorphone HCL 2 MG TAB PO PRN ×3 (09:16→18:36)
[2017-05-15 11:20] VITALS: BP 105/68; PULSE 85; TEMP 36.6; O2SAT 92
[2017-05-15] MEDS ORDERED: FENTANYL PATCH REMOVE & WASTE SCH (12:30)
[2017-05-15] MEDS: FENTANYL PATCH REMOVE & WASTE SCH ×2 (12:30→12:31)
[2017-05-15 15:50] VITALS: BP 105/67; PULSE 85; TEMP 36.7; O2SAT 96
[2017-05-15 20:03] VITALS: BP 105/65; PULSE 86; TEMP 36.8; O2SAT 94
[2017-05-15 23:32] VITALS: BP 100/63; PULSE 80; TEMP 36.8; O2SAT 96
[2017-05-16] VITALS (11 sets, daily range): BP systolic 112–136; BP diastolic 69–84; PULSE 77–97; TEMP 36.5–37.1; O2SAT 93–98; Ht 182.9 cm; Wt 70.7 kg
[2017-05-16] MEDS: HYDROmorphone HCL 2 MG TAB PO PRN ×3 (01:15→16:22)
[2017-05-16] MEDS: POLYETHYLENE (MIRALAX) 17 GM PACK PO SCH ×2 (07:41→21:02)
[2017-05-16 07:46] LABS: BUN/CREATININE RATIO 26.4 (10-20); CALCIUM 8.4 mg/dl (8.5-10.1); CREATININE 0.8 mg/dl (0.60-1.40); POTASSIUM 3.9 mmol/L (3.5-5.1)
[2017-05-16] MEDS: INSULIN ASPART 100 UNITS/ML 3 ML PEN SC SCH ×4 (07:50→21:09)
[2017-05-16] MEDS: HYDROmorphone INJ 1 MG/ML SYR IV PRN ×2 (08:23→09:01)
[2017-05-16] MEDS ORDERED: HYDROmorphone INJ 1 MG/ML SYR IV PRN (08:30)
[2017-05-16] MEDS ORDERED: MEPERIDINE HCL 25 MG/ML CARP IV PRN (08:30)
[2017-05-16] MEDS ORDERED: LABETALOL HCL IV 5 MG/ML 20ML IV PRN (08:30)
[2017-05-16] MEDS ORDERED: FENTANYL CITRATE INJ 50 MCG/1 ML 2 ML VIAL IV PRN (08:30)
[2017-05-16] MEDS ORDERED: ATROPINE SULFATE 0.1 MG/ML 5ML SYR IV PRN (08:30)
[2017-05-16] MEDS ORDERED: EpHEDrine SULFATE INJ 50 MG/ML AMP IV PRN (08:30)
[2017-05-16] MEDS ORDERED: ONDANSETRON INJ 2 MG/ML 2 ML VIAL IV PRN (08:30)
--- NOTE | 2017-05-16 08:56 | History & Physical Bridge Note ---
H&P Re-Evaluation Bridge Note: I have examined the patient, reviewed the History & Physical and in the interval since the performance of the History & Physical I have noted the following changes of clinical significance: No changes noted Plan for epidural morphine trial this AM. Events of yesterday noted. Dilaudid 1mg IV x1 given this AM as patient was in acute distress secondary to pain. Will plan for tfr to PCU after trial performed for closer monitoring.
[2017-05-16] MEDS ORDERED: FENTANYL PATCH REMOVE & WASTE SCH ×3 (08:59)
[2017-05-16] MEDS ORDERED: NURSING VERBAL MED ORDER ONE (09:00)
[2017-05-16] MEDS ORDERED: HYDROmorphone INJ 1 MG/ML SYR IV STA (09:09)
[2017-05-16] MEDS ORDERED: MAGNESIUM CITRATE 296 ML/BTL PO PRN (09:15)
[2017-05-16] MEDS ORDERED: NALOXONE HCL 0.4 MG/1 ML VIAL/CARP IV PRN (09:15)
[2017-05-16] MEDS ORDERED: ONDANSETRON INJ 8 MG in DEXTROSE 5% 50ML 50 ML IV PRN (09:15)
[2017-05-16] MEDS ORDERED: NALOXONE HCL INJ 0.4 MG/1 ML VIAL/CARP IV PRN (09:15)
[2017-05-16] MEDS ORDERED: MIDAZOLAM HCL 1 MG/ML 2ML VIAL ONE (09:36)
[2017-05-16] MEDS ORDERED: FENTANYL CITRATE INJ 50 MCG/1 ML 2 ML VIAL ONE (09:36)
[2017-05-16] MEDS ORDERED: MoRPHine SULFATE 2 MG/ML CARP ONE (10:13)
--- NOTE | 2017-05-16 10:40 | Operative Note-Pain Management ---
Pain Clinic Operative Note LUMBAR EPIDURAL INTRATHECAL PUMP TRIAL Diagnosis: Pancreatic cancer with intractable pain despite maximal medical therapy Level catheter placed: T11 to 12 Surgeon: Dr. China Rogers Anesthesia: local MAC EBL:none Material forwarded to lab: none Prior to starting, the Patients diagnosis and the procedure were reviewed with the patient in detail. Possible risks, complications and alternative therapies were also reviewed. Patients questions were answered. Informed consent was obtained. Allergies and medication list was reviewed. The patient was brought to the fluoroscopy room and placed in prone position on the table. Immediately prior to starting the procedure, a time out was conducted with the staff and the patient where the Patient was identified, proposed procedure was verified, consent was reviewed and the proper site for the planned procedure was identified. Fluoroscopy was utilized in performing the procedure to assist in placement of the needle, to evaluate the final position on the needle prior to injection and to avoid intravascular injection. Sedation was given as per anesthetic record. Ancef 2 g IV was given prior to the start of the procedure. The lumbosacral spine area was prepped with duraprep and Betadine. Sterile drapes were applied. 1% Xylocaine, 3 cc, was infiltrated in the skin and subcutaneous tissues using a 27 gauge needle. A 17 gauge, 3.5 inch Touhy needle was then inserted through the anesthetized area and advanced under bi planar fluoroscopy through the ligamentum flavum into the epidural space via midline approach with [id number] technique with saline. Upon entering the epidural space the patient did not experience pain or paresthesia. Bevel of the needle was directed in the cephalad direction. Aspiration via the needle demonstrated no CSF or blood. The epidural catheter was easily threaded into the epidural space. In a lateral view, epidural placement was confirmed. The tuohy epidural needle was then withdrawn. Adequate hemostasis was noted. The catheter was tunneled utilizing a 16-gauge peripheral IV catheter. Dermabond was used to ensure closure of skin in sterile fashion. Next steristrips followed by gauze and tegaderm dressings were applied. Next fentanyl 100g was injected into the epidural catheter after negative aspiration. The patient was transferred to the recovery room in stable condition and will be connected to the epidural pump to run durapmorph PF 0.4mg/hr continuously. I attest to the content of the Intraoperative Record and any orders documented therein. Any exceptions are noted below.
[2017-05-16] MEDS ORDERED: PROPOFOL IV EMULSION 10 MG/ML 20 ML VIAL IV ONE (10:47)
[2017-05-16] MEDS: MORPHINE SULFATE EPI SCH (11:10)
--- NOTE | 2017-05-16 12:04 | Anesthesiology Progress Note ---
Anesthesia Post Op Note Date & Time May 16, 2017 at 12:03 Vital Signs Pain Intensity: 2 Vital Signs Past 12 Hours Date Time Temp Pulse Resp B/P (MAP) Pulse Ox O2 Delivery O2 Flow Rate FiO2 05/16/17 11:53 81 19 05/16/17 11:53 81 19 99 05/16/17 11:51 117/68 05/16/17 11:48 84 15 94 05/16/17 11:48 83 15 05/16/17 11:48 36.5 77 16 93 2.0 05/16/17 11:47 82 24 05/16/17 11:47 84 24 116/68 95 05/16/17 11:42 81 17 97 05/16/17 11:42 81 17 05/16/17 11:41 97/80 05/16/17 11:37 80 16 05/16/17 11:37 80 16 95 05/16/17 11:36 112/72 05/16/17 11:32 81 15 05/16/17 11:32 80 15 89 05/16/17 11:32 36.5 77 16 112/72 (82) 93 Nasal Cannula 2 Oxymask 05/16/17 11:31 119/74 05/16/17 11:27 80 17 05/16/17 11:27 79 17 97 05/16/17 11:26 117/67 05/16/17 11:22 81 15 05/16/17 11:22 80 15 99 05/16/17 11:21 117/85 05/16/17 11:17 86 16 99 05/16/17 11:17 84 16 05/16/17 11:16 126/67 05/16/17 11:12 82 14 05/16/17 11:12 81 14 99 05/16/17 11:11 116/69 05/16/17 11:07 86 15 05/16/17 11:07 86 15 99 05/16/17 11:06 121/70 05/16/17 11:03 81 15 05/16/17 11:03 81 15 100 05/16/17 11:01 111/72 05/16/17 10:58 88 16 05/16/17 10:58 81 16 92 05/16/17 10:56 116/71 05/16/17 10:53 78 14 99 05/16/17 10:53 79 14 05/16/17 10:51 121/69 05/16/17 10:48 80 15 05/16/17 10:48 80 15 99 05/16/17 10:46 121/68 05/16/17 10:45 83 16 121/68 99 Oxymask 10 05/16/17 10:43 82 17 98 05/16/17 10:43 82 17 05/16/17 10:41 109/67 05/16/17 10:39 116/69 05/16/17 10:38 15 05/16/17 10:38 36.7 84 16 116/69 98 Oxymask 10 05/16/17 10:38 15 05/16/17 08:00 Room Air 05/16/17 07:20 36.8 91 18 112/69 (83) 95 Room Air Notes Mental Status: alert / awake / arousable, participated in evaluation Pt Amnestic to Procedure: Yes Nausea / Vomiting: adequately controlled Pain: adequately controlled Airway Patency, RR, SpO2: stable & adequate BP & HR: stable & adequate Hydration State: stable & adequate Anesthetic Complications: no major complications apparent
[2017-05-16] MEDS: DULOXETINE HCL 60 MG CAP PO SCH (12:33)
[2017-05-16] MEDS: CHOLECALCIFEROL 1000 INTER.UNIT TAB PO SCH (12:33)
[2017-05-16] MEDS: DOCUSATE SODIUM 100 MG CAP PO SCH ×2 (12:33→21:05)
--- NOTE | 2017-05-16 14:11 | Pain Management Consultation ---
Pain Consultation Date of Service May 16, 2017. Pain Consultation The patient reports he's doing well with a epidural catheter infusing morphine 0.4 mg per hour. He reports that his pain is 2 out of 10 though he has not been very active since the time of the procedure. We'll continue to monitor.
--- NOTE | 2017-05-16 20:04 | Progress Note ---
Medicine Progress Note Date & Time of Visit: May 16, 2017 at 15:10 . Subjective Transdermal fentanyl had to be held yesterday due to severe lethargy and increasing confusion. More alert today, but abdominal pain worse. Lumbar epidural catheter placed by Dr. Rogers this morning. Fairly comfortable at time of my assessment- pain about 5/10. No nausea or vomiting. No CP or SOB. . Objective Last 8 Hrs Date Time Temp Pulse Resp B/P (MAP) Pulse Ox O2 Delivery O2 Flow Rate FiO2 05/16/17 19:18 37.1 88 22 116/73 (87) 98 Nasal Cannula 4.0 05/16/17 16:30 37.0 94 18 117/71 (86) 98 Room Air 4.0 05/16/17 16:10 Room Air 05/16/17 15:49 37.0 85 16 119/75 (90) 98 Nasal Cannula 3.0 05/16/17 15:30 36.8 97 18 128/81 (97) 98 Room Air 4.0 05/16/17 14:30 36.8 89 18 136/84 (101) 98 Room Air 4.0 05/16/17 13:30 36.7 81 18 119/73 (88) 98 Room Air 4.0 05/16/17 12:30 Room Air 05/16/17 12:30 36.5 79 18 126/74 (91) 98 Room Air 4.0 Physical Exam: General- lying in bed, no distress Eyes- anicteric Lungs- clear Heart- RRR Abdomen- abdominal binder applied Extremities- no pretibial edema or calf tenderness Neuro- alert, less confused . Laboratory Results: Last 24 Hours Test 05/15/17 20:13 05/16/17 06:32 05/16/17 07:48 05/16/17 09:38 Bedside Glucose 122 mg/dl 158 mg/dl 162 mg/dl Sodium Level 131 mmol/L Potassium Level 3.9 mmol/L Chloride Level 96 mmol/L Carbon Dioxide Level 24 mmol/L Anion Gap 11.0 mmol/L Blood Urea Nitrogen 21 mg/dl Creatinine 0.80 mg/dl Est Creatinine Clear Calc Drug Dose 99.7 ml/min Estimated GFR () 107.9 Estimated GFR (Non- 93.1 BUN/Creatinine Ratio 26.4 Random Glucose 141 mg/dl Calcium Level 8.4 mg/dl Test 05/16/17 10:55 05/16/17 16:03 05/16/17 19:40 Bedside Glucose 139 mg/dl 132 mg/dl 147 mg/dl Assessment & Plan INTRACTABLE PAIN Due to unresectable pancreatic Ca. Pain Management consulted. S/P neurolytic celiac block. Fentanyl patch dose increased to 212 mcg/hr but pat experienced increasing confusion and lethargy. Duloxetine dose increased to 60 mg daily. Hydromorphone for breakthrough pain. Intrathecal opiate pump may offer benefit. Epidural catheter placed today. Continue bowel regimen. PANCREATIC CA Discussed with Medical Oncology. 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 Receiving palliative chemotherapy. Prognosis difficult to predict, but expected to be > 6 months. DM TYPE 2 Usually managed with metformin at home. Hgb A1C 7.6 on 05/03/17. Hold metformin during hospital stay. FBS today = 158. Continue NovoLog coverage. VITAMIN D DEFICIENCY 25-OH D = 21. Supplement. ANXIETY / DEPRESSION Secondary to pain and underlying malignancy. Receiving duloxetine for pain management. Added lorazepam for anxiety and insomnia. OPIATE ASSOCIATED CONSTIPATION No bowel movement for 2 days. Continue docusate sodium and polyethylene. Methylnaltrexone SQ PRN. VTE PROPHYLAXIS SQ enoxaparin- held for epidural. SCD's. Ambulate. DISPOSITION Expected discharge to home with home health services. Family Medicine follow-up with Dr. Bush. Medical Oncology follow-up with Dr. Hinojosa. Pain Management follow-up with Dr. Rogers. . Consultants: Pain Management-Dr. China Rogers Current Inpatient Medications: Current Inpatient Medications Medications (Trade) Dose Ordered Sig/Yolis Route Start Time Stop Time Status Last Admin Dose Admin Acetaminophen (Tylenol Tab) 650 mg Q4H PRN PO 05/10/17 11:15 06/09/17 11:14 Ondansetron HCl (Zofran Inj) 4 mg Q6H PRN IV 05/10/17 11:15 06/09/17 11:14 05/13/17 07:31 4 MG Bisacodyl (Dulcolax Tab) 5 mg BID PRN PO 05/10/17 11:45 06/09/17 11:44 Polyethylene (Miralax Powder Packet) 17 gm DAILY PRN PO 05/10/17 11:45 06/09/17 11:44 05/11/17 07:49 17 GM Insulin Aspart (novoLOG ASPART) SLIDING SCALE If C... ACHS SC 05/10/17 16:30 06/09/17 16:29 05/15/17 08:57 1 UNITS Glucose (Glucose 40% Gel) 15-30 GRAMS 15 GRAMS... UD PRN PO 05/10/17 13:00 06/09/17 12:59 Glucose (Glucose Chew Tab) 4-8 Tablets 4 Tabl... UD PRN PO 05/10/17 13:00 06/09/17 12:59 Dextrose (Dextrose 50% 50ML Syringe) 25-50ML OF 50% DW IV FOR... UD PRN IV 05/10/17 13:00 06/09/17 12:59 Glucagon (Glucagon Inj) 1 mg UD PRN SQ 05/10/17 13:00 06/09/17 12:59 Miscellaneous (Iv Fluids Completed) 1 ea PRN PRN N/A 05/10/17 14:30 05/10/18 14:29 Hydromorphone HCl (Dilaudid Inj) 1 mg Q3HWA PRN IV 05/11/17 10:00 05/24/17 13:44 05/16/17 09:01 1 MG Duloxetine HCl (Cymbalta Cap) 60 mg QAM PO 05/12/17 10:00 06/11/17 09:59 05/16/17 12:33 60 MG Hydromorphone HCl (Dilaudid Tab) 4 mg Q1H PRN PO 05/12/17 09:00 05/26/17 08:59 05/16/17 16:22 4 MG Docusate Sodium (coLACE CAP) 100 mg BID PO 05/12/17 20:00 06/11/17 19:59 05/16/17 12:33 100 MG Cholecalciferol (Vitamin D Tab) 1,000 inter.unit QAM PO 05/13/17 08:00 06/12/17 07:59 05/16/17 12:33 1,000 INTER.UNIT Lorazepam (Ativan Tab) 0.5 mg Q8 PRN PO 05/13/17 11:15 06/12/17 11:14 Polyethylene (Miralax Powder Packet) 17 gm BID PO 05/15/17 20:00 12/9/17 07:59 05/15/17 19:26 17 GM Naloxone HCl (Narcan Inj) 0.4 mg PRN PRN IV 05/16/17 09:15 06/15/17 09:14 Naloxone HCl (Narcan Inj) 0.4 mg PRN PRN IV 05/16/17 09:15 06/15/17 09:14 Diphenhydramine HCl (Benadryl Cap) 50 mg Q6H PRN PO 05/16/17 09:15 06/15/17 09:14 Ondansetron HCl 8 mg/Dextrose 54 ml @ 200 mls/hr Q6H PRN IV 05/16/17 09:15 06/15/17 09:14 Magnesium Citrate (Citrate Of Magnesia Soln) 30 ml DAILY PRN PO 05/16/17 09:15 06/15/17 09:14
[2017-05-17] VITALS (11 sets, daily range): BP systolic 100–118; BP diastolic 60–73; PULSE 73–98; TEMP 37–37.6; O2SAT 96–100
--- NOTE | 2017-05-17 07:51 | Anesthesiology Progress Note ---
Anesthesia Post Op Note Date & Time May 17, 2017 at 07:51 Vital Signs Pain Intensity: 3.0 Vital Signs Past 12 Hours Date Time Temp Pulse Resp B/P (MAP) Pulse Ox O2 Delivery O2 Flow Rate FiO2 05/17/17 07:46 37.1 98 20 117/72 (87) 99 Nasal Cannula 2.0 05/17/17 04:28 37.0 87 17 112/71 (85) 99 Nasal Cannula 2.0 05/17/17 04:00 98 Nasal Cannula 2.0 05/17/17 00:00 98 Nasal Cannula 2.0 05/17/17 00:00 37.4 83 18 118/69 (85) 98 Nasal Cannula 2.0 05/16/17 20:00 98 Nasal Cannula 4.0 Notes Mental Status: alert / awake / arousable, participated in evaluation Pt Amnestic to Procedure: Yes Nausea / Vomiting: adequately controlled Pain: adequately controlled Airway Patency, RR, SpO2: stable & adequate BP & HR: stable & adequate Hydration State: stable & adequate Anesthetic Complications: no major complications apparent
[2017-05-17] MEDS: DOCUSATE SODIUM 100 MG CAP PO SCH ×2 (08:26→20:33)
[2017-05-17] MEDS: DULOXETINE HCL 60 MG CAP PO SCH (08:27)
[2017-05-17] MEDS: CHOLECALCIFEROL 1000 INTER.UNIT TAB PO SCH (08:27)
[2017-05-17] MEDS: POLYETHYLENE (MIRALAX) 17 GM PACK PO SCH ×2 (08:27→20:33)
[2017-05-17] MEDS: INSULIN ASPART 100 UNITS/ML 3 ML PEN SC SCH ×4 (08:28→20:34)
--- NOTE | 2017-05-17 08:49 | Progress Note ---
Medicine Progress Note Date & Time of Visit: May 17, 2017 at 08:46 . Subjective Got some rest last night. Rates abdominal pain 4-5/10. Anorexic. No N/V. Last recorded BM 05/12. No CP, cough, SOB. . Objective Last 8 Hrs Date Time Temp Pulse Resp B/P (MAP) Pulse Ox O2 Delivery O2 Flow Rate FiO2 05/17/17 07:46 37.1 98 20 117/72 (87) 99 Nasal Cannula 2.0 05/17/17 04:28 37.0 87 17 112/71 (85) 99 Nasal Cannula 2.0 05/17/17 04:00 98 Nasal Cannula 2.0 Physical Exam: General- sitting in chair at bedside, no distress Eyes- anicteric Lungs- clear Heart- RRR Abdomen- abdominal binder applied, + BS Extremities- no pretibial edema or calf tenderness Neuro- alert, less confused . Laboratory Results: Last 24 Hours Test 05/16/17 09:38 05/16/17 10:55 05/16/17 16:03 05/16/17 19:40 Bedside Glucose 162 mg/dl 139 mg/dl 132 mg/dl 147 mg/dl Test 05/17/17 06:53 Bedside Glucose 156 mg/dl Assessment & Plan INTRACTABLE PAIN Due to unresectable pancreatic Ca. Pain Management consulted. S/P neurolytic celiac block. Fentanyl patch dose increased to 212 mcg/hr but pat experienced increasing confusion and lethargy. Duloxetine dose increased to 60 mg daily. Hydromorphone for breakthrough pain. Intrathecal opiate pump may offer benefit. Epidural catheter placed 05/16/17. Ongoing management per Pain Management. Continue bowel regimen. PANCREATIC CA Discussed with Medical Oncology. 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 Receiving palliative chemotherapy. Prognosis difficult to predict, but expected to be > 6 months. DM TYPE 2 Usually managed with metformin at home. Hgb A1C 7.6 on 05/03/17. Hold metformin during hospital stay. FBS today = 156. Continue NovoLog coverage. VITAMIN D DEFICIENCY 25-OH D = 21. Supplement. ANXIETY / DEPRESSION Secondary to pain and underlying malignancy. Receiving duloxetine for pain management. Added lorazepam for anxiety and insomnia. OPIATE ASSOCIATED CONSTIPATION No bowel movement for 2 days. Continue docusate sodium and polyethylene. Methylnaltrexone SQ PRN- will order dose for today. VTE PROPHYLAXIS SQ enoxaparin- held for epidural. SCD's. Ambulate. DISPOSITION Expected discharge to home with home health services. Family Medicine follow-up with Dr. Bush. Medical Oncology follow-up with Dr. Hinojosa. Pain Management follow-up with Dr. Rogers. . Consultants: Pain Management-Dr. China Rogers Current Inpatient Medications: Current Inpatient Medications Medications (Trade) Dose Ordered Sig/Yolis Route Start Time Stop Time Status Last Admin Dose Admin Acetaminophen (Tylenol Tab) 650 mg Q4H PRN PO 05/10/17 11:15 06/09/17 11:14 Ondansetron HCl (Zofran Inj) 4 mg Q6H PRN IV 05/10/17 11:15 06/09/17 11:14 05/13/17 07:31 4 MG Bisacodyl (Dulcolax Tab) 5 mg BID PRN PO 05/10/17 11:45 06/09/17 11:44 Polyethylene (Miralax Powder Packet) 17 gm DAILY PRN PO 05/10/17 11:45 06/09/17 11:44 05/11/17 07:49 17 GM Insulin Aspart (novoLOG ASPART) SLIDING SCALE If C... ACHS SC 05/10/17 16:30 06/09/17 16:29 05/17/17 08:28 1 UNITS Glucose (Glucose 40% Gel) 15-30 GRAMS 15 GRAMS... UD PRN PO 05/10/17 13:00 06/09/17 12:59 Glucose (Glucose Chew Tab) 4-8 Tablets 4 Tabl... UD PRN PO 05/10/17 13:00 06/09/17 12:59 Dextrose (Dextrose 50% 50ML Syringe) 25-50ML OF 50% DW IV FOR... UD PRN IV 05/10/17 13:00 06/09/17 12:59 Glucagon (Glucagon Inj) 1 mg UD PRN SQ 05/10/17 13:00 06/09/17 12:59 Miscellaneous (Iv Fluids Completed) 1 ea PRN PRN N/A 05/10/17 14:30 05/10/18 14:29 Hydromorphone HCl (Dilaudid Inj) 1 mg Q3HWA PRN IV 05/11/17 10:00 05/24/17 13:44 05/16/17 09:01 1 MG Duloxetine HCl (Cymbalta Cap) 60 mg QAM PO 05/12/17 10:00 06/11/17 09:59 05/17/17 08:27 60 MG Hydromorphone HCl (Dilaudid Tab) 4 mg Q1H PRN PO 05/12/17 09:00 05/26/17 08:59 05/16/17 16:22 4 MG Docusate Sodium (coLACE CAP) 100 mg BID PO 05/12/17 20:00 06/11/17 19:59 05/17/17 08:26 100 MG Cholecalciferol (Vitamin D Tab) 1,000 inter.unit QAM PO 05/13/17 08:00 06/12/17 07:59 05/17/17 08:27 1,000 INTER.UNIT Lorazepam (Ativan Tab) 0.5 mg Q8 PRN PO 05/13/17 11:15 06/12/17 11:14 Polyethylene (Miralax Powder Packet) 17 gm BID PO 05/15/17 20:00 06/11/17 07:59 05/17/17 08:27 17 GM Naloxone HCl (Narcan Inj) 0.4 mg PRN PRN IV 05/16/17 09:15 06/15/17 09:14 Naloxone HCl (Narcan Inj) 0.4 mg PRN PRN IV 05/16/17 09:15 06/15/17 09:14 Diphenhydramine HCl (Benadryl Cap) 50 mg Q6H PRN PO 05/16/17 09:15 06/15/17 09:14 Ondansetron HCl 8 mg/Dextrose 54 ml @ 200 mls/hr Q6H PRN IV 05/16/17 09:15 06/15/17 09:14 Magnesium Citrate (Citrate Of Magnesia Soln) 30 ml DAILY PRN PO 05/16/17 09:15 06/15/17 09:14 Morphine Sulfate 50 mg/Empty Bag 50 ml @ 0.5 mls/hr TODAY@1000 EPI 05/16/17 10:00 05/17/17 09:59 05/16/17 11:10 0.4 MLS/HR
[2017-05-17] MEDS ORDERED: METHYLNALTREXONE BROMIDE INJ 12 MG/0.6 ML SYR SQ ONE (09:00)
--- NOTE | 2017-05-17 11:05 | Pain Clinic Return Visit ---
Pain Clinic Return Visit Date of Service May 17, 2017. Reason For Visit Mr. Engle is a 67 year old white male with pancreatic cancer that measures 8cm. Patient has been admitted to the hospital on 04/26 and 05/01. He was discharged from the hospital most recently on 05/09. Patient was at home and started to develop 10/10 epigastric pain. He tried to take #2 tablets of the oral Dilaudid but it did not alleviate the pain. Within 30 minutes he decided that the pain was excruciating so he went to the Emergency Department. During this hospitalization attempts were made to optimize his fentanyl patch. He did receive dosing of 212 g per hour however on 05/15/2017 he had difficulty with mental sedation and patches were removed. As he was not able to tolerate mental side effects of medications including benzodiazepines and narcotics we held a family meeting and decided to move forward with a intrathecal pump trial. Yesterday they thoracic epidural catheter was placed in his been infusing morphine at 0.5 mg per hour over the last 24 hours with good effect. Pain has ranged between 3 and 5 out of 10 predominantly 3 out of 10. He did receive 1 dose of hydromorphone 4 mg by mouth 1 with good effect. He admits that he has not been very active yesterday but intends to be become much more active today. Did sleep well over the last evening and feels that he has slight loss of appetite but was agreeable to try some nutrition recommended snacks today. Patient denies any current nausea, vomiting, constipation, or constitutional complaints. Home Medications Scheduled Fentanyl (Fentanyl), 1 PATCH TD Q72H Fentanyl (Fentanyl), 100 MCG TD Q72H Fentanyl (Fentanyl), 25 MCG TD Q72H Metformin HCl (Metformin HCl), 500 MG PO QDB Scheduled PRN Bisacodyl (Bisacodyl EC), 1 TAB PO BID PRN for Constipation Hydromorphone HCl (Hydromorphone HCl), 4 MG PO Q3HWA PRN for Pain Ondansetron Hcl (Zofran), 8 MG PO Q8 PRN for Nausea Polyethylene Glycol 3350 (Miralax), 17 GM PO DAILY PRN for Constipation Allergies Coded Allergies: No Known Allergies (Unverified , 05/02/17) Medications & Allergies Reconciled: Yes Review of Systems 10 point review of systems was otherwise negative aside from HPI Objective Date Time Temp Pulse Resp B/P (MAP) Pulse Ox O2 Delivery O2 Flow Rate FiO2 05/17/17 07:46 37.1 98 20 117/72 (87) 99 Nasal Cannula 2.0 05/17/17 04:28 37.0 87 17 112/71 (85) 99 Nasal Cannula 2.0 05/17/17 04:00 98 Nasal Cannula 2.0 05/17/17 00:00 98 Nasal Cannula 2.0 05/17/17 00:00 37.4 83 18 118/69 (85) 98 Nasal Cannula 2.0 05/16/17 20:00 98 Nasal Cannula 4.0 05/16/17 19:18 37.1 88 22 116/73 (87) 98 Nasal Cannula 4.0 05/16/17 16:30 37.0 94 18 117/71 (86) 98 Room Air 4.0 05/16/17 16:10 Room Air 05/16/17 15:49 37.0 85 16 119/75 (90) 98 Nasal Cannula 3.0 05/16/17 15:30 36.8 97 18 128/81 (97) 98 Room Air 4.0 05/16/17 14:30 36.8 89 18 136/84 (101) 98 Room Air 4.0 05/16/17 13:30 36.7 81 18 119/73 (88) 98 Room Air 4.0 05/16/17 12:30 Room Air 05/16/17 12:30 36.5 79 18 126/74 (91) 98 Room Air 4.0 05/16/17 11:53 81 19 05/16/17 11:53 81 19 99 05/16/17 11:51 117/68 05/16/17 11:48 84 15 94 05/16/17 11:48 83 15 05/16/17 11:48 36.5 77 16 93 2.0 05/16/17 11:47 82 24 05/16/17 11:47 84 24 116/68 95 05/16/17 11:42 81 17 97 05/16/17 11:42 81 17 05/16/17 11:41 97/80 05/16/17 11:37 80 16 05/16/17 11:37 80 16 95 05/16/17 11:36 112/72 05/16/17 11:32 81 15 05/16/17 11:32 80 15 89 05/16/17 11:32 36.5 77 16 112/72 (82) 93 Nasal Cannula 2 Oxymask 05/16/17 11:31 119/74 05/16/17 11:27 80 17 05/16/17 11:27 79 17 97 05/16/17 11:26 117/67 05/16/17 11:22 81 15 05/16/17 11:22 80 15 99 05/16/17 11:21 117/85 05/16/17 11:17 86 16 99 05/16/17 11:17 84 16 05/16/17 11:16 126/67 05/16/17 11:12 82 14 05/16/17 11:12 81 14 99 05/16/17 11:11 116/69 05/16/17 11:07 86 15 05/16/17 11:07 86 15 99 05/16/17 11:06 121/70 05/16/17 11:03 81 15 05/16/17 11:03 81 15 100 05/16/17 11:01 111/72 Height 6 feet, 0.00 inches. Weight 79.100 (Kilograms) 174 (Pounds) Physical Exam GENERAL: 67-year-old male who is awake, alert and oriented. Appears well developed. In no acute distress resting comfortably in his bedside chair PSYCHIATRIC: Demonstrates normal and clear sensorium. Mood and affect are appropriate. Short-term and long-term memory is intact. HEAD AND NECK: No obvious trauma. Demonstrates full range of motion of the cervical spine. No lymphadenopathy is noted. Trachea midline. EARS, EYES AND NOSE: Mucous membranes pink and moist. No mucosal lesions noted. Tongue midline. LUNGS: No audible wheezes or rhonchi. Normal chest excursion. CARDIAC: Regular rate and rhythm ABDOMEN: Normal bowel sounds. Mild tenderness but no rebound noted. Tenderness appears to be located in bilateral lower quadrants right greater than left. BACK: Inspection of the lumbar spine demonstrates normal curvatures. No lesions are noted in the lumbar spine region. No myofascial tenderness or trigger points identifiable in the paraspinous musculature. Neurologically, straight leg raising is negative bilaterally past 90 and no changes noted Achilles stretch. He has a abdominal binder in place with a intact tunneled epidural thoracic catheter NEUROLOGICAL: Cranial nerves II through XII grossly intact. No gross sensory or motor deficits noted in the upper extremity. Sensation and motor strength in the lower extremity are symmetrical without deficit. No pathologic reflexes are noted in the lower extremities. He is able to sit up in his bed without significant difficulty. Laboratory Laboratory Findings Test 04/11/17 03:30 04/24/17 09:00 04/26/17 14:02 04/26/17 14:59 Range/Units Magnesium Level 1.9 1.8-2.4 mg/dl Amylase Level 16 L 25-115 U/L Chemistry Specimen Hemolysis PTT 31.5 H 21.0-31.0 SECONDS Partial Thromboplastin Ratio 1.2 Hepatitis C Antibody Screen NEG NEG Lactic Acid Level 1.3 0.4-2.0 mmol/L Test 04/27/17 05:39 05/02/17 12:26 05/02/17 12:34 05/02/17 12:38 Range/Units Globulin 4.0 2.5-4.0 gm/dl Albumin/Globulin Ratio 0.8 L 0.9-2 POC Lactic Acid Venous 1.14 0.90-1.70 mmol/L POC Hemoglobin 12.9 L 14.0-18.0 g/dl POC Hematocrit 38 L 42-52 % POC Sodium 135 135-144 mEq/L POC Potassium 3.8 3.3-5.0 mEq/L POC Chloride 96 L 101-112 mEq/L POC Total CO2 28 24-31 mEq/l POC Blood Urea Nitrogen 18 7-18 mg/dl POC Creatinine 1.0 0.6-1.3 mg/dl POC Glucose 216 H 70-99 mg/dl POC Ionized Calcium (Wale) 1.19 1.12-1.32 mmol/l Urine Color DK YELLOW Urine Appearance CLEAR CLEAR Urine pH 6.0 4.5-7.5 Urine Specific [place] 1.022 1.000-1.030 Urine Protein TRACE H NEG Urine Glucose (UA) NEG NEG Urine Ketones TRACE H NEG Urine Occult Blood NEG NEG Urine Nitrite NEG NEG Urine Bilirubin NEG NEG Urine Urobilinogen POS H NEG Urine Leukocyte Esterase TRACE H NEG Urine WBC (Auto) 1-5 0-5 /hpf Urine RBC (Auto) 10-30 H 0-4 /hpf Urine Hyaline Casts (Auto) 5-10 H 0-5 /lpf Urine Epithelial Cells (Auto) 20-30 H 0-5 /lpf Urine Bacteria (Auto) NEG NEG Test 05/03/17 06:10 05/10/17 10:26 05/12/17 06:23 05/15/17 05:52 Range/Units Estimated Average Glucose 171 mg/dl Hemoglobin A1c 7.6 H 4.5-5.6 % Immature Granulocyte % (Auto) 0.3 % White Blood Count 10.76 10.52 4.8-10.8 K/uL Red Blood Count 3.79 L 3.41 L 4.7-6.1 M/uL Hemoglobin 11.3 L 10.1 L 14.0-18.0 g/dL Hematocrit 34.0 L 30.4 L 42-52 % Mean Corpuscular Volume 89.7 89.1 80-100 fL Mean Corpuscular Hemoglobin 29.8 29.6 25-34 pg Mean Corpuscular Hemoglobin Concent 33.2 33.2 32-36 g/dl Platelet Count 143 195 130-400 K/uL Mean Platelet Volume 10.7 H 10.4 7.4-10.4 fL Neutrophils (%) (Auto) 90.9 % Lymphocytes (%) (Auto) 3.4 % Monocytes (%) (Auto) 4.6 % Eosinophils (%) (Auto) 0.7 % Basophils (%) (Auto) 0.1 % Neutrophils # (Auto) 9.77 H 1.4-6.5 K/uL Lymphocytes # (Auto) 0.37 L 1.2-3.4 K/uL Monocytes # (Auto) 0.50 0.11-0.59 K/uL Eosinophils # (Auto) 0.08 0-0.5 K/uL Basophils # (Auto) 0.01 0-0.2 K/uL Immature Granulocyte # (Auto) 0.03 H 0.00-0.02 K/uL Total Bilirubin 0.9 0.2-1 mg/dl Direct Bilirubin 0.3 H 0-0.2 mg/dl Aspartate Amino Transferase (AST) 23 15-37 U/L Alanine Aminotransferase (ALT) 32 12-78 U/L Alkaline Phosphatase 109 45-117 U/L Total Protein 7.3 6.4-8.2 gm/dl Albumin 3.2 L 3.4-5.0 gm/dl Lipase 217 73-393 U/L 25-Hydroxy Vitamin D Total 21.4 L 30-100 ng/ml RDW Standard Deviation 52.7 H 36.4-46.3 fL RDW Coefficient of Variation 16.5 H 11.5-14.5 % Prothrombin Time 13.5 H 9.0-12.0 SECONDS Prothrombin Time INR 1.3 H 0.9-1.1 Test 05/16/17 06:32 05/17/17 06:53 Range/Units Sodium Level 131 L 136-145 mmol/L Potassium Level 3.9 3.5-5.1 mmol/L Chloride Level 96 L 98-107 mmol/L Carbon Dioxide Level 24 21-32 mmol/L Anion Gap 11.0 3-11 mmol/L Blood Urea Nitrogen 21 H 7-18 mg/dl Creatinine 0.80 0.60-1.40 mg/dl Est Creatinine Clear Calc Drug Dose 99.7 ml/min Estimated GFR () 107.9 Estimated GFR (Non- 93.1 BUN/Creatinine Ratio 26.4 H 10-20 Random Glucose 141 H 70-99 mg/dl Calcium Level 8.4 L 8.5-10.1 mg/dl POC Glucose 156 H 70-99 mg/dl [place] Drug Monitoring Program Search Results: patient reviewed within database, no issues identified Opioid Risk Assessment Risk assessment performed, no issues identified Assessment 1. Intractable midepigastric abdominal pain with known history of pancreatic cancer and 8 cm mass 2. Opiate-induced constipation 3. Anxiety Recommendations 1. Continue Cymbalta to 60mg daily, Dilaudid 4mg po q1prn, and Dilaudid IV backup prn. 2. Will increase morphine epidural to 0.6mg/hr to allow for more activity today. Spoke with nursing about being more active. 3. Agree with Relistor dosing today to help with OIC. 4. Will tentatively plan for ITP implant on 05/19/17.
[2017-05-17] MEDS: ONDANSETRON INJ 2 MG/ML 2 ML VIAL IV PRN (12:08)
[2017-05-17] MEDS: ONDANSETRON INJ 2 MG/ML 2 ML VIAL IV SCH (17:30)
[2017-05-18] VITALS (11 sets, daily range): BP systolic 103–122; BP diastolic 62–76; PULSE 68–94; TEMP 36.8–37.4; O2SAT 95–100
[2017-05-18 08:03] LABS: CREATININE 0.77 mg/dl (0.60-1.40)
[2017-05-18 08:04] LABS: BUN/CREATININE RATIO 21.1 (10-20); CALCIUM 8.7 mg/dl (8.5-10.1); POTASSIUM 3.8 mmol/L (3.5-5.1)
[2017-05-18] MEDS: DULOXETINE HCL 60 MG CAP PO SCH (08:23)
[2017-05-18] MEDS: INSULIN ASPART 100 UNITS/ML 3 ML PEN SC SCH ×4 (08:23→20:29)
[2017-05-18] MEDS: ONDANSETRON INJ 2 MG/ML 2 ML VIAL IV SCH ×3 (08:23→15:45)
[2017-05-18] MEDS: CHOLECALCIFEROL 1000 INTER.UNIT TAB PO SCH (08:23)
[2017-05-18] MEDS: DOCUSATE SODIUM 100 MG CAP PO SCH ×2 (08:23→21:13)
[2017-05-18] MEDS: POLYETHYLENE (MIRALAX) 17 GM PACK PO SCH ×2 (08:24→21:00)
--- NOTE | 2017-05-18 08:31 | Pain Management Progress Note ---
Pain Management Progress Note Date of Service May 18, 2017. Subjective Mr. Engle is a 67-year-old white male well known to the pain service with intractable midepigastric and back pain secondary to pancreatic cancer with tumor burden measuring 8 cm. Patient has had difficulty with pain control which led to placement of thoracic epidural catheter currently infusing morphine at 0.6 mg/h which was increased from 0.5 mg/h 24 hours ago. Patient is reporting improved efficacy with regards to pain control throughout yesterday. Patient was ambulating in the aponte into the bathroom on multiple occasions with minimal exacerbation of pain. His pain as ranging between a 3-5/ 10 and is tolerable. Patient has some mild cognitive aberration last evening speaking with his and he is concerned about any further dose progression of his opiate therapy. Patient has not utilized any breakthrough opiates over the past 24 hours. He continues with nausea which is slightly improved. He was able to eat a small amount this morning for breakfast. He did have a bowel movement yesterday. Patient has no further constitutional complains. Plan of care discussed with Dr. Riddle. Pain Location 1 - 2 - Objective Vital Signs: Last Vital Signs Documentation Date Time Temp Pulse Resp B/P (MAP) Pulse Ox O2 Delivery O2 Flow Rate FiO2 05/18/17 04:44 37.2 74 18 110/68 (82) 96 Nasal Cannula 2.0 Physical Exam: Gen.: Patient is sitting up upon entering the room in no acute distress. Speech and thought process was slowed but otherwise normal. Cognition appeared to be intact. Alert and oriented 3. Mood and affect flat. Abdomen: Abdominal binder in place. Minimal tenderness in the upper gastric location without rebound or guarding. Minimal lower quadrant tenderness is appreciated bilaterally. Thoracic spine: Normal thoracolumbar curvatures. Tunneled epidural thoracic catheters without evidence of edema erythema or skin breakdown. Neurologic: Cranial nerves grossly intact. Ambulatory function not witnessed. Laboratory Laboratory Findings 05/15/17 05:52 Assessment 1. Intractable midepigastric abdominal pain with known history of pancreatic cancer-8 cm mass 2. Opiate-induced constipation 3. Anxiety disorder Recommendations 1. Will recommend maintaining intrathecal morphine at 0.6 mg per hour throughout the day. This will be our starting dose upon implantation of intrathecal pump. Intrathecal pump will be implanted tomorrow 05/19/2017. We will implement use of PTM quickly upon implantation. The surgical process was discussed at length with the patient at today's visit. All his questions are answered. 2. Maintain oral hydromorphone and IV hydromorphone when necessary for breakthrough pain 3. Patient will be nothing by mouth after midnight for intrathecal implantation tomorrow
--- NOTE | 2017-05-18 11:32 | Anesthesiology Progress Note ---
Anesthesia Progress Note Date of Service May 18, 2017. Progress Notes Mr. Engle is well known to the anesthesia service and recently underwent intrathecal pain pump trial on 05/16/17 with MAC and no issues. No significant changes in his health status since then. Pain improving per patient. Plan for GA. Patient was consented and appears to be optimized for surgery tomorrow. He was told to be NPO after midnight. All questions answered.
[2017-05-18] MEDS: HYDROmorphone INJ 1 MG/ML SYR IV PRN (17:48)
[2017-05-18] MEDS ORDERED: PROMETHAZINE HCL INJ 25 MG in SODIUM CHLORIDE 0.9% 50ML 50 ML IV PRN (18:00)
[2017-05-18] MEDS ORDERED: ONDANSETRON INJ 2 MG/ML 2 ML VIAL IV ONE (18:00)
--- NOTE | 2017-05-18 22:06 | Progress Note ---
Medicine Progress Note Date & Time of Visit: May 18, 2017 at ~ 18:00 . Subjective Pain generally better controlled with epidural, but still severe at times. Experiencing anorexia and nausea, but no emesis. Successful bowel movement yesterday after methylnatrexone. No chest pain or SOB. . Objective Last 8 Hrs Date Time Temp Pulse Resp B/P (MAP) Pulse Ox O2 Delivery O2 Flow Rate FiO2 05/18/17 20:10 36.9 68 18 108/68 (81) 95 05/18/17 20:00 95 Nasal Cannula 2.0 05/18/17 16:48 36.8 68 18 110/62 (78) 100 05/18/17 16:00 95 Nasal Cannula 2.0 Physical Exam: General- lying in bed, somewhat uncomfortable Lungs- clear Heart- RRR Abdomen- abdominal binder applied, + BS, soft Extremities- no pretibial edema or calf tenderness Neuro- alert . Laboratory Results: Last 24 Hours Test 05/18/17 07:07 05/18/17 07:17 05/18/17 11:12 05/18/17 16:34 Bedside Glucose 149 mg/dl 147 mg/dl 140 mg/dl Sodium Level 132 mmol/L Potassium Level 3.8 mmol/L Chloride Level 96 mmol/L Carbon Dioxide Level 28 mmol/L Anion Gap 8.0 mmol/L Blood Urea Nitrogen 16 mg/dl Creatinine 0.77 mg/dl Est Creatinine Clear Calc Drug Dose 103.6 ml/min Estimated GFR () 109.6 Estimated GFR (Non- 94.6 BUN/Creatinine Ratio 21.1 Random Glucose 137 mg/dl Calcium Level 8.7 mg/dl Assessment & Plan INTRACTABLE PAIN Due to unresectable pancreatic Ca. Pain Management consulted. S/P neurolytic celiac block. Fentanyl patch dose increased to 212 mcg/hr but pat experienced increasing confusion and lethargy. Duloxetine dose increased to 60 mg daily. Hydromorphone for breakthrough pain. Intrathecal opiate pump may offer benefit. Epidural catheter placed 05/16/17. Ongoing management per Pain Management. Intrathecal pump placement planned for tomorrow. OPIATE-INDUCED CONSTIPATION Continue docusate sodium, polyethylene, methylnaltrexone PRN. PANCREATIC CA Discussed with Medical Oncology. 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 Receiving palliative chemotherapy. Prognosis difficult to predict, but expected to be > 6 months. DM TYPE 2 Usually managed with metformin at home. Hgb A1C 7.6 on 05/03/17. Hold metformin during hospital stay. FBS today = 149. Continue NovoLog coverage. VITAMIN D DEFICIENCY 25-OH D = 21. Supplement. ANXIETY / DEPRESSION Secondary to pain and underlying malignancy. Receiving duloxetine for pain management. Added PRN lorazepam for anxiety or insomnia. VTE PROPHYLAXIS SQ enoxaparin- held for epidural. SCD's. Ambulate. DISPOSITION Expected discharge to home with home health services. Family Medicine follow-up with Dr. Bush. Medical Oncology follow-up with Dr. Hinojosa. Pain Management follow-up with Dr. Rogers. . Consultants: Pain Management-Dr. China Rogers Current Inpatient Medications: Current Inpatient Medications Medications (Trade) Dose Ordered Sig/Yolis Route Start Time Stop Time Status Last Admin Dose Admin Acetaminophen (Tylenol Tab) 650 mg Q4H PRN PO 05/10/17 11:15 06/09/17 11:14 Bisacodyl (Dulcolax Tab) 5 mg BID PRN PO 05/10/17 11:45 06/09/17 11:44 Polyethylene (Miralax Powder Packet) 17 gm DAILY PRN PO 05/10/17 11:45 06/09/17 11:44 05/11/17 07:49 17 GM Insulin Aspart (novoLOG ASPART) SLIDING SCALE If C... ACHS SC 05/10/17 16:30 06/09/17 16:29 05/17/17 13:17 2 UNITS Glucose (Glucose 40% Gel) 15-30 GRAMS 15 GRAMS... UD PRN PO 05/10/17 13:00 06/09/17 12:59 Glucose (Glucose Chew Tab) 4-8 Tablets 4 Tabl... UD PRN PO 05/10/17 13:00 06/09/17 12:59 Dextrose (Dextrose 50% 50ML Syringe) 25-50ML OF 50% DW IV FOR... UD PRN IV 05/10/17 13:00 06/09/17 12:59 Glucagon (Glucagon Inj) 1 mg UD PRN SQ 05/10/17 13:00 06/09/17 12:59 Miscellaneous (Iv Fluids Completed) 1 ea PRN PRN N/A 05/10/17 14:30 05/10/18 14:29 Hydromorphone HCl (Dilaudid Inj) 1 mg Q3HWA PRN IV 05/11/17 10:00 05/24/17 13:44 05/18/17 17:48 1 MG Duloxetine HCl (Cymbalta Cap) 60 mg QAM PO 05/12/17 10:00 06/11/17 09:59 05/18/17 08:23 60 MG Hydromorphone HCl (Dilaudid Tab) 4 mg Q1H PRN PO 05/12/17 09:00 05/26/17 08:59 05/16/17 16:22 4 MG Docusate Sodium (coLACE CAP) 100 mg BID PO 05/12/17 20:00 06/11/17 19:59 05/18/17 21:13 100 MG Cholecalciferol (Vitamin D Tab) 1,000 inter.unit QAM PO 05/13/17 08:00 06/12/17 07:59 05/18/17 08:23 1,000 INTER.UNIT Lorazepam (Ativan Tab) 0.5 mg Q8 PRN PO 05/13/17 11:15 06/12/17 11:14 Polyethylene (Miralax Powder Packet) 17 gm BID PO 05/15/17 20:00 06/11/17 07:59 05/18/17 08:24 17 GM Naloxone HCl (Narcan Inj) 0.4 mg PRN PRN IV 05/16/17 09:15 06/15/17 09:14 Naloxone HCl (Narcan Inj) 0.4 mg PRN PRN IV 05/16/17 09:15 06/15/17 09:14 Diphenhydramine HCl (Benadryl Cap) 50 mg Q6H PRN PO 05/16/17 09:15 06/15/17 09:14 Magnesium Citrate (Citrate Of Magnesia Soln) 30 ml DAILY PRN PO 05/16/17 09:15 06/15/17 09:14 Ondansetron HCl (Zofran Inj) 4 mg AC IV 05/17/17 17:30 06/09/17 11:14 05/18/17 15:45 4 MG Ondansetron HCl (Zofran Tab) 8 mg AC PO 05/19/17 07:00 06/18/17 06:59 Promethazine HCl 25 mg/Sodium Chloride 51 ml @ 204 mls/hr Q6H PRN IV 05/18/17 18:00 06/17/17 17:59
[2017-05-19] VITALS (12 sets, daily range): BP systolic 106–123; BP diastolic 65–77; PULSE 75–113; TEMP 36.6–37.5; O2SAT 95–100
[2017-05-19] MEDS: ONDANSETRON INJ 2 MG/ML 2 ML VIAL IV SCH ×2 (07:00→13:59)
[2017-05-19] MEDS: ONDANSETRON 8 MG TAB PO SCH ×3 (07:00→16:15)
[2017-05-19] MEDS: INSULIN ASPART 100 UNITS/ML 3 ML PEN SC SCH ×4 (07:30→21:00)
[2017-05-19] MEDS ORDERED: MIDAZOLAM HCL 1 MG/ML 2ML VIAL ONE (07:43)
[2017-05-19] MEDS ORDERED: PROPOFOL IV EMULSION 10 MG/ML 20 ML VIAL IV ONE (07:43)
[2017-05-19] MEDS ORDERED: FENTANYL CITRATE INJ 50 MCG/1 ML 2 ML VIAL ONE (07:43)
[2017-05-19] MEDS ORDERED: LIDOCAINE HCL 2% 2 ML VIAL (20MG/ML) ONE (07:43)
[2017-05-19] MEDS ORDERED: ONDANSETRON INJ 2 MG/ML 2 ML VIAL IV PRN (08:15)
[2017-05-19] MEDS ORDERED: PHENYLEPHRINE 100MCG/ML 5ML SYR IV PRN (08:15)
[2017-05-19] MEDS ORDERED: ATROPINE SULFATE 0.1 MG/ML 5ML SYR IV PRN (08:15)
[2017-05-19] MEDS ORDERED: HYDROmorphone INJ 2 MG/ML SYR/VIAL IV PRN (08:15)
[2017-05-19] MEDS ORDERED: EpHEDrine SULFATE INJ 50 MG/ML AMP IV PRN (08:15)
--- NOTE | 2017-05-19 08:59 | Anesthesia Procedure Note ---
Anesthesia Epidural Removal Nt Date & Time May 19, 2017 at 08:59 Vital Signs Pain Intensity: 3.0 Vital Signs Past 12 Hours Date Time Temp Pulse Resp B/P (MAP) Pulse Ox O2 Delivery O2 Flow Rate FiO2 05/19/17 04:25 37.5 87 18 123/77 (92) 100 Nasal Cannula 2.0 05/19/17 04:00 100 Nasal Cannula 2.0 05/18/17 23:59 100 Nasal Cannula 2.0 05/18/17 23:16 37.3 94 18 122/76 (91) 100 Nasal Cannula 2.0 Notes Mental Status: alert / awake / arousable, participated in evaluation Nausea / Vomiting: adequately controlled Pain: adequately controlled Airway Patency, RR, SpO2: stable & adequate BP & HR: stable & adequate Hydration State: stable & adequate Neuraxial Anesthesia: was administered Anesthetic Complications: no major complications apparent Epidural: removed without complications, with tip intact
[2017-05-19] MEDS: DULOXETINE HCL 60 MG CAP PO SCH (09:00)
[2017-05-19] MEDS: DOCUSATE SODIUM 100 MG CAP PO SCH ×2 (09:00→19:33)
[2017-05-19] MEDS: CHOLECALCIFEROL 1000 INTER.UNIT TAB PO SCH (09:00)
[2017-05-19] MEDS: POLYETHYLENE (MIRALAX) 17 GM PACK PO SCH ×2 (09:00→19:34)
[2017-05-19] MEDS ORDERED: BUPIVACAINE/EPINEPHRINE 0.25% 1:200,000 30 ML VIAL ONE (09:20)
[2017-05-19] MEDS ORDERED: LIDO 2%/EPINEPHRINE 1:100000 20 ML VIAL INFIL ONE (09:20)
[2017-05-19] MEDS ORDERED: BACITRACIN 50000 UNIT VIAL ONE (09:21)
[2017-05-19] MEDS ORDERED: CEFAZOLIN SOD 1 GM VIAL ONE (09:36)
[2017-05-19] MEDS ORDERED: ONDANSETRON INJ 2 MG/ML 2 ML VIAL ONE (09:44)
[2017-05-19] MEDS ORDERED: ROCURONIUM BROMIDE 10 MG/ML 5 ML VIAL IV ONE (09:44)
--- NOTE | 2017-05-19 11:58 | [facility] Post Operative Brief Note ---
Immediate Operative Summary Operative Date May 19, 2017. Pre-Operative Diagnosis Pancreatic Cancer Post-Operative Diagnosis Same as preoperative Procedure(s) Performed Implant of Intrathecal Pain Pump Surgeon Dr. China Rogers Agricultural Research Engineer Surgeon(s) None per surgeon Estimated Blood Loss 20mL Findings uncomplicated ITP implant Specimens None per surgeon Drains none Anesthesia GETA Complication(s) None Disposition Recovery Room / PACU
--- NOTE | 2017-05-19 12:08 | Operative Note-Pain Management ---
Pain Clinic Operative Note Intrathecal pump insertion, Catheter access port study, and Postprocedure Reprogramming and Analysis PREOPERATIVE DIAGNOSIS: Intractable pain secondary to pancreatic cancer POSTOPERATIVE DIAGNOSIS: Same. COMPLICATIONS: None. SURGEON: Dr. China Rogers. EBL: 20ml ANESTHESIA: General. MATERIAL FORWARDED TO THE LAB: None. INDICATIONS: The patient had a successful Morphine intrathecal trial and agreed to intrathecal pump insertion. The patient was explained the risks, benefits, alternatives of the procedure and agreed to proceed as above. Informed consent was obtained and witnessed. A time out was performed after the patient was brought into the Operating Room. Antibiotics were given. The patient was then induced with general anesthesia without complications and was placed in left lateral decubitus position. Fluoroscopy was utilized throughout the procedure. The skin was prepped with duraprep and betadine and draped in sterile fashion. An 18-gauge spinal needle was used to gain access to the CSF through the L2-3 interspace. No heme was noted. Positive CSF flow was obtained and the intrathecal catheter was passed to the T8 vertebral body. The stylet was then removed. A 1-1/2 inch midline incision was made surrounding the intrathecal needle. Hemostasis was achieved. The intrathecal catheter was secured to the fascia with 2 purse string 0 silk ties. Then the spinal needle was removed and a [employer] butterfly anchor to secure the catheter to the underlying supraspinous ligament was utilized. There was positive CSF flow from the intrathecal catheter after anchoring of the catheter to the fascia. Then in the right lower quadrant a pocket for the intrathecal pump was made and hemostasis was achieved. A passer was used to transfer the intrathecal pump catheter underneath the skin and subcutaneous tissues through to the pocket incision. After transfer of the end of the catheter to the pocket incision aspiration of the intrathecal catheter revealed positive CSF flow free flowing. Both pocket and midline axial thoracic incisions were irrigated with 3 bulb syringes full of sterile normal saline with bacitracin. Hemostasis was achieved. The intrathecal pump was filled was rinsed and filled with morphine 5mg/ml per protocol. The intrathecal catheter was not trimmed. The sutureless connector was connected to the end the intrathecal pump and aspiration from of the end of the catheter was free-flowing. It was then connected to the intrathecal pump per protocol. The intrathecal pump was anchored in the pocket with 4 0 Prolene sutures. No complications were noted after the intrathecal pump was placed inside the pocket. The skin and subcutaneous tissues of both incisions were closed with O-VLOC sutures, then 3-0 VLOC sutures, followed by dermabond Prineo dressing. The skin was cleansed and dried and Xeroform followed by 4 x 4's and Tegaderms were placed for closure dressings. An abdominal binder was placed on the patient. No complications were noted throughout the procedure. The patient tolerated the procedure and general anesthesia well and was extubated at the end of the procedure. [facility] and was taken to the recovery room in stable condition. The patient will follow up with our clinic at 7 days for a wound check and further care. . Pump size inserted: 20ml Level of catheter: T8 Catheter was not trimmed Medication placed in pump: Morphine 5mg/ml to run at 1mg/day I attest to the content of the Intraoperative Record and any orders documented therein. Any exceptions are noted below.
--- NOTE | 2017-05-19 12:25 | Anesthesiology Progress Note ---
Anesthesia Post Op Note Date & Time May 19, 2017 at 12:25 Vital Signs Pain Intensity: 0 Vital Signs Past 12 Hours Date Time Temp Pulse Resp B/P (MAP) Pulse Ox O2 Delivery O2 Flow Rate FiO2 05/19/17 12:15 95 16 124/77 100 Nasal Cannula 2 05/19/17 12:05 91 16 120/81 100 Oxymask 10 05/19/17 11:55 85 16 121/70 100 Oxymask 10 05/19/17 11:47 36.1 93 16 114/80 100 Oxymask 10 05/19/17 07:45 Nasal Cannula 2.0 05/19/17 04:25 37.5 87 18 123/77 (92) 100 Nasal Cannula 2.0 05/19/17 04:00 100 Nasal Cannula 2.0 Notes Mental Status: alert / awake / arousable, participated in evaluation Pt Amnestic to Procedure: Yes Nausea / Vomiting: adequately controlled Pain: adequately controlled Airway Patency, RR, SpO2: stable & adequate BP & HR: stable & adequate Hydration State: stable & adequate Anesthetic Complications: no major complications apparent
--- NOTE | 2017-05-19 13:08 | DIAGNOSTIC IMAGING REPORT ---
LUMBAR SPINE 2 OR 3 VIEW HISTORY: 67 years-old Male IMPLANT OF INTRATHECAL PAIN PUMP status post placement of an intrathecal pain pump COMPARISON: Lumbar spine spot fluoroscopic images 05/16/2017 TECHNIQUE: 2 spot fluoroscopic images of the lumbar spine were obtained utilizing 80.4 seconds of fluoroscopy time. FINDINGS: Distal tip of a catheter device overlies the central canal at what appears to be the T8 level, however numbering of the spine is not exact secondary to the sacrum not imaged on this study. Consider follow-up radiographs to determine exact placement. Multilevel endplate degenerative changes of the spine incidentally noted. IMPRESSION: Fluoroscopic assistance as above. Please see procedural report for further details. The above report was generated using voice recognition software. It may contain grammatical, syntax or spelling errors. Electronically signed by: Geoffrey Acuña M.D. 05/19/2017 1:06 PM Dictated Date/Time: 05/19/2017 1:04 PM
[2017-05-19] MEDS ORDERED: NURSING VERBAL MED ORDER ONE (14:00)
--- NOTE | 2017-05-19 14:17 | Consultant Recommendations ---
[employer] Recommendations Date of Service May 19, 2017. [employer] Recommendations Postoperative intrathecal pump instructions: Please do not lift greater than 15 pounds for the next 4 weeks. Please perform daily dressing changes to both the back and belly incisions. If you notice any redness, drainage or opening of the wound please contact the pain clinic at [facility] immediately Please do not take any soaking hot tub baths until your follow-up visit. Please do not remove the purpleish tape dressings over your incisions. Please wear your abdominal binder for 24 hours a day for the first 4 weeks and then while awake for an additional 4 weeks. If you have any fevers, chills, concerns, problems with pain please contact the pain clinic A prescription of Dilaudid 4 mg by mouth up to 4 times a day as needed for pain was provided for 120 tablets. Follow-up appointments have been made at the [facility] pain clinic at [address] [facility] in [facility] phone number is( [phone]) 05/25/2017 at 2:45 PM with Leander Rivera PA-C 2) 06/01/2017 at 1:20 PM with Sandra KAY You will be instructed on the PTM (personal therapy teacher) device at one of these follow-up visits so please ensure that you have a family member with use of the 2 people may hear the instructions on how to give yourself additional medication through your pump.
[2017-05-19] MEDS ORDERED: FAMOTIDINE IV INJ 20 MG in DEXTROSE 5% 100ML 100 ML IV SCH (16:30)
--- NOTE | 2017-05-19 16:41 | Progress Note ---
Medicine Progress Note Date & Time of Visit: May 19, 2017 at 15:51. Subjective -RLQ tenderness after nurse removed abdominal binder to evaluate the surgical site and dressing. -binder was just replaced when I walked in and he was just moved while getting cleaned up -reports having some heartburn and would like something for it -lying supine and appears groggy--instructed he and nursing on the importance of aspiration precautions -reports not being hungry and feeling slightly nautious at this time. Objective Last 8 Hrs Date Time Temp Pulse Resp B/P (MAP) Pulse Ox O2 Delivery O2 Flow Rate FiO2 05/19/17 14:36 36.6 86 109/66 (80) 98 05/19/17 14:06 36.6 84 19 106/67 (80) 99 Room Air 05/19/17 13:34 36.7 84 18 111/70 (84) 98 Room Air 05/19/17 13:17 36.7 84 18 110/72 (85) 97 Room Air 05/19/17 13:15 Nasal Cannula 2.0 05/19/17 12:50 36.7 92 17 112/72 (85) 98 Room Air 05/19/17 12:40 96 16 111/72 100 Nasal Cannula 2 05/19/17 12:25 36 94 16 126/78 100 Nasal Cannula 2 05/19/17 12:15 95 16 124/77 100 Nasal Cannula 2 05/19/17 12:05 91 16 120/81 100 Oxymask 10 05/19/17 11:55 85 16 121/70 100 Oxymask 10 05/19/17 11:47 36.1 93 16 114/80 100 Oxymask 10 Physical Exam: GEN: WNWD, supine, in moderate distress from abdominal pain, groggy but answering questions appropriately HEENT: NC/AT, normal sclerae, MMM CARDIO: reg rate, S1/2 heard without m/g/r LUNGS: CTA bilaterally, no crackles, rales or wheezes, good diaphragmatic excursion ABD: soft, limited evaluation in setting of abdominal binder and significant pain, TTP in RLQ EXTREMITY: RP and DP palpable 2+ bilat, no LE swelling or edema, extremities are warm and well-perfused NEURO: CN 2-12 grossly intact MUSC: moves all extremities equally. SKIN: warm and dry Laboratory Results: 05/15/17 05:52 05/18/17 07:17 Test 05/10/17 10:26 05/12/17 06:23 05/15/17 05:52 05/18/17 07:17 Immature Granulocyte % (Auto) 0.3 % White Blood Count 10.76 K/uL (4.8-10.8) Red Blood Count 3.79 M/uL (4.7-6.1) 3.41 M/uL (4.7-6.1) Hemoglobin 11.3 g/dL (14.0-18.0) Hematocrit 34.0 % (42-52) Mean Corpuscular Volume 89.7 fL (80-100) 89.1 fL (80-100) Mean Corpuscular Hemoglobin 29.8 pg (25-34) 29.6 pg (25-34) Mean Corpuscular Hemoglobin Concent 33.2 g/dl (32-36) 33.2 g/dl (32-36) Platelet Count 143 K/uL (130-400) Mean Platelet Volume 10.7 fL (7.4-10.4) 10.4 fL (7.4-10.4) Neutrophils (%) (Auto) 90.9 % Lymphocytes (%) (Auto) 3.4 % Monocytes (%) (Auto) 4.6 % Eosinophils (%) (Auto) 0.7 % Basophils (%) (Auto) 0.1 % Neutrophils # (Auto) 9.77 K/uL (1.4-6.5) Lymphocytes # (Auto) 0.37 K/uL (1.2-3.4) Monocytes # (Auto) 0.50 K/uL (0.11-0.59) Eosinophils # (Auto) 0.08 K/uL (0-0.5) Basophils # (Auto) 0.01 K/uL (0-0.2) Immature Granulocyte # (Auto) 0.03 K/uL (0.00-0.02) Total Bilirubin 0.9 mg/dl (0.2-1) Direct Bilirubin 0.3 mg/dl (0-0.2) Aspartate Amino Transf (AST/SGOT) 23 U/L (15-37) Alanine Aminotransferase (ALT/SGPT) 32 U/L (12-78) Alkaline Phosphatase 109 U/L (45-117) Total Protein 7.3 gm/dl (6.4-8.2) Albumin 3.2 gm/dl (3.4-5.0) Lipase 217 U/L (73-393) 25-Hydroxy Vitamin D Total 21.4 ng/ml (30-100) RDW Standard Deviation 52.7 fL (36.4-46.3) RDW Coefficient of Variation 16.5 % (11.5-14.5) Prothrombin Time 13.5 SECONDS (9.0-12.0) Prothromb Time International Ratio 1.3 (0.9-1.1) Anion Gap 8.0 mmol/L (3-11) Est Creatinine Clear Calc Drug Dose 103.6 ml/min Estimated GFR () 109.6 Estimated GFR (Non- 94.6 BUN/Creatinine Ratio 21.1 (10-20) Calcium Level 8.7 mg/dl (8.5-10.1) Test 05/19/17 12:56 Bedside Glucose 151 mg/dl (70-99) Last 24 Hours Test 05/18/17 16:34 05/18/17 20:27 05/19/17 07:14 05/19/17 12:16 Bedside Glucose 140 mg/dl 147 mg/dl 148 mg/dl 150 mg/dl Test 05/19/17 12:56 Bedside Glucose 151 mg/dl Assessment & Plan 67 yo M with cancer pain presented to the hospital with intractable pain. Pancreatic cancer is unresectable. He is s/p celiac plexus block on 05/04 which only lasted a couple of days. He was tried on increased doses of Fentanyl patches and more control was attempted with PRN Dilaudid. Duloxetine was added and increased to 60mg PO daily. A trial epidural catheter was placed on 05/16 with good response and with his favorable prognosis per Hematology, he underwent placement of an intrathecal morphine pump earlier today. Pain Management has been instrumental in this care; appreciate continued recs. 1. Pain 2/2 cancer-s/p intrathecal morphine pump as above. Pain is present in RLQ where pump was placed, so at this time it is hard to food counselor his pain accurately. Cont dilaudid 4mg PO q4H PRN breakthrough pain. Cont with duloxetine 2. Opiate-induced constipation-cont Docusate and Miralax BID scheduled. No BM for last 3 days per nursing. 3. Pancreatic cancer-unresectable per Oncology. 4. DMII-metformin on hold. Pt has needed very little insulin this hospitalization. Cont ISS with carb coverage. 5. Vitamin D insufficiency (25OH=21). Placed on cholecalciferol. 6. Anxiety/Depression-2/2 pain and underlying malignancy. Cont with duloxetine 7. Anemia-stable H/H, likely 2/2 chronic disease. No indication for transfusion at this time. DVT proph: Lovenox, restarting tomorrow morning. Full code, no mech ventilation Dispo--likely DC to home with Home Health later tomorrow afternoon or Tuesday per Dr. Rogers. Mary Beth Augustine DO [facility] Hospitalist Consultants: Pain Management-Dr. China Rogers Current Inpatient Medications: Current Inpatient Medications Medications (Trade) Dose Ordered Sig/Yolis Route Start Time Stop Time Status Last Admin Dose Admin Acetaminophen (Tylenol Tab) 650 mg Q4H PRN PO 05/10/17 11:15 06/09/17 11:14 Bisacodyl (Dulcolax Tab) 5 mg BID PRN PO 05/10/17 11:45 06/09/17 11:44 Polyethylene (Miralax Powder Packet) 17 gm DAILY PRN PO 05/10/17 11:45 06/09/17 11:44 05/11/17 07:49 17 GM Insulin Aspart (novoLOG ASPART) SLIDING SCALE If C... ACHS SC 05/10/17 16:30 06/09/17 16:29 05/19/17 13:07 1 UNITS Glucose (Glucose 40% Gel) 15-30 GRAMS 15 GRAMS... UD PRN PO 05/10/17 13:00 06/09/17 12:59 Glucose (Glucose Chew Tab) 4-8 Tablets 4 Tabl... UD PRN PO 05/10/17 13:00 06/09/17 12:59 Dextrose (Dextrose 50% 50ML Syringe) 25-50ML OF 50% DW IV FOR... UD PRN IV 05/10/17 13:00 06/09/17 12:59 Glucagon (Glucagon Inj) 1 mg UD PRN SQ 05/10/17 13:00 06/09/17 12:59 Miscellaneous (Iv Fluids Completed) 1 ea PRN PRN N/A 05/10/17 14:30 05/10/18 14:29 Hydromorphone HCl (Dilaudid Inj) 1 mg Q3HWA PRN IV 05/11/17 10:00 05/24/17 13:44 05/18/17 17:48 1 MG Duloxetine HCl (Cymbalta Cap) 60 mg QAM PO 05/12/17 10:00 06/11/17 09:59 05/18/17 08:23 60 MG Hydromorphone HCl (Dilaudid Tab) 4 mg Q1H PRN PO 05/12/17 09:00 05/26/17 08:59 05/16/17 16:22 4 MG Docusate Sodium (coLACE CAP) 100 mg BID PO 05/12/17 20:00 06/11/17 19:59 05/18/17 21:13 100 MG Cholecalciferol (Vitamin D Tab) 1,000 inter.unit QAM PO 05/13/17 08:00 06/12/17 07:59 05/18/17 08:23 1,000 INTER.UNIT Lorazepam (Ativan Tab) 0.5 mg Q8 PRN PO 05/13/17 11:15 06/12/17 11:14 Polyethylene (Miralax Powder Packet) 17 gm BID PO 05/15/17 20:00 06/11/17 07:59 05/18/17 08:24 17 GM Naloxone HCl (Narcan Inj) 0.4 mg PRN PRN IV 05/16/17 09:15 06/15/17 09:14 Naloxone HCl (Narcan Inj) 0.4 mg PRN PRN IV 05/16/17 09:15 06/15/17 09:14 Diphenhydramine HCl (Benadryl Cap) 50 mg Q6H PRN PO 05/16/17 09:15 06/15/17 09:14 Magnesium Citrate (Citrate Of Magnesia Soln) 30 ml DAILY PRN PO 05/16/17 09:15 06/15/17 09:14 Ondansetron HCl (Zofran Tab) 8 mg AC PO 05/19/17 07:00 06/18/17 06:59 Promethazine HCl 25 mg/Sodium Chloride 51 ml @ 204 mls/hr Q6H PRN IV 05/18/17 18:00 06/17/17 17:59
[2017-05-19] MEDS: FAMOTIDINE IV INJ 20 MG in SYRINGE 3 ML IV SCH (17:33)
[2017-05-19 18:15] LABS: BUN/CREATININE RATIO 20.3 (10-20); CALCIUM 8.4 mg/dl (8.5-10.1); CREATININE 0.67 mg/dl (0.60-1.40); POTASSIUM 4.1 mmol/L (3.5-5.1)
[2017-05-19] MEDS ORDERED: NALOXONE HCL 0.4 MG/1 ML VIAL/CARP IV STA (23:17)
[2017-05-20] VITALS (9 sets, daily range): BP systolic 107–126; BP diastolic 61–79; PULSE 77–97; TEMP 36.9–37.4; O2SAT 92–100
[2017-05-20 00:14] LABS: BUN/CREATININE RATIO 18.6 (10-20); CALCIUM 8.6 mg/dl (8.5-10.1); CREATININE 0.82 mg/dl (0.60-1.40); MAGNESIUM 1.6 mg/dl (1.8-2.4); POTASSIUM 4.3 mmol/L (3.5-5.1)
[2017-05-20] MEDS ORDERED: MAGNESIUM SULFATE 1GM / D5W 1 GM in PREMIXED IN D5W 100 ML IV STA (01:11)
[2017-05-20] MEDS ORDERED: SODIUM CHLORIDE 0.9% 1000ML 1,000 ML IV ONE (01:15)
[2017-05-20 01:36] LABS: MANUAL MICROSCOPIC REQUIRED? NO; REVIEW REQ? NO; URINE APPEARANCE CLEAR (CLEAR); URINE BILIRUBIN 3+ (NEG); URINE COLOR DK YELLOW; URINE EPITHELIAL CELL AUTO 0-5 /lpf (0-5); URINE NITRITE POS (NEG); URINE PH 5.5 (4.5-7.5); UROBILINOGEN NEG (NEG); ZZUR CULT IF INDIC CLEAN CATCH NO
--- NOTE | 2017-05-20 01:53 | Progress Note ---
Internal Med Progress Note Date of Service: May 20, 2017. Provider Documentation: Made aware by RN around 11 PM last night of patient disorientation. Morphine intrathecal pump placed yesterday as per RN. Visual hallucinations later noted. Phenergan 25 mg given prior to onset of disorientation. No improvement of mentation with Narcan administration. UA ketones nitrite positive AP Delirium multifactorial : UTI Clinical dehydration ? Phenergan Follow urine cultures, IV ceftriaxone for now IVF Hold Phenergan for now. Haldol prn. Will relay to a.m. provider. Vital Signs: Date Time Temp Pulse Resp B/P (MAP) Pulse Ox O2 Delivery O2 Flow Rate FiO2 05/20/17 04:20 37.0 82 20 113/64 (80) 100 Room Air 05/20/17 04:00 97 Room Air 05/20/17 00:50 37.3 97 21 124/74 (91) 98 Room Air 05/20/17 00:00 97 Room Air 05/19/17 23:30 113 26 123/75 (91) 98 Room Air 05/19/17 23:25 86 24 109/66 (80) 96 Room Air 05/19/17 20:00 95 Room Air 05/19/17 19:54 36.8 75 18 119/65 (83) 96 05/19/17 16:08 36.8 90 18 123/75 (91) 98 05/19/17 16:00 Room Air 2.0 05/19/17 14:36 36.6 86 109/66 (80) 98 05/19/17 14:06 36.6 84 19 106/67 (80) 99 Room Air 05/19/17 13:34 36.7 84 18 111/70 (84) 98 Room Air 05/19/17 13:17 36.7 84 18 110/72 (85) 97 Room Air 05/19/17 13:15 Nasal Cannula 2.0 05/19/17 12:50 36.7 92 17 112/72 (85) 98 Room Air 05/19/17 12:40 96 16 111/72 100 Nasal Cannula 2 05/19/17 12:25 36 94 16 126/78 100 Nasal Cannula 2 05/19/17 12:15 95 16 124/77 100 Nasal Cannula 2 05/19/17 12:05 91 16 120/81 100 Oxymask 10 05/19/17 11:55 85 16 121/70 100 Oxymask 10 05/19/17 11:47 36.1 93 16 114/80 100 Oxymask 10 05/19/17 07:45 Nasal Cannula 2.0 Lab Results: Results Past 24 Hours Test 05/19/17 12:16 05/19/17 12:56 05/19/17 16:44 05/19/17 17:09 Range/Units Bedside Glucose 150 151 139 70-99 mg/dl Sodium Level 132 136-145 mmol/L Potassium Level 4.1 3.5-5.1 mmol/L Chloride Level 97 98-107 mmol/L Carbon Dioxide Level 25 21-32 mmol/L Anion Gap 10.0 3-11 mmol/L Blood Urea Nitrogen 14 7-18 mg/dl Creatinine 0.67 0.60-1.40 mg/dl Est Creatinine Clear Calc Drug Dose 107.1 ml/min Estimated GFR () 116.0 Estimated GFR (Non- 100.1 BUN/Creatinine Ratio 20.3 10-20 Random Glucose 132 70-99 mg/dl Calcium Level 8.4 8.5-10.1 mg/dl Test 05/19/17 20:36 05/19/17 23:35 05/20/17 00:00 05/20/17 06:43 Range/Units Bedside Glucose 117 70-99 mg/dl Sodium Level 132 136-145 mmol/L Potassium Level 4.3 3.5-5.1 mmol/L Chloride Level 95 98-107 mmol/L Carbon Dioxide Level 27 21-32 mmol/L Anion Gap 10.0 3-11 mmol/L Blood Urea Nitrogen 15 7-18 mg/dl Creatinine 0.82 0.60-1.40 mg/dl Est Creatinine Clear Calc Drug Dose 87.5 ml/min Estimated GFR () 106.8 Estimated GFR (Non- 92.1 BUN/Creatinine Ratio 18.6 10-20 Random Glucose 139 70-99 mg/dl Calcium Level 8.6 8.5-10.1 mg/dl Magnesium Level 1.6 1.8-2.4 mg/dl Ammonia 13.0 11-32 umol/L Urine Color DK YELLOW Urine Appearance CLEAR CLEAR Urine pH 5.5 4.5-7.5 Urine Specific [place] 1.020 1.000-1.030 Urine Protein TRACE NEG Urine Glucose (UA) NEG NEG Urine Ketones 3+ NEG Urine Occult Blood 1+ NEG Urine Nitrite POS NEG Urine Bilirubin 3+ NEG Urine Urobilinogen NEG NEG Urine Leukocyte Esterase TRACE NEG Urine WBC (Auto) 0 0-5 /hpf Urine RBC (Auto) 0-4 0-4 /hpf Urine Hyaline Casts (Auto) 1-5 0-5 /lpf Urine Epithelial Cells (Auto) 0-5 0-5 /lpf Urine Bacteria (Auto) NEG NEG Test 05/20/17 06:56 Range/Units Bedside Glucose 123 70-99 mg/dl Microbiology Results 05/20/17 Urine Culture, Received Pending
[2017-05-20] MEDS ORDERED: HALOPERIDOL LACTATE 5 MG/ML 1 ML VIAL IM STA (02:07)
[2017-05-20] MEDS: CEFTRIAXONE SOD INJ 1 GM in DEXTROSE 5% ADD-VANTAGE 50ML 50 ML IV SCH (02:31)
[2017-05-20] MEDS: FAMOTIDINE IV INJ 20 MG in SYRINGE 3 ML IV SCH ×2 (04:22→17:05)
[2017-05-20] MEDS: INSULIN ASPART 100 UNITS/ML 3 ML PEN SC SCH ×4 (07:00→21:00)
[2017-05-20] MEDS: ONDANSETRON 8 MG TAB PO SCH ×3 (07:00→17:05)
[2017-05-20] MEDS: POLYETHYLENE (MIRALAX) 17 GM PACK PO SCH ×2 (09:00→19:25)
[2017-05-20] MEDS: CHOLECALCIFEROL 1000 INTER.UNIT TAB PO SCH (09:00)
[2017-05-20] MEDS: DULOXETINE HCL 60 MG CAP PO SCH (09:00)
[2017-05-20] MEDS: DOCUSATE SODIUM 100 MG CAP PO SCH ×2 (09:00→21:00)
[2017-05-20 10:30] LABS: HEMATOCRIT 30.4 % (42-52); MEAN CELL VOLUME 89.7 fL (80-100); MEAN CORPUSCULAR HEMOGLOBIN 29.2 pg (25-34); MEAN CORPUSCULAR HGB CONC 32.6 g/dl (32-36); MEAN PLATELET VOLUME 11.1 fL (7.4-10.4); PLATELET COUNT 227 K/uL (130-400); RED BLOOD COUNT 3.39 M/uL (4.7-6.1); WHITE BLOOD COUNT 9.46 K/uL (4.8-10.8)
--- NOTE | 2017-05-20 10:54 | Pain Management Progress Note ---
Pain Management Progress Note Date of Service May 20, 2017. Subjective Mr. Engle reports improved pain relief this morning. He rates his pain as 2/10 when severe. He has been out of bed and does not report severe pain. He has been experiencing poor appetite and slight nausea this morning. Otherwise he feels significantly better analgesia with the pump at the current rate. Objective Vital Signs: Last Vital Signs Documentation Date Time Temp Pulse Resp B/P (MAP) Pulse Ox O2 Delivery O2 Flow Rate FiO2 05/20/17 08:07 36.9 92 20 114/71 (85) 99 Room Air 05/19/17 16:00 2.0 Physical Exam: Pump site dressing and catheter site dressing are unremarkable with no drainage noted. Laboratory Laboratory Findings 05/20/17 06:43 Assessment 1. Pancreatic cancer with malignancy-related pain. Improved with intrathecal opioid infusion at the current rate. Recommendations 1. Continue current infusion rate without any changes today.
--- NOTE | 2017-05-20 22:08 | Progress Note ---
Medicine Progress Note Date & Time of Visit: May 20, 2017 at 1500. Subjective 67 yo M with cancer pain presented to the hospital with intractable pain. Pancreatic cancer is unresectable. He is s/p celiac plexus block on 05/04 which only lasted a couple of days. He was tried on increased doses of Fentanyl patches and more control was attempted with PRN Dilaudid. Duloxetine was added and increased to 60mg PO daily. A trial epidural catheter was placed on 05/16 with good response and with his favorable prognosis per Hematology, he underwent placement of an intrathecal morphine pump on 05/19. Overnight he became confused after receiving some IV phenergan for nausea. He continues to be somewhat confused today despite avoiding narcotics today. A UA was checked and appeared somewhat dirty, so he was placed empirically on Rocephin and some IVF. He is tolerating PO today and nausea appears more controlled. Abdominal pain is improved and he is not coughing, feverish and is without chills. was at bedside and updated on assessment and plan. Objective Last 8 Hrs Date Time Temp Pulse Resp B/P (MAP) Pulse Ox O2 Delivery O2 Flow Rate FiO2 05/20/17 15:27 37.4 79 20 107/61 (76) 97 Room Air 05/20/17 11:03 37.2 80 20 126/79 (95) 97 Room Air Physical Exam: GEN: WNWD, supine, NAD, groggy but answering questions appropriately HEENT: NC/AT, normal sclerae, MMM CARDIO: reg rate, S1/2 heard without m/g/r LUNGS: CTA bilaterally, no crackles, rales or wheezes, good diaphragmatic excursion ABD: soft, limited evaluation in setting of abdominal binder, dressing covering incision and is c/d/i, nontender EXTREMITY: RP and DP palpable 2+ bilat, no LE swelling or edema, extremities are warm and well-perfused NEURO: CN 2-12 grossly intact, oriented to person, place and time. MUSC: moves all extremities equally. SKIN: warm and dry Laboratory Results: 05/20/17 06:43 05/19/17 23:35 Test 05/10/17 10:26 05/12/17 06:23 05/15/17 05:52 05/19/17 23:35 Immature Granulocyte % (Auto) 0.3 % White Blood Count 10.76 K/uL (4.8-10.8) Red Blood Count 3.79 M/uL (4.7-6.1) Hemoglobin 11.3 g/dL (14.0-18.0) Hematocrit 34.0 % (42-52) Mean Corpuscular Volume 89.7 fL (80-100) Mean Corpuscular Hemoglobin 29.8 pg (25-34) Mean Corpuscular Hemoglobin Concent 33.2 g/dl (32-36) Platelet Count 143 K/uL (130-400) Mean Platelet Volume 10.7 fL (7.4-10.4) Neutrophils (%) (Auto) 90.9 % Lymphocytes (%) (Auto) 3.4 % Monocytes (%) (Auto) 4.6 % Eosinophils (%) (Auto) 0.7 % Basophils (%) (Auto) 0.1 % Neutrophils # (Auto) 9.77 K/uL (1.4-6.5) Lymphocytes # (Auto) 0.37 K/uL (1.2-3.4) Monocytes # (Auto) 0.50 K/uL (0.11-0.59) Eosinophils # (Auto) 0.08 K/uL (0-0.5) Basophils # (Auto) 0.01 K/uL (0-0.2) Immature Granulocyte # (Auto) 0.03 K/uL (0.00-0.02) Total Bilirubin 0.9 mg/dl (0.2-1) Direct Bilirubin 0.3 mg/dl (0-0.2) Aspartate Amino Transf (AST/SGOT) 23 U/L (15-37) Alanine Aminotransferase (ALT/SGPT) 32 U/L (12-78) Alkaline Phosphatase 109 U/L (45-117) Total Protein 7.3 gm/dl (6.4-8.2) Albumin 3.2 gm/dl (3.4-5.0) Lipase 217 U/L (73-393) 25-Hydroxy Vitamin D Total 21.4 ng/ml (30-100) Prothrombin Time 13.5 SECONDS (9.0-12.0) Prothromb Time International Ratio 1.3 (0.9-1.1) Anion Gap 10.0 mmol/L (3-11) Est Creatinine Clear Calc Drug Dose 87.5 ml/min Estimated GFR () 106.8 Estimated GFR (Non- 92.1 BUN/Creatinine Ratio 18.6 (10-20) Calcium Level 8.6 mg/dl (8.5-10.1) Magnesium Level 1.6 mg/dl (1.8-2.4) Ammonia 13.0 umol/L (11-32) Test 05/20/17 00:00 05/20/17 06:43 05/20/17 20:51 Urine Color DK YELLOW Urine Appearance CLEAR (CLEAR) Urine pH 5.5 (4.5-7.5) Urine Specific [place] 1.020 (1.000-1.030) Urine Protein TRACE (NEG) Urine Glucose (UA) NEG (NEG) Urine Ketones 3+ (NEG) Urine Occult Blood 1+ (NEG) Urine Nitrite POS (NEG) Urine Bilirubin 3+ (NEG) Urine Urobilinogen NEG (NEG) Urine Leukocyte Esterase TRACE (NEG) Urine WBC (Auto) 0 /hpf (0-5) Urine RBC (Auto) 0-4 /hpf (0-4) Urine Hyaline Casts (Auto) 1-5 /lpf (0-5) Urine Epithelial Cells (Auto) 0-5 /lpf (0-5) Urine Bacteria (Auto) NEG (NEG) Red Blood Count 3.39 M/uL (4.7-6.1) Mean Corpuscular Volume 89.7 fL (80-100) Mean Corpuscular Hemoglobin 29.2 pg (25-34) Mean Corpuscular Hemoglobin Concent 32.6 g/dl (32-36) RDW Standard Deviation 53.9 fL (36.4-46.3) RDW Coefficient of Variation 16.4 % (11.5-14.5) Mean Platelet Volume 11.1 fL (7.4-10.4) Bedside Glucose 125 mg/dl (70-99) Date/Time Source Procedure Growth Status 05/20/17 00:00 Urine , Clean Catch Urine Culture Pending Received Last 24 Hours Test 05/19/17 17:09 05/19/17 20:36 05/19/17 23:35 05/20/17 00:00 Sodium Level 132 mmol/L 132 mmol/L Potassium Level 4.1 mmol/L 4.3 mmol/L Chloride Level 97 mmol/L 95 mmol/L Carbon Dioxide Level 25 mmol/L 27 mmol/L Anion Gap 10.0 mmol/L 10.0 mmol/L Blood Urea Nitrogen 14 mg/dl 15 mg/dl Creatinine 0.67 mg/dl 0.82 mg/dl Est Creatinine Clear Calc Drug Dose 107.1 ml/min 87.5 ml/min Estimated GFR () 116.0 106.8 Estimated GFR (Non- 100.1 92.1 BUN/Creatinine Ratio 20.3 18.6 Random Glucose 132 mg/dl 139 mg/dl Calcium Level 8.4 mg/dl 8.6 mg/dl Bedside Glucose 117 mg/dl Magnesium Level 1.6 mg/dl Ammonia 13.0 umol/L Urine Color DK YELLOW Urine Appearance CLEAR Urine pH 5.5 Urine Specific [place] 1.020 Urine Protein TRACE Urine Glucose (UA) NEG Urine Ketones 3+ Urine Occult Blood 1+ Urine Nitrite POS Urine Bilirubin 3+ Urine Urobilinogen NEG Urine Leukocyte Esterase TRACE Urine WBC (Auto) 0 /hpf Urine RBC (Auto) 0-4 /hpf Urine Hyaline Casts (Auto) 1-5 /lpf Urine Epithelial Cells (Auto) 0-5 /lpf Urine Bacteria (Auto) NEG Test 05/20/17 06:43 05/20/17 06:56 05/20/17 11:00 White Blood Count 9.46 K/uL Red Blood Count 3.39 M/uL Hemoglobin 9.9 g/dL Hematocrit 30.4 % Mean Corpuscular Volume 89.7 fL Mean Corpuscular Hemoglobin 29.2 pg Mean Corpuscular Hemoglobin Concent 32.6 g/dl RDW Standard Deviation 53.9 fL RDW Coefficient of Variation 16.4 % Platelet Count 227 K/uL Mean Platelet Volume 11.1 fL Bedside Glucose 123 mg/dl 137 mg/dl Date/Time Source Procedure Growth Status 05/20/17 00:00 Urine , Clean Catch Urine Culture Pending Received Assessment & Plan 67 yo M with cancer pain presented to the hospital with intractable pain. Pancreatic cancer is unresectable. He is s/p celiac plexus block on 05/04 which only lasted a couple of days. He was tried on increased doses of Fentanyl patches and more control was attempted with PRN Dilaudid. Duloxetine was added and increased to 60mg PO daily. A trial epidural catheter was placed on 05/16 with good response and with his favorable prognosis per Hematology, he underwent placement of an intrathecal morphine pump on 05/19. Overnight he became confused after receiving some IV phenergan for nausea. He continues to be somewhat confused today despite avoiding narcotics today. A UA was checked and appeared somewhat dirty, so he was placed empirically on Rocephin and some IVF. He is tolerating PO today and nausea appears more controlled. Abdominal pain is improved and he is not coughing, feverish and is without chills. was at bedside and updated on assessment and plan. 1. Pain 2/2 cancer-s/p intrathecal morphine pump as above. Pain is present in RLQ where pump was placed, so at this time it is hard to white kid buffer his pain accurately. Cont dilaudid 4mg PO q4H PRN breakthrough pain. Cont with duloxetine 2. Confusion-worse overnight with some confusion intermittent today. Off dilaudid today and morphine pump is active with 1mg/day. Could be residual effect from phenergan vs slower recovery post-op. Rocephin started empirically pending cultures. Cont to monitor. 3. Opiate-induced constipation-cont Docusate and Miralax BID scheduled. 4. Pancreatic cancer-unresectable per Oncology. 5. DMII-metformin on hold. Pt has needed very little insulin this hospitalization. Cont ISS with carb coverage. 6. Vitamin D insufficiency (25OH=21). Placed on cholecalciferol. 7. Anxiety/Depression-2/2 pain and underlying malignancy. Cont with duloxetine 8. Anemia-stable H/H, likely 2/2 chronic disease. No indication for transfusion at this time. DVT proph: SCDs in setting of recent procedure. Full code, no mech ventilation Dispo--likely DC to home with Home Health tomorrow once mental status improves. DO Rj Arnold Hospitalist Consultants: Pain Management-Dr. China Rogers Current Inpatient Medications: Current Inpatient Medications Medications (Trade) Dose Ordered Sig/Yolis Route Start Time Stop Time Status Last Admin Dose Admin Acetaminophen (Tylenol Tab) 650 mg Q4H PRN PO 05/10/17 11:15 06/09/17 11:14 Bisacodyl (Dulcolax Tab) 5 mg BID PRN PO 05/10/17 11:45 06/09/17 11:44 Polyethylene (Miralax Powder Packet) 17 gm DAILY PRN PO 05/10/17 11:45 06/09/17 11:44 11/8/17 07:49 17 GM Insulin Aspart (novoLOG ASPART) SLIDING SCALE If C... ACHS SC 05/10/17 16:30 06/09/17 16:29 05/19/17 13:07 1 UNITS Glucose (Glucose 40% Gel) 15-30 GRAMS 15 GRAMS... UD PRN PO 05/10/17 13:00 06/09/17 12:59 Glucose (Glucose Chew Tab) 4-8 Tablets 4 Tabl... UD PRN PO 05/10/17 13:00 06/09/17 12:59 Dextrose (Dextrose 50% 50ML Syringe) 25-50ML OF 50% DW IV FOR... UD PRN IV 05/10/17 13:00 06/09/17 12:59 Glucagon (Glucagon Inj) 1 mg UD PRN SQ 05/10/17 13:00 06/09/17 12:59 Miscellaneous (Iv Fluids Completed) 1 ea PRN PRN N/A 05/10/17 14:30 05/10/18 14:29 Duloxetine HCl (Cymbalta Cap) 60 mg QAM PO 05/12/17 10:00 06/11/17 09:59 05/18/17 08:23 60 MG Docusate Sodium (coLACE CAP) 100 mg BID PO 05/12/17 20:00 06/11/17 19:59 05/19/17 19:33 100 MG Cholecalciferol (Vitamin D Tab) 1,000 inter.unit QAM PO 05/13/17 08:00 06/12/17 07:59 05/18/17 08:23 1,000 INTER.UNIT Lorazepam (Ativan Tab) 0.5 mg Q8 PRN PO 05/13/17 11:15 06/12/17 11:14 Polyethylene (Miralax Powder Packet) 17 gm BID PO 05/15/17 20:00 06/11/17 07:59 05/18/17 08:24 17 GM Naloxone HCl (Narcan Inj) 0.4 mg PRN PRN IV 05/16/17 09:15 06/15/17 09:14 05/19/17 23:21 0.4 MG Naloxone HCl (Narcan Inj) 0.4 mg PRN PRN IV 05/16/17 09:15 06/15/17 09:14 Diphenhydramine HCl (Benadryl Cap) 50 mg Q6H PRN PO 05/16/17 09:15 06/15/17 09:14 Magnesium Citrate (Citrate Of Magnesia Soln) 30 ml DAILY PRN PO 05/16/17 09:15 06/15/17 09:14 Ondansetron HCl (Zofran Tab) 8 mg AC PO 05/19/17 07:00 06/18/17 06:59 05/20/17 12:44 8 MG Hydromorphone HCl (Dilaudid Tab) 4 mg Q4H PRN PO 05/19/17 16:30 05/26/17 08:59 Famotidine 20 mg/ Syringe 5 ml @ 2.5 mls/min Q12@0400,1600 IV 05/19/17 16:45 06/18/17 16:44 05/20/17 04:22 2.5 MLS/MIN Prochlorperazine Edisylate 5 mg/ Syringe 5 ml @ 5 mls/min Q6H PRN IV 05/20/17 00:15 06/19/17 00:14 Ceftriaxone Sodium 1 gm/ Dextrose 50 ml @ 100 mls/hr Q24H IV 05/20/17 02:00 05/30/17 01:59 05/20/17 02:31 100 MLS/HR
[2017-05-21] VITALS (8 sets, daily range): BP systolic 110–133; BP diastolic 61–85; PULSE 71–101; TEMP 36.2–36.8; O2SAT 95–100
[2017-05-21] MEDS: CEFTRIAXONE SOD INJ 1 GM in DEXTROSE 5% ADD-VANTAGE 50ML 50 ML IV SCH (02:00)
[2017-05-21] MEDS: FAMOTIDINE IV INJ 20 MG in SYRINGE 3 ML IV SCH (04:00)
[2017-05-21 06:07] LABS: HEMATOCRIT 32.3 % (42-52); MEAN CORPUSCULAR HEMOGLOBIN 29.8 pg (25-34); MEAN CORPUSCULAR HGB CONC 33.4 g/dl (32-36); MEAN PLATELET VOLUME 11.2 fL (7.4-10.4); PLATELET COUNT 244 K/uL (130-400); RED BLOOD COUNT 3.63 M/uL (4.7-6.1); WHITE BLOOD COUNT 10.62 K/uL (4.8-10.8)
[2017-05-21 06:59] LABS: BUN/CREATININE RATIO 21.2 (10-20); CALCIUM 8.9 mg/dl (8.5-10.1); CREATININE 0.79 mg/dl (0.60-1.40); MAGNESIUM 1.9 mg/dl (1.8-2.4); POTASSIUM 3.8 mmol/L (3.5-5.1)
[2017-05-21] MEDS: INSULIN ASPART 100 UNITS/ML 3 ML PEN SC SCH ×4 (07:00→19:52)
[2017-05-21] MEDS: ONDANSETRON 8 MG TAB PO SCH ×3 (07:03→17:12)
[2017-05-21] MEDS: CHOLECALCIFEROL 1000 INTER.UNIT TAB PO SCH (08:36)
[2017-05-21] MEDS: POLYETHYLENE (MIRALAX) 17 GM PACK PO SCH ×2 (08:36→19:26)
[2017-05-21] MEDS: DOCUSATE SODIUM 100 MG CAP PO SCH ×2 (08:37→19:26)
[2017-05-21] MEDS: DULOXETINE HCL 60 MG CAP PO SCH (08:37)
[2017-05-21] MEDS: HYDROmorphone HCL 2 MG TAB PO PRN ×3 (08:56→21:50)
[2017-05-21] MEDS: PROCHLORPERAZINE INJ 5 MG in SYRINGE 4 ML IV PRN (12:42)
--- NOTE | 2017-05-21 15:18 | Progress Note ---
Medicine Progress Note Date & Time of Visit: May 21, 2017 at 15:09. Subjective 67 yo M with cancer pain presented to the hospital with intractable pain. Pancreatic cancer is unresectable. He is s/p celiac plexus block on 05/04 which only lasted a couple of days. He was tried on increased doses of Fentanyl patches and more control was attempted with PRN Dilaudid. Duloxetine was added and increased to 60mg PO daily. A trial epidural catheter was placed on 05/16 with good response and with his favorable prognosis per Hematology, he underwent placement of an intrathecal morphine pump on 05/19. Overnight he became confused after receiving some IV phenergan for nausea. He continued to be somewhat confused yesterday despite avoiding narcotics (extra dilaudid) all day. A UA was checked and appeared somewhat dirty, so he was placed empirically on Rocephin and some IVF. He was tolerating PO yesterday and nausea appeared more controlled, however, he had some vomiting just after lunch today. He denies any abdominal pain and is comfortable with the binder on. He only reports a minor 2-3/10 pain in his back. I was somewhat concerned about narcotic withdrawal after having been on a lot of narcotics and then two nights prior reversed with Narcan with no further narcotics given. He is only receiving 1mg/day of morphine through the intrathecal system. I had the nurse give him a dilaudid this morning which made a difference and caused him to perk up and be less confused. He appears much more clear and able to easily move around today. Objective Last 8 Hrs Date Time Temp Pulse Resp B/P (MAP) Pulse Ox O2 Delivery O2 Flow Rate FiO2 05/21/17 12:00 Room Air 05/21/17 11:04 36.8 74 18 111/61 (78) 97 Room Air 05/21/17 08:00 95 Room Air Physical Exam: GEN: WNWD, easily sits up in bed today, alert and appropriate, NAD HEENT: NC/AT, normal sclerae, MMM CARDIO: reg rate, S1/2 heard without m/g/r LUNGS: CTA bilaterally, no crackles, rales or wheezes, good diaphragmatic excursion ABD: soft, limited evaluation in setting of abdominal binder, dressing covering incision and is c/d/i, nontender. +BS EXTREMITY: RP and DP palpable 2+ bilat, no LE swelling or edema, extremities are warm and well-perfused NEURO: CN 2-12 grossly intact, oriented to person, place and time. MUSC: moves all extremities equally. SKIN: warm and dry Laboratory Results: 05/21/17 05:28 05/21/17 05:28 Test 05/10/17 10:26 05/12/17 06:23 05/15/17 05:52 05/19/17 23:35 Immature Granulocyte % (Auto) 0.3 % White Blood Count 10.76 K/uL (4.8-10.8) Red Blood Count 3.79 M/uL (4.7-6.1) Hemoglobin 11.3 g/dL (14.0-18.0) Hematocrit 34.0 % (42-52) Mean Corpuscular Volume 89.7 fL (80-100) Mean Corpuscular Hemoglobin 29.8 pg (25-34) Mean Corpuscular Hemoglobin Concent 33.2 g/dl (32-36) Platelet Count 143 K/uL (130-400) Mean Platelet Volume 10.7 fL (7.4-10.4) Neutrophils (%) (Auto) 90.9 % Lymphocytes (%) (Auto) 3.4 % Monocytes (%) (Auto) 4.6 % Eosinophils (%) (Auto) 0.7 % Basophils (%) (Auto) 0.1 % Neutrophils # (Auto) 9.77 K/uL (1.4-6.5) Lymphocytes # (Auto) 0.37 K/uL (1.2-3.4) Monocytes # (Auto) 0.50 K/uL (0.11-0.59) Eosinophils # (Auto) 0.08 K/uL (0-0.5) Basophils # (Auto) 0.01 K/uL (0-0.2) Immature Granulocyte # (Auto) 0.03 K/uL (0.00-0.02) Total Bilirubin 0.9 mg/dl (0.2-1) Direct Bilirubin 0.3 mg/dl (0-0.2) Aspartate Amino Transf (AST/SGOT) 23 U/L (15-37) Alanine Aminotransferase (ALT/SGPT) 32 U/L (12-78) Alkaline Phosphatase 109 U/L (45-117) Total Protein 7.3 gm/dl (6.4-8.2) Albumin 3.2 gm/dl (3.4-5.0) Lipase 217 U/L (73-393) 25-Hydroxy Vitamin D Total 21.4 ng/ml (30-100) Prothrombin Time 13.5 SECONDS (9.0-12.0) Prothromb Time International Ratio 1.3 (0.9-1.1) Ammonia 13.0 umol/L (11-32) Test 05/20/17 00:00 05/21/17 05:28 05/21/17 11:00 Urine Color DK YELLOW Urine Appearance CLEAR (CLEAR) Urine pH 5.5 (4.5-7.5) Urine Specific [place] 1.020 (1.000-1.030) Urine Protein TRACE (NEG) Urine Glucose (UA) NEG (NEG) Urine Ketones 3+ (NEG) Urine Occult Blood 1+ (NEG) Urine Nitrite POS (NEG) Urine Bilirubin 3+ (NEG) Urine Urobilinogen NEG (NEG) Urine Leukocyte Esterase TRACE (NEG) Urine WBC (Auto) 0 /hpf (0-5) Urine RBC (Auto) 0-4 /hpf (0-4) Urine Hyaline Casts (Auto) 1-5 /lpf (0-5) Urine Epithelial Cells (Auto) 0-5 /lpf (0-5) Urine Bacteria (Auto) NEG (NEG) Red Blood Count 3.63 M/uL (4.7-6.1) Mean Corpuscular Volume 89.0 fL (80-100) Mean Corpuscular Hemoglobin 29.8 pg (25-34) Mean Corpuscular Hemoglobin Concent 33.4 g/dl (32-36) RDW Standard Deviation 53.2 fL (36.4-46.3) RDW Coefficient of Variation 16.3 % (11.5-14.5) Mean Platelet Volume 11.2 fL (7.4-10.4) Anion Gap 9.0 mmol/L (3-11) Est Creatinine Clear Calc Drug Dose 101.0 ml/min Estimated GFR () 108.5 Estimated GFR (Non- 93.6 BUN/Creatinine Ratio 21.2 (10-20) Calcium Level 8.9 mg/dl (8.5-10.1) Magnesium Level 1.9 mg/dl (1.8-2.4) Bedside Glucose 140 mg/dl (70-99) Date/Time Source Procedure Growth Status 05/20/17 00:00 Urine , Clean Catch Urine Culture - Preliminary Gram Negative Bacilli Resulted Last 24 Hours Test 05/20/17 16:33 05/20/17 20:51 05/21/17 05:28 05/21/17 07:08 Bedside Glucose 134 mg/dl 125 mg/dl 143 mg/dl White Blood Count 10.62 K/uL Red Blood Count 3.63 M/uL Hemoglobin 10.8 g/dL Hematocrit 32.3 % Mean Corpuscular Volume 89.0 fL Mean Corpuscular Hemoglobin 29.8 pg Mean Corpuscular Hemoglobin Concent 33.4 g/dl RDW Standard Deviation 53.2 fL RDW Coefficient of Variation 16.3 % Platelet Count 244 K/uL Mean Platelet Volume 11.2 fL Sodium Level 132 mmol/L Potassium Level 3.8 mmol/L Chloride Level 95 mmol/L Carbon Dioxide Level 28 mmol/L Anion Gap 9.0 mmol/L Blood Urea Nitrogen 17 mg/dl Creatinine 0.79 mg/dl Est Creatinine Clear Calc Drug Dose 101.0 ml/min Estimated GFR () 108.5 Estimated GFR (Non- 93.6 BUN/Creatinine Ratio 21.2 Random Glucose 146 mg/dl Calcium Level 8.9 mg/dl Magnesium Level 1.9 mg/dl Test 05/21/17 11:00 Bedside Glucose 140 mg/dl Assessment & Plan 67 yo M with cancer pain presented to the hospital with intractable pain. Pancreatic cancer is unresectable. He is s/p celiac plexus block on 05/04 which only lasted a couple of days. He was tried on increased doses of Fentanyl patches and more control was attempted with PRN Dilaudid. Duloxetine was added and increased to 60mg PO daily. A trial epidural catheter was placed on 05/16 with good response and with his favorable prognosis per Hematology, he underwent placement of an intrathecal morphine pump on 05/19. Overnight he became confused after receiving some IV phenergan for nausea. He continued to be somewhat confused yesterday despite avoiding narcotics (extra dilaudid) all day. A UA was checked and appeared somewhat dirty, so he was placed empirically on Rocephin and some IVF. He was tolerating PO yesterday and nausea appeared more controlled, however, he had some vomiting just after lunch today. He denies any abdominal pain and is comfortable with the binder on. He only reports a minor 2-3/10 pain in his back. I was somewhat concerned about narcotic withdrawal after having been on a lot of narcotics and then two nights prior reversed with Narcan with no further narcotics given. He is only receiving 1mg/day of morphine through the intrathecal system. I had the nurse give him a dilaudid this morning which made a difference and caused him to perk up and be less confused. He appears much more clear and able to easily move around today. 1. Pain 2/2 cancer-s/p intrathecal morphine pump as above. Cont with Dilaudid PO PRN breakthrough pain and Cymbalta 60mg PO daily. 2. Confusion-poss 2/2 narcotic withdrawal? vs other metabolic encephalopathy 2 /2 bacteruria? As above seems better after some PO dilaudid this morning. Cont with Rocephin and will transition to PO when culture results. 3. Nausea and vomiting-uncertain etiology, may be 2/2 pain meds or related to recent surgery. He came in with chronic nausea induced by chemotherapy but is not taking that anymore. Cont supportive care with antiemetics, etc. 4. Opiate-induced constipation-cont Docusate and Miralax BID scheduled. 5. Pancreatic cancer-unresectable per Oncology. 6. DMII-metformin on hold. Pt has needed very little insulin this hospitalization. Cont ISS with carb coverage. 7. Vitamin D insufficiency (25OH=21). Placed on cholecalciferol. 8. Anxiety/Depression-2/2 pain and underlying malignancy. Cont with duloxetine 9. Anemia-stable H/H, likely 2/2 chronic disease. No indication for transfusion at this time. DVT proph: SCDs in setting of recent procedure. Full code, no mech ventilation Dispo--likely DC to home with Home Health tomorrow once mental status improves. [facility]: Pain Management-Dr. China Rogers Current Inpatient Medications: Current Inpatient Medications Medications (Trade) Dose Ordered Sig/Yolis Route Start Time Stop Time Status Last Admin Dose Admin Acetaminophen (Tylenol Tab) 650 mg Q4H PRN PO 05/10/17 11:15 06/09/17 11:14 Bisacodyl (Dulcolax Tab) 5 mg BID PRN PO 05/10/17 11:45 06/09/17 11:44 Polyethylene (Miralax Powder Packet) 17 gm DAILY PRN PO 05/10/17 11:45 06/09/17 11:44 05/11/17 07:49 17 GM Insulin Aspart (novoLOG ASPART) SLIDING SCALE If C... ACHS SC 05/10/17 16:30 06/09/17 16:29 05/19/17 13:07 1 UNITS Glucose (Glucose 40% Gel) 15-30 GRAMS 15 GRAMS... UD PRN PO 05/10/17 13:00 06/09/17 12:59 Glucose (Glucose Chew Tab) 4-8 Tablets 4 Tabl... UD PRN PO 05/10/17 13:00 06/09/17 12:59 Dextrose (Dextrose 50% 50ML Syringe) 25-50ML OF 50% DW IV FOR... UD PRN IV 05/10/17 13:00 06/09/17 12:59 Glucagon (Glucagon Inj) 1 mg UD PRN SQ 05/10/17 13:00 06/09/17 12:59 Miscellaneous (Iv Fluids Completed) 1 ea PRN PRN N/A 05/10/17 14:30 05/10/18 14:29 Duloxetine HCl (Cymbalta Cap) 60 mg QAM PO 05/12/17 10:00 06/11/17 09:59 05/21/17 08:37 60 MG Docusate Sodium (coLACE CAP) 100 mg BID PO 05/12/17 20:00 06/11/17 19:59 05/21/17 08:37 100 MG Cholecalciferol (Vitamin D Tab) 1,000 inter.unit QAM PO 05/13/17 08:00 06/12/17 07:59 05/21/17 08:36 1,000 INTER.UNIT Lorazepam (Ativan Tab) 0.5 mg Q8 PRN PO 05/13/17 11:15 06/12/17 11:14 Polyethylene (Miralax Powder Packet) 17 gm BID PO 05/15/17 20:00 06/11/17 07:59 05/18/17 08:24 17 GM Naloxone HCl (Narcan Inj) 0.4 mg PRN PRN IV 05/16/17 09:15 06/15/17 09:14 05/19/17 23:21 0.4 MG Naloxone HCl (Narcan Inj) 0.4 mg PRN PRN IV 05/16/17 09:15 06/15/17 09:14 Diphenhydramine HCl (Benadryl Cap) 50 mg Q6H PRN PO 05/16/17 09:15 06/15/17 09:14 Magnesium Citrate (Citrate Of Magnesia Soln) 30 ml DAILY PRN PO 05/16/17 09:15 06/15/17 09:14 Ondansetron HCl (Zofran Tab) 8 mg AC PO 05/19/17 07:00 06/18/17 06:59 05/21/17 11:43 8 MG Hydromorphone HCl (Dilaudid Tab) 4 mg Q4H PRN PO 05/19/17 16:30 05/26/17 08:59 05/21/17 08:56 4 MG Famotidine 20 mg/ Syringe 5 ml @ 2.5 mls/min Q12@0400,1600 IV 05/19/17 16:45 06/18/17 16:44 05/21/17 04:00 2.5 MLS/MIN Prochlorperazine Edisylate 5 mg/ Syringe 5 ml @ 5 mls/min Q6H PRN IV 05/20/17 00:15 06/19/17 00:14 05/21/17 12:42 5 MLS/MIN Ceftriaxone Sodium 1 gm/ Dextrose 50 ml @ 100 mls/hr Q24H IV 05/20/17 02:00 05/30/17 01:59 05/21/17 02:00 100 MLS/HR
[2017-05-21] MEDS ORDERED: NURSING VERBAL MED ORDER ONE (16:45)
[2017-05-21] MEDS ORDERED: FAMOTIDINE 20 MG TAB PO PRN (17:15)
[2017-05-22] MEDS: CEFTRIAXONE SOD INJ 1 GM in DEXTROSE 5% ADD-VANTAGE 50ML 50 ML IV SCH (01:54)
[2017-05-22 04:03] VITALS: BP 126/71; PULSE 89; TEMP 36.3; O2SAT 97
[2017-05-22] MEDS: ONDANSETRON 8 MG TAB PO SCH ×2 (06:17→11:01)
[2017-05-22 07:27] VITALS: BP 149/74; PULSE 80; TEMP 36.4; O2SAT 98
[2017-05-22] MEDS: POLYETHYLENE (MIRALAX) 17 GM PACK PO SCH ×2 (08:00→20:00)
[2017-05-22] MEDS: CHOLECALCIFEROL 1000 INTER.UNIT TAB PO SCH (08:16)
[2017-05-22] MEDS: DULOXETINE HCL 60 MG CAP PO SCH (08:17)
[2017-05-22] MEDS: DOCUSATE SODIUM 100 MG CAP PO SCH ×2 (08:17→20:25)
[2017-05-22] MEDS: INSULIN ASPART 100 UNITS/ML 3 ML PEN SC SCH ×4 (08:23→20:26)
[2017-05-22] MEDS: CIPROFLOXACIN 500 MG TAB PO SCH ×2 (10:08→20:25)
[2017-05-22 11:11] VITALS: BP 107/64; PULSE 74; TEMP 36.3; O2SAT 97
--- NOTE | 2017-05-22 13:03 | Progress Note ---
Medicine Progress Note Date & Time of Visit: May 22, 2017 at 12:51. Subjective 67 yo M with cancer pain presented to the hospital with intractable pain. Pancreatic cancer is unresectable. He is s/p celiac plexus block on 05/04 which only lasted a couple of days. He was tried on increased doses of Fentanyl patches and more control was attempted with PRN Dilaudid. Duloxetine was added and increased to 60mg PO daily. A trial epidural catheter was placed on 05/16 with good response and with his favorable prognosis per Hematology, he underwent placement of an intrathecal morphine pump on 05/19. Overnight he became confused after receiving some IV phenergan for nausea. He continued to be somewhat confused the next day despite avoiding PRN narcotics (PO dilaudid) all day. A UA was checked and appeared somewhat dirty, so he was placed empirically on Rocephin and some IVF. He was tolerating PO the following day and nausea appeared more controlled, however, he had some vomiting just after lunch. He continues to deny any abdominal pain and is comfortable with the binder on. He only reports a minor 2-3/10 pain in his back consistently. I was somewhat concerned about narcotic withdrawal after having been on a lot of narcotics after reversal with Narcan overnight when he exhibited confusion. He is only receiving 1mg/day of morphine through the intrathecal system. I saw an improvement in him shortly after giving him one dose of dilaudid and his mentation continued to improve and is back to baseline. Now, however, his nausea is uncontrolled and he has not been tolerating PO at all. Objective Last 8 Hrs Date Time Temp Pulse Resp B/P (MAP) Pulse Ox O2 Delivery O2 Flow Rate FiO2 05/22/17 11:11 36.3 74 18 107/64 (78) 97 Room Air 05/22/17 09:00 Room Air 05/22/17 07:27 36.4 80 20 149/74 (99) 98 Room Air Physical Exam: GEN: WNWD, easily sits up in bed today, alert and appropriate, NAD but is ill- appearing HEENT: NC/AT, normal sclerae, MMM CARDIO: reg rate, S1/2 heard without m/g/r LUNGS: CTA bilaterally, no crackles, rales or wheezes, good diaphragmatic excursion ABD: soft, NTND, +BS, dressing covering incision and is c/d/i EXTREMITY: RP and DP palpable 2+ bilat, no LE swelling or edema, extremities are warm and well-perfused NEURO: CN 2-12 grossly intact, no gross focal deficits. MUSC: moves all extremities equally. SKIN: warm and dry, starting to appear somewhat jaundiced. Laboratory Results: 05/21/17 05:28 05/21/17 05:28 Test 05/10/17 10:26 05/12/17 06:23 05/15/17 05:52 05/19/17 23:35 Immature Granulocyte % (Auto) 0.3 % White Blood Count 10.76 K/uL (4.8-10.8) Red Blood Count 3.79 M/uL (4.7-6.1) Hemoglobin 11.3 g/dL (14.0-18.0) Hematocrit 34.0 % (42-52) Mean Corpuscular Volume 89.7 fL (80-100) Mean Corpuscular Hemoglobin 29.8 pg (25-34) Mean Corpuscular Hemoglobin Concent 33.2 g/dl (32-36) Platelet Count 143 K/uL (130-400) Mean Platelet Volume 10.7 fL (7.4-10.4) Neutrophils (%) (Auto) 90.9 % Lymphocytes (%) (Auto) 3.4 % Monocytes (%) (Auto) 4.6 % Eosinophils (%) (Auto) 0.7 % Basophils (%) (Auto) 0.1 % Neutrophils # (Auto) 9.77 K/uL (1.4-6.5) Lymphocytes # (Auto) 0.37 K/uL (1.2-3.4) Monocytes # (Auto) 0.50 K/uL (0.11-0.59) Eosinophils # (Auto) 0.08 K/uL (0-0.5) Basophils # (Auto) 0.01 K/uL (0-0.2) Immature Granulocyte # (Auto) 0.03 K/uL (0.00-0.02) Total Bilirubin 0.9 mg/dl (0.2-1) Direct Bilirubin 0.3 mg/dl (0-0.2) Aspartate Amino Transf (AST/SGOT) 23 U/L (15-37) Alanine Aminotransferase (ALT/SGPT) 32 U/L (12-78) Alkaline Phosphatase 109 U/L (45-117) Total Protein 7.3 gm/dl (6.4-8.2) Albumin 3.2 gm/dl (3.4-5.0) Lipase 217 U/L (73-393) 25-Hydroxy Vitamin D Total 21.4 ng/ml (30-100) Prothrombin Time 13.5 SECONDS (9.0-12.0) Prothromb Time International Ratio 1.3 (0.9-1.1) Ammonia 13.0 umol/L (11-32) Test 05/20/17 00:00 05/21/17 05:28 05/22/17 11:28 Urine Color DK YELLOW Urine Appearance CLEAR (CLEAR) Urine pH 5.5 (4.5-7.5) Urine Specific [place] 1.020 (1.000-1.030) Urine Protein TRACE (NEG) Urine Glucose (UA) NEG (NEG) Urine Ketones 3+ (NEG) Urine Occult Blood 1+ (NEG) Urine Nitrite POS (NEG) Urine Bilirubin 3+ (NEG) Urine Urobilinogen NEG (NEG) Urine Leukocyte Esterase TRACE (NEG) Urine WBC (Auto) 0 /hpf (0-5) Urine RBC (Auto) 0-4 /hpf (0-4) Urine Hyaline Casts (Auto) 1-5 /lpf (0-5) Urine Epithelial Cells (Auto) 0-5 /lpf (0-5) Urine Bacteria (Auto) NEG (NEG) Red Blood Count 3.63 M/uL (4.7-6.1) Mean Corpuscular Volume 89.0 fL (80-100) Mean Corpuscular Hemoglobin 29.8 pg (25-34) Mean Corpuscular Hemoglobin Concent 33.4 g/dl (32-36) RDW Standard Deviation 53.2 fL (36.4-46.3) RDW Coefficient of Variation 16.3 % (11.5-14.5) Mean Platelet Volume 11.2 fL (7.4-10.4) Anion Gap 9.0 mmol/L (3-11) Est Creatinine Clear Calc Drug Dose 101.0 ml/min Estimated GFR () 108.5 Estimated GFR (Non- 93.6 BUN/Creatinine Ratio 21.2 (10-20) Calcium Level 8.9 mg/dl (8.5-10.1) Magnesium Level 1.9 mg/dl (1.8-2.4) Bedside Glucose 176 mg/dl (70-99) Date/Time Source Procedure Growth Status 05/20/17 00:00 Urine , Clean Catch Urine Culture - Final Pseudomonas Aeruginosa Complete Last 24 Hours Test 05/21/17 19:38 05/22/17 07:58 05/22/17 11:28 Bedside Glucose 151 mg/dl 148 mg/dl 176 mg/dl Assessment & Plan 67 yo M with cancer pain presented to the hospital with intractable pain. Pancreatic cancer is unresectable. He is s/p celiac plexus block on 05/04 which only lasted a couple of days. He was tried on increased doses of Fentanyl patches and more control was attempted with PRN Dilaudid. Duloxetine was added and increased to 60mg PO daily. A trial epidural catheter was placed on 05/16 with good response and with his favorable prognosis per Hematology, he underwent placement of an intrathecal morphine pump on 05/19. Overnight he became confused after receiving some IV phenergan for nausea. He continued to be somewhat confused the next day despite avoiding PRN narcotics (PO dilaudid) all day. A UA was checked and appeared somewhat dirty, so he was placed empirically on Rocephin and some IVF. He was tolerating PO the following day and nausea appeared more controlled, however, he had some vomiting just after lunch. He continues to deny any abdominal pain and is comfortable with the binder on. He only reports a minor 2-3/10 pain in his back consistently. I was somewhat concerned about narcotic withdrawal after having been on a lot of narcotics after reversal with Narcan overnight when he exhibited confusion. He is only receiving 1mg/day of morphine through the intrathecal system. I saw an improvement in him shortly after giving him one dose of dilaudid and his mentation continued to improve and is back to baseline. Now, however, his nausea is uncontrolled and he has not been tolerating PO at all. 1. Nausea and vomiting-uncertain etiology. Cont supportive care with antiemetics scheduled (IV Zofran), PRN phenergan supp, or PRN compazine. Pt admits to some lightheadedness with moving around and urine is very dark in color. Suspect some dehydration. IVF were started. Encouraged for him to bring food in from home. 2. Pain 2/2 cancer-s/p intrathecal morphine pump as above. Cont with Dilaudid PO PRN breakthrough pain and Cymbalta 60mg PO daily. 3. Confusion-poss 2/2 narcotic withdrawal? vs other metabolic encephalopathy 2 /2 bacteruria? Resolved. Rocephin switched to Cipro. 4. Opiate-induced constipation-cont Docusate and Miralax BID scheduled. 5. Pancreatic cancer-unresectable per Oncology. 6. DMII-metformin on hold. Pt has needed very little insulin this hospitalization. Cont ISS with carb coverage. 7. Vitamin D insufficiency (25OH=21). Placed on cholecalciferol. 8. Anxiety/Depression-2/2 pain and underlying malignancy. Cont with duloxetine 9. Anemia-stable H/H, likely 2/2 chronic disease. No indication for transfusion at this time. DVT proph: Lovenox. Full code, no mech ventilation Dispo--DC to home when tolerating PO reliably. Mary Beth Augustine DO [facility] Hospitalist Consultants: Pain Management-Dr. China Rogers Current Inpatient Medications: Current Inpatient Medications Medications (Trade) Dose Ordered Sig/Yolis Route Start Time Stop Time Status Last Admin Dose Admin Acetaminophen (Tylenol Tab) 650 mg Q4H PRN PO 05/10/17 11:15 06/09/17 11:14 Bisacodyl (Dulcolax Tab) 5 mg BID PRN PO 05/10/17 11:45 06/09/17 11:44 Polyethylene (Miralax Powder Packet) 17 gm DAILY PRN PO 05/10/17 11:45 06/09/17 11:44 05/11/17 07:49 17 GM Insulin Aspart (novoLOG ASPART) SLIDING SCALE If C... ACHS SC 05/10/17 16:30 06/09/17 16:29 05/21/17 19:52 1 UNITS Glucose (Glucose 40% Gel) 15-30 GRAMS 15 GRAMS... UD PRN PO 05/10/17 13:00 06/09/17 12:59 Glucose (Glucose Chew Tab) 4-8 Tablets 4 Tabl... UD PRN PO 05/10/17 13:00 06/09/17 12:59 Dextrose (Dextrose 50% 50ML Syringe) 25-50ML OF 50% DW IV FOR... UD PRN IV 05/10/17 13:00 06/09/17 12:59 Glucagon (Glucagon Inj) 1 mg UD PRN SQ 05/10/17 13:00 06/09/17 12:59 Miscellaneous (Iv Fluids Completed) 1 ea PRN PRN N/A 05/10/17 14:30 05/10/18 14:29 Duloxetine HCl (Cymbalta Cap) 60 mg QAM PO 05/12/17 10:00 06/11/17 09:59 05/22/17 08:17 60 MG Docusate Sodium (coLACE CAP) 100 mg BID PO 05/12/17 20:00 06/11/17 19:59 05/22/17 08:17 100 MG Cholecalciferol (Vitamin D Tab) 1,000 inter.unit QAM PO 05/13/17 08:00 06/12/17 07:59 05/22/17 08:16 1,000 INTER.UNIT Lorazepam (Ativan Tab) 0.5 mg Q8 PRN PO 05/13/17 11:15 06/12/17 11:14 Polyethylene (Miralax Powder Packet) 17 gm BID PO 05/15/17 20:00 06/11/17 07:59 05/18/17 08:24 17 GM Naloxone HCl (Narcan Inj) 0.4 mg PRN PRN IV 05/16/17 09:15 06/15/17 09:14 05/19/17 23:21 0.4 MG Naloxone HCl (Narcan Inj) 0.4 mg PRN PRN IV 05/16/17 09:15 06/15/17 09:14 Diphenhydramine HCl (Benadryl Cap) 50 mg Q6H PRN PO 05/16/17 09:15 06/15/17 09:14 Magnesium Citrate (Citrate Of Magnesia Soln) 30 ml DAILY PRN PO 05/16/17 09:15 06/15/17 09:14 Hydromorphone HCl (Dilaudid Tab) 4 mg Q4H PRN PO 05/19/17 16:30 05/26/17 08:59 05/21/17 21:50 4 MG Prochlorperazine Edisylate 5 mg/ Syringe 5 ml @ 5 mls/min Q6H PRN IV 05/20/17 00:15 06/19/17 00:14 05/21/17 12:42 5 MLS/MIN Famotidine (Pepcid Tab) 20 mg BID PRN PO 05/21/17 17:15 06/20/17 17:14 Ciprofloxacin (Cipro Tab) 500 mg BID PO 05/22/17 08:45 05/27/17 08:44 05/22/17 10:08 500 MG Potassium Chloride/Sodium Chloride 1,000 ml @ 100 mls/hr Q10H IV 05/22/17 13:00 06/21/17 12:59 UNV Ondansetron HCl (Zofran Inj) 4 mg Q6H IV 05/22/17 15:00 06/21/17 14:59 UNV
[2017-05-22] MEDS: NSS + 20MEQ KCL 1000ML 1,000 ML IV SCH ×2 (13:33→23:57)
[2017-05-22 15:20] VITALS: BP 121/73; PULSE 83; TEMP 36.4; O2SAT 99
[2017-05-22] MEDS: ONDANSETRON INJ 2 MG/ML 2 ML VIAL IV SCH ×2 (15:30→20:27)
[2017-05-22] MEDS ORDERED: DRONABINOL 2.5 MG CAP PO ONE (16:12)
[2017-05-22] MEDS: PROCHLORPERAZINE INJ 5 MG in SYRINGE 4 ML IV PRN (18:47)
[2017-05-22 19:01] VITALS: BP 116/73; PULSE 88; TEMP 36.8; O2SAT 96
[2017-05-22] MEDS: LORAZEPAM 0.5 MG TAB PO PRN (20:26)
[2017-05-22 22:46] VITALS: BP 113/64; PULSE 77; TEMP 36.4; O2SAT 96
[2017-05-23] MEDS: ONDANSETRON INJ 2 MG/ML 2 ML VIAL IV SCH ×4 (03:16→22:42)
[2017-05-23 04:48] VITALS: BP 142/53; PULSE 68; TEMP 36.2; O2SAT 95
[2017-05-23 06:00] LABS: HEMATOCRIT 31.7 % (42-52); MEAN CELL VOLUME 88.5 fL (80-100); MEAN CORPUSCULAR HEMOGLOBIN 29.1 pg (25-34); MEAN CORPUSCULAR HGB CONC 32.8 g/dl (32-36); MEAN PLATELET VOLUME 10.6 fL (7.4-10.4); PLATELET COUNT 210 K/uL (130-400); RED BLOOD COUNT 3.58 M/uL (4.7-6.1); WHITE BLOOD COUNT 11.92 K/uL (4.8-10.8)
[2017-05-23 06:08] LABS: INR 1.3 (0.9-1.1)
[2017-05-23 06:40] LABS: ALB/GLOB RATIO 0.8 (0.9-2); BUN/CREATININE RATIO 24.5 (10-20); CALCIUM 8.5 mg/dl (8.5-10.1); CREATININE 0.78 mg/dl (0.60-1.40); MAGNESIUM 1.7 mg/dl (1.8-2.4); PHOSPHORUS 2.7 mg/dl (2.5-4.9)
[2017-05-23 07:19] VITALS: BP 104/62; PULSE 71; TEMP 36.3; O2SAT 96
[2017-05-23] MEDS: MAGNESIUM SULFATE 1GM / D5W 1 GM in PREMIXED IN D5W 100 ML IV SCH ×2 (08:18→09:36)
[2017-05-23] MEDS: NSS + 20MEQ KCL 1000ML 1,000 ML IV SCH ×2 (08:18→22:43)
[2017-05-23] MEDS: DOCUSATE SODIUM 100 MG CAP PO SCH ×2 (08:50→22:44)
[2017-05-23] MEDS: DULOXETINE HCL 60 MG CAP PO SCH (08:50)
[2017-05-23] MEDS: CIPROFLOXACIN 500 MG TAB PO SCH ×2 (08:50→22:44)
[2017-05-23] MEDS: POLYETHYLENE (MIRALAX) 17 GM PACK PO SCH ×2 (08:50→22:44)
[2017-05-23] MEDS: DRONABINOL 2.5 MG CAP PO SCH ×2 (08:51→22:44)
[2017-05-23] MEDS: CHOLECALCIFEROL 1000 INTER.UNIT TAB PO SCH (08:51)
[2017-05-23] MEDS: ENOXAPARIN 40 MG/0.4 ML SYR SQ SCH (08:52)
[2017-05-23] MEDS: INSULIN ASPART 100 UNITS/ML 3 ML PEN SC SCH ×4 (08:53→22:44)
--- NOTE | 2017-05-23 09:29 | Pain Management Progress Note ---
Pain Management Progress Note Date of Service May 23, 2017. Subjective Mr. Engle was seen this morning on rounds. He reports improved pain relief and only complains of some incisional pain in the right lower quadrant of the abdomen at the pump pocket site. He had an episode of confusion and delusions and was given Narcan. However, it appears that his symptoms are not consistent with opioid overdose related to her intrathecal pump. He appears to be comfortable with his current rate of intrathecal morphine and denies any typical pain was experienced prior to the implantation that was consistent with his pancreatic malignancy related pain. Reports poor appetite and nausea since initiation of chemotherapy. Objective Vital Signs: Last Vital Signs Documentation Date Time Temp Pulse Resp B/P (MAP) Pulse Ox O2 Delivery O2 Flow Rate FiO2 05/23/17 07:19 36.3 71 18 104/62 (76) 96 Room Air 05/21/17 15:57 2.0 Physical Exam: Exam shows him to be awake and alert. He is oriented times place and person shows normal and clear sensorium. Today he appears jaundiced. Pump site was evaluated appears to be healing well without any redness, exudates or discharges. Back incision was similarly evaluated and found to be healing appropriately without any evidence of infection. Laboratory Laboratory Findings 05/23/17 05:41 Assessment 1. Pancreatic CVA with malignant pain. Controlled with intrathecal infusion. 2. Episodes of nausea, vomiting and TECHNICIAN PREVENTATIVE MEDICINE changes. Most likely unrelated to opioids. Recommendations 1. Continue daily dressing changes. 2. Continue current intrathecal infusion rate. 3. Decrease the potency of oral breakthrough pain meds to hydrocodone. Discontinue oral hydromorphone.
[2017-05-23 11:11] VITALS: BP 110/61; PULSE 73; TEMP 36; O2SAT 96
[2017-05-23] MEDS ORDERED: SCOPOLAMINE 1.5 MG TDSY TD SCH (12:30)
--- NOTE | 2017-05-23 15:12 | DIAGNOSTIC IMAGING REPORT ---
ULTRASOUND RIGHT UPPER QUADRANT ABDOMEN CLINICAL HISTORY: Jaundice. Pancreatic mass seen by CT. COMPARISON STUDY: Abdominal CT dated 05/03/2017. TECHNIQUE: Real-time, grayscale, and color flow sonography of the right upper quadrant of the abdomen was performed. Images are reviewed in the transverse and longitudinal planes. The Examination is degraded by lack of acoustic window due to overlying bandages. FINDINGS: Liver: The liver is normal in size and echotexture. There is minimal central intrahepatic biliary ductal dilatation. The main portal vein is patent. Gallbladder: The gallbladder is distended and filled with sludge and gallstones. The gallbladder wall is mildly thickened measuring up to 5 mm. No pericholecystic fluid is seen. A sonographic Okeefe's sign is equivocal. The common bile duct measures up to 0.7 cm in diameter. Pancreas: Not visualized due to overlying bowel gas. Right kidney: Survey images of the right kidney demonstrate normal size and echotexture. There is no hydronephrosis. Ascites: There is trace perihepatic free fluid. IMPRESSION: 1. The gallbladder is distended, mildly thick walled, and filled with sludge and stones. A sonographic Okeefe's sign was equivocal and acute cholecystitis is not excluded. Clinical correlation will be required. If further assessment is desired nuclear hepatobiliary scan could be considered. 2. There is mild intra and extrahepatic biliary ductal dilatation. 3. The pancreas was not visualized due to overlying bowel gas. 4. Trace perihepatic free fluid is identified. Electronically signed by: Gelacio Dubon M.D. 05/23/2017 3:11 PM Dictated Date/Time: 05/23/2017 3:07 PM
[2017-05-23 15:41] VITALS: BP 124/74; PULSE 69; TEMP 36.3; O2SAT 96
[2017-05-23] MEDS: CHECK SCOPOLAMINE PATCH PLACEMENT SCH ×2 (16:07→23:51)
--- NOTE | 2017-05-23 17:02 | Gastroenterology Progress Note ---
Progress Note Date of Service: May 23, 2017 Subjective Pt evaluation today including: conversation w/ patient, conversation w/ family (), physical exam, chart review, lab review, review of studies, review of inpatient medication list Ms. 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 Cycling po chemo: Xeloda and Temodar 14 days on, 14 off. No meds for > 1 week. He began with nausea (aversion to food smells and nausea after eating) and increased upper abdomen pain about a month ago. LFT on arrival T BIli 12.3 (direct not measured). AST 47 ALT 92. These were normal a month ago. LFTs were normal a month ago. Review of Systems Constitutional: No fever ENT: + hearing loss (chronic, no recent worsening. ) Respiratory: No cough Cardiac: No chest pain Abdomen: + pain, + nausea, + vomiting, + constipation (intermittent), No GI bleeding, No dysphagia Male : No dysuria Neuro: No memory loss Psych: No depression symptoms Heme: No abnormal bleeding/bruising Endo: + fatigue Medications Current Inpatient Medications Medications (Trade) Dose Ordered Sig/Yolis Route Start Time Stop Time Status Last Admin Dose Admin Acetaminophen (Tylenol Tab) 650 mg Q4H PRN PO 05/10/17 11:15 06/09/17 11:14 Bisacodyl (Dulcolax Tab) 5 mg BID PRN PO 05/10/17 11:45 06/09/17 11:44 Polyethylene (Miralax Powder Packet) 17 gm DAILY PRN PO 05/10/17 11:45 06/09/17 11:44 05/11/17 07:49 17 GM Insulin Aspart (novoLOG ASPART) SLIDING SCALE If C... ACHS SC 05/10/17 16:30 06/09/17 16:29 05/23/17 12:44 2 UNITS Glucose (Glucose 40% Gel) 15-30 GRAMS 15 GRAMS... UD PRN PO 05/10/17 13:00 06/09/17 12:59 Glucose (Glucose Chew Tab) 4-8 Tablets 4 Tabl... UD PRN PO 05/10/17 13:00 06/09/17 12:59 Dextrose (Dextrose 50% 50ML Syringe) 25-50ML OF 50% DW IV FOR... UD PRN IV 05/10/17 13:00 06/09/17 12:59 Glucagon (Glucagon Inj) 1 mg UD PRN SQ 05/10/17 13:00 06/09/17 12:59 Miscellaneous (Iv Fluids Completed) 1 ea PRN PRN N/A 05/10/17 14:30 05/10/18 14:29 Duloxetine HCl (Cymbalta Cap) 60 mg QAM PO 05/12/17 10:00 06/11/17 09:59 05/22/17 08:17 60 MG Docusate Sodium (coLACE CAP) 100 mg BID PO 05/12/17 20:00 06/11/17 19:59 05/22/17 20:25 100 MG Cholecalciferol (Vitamin D Tab) 1,000 inter.unit QAM PO 05/13/17 08:00 06/12/17 07:59 05/22/17 08:16 1,000 INTER.UNIT Lorazepam (Ativan Tab) 0.5 mg Q8 PRN PO 05/13/17 11:15 06/12/17 11:14 05/22/17 20:26 0.5 MG Polyethylene (Miralax Powder Packet) 17 gm BID PO 05/15/17 20:00 06/11/17 07:59 05/18/17 08:24 17 GM Naloxone HCl (Narcan Inj) 0.4 mg PRN PRN IV 05/16/17 09:15 06/15/17 09:14 05/19/17 23:21 0.4 MG Naloxone HCl (Narcan Inj) 0.4 mg PRN PRN IV 05/16/17 09:15 06/15/17 09:14 Diphenhydramine HCl (Benadryl Cap) 50 mg Q6H PRN PO 05/16/17 09:15 06/15/17 09:14 Magnesium Citrate (Citrate Of Magnesia Soln) 30 ml DAILY PRN PO 05/16/17 09:15 06/15/17 09:14 Prochlorperazine Edisylate 5 mg/ Syringe 5 ml @ 5 mls/min Q6H PRN IV 05/20/17 00:15 06/19/17 00:14 05/22/17 18:47 5 MLS/MIN Famotidine (Pepcid Tab) 20 mg BID PRN PO 05/21/17 17:15 06/20/17 17:14 Ciprofloxacin (Cipro Tab) 500 mg BID PO 05/22/17 08:45 05/27/17 08:44 05/22/17 20:25 500 MG Potassium Chloride/Sodium Chloride 1,000 ml @ 100 mls/hr Q10H IV 05/22/17 13:00 06/21/17 12:59 05/23/17 08:18 100 MLS/HR Ondansetron HCl (Zofran Inj) 4 mg Q6H IV 05/22/17 15:00 06/21/17 14:59 05/23/17 15:09 4 MG Enoxaparin Sodium (Lovenox Inj) 40 mg QAM SQ 05/23/17 08:00 06/22/17 07:59 05/23/17 08:52 40 MG Dronabinol (Marinol Cap) 2.5 mg BID PO 05/23/17 09:00 06/22/17 08:59 Acetaminophen/ Hydrocodone Bitart ([place] 5/325 Tab) 1 tab Q4H PRN PO 05/23/17 09:30 06/06/17 09:29 Scopolamine (Transderm-Scop Patch) 1.5 mg Q72H TD 05/23/17 12:30 06/22/17 12:29 05/23/17 12:40 1.5 MG Miscellaneous (Remove Transderm-Scop Patch) 1 ea Q72H N/A 05/26/17 12:29 06/25/17 12:28 Miscellaneous Information (Check Scopolamine Patch Placement) 1 ea QS N/A 05/23/17 16:00 06/22/17 15:59 05/23/17 16:07 1 EA Objective Vital Signs Date Time Temp Pulse Resp B/P (MAP) Pulse Ox O2 Delivery O2 Flow Rate FiO2 05/23/17 15:41 36.3 69 18 124/74 (91) 96 Room Air 05/23/17 11:11 36.0 73 18 110/61 (77) 96 Room Air 05/23/17 10:48 Room Air 05/23/17 07:19 36.3 71 18 104/62 (76) 96 Room Air 05/23/17 04:48 36.2 68 16 142/53 (82) 95 Room Air 05/22/17 22:46 36.4 77 18 113/64 (80) 96 Room Air 05/22/17 20:00 Room Air 05/22/17 19:01 36.8 88 18 116/73 (87) 96 Room Air Physical Exam General Appearance: no apparent distress Neck: no adenopathy, no JVD Respiratory/Chest: lungs clear, normal breath sounds Cardiovascular: regular rate, rhythm, no JVD, no murmur Abdomen: non tender, soft Extremities: normal inspection Neurologic/Psych: alert, normal mood/affect, oriented x 3 Skin: + jaundice (mild) Laboratory Results Last 24 Hours Test 05/22/17 17:16 05/22/17 20:09 05/23/17 05:41 05/23/17 07:27 Bedside Glucose 131 mg/dl 139 mg/dl 153 mg/dl White Blood Count 11.92 K/uL Red Blood Count 3.58 M/uL Hemoglobin 10.4 g/dL Hematocrit 31.7 % Mean Corpuscular Volume 88.5 fL Mean Corpuscular Hemoglobin 29.1 pg Mean Corpuscular Hemoglobin Concent 32.8 g/dl RDW Standard Deviation 52.3 fL RDW Coefficient of Variation 16.2 % Platelet Count 210 K/uL Mean Platelet Volume 10.6 fL Prothrombin Time 14.0 SECONDS Prothromb Time International Ratio 1.3 Sodium Level 130 mmol/L Potassium Level 4.0 mmol/L Chloride Level 96 mmol/L Carbon Dioxide Level 27 mmol/L Anion Gap 7.0 mmol/L Blood Urea Nitrogen 19 mg/dl Creatinine 0.78 mg/dl Est Creatinine Clear Calc Drug Dose 101.2 ml/min Estimated GFR () 109.0 Estimated GFR (Non- 94.1 BUN/Creatinine Ratio 24.5 Random Glucose 149 mg/dl Calcium Level 8.5 mg/dl Phosphorus Level 2.7 mg/dl Magnesium Level 1.7 mg/dl Total Bilirubin 12.3 mg/dl Aspartate Amino Transf (AST/SGOT) 47 U/L Alanine Aminotransferase (ALT/SGPT) 92 U/L Alkaline Phosphatase 268 U/L Total Protein 6.2 gm/dl Albumin 2.7 gm/dl Globulin 3.5 gm/dl Albumin/Globulin Ratio 0.8 Lipase 223 U/L Test 05/23/17 11:43 Bedside Glucose 178 mg/dl Assessment and Plan Mr. Engle is a 67 yr old male with a large neuroendocrine tumor with increasing abdominal pain and nausea as well as elevated LFTs. His pain and nausea can be explained by the tumor and the narcotics. The newly elevated LFTs may be caused by compression of the bile duct by the tumor, choledocholithiasis or metastatic liver disease. Plan: 1. Biliary US. 2. Sopalamine patch. 3. Continue Marinol. Addendum after review of biliary US: Gallbladder wall thickening and sludge. Will order HIDA w/o CCK to r/o acute cholecystitis I suspect that the gallbladder wall thickening may be ascites from the tumor but need to r/o acute cholecystitis.
--- NOTE | 2017-05-23 18:01 | Gastrointestinal Consultation ---
Gastrointestinal Consultation Date of Consultation: May 23, 2017 Attending Physician: Dr. Augustine Consulting Physician: Dr. Kaur Reason for Consultation: Persistent nausea, developing jaundice, bilirubin 12 History of Present Illness Patient is a 67 year old male patient with a hx of 67 yr old male with a hx of kidney stones and pancreatic neuroendocrine tumor. EUS with biopsy of the pancreas mass on 12/10/2013 with high-grade neuroendocrine carcinoma; Stage [id number]. He is S/P neoadjuvant chemotherapy with etoposide and cisplatin for 4 cycles. In October 2014, he underwent exp lap but the tumor was found to be non resectable. He completed radiation therapy 01/19/2015. recent imaging shows a non operative 8 cm pancreas tumor with vascular encasement and invading the gastric wall. He is on cyclic palliative chemo: Xeloda and Temodar 14 days on, 14 off, most recently more than a week ago. He was admitted on 05/10 for pain management and we are consulted today for elevated bilirubin. He began with nausea (aversion to food smells and nausea after eating) and increased upper abdomen pain about a month ago. T Bili was 0.9 on admission and is 12.3,AST 47 ALT 92 today. These were normal a month ago. His most recent CT was on 05/02 w/o any bile duct abnormalities. The pt tells us that he has lost about 50 lbs in the past 6 months, that he has not been able to eat any foods for the past three days due to nausea/vomiting. Zofran is no longer effective. He was started on Marinol yesterday which seems to be helping a little. Past Medical/Surgical History Medical Problems: (1) Abdominal pain Status: Acute (2) Intractable abdominal pain Status: Acute Past Medical History: 1. Pancreatic neuroendocrine tumor. 2. Kidney Stones Past Surgical History: 1. Placement of itrathecal morphine pump. 2. [place]ar[place] 10/04/14 [place] [facility] [place] 3. EUS with biopsy 12/10/2013 high-grade neuroendocrine carcinoma; Stage [id number] ; 4. Radiation in 2016. Family History Heart disease FATHER BROTHER Social History Smoking Status: Never Smoker Marital Status: Housing Status: lives with family Allergies Coded Allergies: No Known Allergies (Unverified , 05/02/17) Current Medications Home Meds and Scripts Medications Dose Route/Sig Max Daily Dose Days Date Category Metformin HCl 500 Mg Tab 500 Mg PO QDB 30 05/09/17 Rx Hydromorphone HCl 2 Mg Tab 4 Mg PO Q3HWA PRN 10 05/09/17 Rx Fentanyl 25 Mcg Tdsy 25 Mcg TD Q72H 10 05/09/17 Rx Fentanyl 100 Mcg Tdsy 100 Mcg TD Q72H 10 05/09/17 Rx Fentanyl 12 Mcg Tdsy 1 Patch TD Q72H 10 05/09/17 Rx Bisacodyl EC (Bisacodyl) 5 Mg Tabec 1 Tab PO BID PRN 04/26/17 Reported Miralax (Polyethylene Glycol 3350) 1 17 Gm PO DAILY PRN 04/24/17 Reported Zofran (Ondansetron HCl) 8 Mg Tab 8 Mg PO Q8 PRN 04/11/17 Reported Review of Systems Constitutional: + weakness, No fever, No chills, No sweats, No weight loss Eyes: No eye pain, No redness ENT: No sore throat, No trouble swallowing, No pain on swallowing Respiratory: No cough, No wheezing, No shortness of breath, No dyspnea on exertion Cardiac: No chest pain, No edema, No palpitations Abdomen: + see HPI, + pain, + nausea, + vomiting, + constipation (mild, intermittent) Neuro: No memory loss, No weakness, No numbness/tingling, No vertigo, No balance problems Psych: No depression symptoms, No anxiety, No insomnia Heme: No abnormal bleeding/bruising, No night sweats Endo: No excessive thirst, No excessive urination Skin: No rash, No itch, No new/changing skin lesions, No jaundice Physical Exam Date Time Temp Pulse Resp B/P (MAP) Pulse Ox O2 Delivery O2 Flow Rate FiO2 05/23/17 15:41 36.3 69 18 124/74 (91) 96 Room Air 05/23/17 11:11 36.0 73 18 110/61 (77) 96 Room Air 05/23/17 10:48 Room Air 05/23/17 07:19 36.3 71 18 104/62 (76) 96 Room Air 05/23/17 04:48 36.2 68 16 142/53 (82) 95 Room Air 05/22/17 22:46 36.4 77 18 113/64 (80) 96 Room Air 05/22/17 20:00 Room Air 05/22/17 19:01 36.8 88 18 116/73 (87) 96 Room Air General Appearance: + mild distress, + thin, + pertinent finding (weak) Eyes: normal inspection, EOMI Neck: supple, no adenopathy, thyroid normal, no JVD Respiratory/Chest: chest non-tender, lungs clear, normal breath sounds, no accessory muscle use Cardiovascular: regular rate, rhythm, no JVD, no murmur Abdomen: normal bowel sounds, non tender, no organomegaly, + tenderness ( minimal upper abdomen tenderness) Extremities: normal inspection, no pedal edema, normal capillary refill Neurologic/Psych: alert, normal mood/affect, oriented x 3 Skin: no jaundice, warm/dry, no rash, + jaundice Laboratory Results Last 24 Hours Test 05/22/17 20:09 05/23/17 05:41 05/23/17 07:27 05/23/17 11:43 Bedside Glucose 139 mg/dl 153 mg/dl 178 mg/dl White Blood Count 11.92 K/uL Red Blood Count 3.58 M/uL Hemoglobin 10.4 g/dL Hematocrit 31.7 % Mean Corpuscular Volume 88.5 fL Mean Corpuscular Hemoglobin 29.1 pg Mean Corpuscular Hemoglobin Concent 32.8 g/dl RDW Standard Deviation 52.3 fL RDW Coefficient of Variation 16.2 % Platelet Count 210 K/uL Mean Platelet Volume 10.6 fL Prothrombin Time 14.0 SECONDS Prothromb Time International Ratio 1.3 Sodium Level 130 mmol/L Potassium Level 4.0 mmol/L Chloride Level 96 mmol/L Carbon Dioxide Level 27 mmol/L Anion Gap 7.0 mmol/L Blood Urea Nitrogen 19 mg/dl Creatinine 0.78 mg/dl Est Creatinine Clear Calc Drug Dose 101.2 ml/min Estimated GFR () 109.0 Estimated GFR (Non- 94.1 BUN/Creatinine Ratio 24.5 Random Glucose 149 mg/dl Calcium Level 8.5 mg/dl Phosphorus Level 2.7 mg/dl Magnesium Level 1.7 mg/dl Total Bilirubin 12.3 mg/dl Aspartate Amino Transf (AST/SGOT) 47 U/L Alanine Aminotransferase (ALT/SGPT) 92 U/L Alkaline Phosphatase 268 U/L Total Protein 6.2 gm/dl Albumin 2.7 gm/dl Globulin 3.5 gm/dl Albumin/Globulin Ratio 0.8 Lipase 223 U/L Test 05/23/17 16:41 Bedside Glucose 134 mg/dl Impression Patient is a 67 year old male with a large, inoperative pancreatic tumor. He recent worsening of the nausea could be caused by tumor load, narcotics. His recent increasing bilirubin could be caused by bile duct obstruction, possibly from a a stone, encroaching tumor. Increasing bilirubin could also be caused by new metastatic disease in the liver. Plan Plan: 1. Biliary US. 2. Sopalamine patch. 3. Continue Marinol. Addendum after review of biliary US: Gallbladder wall thickening and sludge. Will order HIDA w/o CCK to r/o acute cholecystitis I suspect that the gallbladder wall thickening may be ascites from the tumor but need to r/o acute cholecystitis. I performed a history and physical examination of the patient. I have discussed the patient's case, impression and plan with MARY Magdaleno on 05/23/2017. Her note reflects my findings and plan. Symptoms most likely from continued tumor growth. Sagar Kaur MD
--- NOTE | 2017-05-23 18:06 | Progress Note ---
Medicine Progress Note Date & Time of Visit: May 23, 2017 at 12:40. Subjective 67 yo M with cancer pain presented to the hospital with intractable pain. Pancreatic cancer is unresectable. He is s/p celiac plexus block on 05/04 which only lasted a couple of days. He was tried on increased doses of Fentanyl patches and more control was attempted with PRN Dilaudid. Duloxetine was added and increased to 60mg PO daily. A trial epidural catheter was placed on 05/16 with good response and with his favorable prognosis per Hematology, he underwent placement of an intrathecal morphine pump on 05/19. Overnight he became confused after receiving some IV phenergan for nausea. He continued to be somewhat confused the next day despite avoiding PRN narcotics (PO dilaudid) all day. A UA was checked and appeared somewhat dirty, so he was placed empirically on Rocephin and some IVF. He was tolerating PO the following day and nausea appeared more controlled, however, he had some vomiting just after lunch. He continues to deny any abdominal pain and is comfortable with the binder on. He only reports a minor 2-3/10 pain in his back consistently. I was somewhat concerned about narcotic withdrawal after having been on a lot of narcotics after reversal with Narcan overnight when he exhibited confusion. He is only receiving 1mg/day of morphine through the intrathecal system. I saw an improvement in him shortly after giving him one dose of dilaudid and his mentation continued to improve and is back to baseline. Now, however, his nausea is uncontrolled and he has not been tolerating PO at all. Marinol and scheduled Zofran was started on 05/22 with some improvement. He was more jaundiced, however, and bilirubin robb to 12--GI was consulted. They performed an abdominal ultrasound with findings questionable for acute cholecystitis but this doesn't fit clinically and the GB wall thickening is thought 2/2 edema from surrounding structures. A HIDA scan was ordered. -pt reports some improvement today but still not tolerating PO reliably -pain is constant -appears less jaundiced Objective Last 8 Hrs Date Time Temp Pulse Resp B/P (MAP) Pulse Ox O2 Delivery O2 Flow Rate FiO2 05/23/17 11:11 36.0 73 18 110/61 (77) 96 Room Air 05/23/17 10:48 Room Air 05/23/17 07:19 36.3 71 18 104/62 (76) 96 Room Air 05/23/17 04:48 36.2 68 16 142/53 (82) 95 Room Air Physical Exam: GEN: WNWD, easily sits up in bed today, alert and appropriate, NAD HEENT: NC/AT, normal sclerae, MMM CARDIO: reg rate, S1/2 heard without m/g/r LUNGS: CTA bilaterally, no crackles, rales or wheezes, good diaphragmatic excursion ABD: soft, NTND, +BS, dressing covering incision and is c/d/i. Abdominal binder in place. EXTREMITY: RP and DP palpable 2+ bilat, no LE swelling or edema, extremities are warm and well-perfused NEURO: CN 2-12 grossly intact, no gross focal deficits. MUSC: moves all extremities equally. SKIN: warm and dry, jaundice Laboratory Results: 05/23/17 05:41 05/23/17 05:41 Test 05/10/17 10:26 05/12/17 06:23 05/19/17 23:35 05/20/17 00:00 Immature Granulocyte % (Auto) 0.3 % White Blood Count 10.76 K/uL (4.8-10.8) Red Blood Count 3.79 M/uL (4.7-6.1) Hemoglobin 11.3 g/dL (14.0-18.0) Hematocrit 34.0 % (42-52) Mean Corpuscular Volume 89.7 fL (80-100) Mean Corpuscular Hemoglobin 29.8 pg (25-34) Mean Corpuscular Hemoglobin Concent 33.2 g/dl (32-36) Platelet Count 143 K/uL (130-400) Mean Platelet Volume 10.7 fL (7.4-10.4) Neutrophils (%) (Auto) 90.9 % Lymphocytes (%) (Auto) 3.4 % Monocytes (%) (Auto) 4.6 % Eosinophils (%) (Auto) 0.7 % Basophils (%) (Auto) 0.1 % Neutrophils # (Auto) 9.77 K/uL (1.4-6.5) Lymphocytes # (Auto) 0.37 K/uL (1.2-3.4) Monocytes # (Auto) 0.50 K/uL (0.11-0.59) Eosinophils # (Auto) 0.08 K/uL (0-0.5) Basophils # (Auto) 0.01 K/uL (0-0.2) Immature Granulocyte # (Auto) 0.03 K/uL (0.00-0.02) Direct Bilirubin 0.3 mg/dl (0-0.2) 25-Hydroxy Vitamin D Total 21.4 ng/ml (30-100) Ammonia 13.0 umol/L (11-32) Urine Color DK YELLOW Urine Appearance CLEAR (CLEAR) Urine pH 5.5 (4.5-7.5) Urine Specific [place] 1.020 (1.000-1.030) Urine Protein TRACE (NEG) Urine Glucose (UA) NEG (NEG) Urine Ketones 3+ (NEG) Urine Occult Blood 1+ (NEG) Urine Nitrite POS (NEG) Urine Bilirubin 3+ (NEG) Urine Urobilinogen NEG (NEG) Urine Leukocyte Esterase TRACE (NEG) Urine WBC (Auto) 0 /hpf (0-5) Urine RBC (Auto) 0-4 /hpf (0-4) Urine Hyaline Casts (Auto) 1-5 /lpf (0-5) Urine Epithelial Cells (Auto) 0-5 /lpf (0-5) Urine Bacteria (Auto) NEG (NEG) Test 05/23/17 05:41 05/23/17 16:41 Red Blood Count 3.58 M/uL (4.7-6.1) Mean Corpuscular Volume 88.5 fL (80-100) Mean Corpuscular Hemoglobin 29.1 pg (25-34) Mean Corpuscular Hemoglobin Concent 32.8 g/dl (32-36) RDW Standard Deviation 52.3 fL (36.4-46.3) RDW Coefficient of Variation 16.2 % (11.5-14.5) Mean Platelet Volume 10.6 fL (7.4-10.4) Prothrombin Time 14.0 SECONDS (9.0-12.0) Prothromb Time International Ratio 1.3 (0.9-1.1) Anion Gap 7.0 mmol/L (3-11) Est Creatinine Clear Calc Drug Dose 101.2 ml/min Estimated GFR () 109.0 Estimated GFR (Non- 94.1 BUN/Creatinine Ratio 24.5 (10-20) Calcium Level 8.5 mg/dl (8.5-10.1) Phosphorus Level 2.7 mg/dl (2.5-4.9) Magnesium Level 1.7 mg/dl (1.8-2.4) Total Bilirubin 12.3 mg/dl (0.2-1) Aspartate Amino Transf (AST/SGOT) 47 U/L (15-37) Alanine Aminotransferase (ALT/SGPT) 92 U/L (12-78) Alkaline Phosphatase 268 U/L (45-117) Total Protein 6.2 gm/dl (6.4-8.2) Albumin 2.7 gm/dl (3.4-5.0) Globulin 3.5 gm/dl (2.5-4.0) Albumin/Globulin Ratio 0.8 (0.9-2) Lipase 223 U/L (73-393) Bedside Glucose 134 mg/dl (70-99) Date/Time Source Procedure Growth Status 05/20/17 00:00 Urine , Clean Catch Urine Culture - Final Pseudomonas Aeruginosa Complete Last 24 Hours Test 05/22/17 17:16 05/22/17 20:09 05/23/17 05:41 05/23/17 07:27 Bedside Glucose 131 mg/dl 139 mg/dl 153 mg/dl White Blood Count 11.92 K/uL Red Blood Count 3.58 M/uL Hemoglobin 10.4 g/dL Hematocrit 31.7 % Mean Corpuscular Volume 88.5 fL Mean Corpuscular Hemoglobin 29.1 pg Mean Corpuscular Hemoglobin Concent 32.8 g/dl RDW Standard Deviation 52.3 fL RDW Coefficient of Variation 16.2 % Platelet Count 210 K/uL Mean Platelet Volume 10.6 fL Prothrombin Time 14.0 SECONDS Prothromb Time International Ratio 1.3 Sodium Level 130 mmol/L Potassium Level 4.0 mmol/L Chloride Level 96 mmol/L Carbon Dioxide Level 27 mmol/L Anion Gap 7.0 mmol/L Blood Urea Nitrogen 19 mg/dl Creatinine 0.78 mg/dl Est Creatinine Clear Calc Drug Dose 101.2 ml/min Estimated GFR () 109.0 Estimated GFR (Non- 94.1 BUN/Creatinine Ratio 24.5 Random Glucose 149 mg/dl Calcium Level 8.5 mg/dl Phosphorus Level 2.7 mg/dl Magnesium Level 1.7 mg/dl Total Bilirubin 12.3 mg/dl Aspartate Amino Transf (AST/SGOT) 47 U/L Alanine Aminotransferase (ALT/SGPT) 92 U/L Alkaline Phosphatase 268 U/L Total Protein 6.2 gm/dl Albumin 2.7 gm/dl Globulin 3.5 gm/dl Albumin/Globulin Ratio 0.8 Lipase 223 U/L Test 05/23/17 11:43 Bedside Glucose 178 mg/dl Diagnostic Imaging: ULTRASOUND RIGHT UPPER QUADRANT ABDOMEN CLINICAL HISTORY: Jaundice. Pancreatic mass seen by CT. COMPARISON STUDY: Abdominal CT dated 05/03/2017. TECHNIQUE: Real-time, grayscale, and color flow sonography of the right upper quadrant of the abdomen was performed. Images are reviewed in the transverse and longitudinal planes. The Examination is degraded by lack of acoustic window due to overlying bandages. FINDINGS: Liver: The liver is normal in size and echotexture. There is minimal central intrahepatic biliary ductal dilatation. The main portal vein is patent. Gallbladder: The gallbladder is distended and filled with sludge and gallstones. The gallbladder wall is mildly thickened measuring up to 5 mm. No pericholecystic fluid is seen. A sonographic Okeefe's sign is equivocal. The common bile duct measures up to 0.7 cm in diameter. Pancreas: Not visualized due to overlying bowel gas. Right kidney: Survey images of the right kidney demonstrate normal size and echotexture. There is no hydronephrosis. Ascites: There is trace perihepatic free fluid. IMPRESSION: 1. The gallbladder is distended, mildly thick walled, and filled with sludge and stones. A sonographic Okeefe's sign was equivocal and acute cholecystitis is not excluded. Clinical correlation will be required. If further assessment is desired nuclear hepatobiliary scan could be considered. 2. There is mild intra and extrahepatic biliary ductal dilatation. 3. The pancreas was not visualized due to overlying bowel gas. 4. Trace perihepatic free fluid is identified. Assessment & Plan 67 yo M with cancer pain presented to the hospital with intractable pain. Pancreatic cancer is unresectable. He is s/p celiac plexus block on 05/04 which only lasted a couple of days. He was tried on increased doses of Fentanyl patches and more control was attempted with PRN Dilaudid. Duloxetine was added and increased to 60mg PO daily. A trial epidural catheter was placed on 05/16 with good response and with his favorable prognosis per Hematology, he underwent placement of an intrathecal morphine pump on 05/19. Overnight he became confused after receiving some IV phenergan for nausea. He continued to be somewhat confused the next day despite avoiding PRN narcotics (PO dilaudid) all day. A UA was checked and appeared somewhat dirty, so he was placed empirically on Rocephin and some IVF. He was tolerating PO the following day and nausea appeared more controlled, however, he had some vomiting just after lunch. He continues to deny any abdominal pain and is comfortable with the binder on. He only reports a minor 2-3/10 pain in his back consistently. I was somewhat concerned about narcotic withdrawal after having been on a lot of narcotics after reversal with Narcan overnight when he exhibited confusion. He is only receiving 1mg/day of morphine through the intrathecal system. I saw an improvement in him shortly after giving him one dose of dilaudid and his mentation continued to improve and is back to baseline. Now, however, his nausea is uncontrolled and he has not been tolerating PO at all. Marinol and scheduled Zofran was started on 05/22 with some improvement. He was more jaundiced, however, and bilirubin robb to 12--GI was consulted. They performed an abdominal ultrasound with findings questionable for acute cholecystitis but this doesn't fit clinically and the GB wall thickening is thought 2/2 edema from surrounding structures. A HIDA scan was ordered. 1. Nausea and vomiting-uncertain etiology. Cont supportive care with antiemetics scheduled (IV Zofran), PRN phenergan supp, or PRN compazine. Marinol scheduled. IVF. 2. Pain 2/2 cancer-s/p intrathecal morphine pump as above. Cont with PO narcotics for breakthrough pain per Dr. Riddle. Cont Cymbalta 60mg PO daily. 3. Opiate-induced constipation-cont Docusate and Miralax BID scheduled. 4. Pancreatic cancer-unresectable per Oncology. 5. DMII-metformin on hold. Pt has needed very little insulin this hospitalization. Cont ISS with carb coverage. 6. Vitamin D insufficiency (25OH=21). Placed on cholecalciferol. 7. Anxiety/Depression-2/2 pain and underlying malignancy. Cont with duloxetine 8. Anemia-stable H/H, likely 2/2 chronic disease. No indication for transfusion at this time. 9. Hyponatremia likely 2/2 SIADH in setting of consistent nausea and low PO intake. Cont to monitor. DVT proph: Lovenox. Full code, no mech ventilation Dispo--DC to home when tolerating PO reliably. DO Ruddy [facility] Hospitalist Consultants: Pain Management-Dr. Venkatesh WAY-MARY Magdaleno Current Inpatient Medications: Current Inpatient Medications Medications (Trade) Dose Ordered Sig/[place]olis Route Start Time Stop Time Status Last Admin Dose Admin Acetaminophen (Tylenol Tab) 650 mg Q4H PRN PO 05/10/17 11:15 06/09/17 11:14 Bisacodyl (Dulcolax Tab) 5 mg BID PRN PO 05/10/17 11:45 06/09/17 11:44 Polyethylene (Miralax Powder Packet) 17 gm DAILY PRN PO 05/10/17 11:45 06/09/17 11:44 05/11/17 07:49 17 GM Insulin Aspart (novoLOG ASPART) SLIDING SCALE If C... ACHS SC 05/10/17 16:30 06/09/17 16:29 05/23/17 08:53 1 UNITS Glucose (Glucose 40% Gel) 15-30 GRAMS 15 GRAMS... UD PRN PO 05/10/17 13:00 06/09/17 12:59 Glucose (Glucose Chew Tab) 4-8 Tablets 4 Tabl... UD PRN PO 05/10/17 13:00 06/09/17 12:59 Dextrose (Dextrose 50% 50ML Syringe) 25-50ML OF 50% DW IV FOR... UD PRN IV 05/10/17 13:00 06/09/17 12:59 Glucagon (Glucagon Inj) 1 mg UD PRN SQ 05/10/17 13:00 06/09/17 12:59 Miscellaneous (Iv Fluids Completed) 1 ea PRN PRN N/A 05/10/17 14:30 05/10/18 14:29 Duloxetine HCl (Cymbalta Cap) 60 mg QAM PO 05/12/17 10:00 06/11/17 09:59 05/22/17 08:17 60 MG Docusate Sodium (coLACE CAP) 100 mg BID PO 05/12/17 20:00 06/11/17 19:59 05/22/17 20:25 100 MG Cholecalciferol (Vitamin D Tab) 1,000 inter.unit QAM PO 05/13/17 08:00 06/12/17 07:59 05/22/17 08:16 1,000 INTER.UNIT Lorazepam (Ativan Tab) 0.5 mg Q8 PRN PO 05/13/17 11:15 06/12/17 11:14 05/22/17 20:26 0.5 MG Polyethylene (Miralax Powder Packet) 17 gm BID PO 05/15/17 20:00 06/11/17 07:59 05/18/17 08:24 17 GM Naloxone HCl (Narcan Inj) 0.4 mg PRN PRN IV 05/16/17 09:15 06/15/17 09:14 05/19/17 23:21 0.4 MG Naloxone HCl (Narcan Inj) 0.4 mg PRN PRN IV 05/16/17 09:15 06/15/17 09:14 Diphenhydramine HCl (Benadryl Cap) 50 mg Q6H PRN PO 05/16/17 09:15 06/15/17 09:14 Magnesium Citrate (Citrate Of Magnesia Soln) 30 ml DAILY PRN PO 05/16/17 09:15 06/15/17 09:14 Prochlorperazine Edisylate 5 mg/ Syringe 5 ml @ 5 mls/min Q6H PRN IV 05/20/17 00:15 06/19/17 00:14 05/22/17 18:47 5 MLS/MIN Famotidine (Pepcid Tab) 20 mg BID PRN PO 05/21/17 17:15 06/20/17 17:14 Ciprofloxacin (Cipro Tab) 500 mg BID PO 05/22/17 08:45 05/27/17 08:44 05/22/17 20:25 500 MG Potassium Chloride/Sodium Chloride 1,000 ml @ 100 mls/hr Q10H IV 05/22/17 13:00 06/21/17 12:59 05/23/17 08:18 100 MLS/HR Ondansetron HCl (Zofran Inj) 4 mg Q6H IV 05/22/17 15:00 06/21/17 14:59 05/23/17 08:18 4 MG Enoxaparin Sodium (Lovenox Inj) 40 mg QAM SQ 05/23/17 08:00 12/20/17 07:59 05/23/17 08:52 40 MG Dronabinol (Marinol Cap) 2.5 mg BID PO 05/23/17 09:00 06/22/17 08:59 Acetaminophen/ Hydrocodone Bitart ([place] 5/325 Tab) 1 tab Q4H PRN PO 05/23/17 09:30 06/06/17 09:29 Scopolamine (Transderm-Scop Patch) 1.5 mg Q72H TD 05/23/17 12:30 06/22/17 12:29 Miscellaneous (Remove Transderm-Scop Patch) 1 ea Q72H N/A 05/26/17 12:29 06/25/17 12:28 Miscellaneous Information (Check Scopolamine Patch Placement) 1 ea QS N/A 05/23/17 16:00 06/22/17 15:59
[2017-05-23 19:40] VITALS: BP 119/67; PULSE 74; TEMP 36.8; O2SAT 97
--- NOTE | 2017-05-23 22:34 | DIAGNOSTIC IMAGING REPORT ---
HEPATOBILIARY HIDA IMAGING HISTORY: Pain. Nausea. HIDA without CCK to r/o acute cholecystitis COMPARISON: None. TECHNIQUE: Immediately following the intravenous administration of 5.6 mCi Tc-99m Choletec, dynamic anterior abdominal imaging was performed. FINDINGS: Nondiagnostic study. Apparently a pain pump was placed or was in position and operational prior to the study. Infusion of pain medication renders the study nondiagnostic. IMPRESSION: Nondiagnostic study due to the ongoing infusion of the patient's pain pump. If this study is desired, the pain pump would be required to be turned off 24 hours prior to a repeat attempt to accomplish this study The above report was generated using voice recognition software. It may contain grammatical, syntax or spelling errors. Electronically signed by: Sergio Peck M.D. 05/23/2017 10:27 PM Dictated Date/Time: 05/23/2017 10:25 PM
[2017-05-24] VITALS (7 sets, daily range): BP systolic 115–124; BP diastolic 62–73; PULSE 64–75; TEMP 36.4–37; O2SAT 96–100
[2017-05-24] MEDS: ONDANSETRON INJ 2 MG/ML 2 ML VIAL IV SCH ×4 (03:03→21:22)
[2017-05-24] MEDS: NSS + 20MEQ KCL 1000ML 1,000 ML IV SCH ×2 (08:09→17:27)
[2017-05-24] MEDS: CHECK SCOPOLAMINE PATCH PLACEMENT SCH ×2 (08:11→15:24)
[2017-05-24 08:14] LABS: HEMATOCRIT 29.7 % (42-52); MEAN CELL VOLUME 88.1 fL (80-100); MEAN CORPUSCULAR HEMOGLOBIN 29.4 pg (25-34); MEAN CORPUSCULAR HGB CONC 33.3 g/dl (32-36); PLATELET COUNT 219 K/uL (130-400); RED BLOOD COUNT 3.37 M/uL (4.7-6.1); WHITE BLOOD COUNT 15.42 K/uL (4.8-10.8)
[2017-05-24] MEDS: INSULIN ASPART 100 UNITS/ML 3 ML PEN SC SCH ×4 (08:15→21:00)
[2017-05-24 08:50] LABS: POTASSIUM 4.1 mmol/L (3.5-5.1)
[2017-05-24 08:51] LABS: ALB/GLOB RATIO 0.8 (0.9-2); CALCIUM 8.7 mg/dl (8.5-10.1); CREATININE 0.76 mg/dl (0.60-1.40)
--- NOTE | 2017-05-24 09:35 | Progress Note ---
Medicine Progress Note Date & Time of Visit: May 24, 2017 at 09:34 . Subjective Abdominal pain much better since placement of intrathecal pump. Ongoing nausea and vomiting; minimal oral intake. No fever. No chest pain. No cough or SOB. Passing stool. . Objective Last 8 Hrs Date Time Temp Pulse Resp B/P (MAP) Pulse Ox O2 Delivery O2 Flow Rate FiO2 05/24/17 07:25 36.7 75 18 115/64 (81) 100 Room Air 05/24/17 04:37 37.0 73 20 124/72 (89) 100 Room Air Physical Exam: General- lying in bed, somewhat uncomfortable Eyes- sclerae icteric Lungs- clear Heart- RRR, no gallop Abdomen- abdominal binder applied, + BS, soft Extremities- no pretibial edema or calf tenderness Neuro- alert Skin- icteric, warm & dry . Laboratory Results: Last 24 Hours Test 05/23/17 11:43 05/23/17 16:41 05/23/17 19:37 05/24/17 07:02 Bedside Glucose 178 mg/dl 134 mg/dl 146 mg/dl White Blood Count 15.42 K/uL Red Blood Count 3.37 M/uL Hemoglobin 9.9 g/dL Hematocrit 29.7 % Mean Corpuscular Volume 88.1 fL Mean Corpuscular Hemoglobin 29.4 pg Mean Corpuscular Hemoglobin Concent 33.3 g/dl Platelet Count 219 K/uL Sodium Level 130 mmol/L Potassium Level 4.1 mmol/L Chloride Level 95 mmol/L Carbon Dioxide Level 26 mmol/L Anion Gap 9.0 mmol/L Blood Urea Nitrogen 19 mg/dl Creatinine 0.76 mg/dl Est Creatinine Clear Calc Drug Dose 104.1 ml/min Estimated GFR () 110.2 Estimated GFR (Non- 95.1 BUN/Creatinine Ratio 25.0 Random Glucose 156 mg/dl Calcium Level 8.7 mg/dl Total Bilirubin 13.9 mg/dl Aspartate Amino Transf (AST/SGOT) 47 U/L Alanine Aminotransferase (ALT/SGPT) 88 U/L Alkaline Phosphatase 288 U/L Total Protein 6.3 gm/dl Albumin 2.7 gm/dl Globulin 3.6 gm/dl Albumin/Globulin Ratio 0.8 Test 05/24/17 07:40 Bedside Glucose 167 mg/dl Assessment & Plan INTRACTABLE PAIN DUE TO PANCREATIC CA Presented with severe abdominal pain due to pancreatic cancer. Pain Management consulted. Unable to obtain adequate relief with safe dosing of systemic analgesics. Epidural trial went well. Intrathecal pump placed 05/19 with good results. Continue intrathecal morphine + oral hydromorphone PRN. Continue duloxetine. BILIARY TRACT OBSTRUCTION Has developed jaundice, probably due to underlying pancreatic Ca. Total bilirubin 13.9. GI consulted. Gallbladder US demonstrated mild dilatation of CBD, distended gallbladder with wall thickening, sludge, stones. HIDA scan ordered, but could not be completed due to narcotic analgesics. Unable to hold narcotics due to severe cancer-related pain. Coordinate care with GI. NAUSEA / VOMITING Severe nausea and vomiting with minimal benefit from anti-emetics. Try changing admin time for morning meds. Nausea and vomiting probably multifactorial, due to underlying pancreatic Ca + biliary tract disease. OPIATE-INDUCED CONSTIPATION Continue docusate sodium, polyethylene, methylnaltrexone PRN. PANCREATIC CA Discussed with Medical Oncology. 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 Receiving palliative chemotherapy. Prognosis difficult to predict, but expected to be > 6 months. DM TYPE 2 Usually managed with metformin at home. Hgb A1C 7.6 on 05/03/17. Hold metformin during hospital stay. FBS today = 167. Continue NovoLog coverage. VITAMIN D DEFICIENCY 25-OH D = 21. Supplement. ANXIETY / DEPRESSION Secondary to pain and underlying malignancy. Receiving duloxetine for pain management. Added PRN lorazepam for anxiety or insomnia. VTE PROPHYLAXIS SQ enoxaparin- hold for invasive procedures. SCD's. Ambulate. DISPOSITION Expected discharge to home with home health services. Family Medicine follow-up with Dr. Bush. Medical Oncology follow-up with Dr. Hinojosa. Pain Management follow-up with Dr. Rogers. . Consultants: Pain Management-Dr. Venkatesh WAY-[facility] Magdaleno Current Inpatient Medications: Current Inpatient Medications Medications (Trade) Dose Ordered Sig/Yolis Route Start Time Stop Time Status Last Admin Dose Admin Acetaminophen (Tylenol Tab) 650 mg Q4H PRN PO 05/10/17 11:15 06/09/17 11:14 Bisacodyl (Dulcolax Tab) 5 mg BID PRN PO 05/10/17 11:45 06/09/17 11:44 Polyethylene (Miralax Powder Packet) 17 gm DAILY PRN PO 05/10/17 11:45 06/09/17 11:44 05/11/17 07:49 17 GM Insulin Aspart (novoLOG ASPART) SLIDING SCALE If C... ACHS SC 05/10/17 16:30 06/09/17 16:29 05/24/17 08:15 1 UNITS Glucose (Glucose 40% Gel) 15-30 GRAMS 15 GRAMS... UD PRN PO 05/10/17 13:00 06/09/17 12:59 Glucose (Glucose Chew Tab) 4-8 Tablets 4 Tabl... UD PRN PO 05/10/17 13:00 06/09/17 12:59 Dextrose (Dextrose 50% 50ML Syringe) 25-50ML OF 50% DW IV FOR... UD PRN IV 05/10/17 13:00 06/09/17 12:59 Glucagon (Glucagon Inj) 1 mg UD PRN SQ 05/10/17 13:00 06/09/17 12:59 Miscellaneous (Iv Fluids Completed) 1 ea PRN PRN N/A 05/10/17 14:30 05/10/18 14:29 Duloxetine HCl (Cymbalta Cap) 60 mg QAM PO 05/12/17 10:00 06/11/17 09:59 05/22/17 08:17 60 MG Docusate Sodium (coLACE CAP) 100 mg BID PO 05/12/17 20:00 06/11/17 19:59 05/23/17 22:44 100 MG Cholecalciferol (Vitamin D Tab) 1,000 inter.unit QAM PO 05/13/17 08:00 06/12/17 07:59 05/22/17 08:16 1,000 INTER.UNIT Lorazepam (Ativan Tab) 0.5 mg Q8 PRN PO 05/13/17 11:15 06/12/17 11:14 05/22/17 20:26 0.5 MG Polyethylene (Miralax Powder Packet) 17 gm BID PO 05/15/17 20:00 06/11/17 07:59 05/23/17 22:44 17 GM Naloxone HCl (Narcan Inj) 0.4 mg PRN PRN IV 05/16/17 09:15 06/15/17 09:14 05/19/17 23:21 0.4 MG Naloxone HCl (Narcan Inj) 0.4 mg PRN PRN IV 05/16/17 09:15 06/15/17 09:14 Diphenhydramine HCl (Benadryl Cap) 50 mg Q6H PRN PO 05/16/17 09:15 06/15/17 09:14 Magnesium Citrate (Citrate Of Magnesia Soln) 30 ml DAILY PRN PO 05/16/17 09:15 06/15/17 09:14 Prochlorperazine Edisylate 5 mg/ Syringe 5 ml @ 5 mls/min Q6H PRN IV 05/20/17 00:15 06/19/17 00:14 05/22/17 18:47 5 MLS/MIN Famotidine (Pepcid Tab) 20 mg BID PRN PO 05/21/17 17:15 06/20/17 17:14 Ciprofloxacin (Cipro Tab) 500 mg BID PO 05/22/17 08:45 05/27/17 08:44 05/23/17 22:44 500 MG Potassium Chloride/Sodium Chloride 1,000 ml @ 100 mls/hr Q10H IV 05/22/17 13:00 06/21/17 12:59 05/24/17 08:09 100 MLS/HR Ondansetron HCl (Zofran Inj) 4 mg Q6H IV 05/22/17 15:00 06/21/17 14:59 05/24/17 08:10 4 MG Enoxaparin Sodium (Lovenox Inj) 40 mg QAM SQ 05/23/17 08:00 06/22/17 07:59 05/23/17 08:52 40 MG Dronabinol (Marinol Cap) 2.5 mg BID PO 05/23/17 09:00 06/22/17 08:59 05/23/17 22:44 2.5 MG Acetaminophen/ Hydrocodone Bitart ([place] 5/325 Tab) 1 tab Q4H PRN PO 05/23/17 09:30 06/06/17 09:29 Scopolamine (Transderm-Scop Patch) 1.5 mg Q72H TD 05/23/17 12:30 06/22/17 12:29 05/23/17 12:40 1.5 MG Miscellaneous (Remove Transderm-Scop Patch) 1 ea Q72H N/A 05/26/17 12:29 06/25/17 12:28 Miscellaneous Information (Check Scopolamine Patch Placement) 1 ea QS N/A 05/23/17 16:00 06/22/17 15:59 05/24/17 08:11 1 EA
[2017-05-24] MEDS: ENOXAPARIN 40 MG/0.4 ML SYR SQ SCH (09:37)
[2017-05-24] MEDS: DRONABINOL 2.5 MG CAP PO SCH ×2 (09:37→21:16)
--- NOTE | 2017-05-24 11:58 | Gastroenterology Progress Note ---
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 RUQ ultrasound showed a distended gb with a mildly thickened wall, containing sludge and stones. Mild intra/extrahepatic biliary ductal dilatation was noted as well. HIDA scan was suggested, but unable to be completed due to an active pain pump that would need to be turned off for 24 hours prior to testing. He tells me he is feeling somewhat better today. His abdominal pain is much less. He is left with residual mild pain in the right flank. He does report intermittent n/v with po intake and was unable to eat his scrambled eggs this morning. He otherwise denies complaints. Labs show a mild increase in his Tbili at 13.9 (12.3 yesterday) but otherwise stable elevation over last draw. WBC is elevated at 15.42. Review of Systems Constitutional: No fever, No chills Eyes: No worsening of vision, No eye pain ENT: No hearing loss Respiratory: No cough, No shortness of breath Cardiac: No chest pain Abdomen: + see HPI Musculoskeletal: No joint pain Male : No dysuria Neuro: No problem reported Psych: No problem reported Heme: No abnormal bleeding/bruising Endo: No excessive thirst, No excessive urination Skin: + jaundice Medications Current Inpatient Medications Medications (Trade) Dose Ordered Sig/Yolis Route Start Time Stop Time Status Last Admin Dose Admin Acetaminophen (Tylenol Tab) 650 mg Q4H PRN PO 05/10/17 11:15 06/09/17 11:14 Bisacodyl (Dulcolax Tab) 5 mg BID PRN PO 05/10/17 11:45 06/09/17 11:44 Polyethylene (Miralax Powder Packet) 17 gm DAILY PRN PO 05/10/17 11:45 06/09/17 11:44 05/11/17 07:49 17 GM Insulin Aspart (novoLOG ASPART) SLIDING SCALE If C... ACHS SC 05/10/17 16:30 06/09/17 16:29 05/24/17 08:15 1 UNITS Glucose (Glucose 40% Gel) 15-30 GRAMS 15 GRAMS... UD PRN PO 05/10/17 13:00 06/09/17 12:59 Glucose (Glucose Chew Tab) 4-8 Tablets 4 Tabl... UD PRN PO 05/10/17 13:00 06/09/17 12:59 Dextrose (Dextrose 50% 50ML Syringe) 25-50ML OF 50% DW IV FOR... UD PRN IV 05/10/17 13:00 06/09/17 12:59 Glucagon (Glucagon Inj) 1 mg UD PRN SQ 05/10/17 13:00 06/09/17 12:59 Miscellaneous (Iv Fluids Completed) 1 ea PRN PRN N/A 05/10/17 14:30 05/10/18 14:29 Duloxetine HCl (Cymbalta Cap) 60 mg QAM PO 05/12/17 10:00 06/11/17 09:59 05/22/17 08:17 60 MG Docusate Sodium (coLACE CAP) 100 mg BID PO 05/12/17 20:00 06/11/17 19:59 05/23/17 22:44 100 MG Cholecalciferol (Vitamin D Tab) 1,000 inter.unit QAM PO 05/13/17 08:00 06/12/17 07:59 05/22/17 08:16 1,000 INTER.UNIT Lorazepam (Ativan Tab) 0.5 mg Q8 PRN PO 05/13/17 11:15 06/12/17 11:14 05/22/17 20:26 0.5 MG Polyethylene (Miralax Powder Packet) 17 gm BID PO 05/15/17 20:00 06/11/17 07:59 05/23/17 22:44 17 GM Naloxone HCl (Narcan Inj) 0.4 mg PRN PRN IV 05/16/17 09:15 06/15/17 09:14 05/19/17 23:21 0.4 MG Naloxone HCl (Narcan Inj) 0.4 mg PRN PRN IV 05/16/17 09:15 06/15/17 09:14 Diphenhydramine HCl (Benadryl Cap) 50 mg Q6H PRN PO 05/16/17 09:15 06/15/17 09:14 Magnesium Citrate (Citrate Of Magnesia Soln) 30 ml DAILY PRN PO 05/16/17 09:15 06/15/17 09:14 Famotidine (Pepcid Tab) 20 mg BID PRN PO 05/21/17 17:15 06/20/17 17:14 Ciprofloxacin (Cipro Tab) 500 mg BID PO 05/22/17 08:45 05/27/17 08:44 05/23/17 22:44 500 MG Potassium Chloride/Sodium Chloride 1,000 ml @ 100 mls/hr Q10H IV 05/22/17 13:00 06/21/17 12:59 05/24/17 08:09 100 MLS/HR Ondansetron HCl (Zofran Inj) 4 mg Q6H IV 05/22/17 15:00 06/21/17 14:59 05/24/17 08:10 4 MG Enoxaparin Sodium (Lovenox Inj) 40 mg QAM SQ 05/23/17 08:00 06/22/17 07:59 05/24/17 09:37 40 MG Dronabinol (Marinol Cap) 2.5 mg BID PO 05/23/17 09:00 06/22/17 08:59 05/24/17 09:37 2.5 MG Acetaminophen/ Hydrocodone Bitart ([place] 5/325 Tab) 1 tab Q4H PRN PO 05/23/17 09:30 06/06/17 09:29 Scopolamine (Transderm-Scop Patch) 1.5 mg Q72H TD 05/23/17 12:30 06/22/17 12:29 05/23/17 12:40 1.5 MG Miscellaneous (Remove Transderm-Scop Patch) 1 ea Q72H N/A 05/26/17 12:29 06/25/17 12:28 Miscellaneous Information (Check Scopolamine Patch Placement) 1 ea QS N/A 05/23/17 16:00 06/22/17 15:59 05/24/17 08:11 1 EA Objective Vital Signs Date Time Temp Pulse Resp B/P (MAP) Pulse Ox O2 Delivery O2 Flow Rate FiO2 05/24/17 11: 36.4 66 18 116/62 (80) 98 Room Air 05/24/17 10:09 Nasal Cannula 05/24/17 07:25 36.7 75 18 115/64 (81) 100 Room Air 05/24/17 04:37 37.0 73 20 124/72 (89) 100 Room Air 05/24/17 00:10 36.8 72 20 115/70 (85) 99 Room Air 05/24/17 00:00 Room Air 05/23/17 19:40 36.8 74 18 119/67 (84) 97 Room Air 05/23/17 16:00 Room Air 05/23/17 15:41 36.3 69 18 124/74 (91) 96 Room Air Physical Exam General Appearance: no apparent distress Eyes: + pertinent finding (icterus) ENT: hearing grossly normal Neck: supple Respiratory/Chest: lungs clear, normal breath sounds, no respiratory distress, no accessory muscle use Cardiovascular: regular rate, rhythm, no edema Abdomen: normal bowel sounds, non tender, soft, no organomegaly Extremities: no pedal edema Neurologic/Psych: alert Skin: + jaundice Laboratory Results Last 24 Hours Test 05/23/17 16:41 05/23/17 19:37 05/24/17 07:02 05/24/17 07:40 Bedside Glucose 134 mg/dl 146 mg/dl 167 mg/dl White Blood Count 15.42 K/uL Red Blood Count 3.37 M/uL Hemoglobin 9.9 g/dL Hematocrit 29.7 % Mean Corpuscular Volume 88.1 fL Mean Corpuscular Hemoglobin 29.4 pg Mean Corpuscular Hemoglobin Concent 33.3 g/dl Platelet Count 219 K/uL Sodium Level 130 mmol/L Potassium Level 4.1 mmol/L Chloride Level 95 mmol/L Carbon Dioxide Level 26 mmol/L Anion Gap 9.0 mmol/L Blood Urea Nitrogen 19 mg/dl Creatinine 0.76 mg/dl Est Creatinine Clear Calc Drug Dose 104.1 ml/min Estimated GFR () 110.2 Estimated GFR (Non- 95.1 BUN/Creatinine Ratio 25.0 Random Glucose 156 mg/dl Calcium Level 8.7 mg/dl Total Bilirubin 13.9 mg/dl Aspartate Amino Transf (AST/SGOT) 47 U/L Alanine Aminotransferase (ALT/SGPT) 88 U/L Alkaline Phosphatase 288 U/L Total Protein 6.3 gm/dl Albumin 2.7 gm/dl Globulin 3.6 gm/dl Albumin/Globulin Ratio 0.8 Test 05/24/17 11:18 Bedside Glucose 168 mg/dl Assessment and Plan 67 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 HIDA scan unable to be completed without turning off pain pump. Would consider EUS/ERCP with biliary stenting. Will d/w attending. I performed a history and physical examination of the patient. I have discussed the patient's case, impression and plan with Kate Ashley PA-C. Her note reflects my findings and plan. I am concerned about tumor growth as cause of biliary obstruction. Will discuss with my team whether ERCP and potential biliary drainage may be helpful in this setting. Sagar Kaur MD
[2017-05-24] MEDS: CHOLECALCIFEROL 1000 INTER.UNIT TAB PO SCH (12:21)
[2017-05-24] MEDS: POLYETHYLENE (MIRALAX) 17 GM PACK PO SCH ×2 (12:21→20:00)
[2017-05-24] MEDS: CIPROFLOXACIN 500 MG TAB PO SCH ×2 (12:22→21:16)
[2017-05-24] MEDS: DULOXETINE HCL 60 MG CAP PO SCH (12:22)
[2017-05-24] MEDS: DOCUSATE SODIUM 100 MG CAP PO SCH ×2 (12:22→21:16)
--- NOTE | 2017-05-24 17:21 | DIAGNOSTIC IMAGING REPORT ---
CT OF THE ABDOMEN WITH AND WITHOUT CONTRAST PANCREAS PROTOCOL CLINICAL HISTORY: Pancreatic neuroendocrine tumor. Intractable abdominal pain. Evaluate for tumor progression and biliary obstruction. COMPARISON STUDY: CT of the abdomen and pelvis May 03, 2017 and right upper quadrant ultrasound and hepatobiliary study performed May 23, 2017. TECHNIQUE: Unenhanced, arterial and venous phase imaging of the abdomen was performed. Injection of 119 cc of Optiray 320 IV was uneventful. FINDINGS: Lung bases are clear. No hypervascular hepatic lesions are present. There is a small amount of abdominal ascites. The mass centered within the pancreatic body has increased in size since CT of May 02, 2017. This mass measures approximately 8.2 x 6.3 cm. It previously measured 7.1 x 5[address] of May 02, 2017. Mild biliary ductal dilatation has developed since that exam with abrupt narrowing of the distal common bile duct. As before, the splenic artery and superior mesenteric artery are encased. The splenic vein is occluded. The splenic artery is markedly narrowed. There is severe narrowing versus occlusion of the superior mesenteric artery. The main, right and left portal veins are patent. This is similar to prior exam. Upper abdominal collaterals are noted. Layering material within the gallbladder suggests sludge. Moderate gallbladder distention is noted which is new since prior CT. No abdominal lymphadenopathy is present. No suspicious osseous lesions are present. Intrathecal catheter is present. The adrenal glands, spleen and kidneys are unremarkable. IMPRESSION: 1. Interval increase in size of the large pancreatic mass since CT of May 02, 2017 with development of mild biliary ductal dilatation due to abrupt narrowing of the distal common bile duct by the mass. No significant change in extensive vascular encasement/occlusion, including severe stenosis versus occlusion of the portosplenic confluence. Resultant upper abdominal collaterals and small amount of ascites. No hypervascular hepatic lesions. 2. Interval development of moderate gallbladder distention with sludge within the gallbladder. The findings may reflect acute cholecystitis. Electronically signed by: Tony Cummins M.D. 05/24/2017 5:20 PM Dictated Date/Time: 05/24/2017 5:01 PM
[2017-05-25] MEDS: CHECK SCOPOLAMINE PATCH PLACEMENT SCH (00:29)
[2017-05-25] MEDS: ONDANSETRON INJ 2 MG/ML 2 ML VIAL IV SCH ×5 (03:00→20:19)
[2017-05-25] MEDS: LORAZEPAM 0.5 MG TAB PO PRN ×2 (03:37→15:37)
[2017-05-25] MEDS: NSS + 20MEQ KCL 1000ML 1,000 ML IV SCH ×3 (04:20→20:20)
[2017-05-25 07:47] VITALS: BP 119/62; PULSE 81; TEMP 36.7; O2SAT 96
[2017-05-25] MEDS: DRONABINOL 2.5 MG CAP PO SCH ×2 (07:58→20:20)
[2017-05-25] MEDS ORDERED: PIPERACILL/TAZOBAC CONSULT ACTIVE PRN (09:00)
[2017-05-25] MEDS ORDERED: PIPERACILL/TAZOBAC IV 3.375 GM in DEXTROSE 5% 100ML 100 ML IV ONE (09:15)
[2017-05-25] MEDS: ENOXAPARIN 40 MG/0.4 ML SYR SQ SCH (09:22)
[2017-05-25] MEDS: INSULIN ASPART 100 UNITS/ML 3 ML PEN SC SCH ×4 (09:25→20:53)
[2017-05-25 10:10] LABS: BASO % 0.2 %; BASO ABS # 0.03 K/uL (0-0.2); COMPLETE YES; EOS % 1.1 %; HEMATOCRIT 27.2 % (42-52); IG% 0.5 %; LYMPH % 2.6 %; LYMPH ABS # 0.38 K/uL (1.2-3.4); MEAN CELL VOLUME 87.2 fL (80-100); MEAN CORPUSCULAR HEMOGLOBIN 29.8 pg (25-34); MEAN CORPUSCULAR HGB CONC 34.2 g/dl (32-36); MEAN PLATELET VOLUME 10.9 fL (7.4-10.4); MONO % 7.3 %; NEUT % 88.3 %; PLATELET COUNT 206 K/uL (130-400); RED BLOOD COUNT 3.12 M/uL (4.7-6.1); WHITE BLOOD COUNT 14.71 K/uL (4.8-10.8)
--- NOTE | 2017-05-25 10:13 | Pain Management Progress Note ---
Pain Management Progress Note Date of Service May 25, 2017. Subjective Mr. Engle is confused today. He is unable to keep a conversation with me. He does not know where he is or what the date is. Objective Vital Signs: Last Vital Signs Documentation Date Time Temp Pulse Resp B/P (MAP) Pulse Ox O2 Delivery O2 Flow Rate FiO2 05/25/17 07:47 36.7 81 18 119/62 (81) 96 Room Air 05/21/17 15:57 2.0 Physical Exam: GENERAL: Mr. Engle is a 67 year old white male that appears his stated age. Does not appear in acute distress. SKIN: Thoracolumbar and RLQ incisions appear to be healing well. Prineo bandages are in place. No erythema, drainage, warmth noted. + Jaundice NEURO: Patient is awake. He is unsure on time or place. He is having difficulty following commands. Assessment 1. Intractable midepigastric abdominal pain with known history of pancreatic cancer requiring the implantation of an intrathecal pump 2. Jaundice 3. Confusion - likely not opioid related Recommendations 1. No dosage changes were made to the intrathecal pump today. 2. Patient is very confused, would recommend a brain CT for further evaluation. 3. Continue to change bandages daily.
--- NOTE | 2017-05-25 10:54 | Progress Note ---
Medicine Progress Note Date & Time of Visit: May 25, 2017 at 10:53 . Subjective Increasing confusion during the night. Has 1:1 staffing. No fever. No chest pain. No cough or SOB. Ongoing nausea and intermittent emesis. 2 BM's reported yesterday. . Objective Last 8 Hrs Date Time Temp Pulse Resp B/P (MAP) Pulse Ox O2 Delivery O2 Flow Rate FiO2 05/25/17 10:47 Room Air 05/25/17 07:47 36.7 81 18 119/62 (81) 96 Room Air Physical Exam: General- sitting in chair, no distress Eyes- sclerae icteric Lungs- clear Heart- RRR, no gallop Abdomen- + BS, soft, nontender Extremities- no pretibial edema or calf tenderness Neuro- alert, confused, tangential, able to state day and year Skin- icteric, warm & dry . Laboratory Results: Last 24 Hours Test 05/24/17 11:18 05/24/17 17:02 05/24/17 20:12 05/25/17 07:43 Bedside Glucose 168 mg/dl 160 mg/dl 144 mg/dl 167 mg/dl Test 05/25/17 09:47 White Blood Count 14.71 K/uL Red Blood Count 3.12 M/uL Hemoglobin 9.3 g/dL Hematocrit 27.2 % Mean Corpuscular Volume 87.2 fL Mean Corpuscular Hemoglobin 29.8 pg Mean Corpuscular Hemoglobin Concent 34.2 g/dl Platelet Count 206 K/uL Mean Platelet Volume 10.9 fL Neutrophils (%) (Auto) 88.3 % Lymphocytes (%) (Auto) 2.6 % Monocytes (%) (Auto) 7.3 % Eosinophils (%) (Auto) 1.1 % Basophils (%) (Auto) 0.2 % Neutrophils # (Auto) 12.98 K/uL Lymphocytes # (Auto) 0.38 K/uL Monocytes # (Auto) 1.08 K/uL Eosinophils # (Auto) 0.16 K/uL Basophils # (Auto) 0.03 K/uL RDW Standard Deviation 53.1 fL RDW Coefficient of Variation 16.7 % Immature Granulocyte % (Auto) 0.5 % Immature Granulocyte # (Auto) 0.08 K/uL Assessment & Plan PANCREATIC CA Discussed with Medical Oncology. 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 Receiving palliative chemotherapy. Prognosis difficult to predict, but expected to be > 6 months. DM TYPE 2 Usually managed with metformin at home. Hgb A1C 7.6 on 05/03/17. Hold metformin during hospital stay. FBS today = 175. Continue NovoLog coverage. VITAMIN D DEFICIENCY 25-OH D = 21. Supplement. ANXIETY / DEPRESSION Secondary to pain and underlying malignancy. Receiving duloxetine for pain management. Added PRN lorazepam for anxiety or insomnia. UTI Urine culture 05/20 grew Pseudomonas aeruginosa. Treated initially with ciprofloxacin. Change treatment to piperacillin / tazobactam due to confusion. CONFUSION More confused today. Check CT to r/o mass, vascular event. Confusion most likely secondary to meds. Receiving scopolamine and ciprofloxacin, both of which have anticholinergic side effects. DC scopolamine and ciprofloxacin. NUTRITION Oral intake has been poor due to GI symptoms. May need to consider enteral or parenteral nutritional support. VTE PROPHYLAXIS SQ enoxaparin- hold for invasive procedures. SCD's. Ambulate. DISPOSITION Expected discharge to home with home health services. Family Medicine follow-up with Dr. uBsh. Medical Oncology follow-up with Dr. Hinojosa. Pain Management follow-up with Dr. Rogers. . Consultants: Pain Management-Dr. Venkatesh WAY-[facility] Magdaleno Current Inpatient Medications: Current Inpatient Medications Medications (Trade) Dose Ordered Sig/Yolis Route Start Time Stop Time Status Last Admin Dose Admin Acetaminophen (Tylenol Tab) 650 mg Q4H PRN PO 05/10/17 11:15 06/09/17 11:14 05/25/17 03:37 650 MG Bisacodyl (Dulcolax Tab) 5 mg BID PRN PO 05/10/17 11:45 06/09/17 11:44 Polyethylene (Miralax Powder Packet) 17 gm DAILY PRN PO 05/10/17 11:45 06/09/17 11:44 05/11/17 07:49 17 GM Insulin Aspart (novoLOG ASPART) SLIDING SCALE If C... ACHS SC 05/10/17 16:30 06/09/17 16:29 05/25/17 09:25 1 UNITS Glucose (Glucose 40% Gel) 15-30 GRAMS 15 GRAMS... UD PRN PO 05/10/17 13:00 06/09/17 12:59 Glucose (Glucose Chew Tab) 4-8 Tablets 4 Tabl... UD PRN PO 05/10/17 13:00 06/09/17 12:59 Dextrose (Dextrose 50% 50ML Syringe) 25-50ML OF 50% DW IV FOR... UD PRN IV 05/10/17 13:00 06/09/17 12:59 Glucagon (Glucagon Inj) 1 mg UD PRN SQ 05/10/17 13:00 06/09/17 12:59 Miscellaneous (Iv Fluids Completed) 1 ea PRN PRN N/A 05/10/17 14:30 05/10/18 14:29 Duloxetine HCl (Cymbalta Cap) 60 mg QAM PO 05/12/17 10:00 06/11/17 09:59 05/22/17 08:17 60 MG Docusate Sodium (coLACE CAP) 100 mg BID PO 05/12/17 20:00 06/11/17 19:59 05/24/17 21:16 100 MG Cholecalciferol (Vitamin D Tab) 1,000 inter.unit QAM PO 05/13/17 08:00 06/12/17 07:59 05/22/17 08:16 1,000 INTER.UNIT Lorazepam (Ativan Tab) 0.5 mg Q8 PRN PO 05/13/17 11:15 06/12/17 11:14 05/25/17 03:37 0.5 MG Polyethylene (Miralax Powder Packet) 17 gm BID PO 05/15/17 20:00 06/11/17 07:59 05/23/17 22:44 17 GM Naloxone HCl (Narcan Inj) 0.4 mg PRN PRN IV 05/16/17 09:15 06/15/17 09:14 05/19/17 23:21 0.4 MG Naloxone HCl (Narcan Inj) 0.4 mg PRN PRN IV 05/16/17 09:15 06/15/17 09:14 Magnesium Citrate (Citrate Of Magnesia Soln) 30 ml DAILY PRN PO 05/16/17 09:15 06/15/17 09:14 Famotidine (Pepcid Tab) 20 mg BID PRN PO 05/21/17 17:15 06/20/17 17:14 Potassium Chloride/Sodium Chloride 1,000 ml @ 100 mls/hr Q10H IV 05/22/17 13:00 06/21/17 12:59 05/25/17 04:20 100 MLS/HR Ondansetron HCl (Zofran Inj) 4 mg Q6H IV 05/22/17 15:00 06/21/17 14:59 05/25/17 09:22 4 MG Enoxaparin Sodium (Lovenox Inj) 40 mg QAM SQ 05/23/17 08:00 06/22/17 07:59 05/25/17 09:22 40 MG Dronabinol (Marinol Cap) 2.5 mg BID PO 05/23/17 09:00 06/22/17 08:59 05/25/17 07:58 2.5 MG Acetaminophen/ Hydrocodone Bitart ([place] 5/325 Tab) 1 tab Q4H PRN PO 05/23/17 09:30 06/06/17 09:29 Piperacillin Sod/ Tazobactam Sod 3.375 gm/Dextrose 115 ml @ 28.75 mls/ hr Q8H IV 05/25/17 14:00 05/30/17 08:59 Piperacillin Sod/ Tazobactam Sod (Consult) 1 ea UD PRN N/A 05/25/17 09:00 06/24/17 08:59
[2017-05-25 10:55] LABS: ALB/GLOB RATIO 0.8 (0.9-2); BUN/CREATININE RATIO 28.3 (10-20); CALCIUM 8.2 mg/dl (8.5-10.1); CREATININE 0.67 mg/dl (0.60-1.40); POTASSIUM 3.8 mmol/L (3.5-5.1)
[2017-05-25] MEDS ORDERED: OPTIRAY 320 IV PRN (11:00)
[2017-05-25 11:55] VITALS: BP 120/70; PULSE 79; TEMP 36.2; O2SAT 98
--- NOTE | 2017-05-25 12:00 | Gastroenterology Progress Note ---
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 CT scan yesterday showed an abrupt tapering of the CBD secondary to tumor invasion. He has an implanted pain pump and denies any significant abdominal pain today. He continues to have significant n/v with oral intake and vomited after just a sip of coffee this morning. WBC improved today. Bilirubin continues to rise. Remainder of LFTs stable. He does appear somewhat confused and is speaking about going to the cafeteria and eating with his mother this morning, stating that he ate strawberries and blueberries as well as potatoes, but she had to finish the potatoes for him. He has a bedside sitter, who states that all he had this morning was the sip of coffee. Confusion felt to be ? secondary to scopolamine patch. Review of Systems Constitutional: No fever, No chills Eyes: No worsening of vision, No eye pain ENT: No hearing loss Respiratory: No shortness of breath Cardiac: No chest pain Abdomen: + see HPI Musculoskeletal: No joint pain Male : No dysuria Neuro: No problem reported Psych: No problem reported Heme: No abnormal bleeding/bruising Endo: No excessive thirst, No excessive urination Skin: No rash Medications Current Inpatient Medications Medications (Trade) Dose Ordered Sig/Yolis Route Start Time Stop Time Status Last Admin Dose Admin Acetaminophen (Tylenol Tab) 650 mg Q4H PRN PO 05/10/17 11:15 06/09/17 11:14 05/25/17 03:37 650 MG Bisacodyl (Dulcolax Tab) 5 mg BID PRN PO 05/10/17 11:45 06/09/17 11:44 Polyethylene (Miralax Powder Packet) 17 gm DAILY PRN PO 05/10/17 11:45 06/09/17 11:44 05/11/17 07:49 17 GM Insulin Aspart (novoLOG ASPART) SLIDING SCALE If C... ACHS SC 05/10/17 16:30 06/09/17 16:29 05/25/17 09:25 1 UNITS Glucose (Glucose 40% Gel) 15-30 GRAMS 15 GRAMS... UD PRN PO 05/10/17 13:00 06/09/17 12:59 Glucose (Glucose Chew Tab) 4-8 Tablets 4 Tabl... UD PRN PO 05/10/17 13:00 06/09/17 12:59 Dextrose (Dextrose 50% 50ML Syringe) 25-50ML OF 50% DW IV FOR... UD PRN IV 05/10/17 13:00 06/09/17 12:59 Glucagon (Glucagon Inj) 1 mg UD PRN SQ 05/10/17 13:00 06/09/17 12:59 Miscellaneous (Iv Fluids Completed) 1 ea PRN PRN N/A 05/10/17 14:30 05/10/18 14:29 Duloxetine HCl (Cymbalta Cap) 60 mg QAM PO 05/12/17 10:00 06/11/17 09:59 05/22/17 08:17 60 MG Docusate Sodium (coLACE CAP) 100 mg BID PO 05/12/17 20:00 06/11/17 19:59 05/24/17 21:16 100 MG Cholecalciferol (Vitamin D Tab) 1,000 inter.unit QAM PO 05/13/17 08:00 06/12/17 07:59 05/22/17 08:16 1,000 INTER.UNIT Lorazepam (Ativan Tab) 0.5 mg Q8 PRN PO 05/13/17 11:15 06/12/17 11:14 05/25/17 03:37 0.5 MG Polyethylene (Miralax Powder Packet) 17 gm BID PO 05/15/17 20:00 06/11/17 07:59 05/23/17 22:44 17 GM Naloxone HCl (Narcan Inj) 0.4 mg PRN PRN IV 05/16/17 09:15 06/15/17 09:14 05/19/17 23:21 0.4 MG Naloxone HCl (Narcan Inj) 0.4 mg PRN PRN IV 05/16/17 09:15 06/15/17 09:14 Magnesium Citrate (Citrate Of Magnesia Soln) 30 ml DAILY PRN PO 05/16/17 09:15 06/15/17 09:14 Famotidine (Pepcid Tab) 20 mg BID PRN PO 05/21/17 17:15 06/20/17 17:14 Potassium Chloride/Sodium Chloride 1,000 ml @ 100 mls/hr Q10H IV 05/22/17 13:00 06/21/17 12:59 05/25/17 04:20 100 MLS/HR Ondansetron HCl (Zofran Inj) 4 mg Q6H IV 05/22/17 15:00 06/21/17 14:59 05/25/17 09:22 4 MG Enoxaparin Sodium (Lovenox Inj) 40 mg QAM SQ 05/23/17 08:00 06/22/17 07:59 05/25/17 09:22 40 MG Dronabinol (Marinol Cap) 2.5 mg BID PO 05/23/17 09:00 06/22/17 08:59 05/25/17 07:58 2.5 MG Acetaminophen/ Hydrocodone Bitart ([place] 5/325 Tab) 1 tab Q4H PRN PO 05/23/17 09:30 06/06/17 09:29 Piperacillin Sod/ Tazobactam Sod 3.375 gm/Dextrose 115 ml @ 28.75 mls/ hr Q8H IV 05/25/17 14:00 05/30/17 08:59 Piperacillin Sod/ Tazobactam Sod (Consult) 1 ea UD PRN N/A 05/25/17 09:00 06/24/17 08:59 Ioversol (Optiray 320) 100 ml UD PRN IV 05/25/17 11:00 05/29/17 10:59 Objective Vital Signs Date Time Temp Pulse Resp B/P (MAP) Pulse Ox O2 Delivery O2 Flow Rate FiO2 05/25/17 10:47 Room Air 05/25/17 07:47 36.7 81 18 119/62 (81) 96 Room Air 05/25/17 00:00 Room Air 05/24/17 23:56 36.9 69 20 120/69 (86) 96 Room Air 05/24/17 19:28 37.0 69 20 116/63 (80) 97 Room Air 05/24/17 16:00 Room Air 05/24/17 15:16 36.7 64 18 122/73 (89) 96 Room Air Physical Exam General Appearance: no apparent distress Eyes: + pertinent finding (icteric) ENT: hearing grossly normal Neck: supple Respiratory/Chest: lungs clear, normal breath sounds, no respiratory distress, no accessory muscle use Cardiovascular: regular rate, rhythm, no edema Abdomen: normal bowel sounds, non tender, soft Extremities: no pedal edema Neurologic/Psych: alert, + pertinent finding (somewhat confused) Skin: + jaundice Laboratory Results Last 24 Hours Test 05/24/17 17:02 05/24/17 20:12 05/25/17 07:43 05/25/17 09:47 Bedside Glucose 160 mg/dl 144 mg/dl 167 mg/dl White Blood Count 14.71 K/uL Red Blood Count 3.12 M/uL Hemoglobin 9.3 g/dL Hematocrit 27.2 % Mean Corpuscular Volume 87.2 fL Mean Corpuscular Hemoglobin 29.8 pg Mean Corpuscular Hemoglobin Concent 34.2 g/dl Platelet Count 206 K/uL Mean Platelet Volume 10.9 fL Neutrophils (%) (Auto) 88.3 % Lymphocytes (%) (Auto) 2.6 % Monocytes (%) (Auto) 7.3 % Eosinophils (%) (Auto) 1.1 % Basophils (%) (Auto) 0.2 % Neutrophils # (Auto) 12.98 K/uL Lymphocytes # (Auto) 0.38 K/uL Monocytes # (Auto) 1.08 K/uL Eosinophils # (Auto) 0.16 K/uL Basophils # (Auto) 0.03 K/uL RDW Standard Deviation 53.1 fL RDW Coefficient of Variation 16.7 % Immature Granulocyte % (Auto) 0.5 % Immature Granulocyte # (Auto) 0.08 K/uL Sodium Level 130 mmol/L Potassium Level 3.8 mmol/L Chloride Level 96 mmol/L Carbon Dioxide Level 22 mmol/L Anion Gap 12.0 mmol/L Blood Urea Nitrogen 19 mg/dl Creatinine 0.67 mg/dl Est Creatinine Clear Calc Drug Dose 119.0 ml/min Estimated GFR () 116.0 Estimated GFR (Non- 100.1 BUN/Creatinine Ratio 28.3 Random Glucose 175 mg/dl Calcium Level 8.2 mg/dl Total Bilirubin 14.7 mg/dl Aspartate Amino Transf (AST/SGOT) 43 U/L Alanine Aminotransferase (ALT/SGPT) 81 U/L Alkaline Phosphatase 254 U/L Total Protein 5.8 gm/dl Albumin 2.5 gm/dl Globulin 3.3 gm/dl Albumin/Globulin Ratio 0.8 Test 05/25/17 11:13 Assessment and Plan 67 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 CT scan showed abrupt narrowing of CBD secondary to tumor invasion. Will plan an ERCP with biliary stenting on Tuesday. NPO after midnight on night. I performed a history and physical examination of the patient. I have discussed the patient's case, impression and plan with Kate Ashley PA-C. Her note reflects my findings and plan. Confused today. Most likely from anticholinergics. Scheduled for ERCP and possible stent placement for biliary obstruction Tuesday. Sagar Kaur MD
[2017-05-25] MEDS: POLYETHYLENE (MIRALAX) 17 GM PACK PO SCH ×2 (12:29→20:00)
[2017-05-25] MEDS: DULOXETINE HCL 60 MG CAP PO SCH (12:29)
[2017-05-25] MEDS: CHOLECALCIFEROL 1000 INTER.UNIT TAB PO SCH (12:29)
[2017-05-25] MEDS: DOCUSATE SODIUM 100 MG CAP PO SCH ×2 (12:29→20:00)
[2017-05-25] MEDS: PIPERACILL/TAZOBAC IV 3.375 GM in DEXTROSE 5% 100ML 100 ML IV SCH ×2 (14:26→20:20)
[2017-05-25 16:08] VITALS: O2SAT 98
--- NOTE | 2017-05-25 16:24 | DIAGNOSTIC IMAGING REPORT ---
HEAD COMBO CLINICAL HISTORY: Confusion. Pancreatic cancer. COMPARISON STUDY: No previous studies for comparison. TECHNIQUE: Axial images of the head were obtained before and after intravenous administration of 93 cc of Optiray 320 IV. FINDINGS: No acute intracranial hemorrhage, midline shift or mass effect is present. Brain volume is normal. Ventricular system is normal. Basilar cisterns are patent. There is mild symmetric prominence of the bilateral extra-axial spaces. Hypodensities within bilateral basal ganglia could reflect prominent perivascular spaces or old lacunar infarcts. There are no findings to suggest acute dural sinus thrombosis or acute territorial infarct. There is no intracranial mass or pathologic enhancement. A right sphenoid sinus mucous retention cyst is noted. There are no suspicious calvarial lesions. Mastoid air cells are clear. IMPRESSION: 1. No acute intracranial findings. 2. No evidence of metastatic disease. Electronically signed by: Tony Cummins M.D. 05/25/2017 4:22 PM Dictated Date/Time: 05/25/2017 4:19 PM
[2017-05-25 19:12] VITALS: BP 122/64; PULSE 80; TEMP 36.6; O2SAT 98
[2017-05-25] MEDS ORDERED: D5NSS + 20MEQ KCL 1,000 ML IV SCH (21:15)
[2017-05-25] MEDS ORDERED: METOCLOPRAMIDE HCL INJ 5 MG/ML 2 ML VIAL IV STA (22:53)
[2017-05-26 00:01] VITALS: BP 127/69; PULSE 76; TEMP 36.8; O2SAT 97
[2017-05-26] MEDS: ONDANSETRON INJ 2 MG/ML 2 ML VIAL IV SCH ×4 (02:48→20:48)
[2017-05-26 03:40] VITALS: BP 107/61; PULSE 67; TEMP 36.9; O2SAT 97
[2017-05-26] MEDS: PIPERACILL/TAZOBAC IV 3.375 GM in DEXTROSE 5% 100ML 100 ML IV SCH ×3 (06:01→21:27)
[2017-05-26 06:32] LABS: HEMATOCRIT 27.2 % (42-52); MEAN CELL VOLUME 86.3 fL (80-100); MEAN CORPUSCULAR HEMOGLOBIN 29.5 pg (25-34); MEAN CORPUSCULAR HGB CONC 34.2 g/dl (32-36); MEAN PLATELET VOLUME 10.9 fL (7.4-10.4); PLATELET COUNT 200 K/uL (130-400); RED BLOOD COUNT 3.15 M/uL (4.7-6.1); WHITE BLOOD COUNT 12.41 K/uL (4.8-10.8)
[2017-05-26 07:16] LABS: BUN/CREATININE RATIO 19.6 (10-20); CALCIUM 7.9 mg/dl (8.5-10.1); CREATININE 0.67 mg/dl (0.60-1.40); POTASSIUM 3.3 mmol/L (3.5-5.1)
--- NOTE | 2017-05-26 08:52 | Gastroenterology Progress Note ---
Progress Note Date of Service: May 26, 2017 Subjective Pt evaluation today including: physical exam The patient is infused this morning and unable to answer any specific questions. This is my first meeting with him and based on a review of chart it appears she's been confused for most of the hospital admission. ERCP has been requested due to new biliary obstruction related to his pancreatic neuroendocrine tumor. We are planning to do ERCP tomorrow. Due to the patient' s mental status and unable to do a review of systems. Medications Current Inpatient Medications Medications (Trade) Dose Ordered Sig/Yolis Route Start Time Stop Time Status Last Admin Dose Admin Acetaminophen (Tylenol Tab) 650 mg Q4H PRN PO 05/10/17 11:15 06/09/17 11:14 05/25/17 03:37 650 MG Bisacodyl (Dulcolax Tab) 5 mg BID PRN PO 05/10/17 11:45 06/09/17 11:44 Polyethylene (Miralax Powder Packet) 17 gm DAILY PRN PO 05/10/17 11:45 06/09/17 11:44 05/11/17 07:49 17 GM Insulin Aspart (novoLOG ASPART) SLIDING SCALE If C... ACHS SC 05/10/17 16:30 06/09/17 16:29 05/25/17 12:26 1 UNITS Glucose (Glucose 40% Gel) 15-30 GRAMS 15 GRAMS... UD PRN PO 05/10/17 13:00 06/09/17 12:59 Glucose (Glucose Chew Tab) 4-8 Tablets 4 Tabl... UD PRN PO 05/10/17 13:00 06/09/17 12:59 Dextrose (Dextrose 50% 50ML Syringe) 25-50ML OF 50% DW IV FOR... UD PRN IV 05/10/17 13:00 06/09/17 12:59 Glucagon (Glucagon Inj) 1 mg UD PRN SQ 05/10/17 13:00 06/09/17 12:59 Miscellaneous (Iv Fluids Completed) 1 ea PRN PRN N/A 05/10/17 14:30 05/10/18 14:29 Duloxetine HCl (Cymbalta Cap) 60 mg QAM PO 05/12/17 10:00 06/11/17 09:59 05/22/17 08:17 60 MG Docusate Sodium (coLACE CAP) 100 mg BID PO 05/12/17 20:00 06/11/17 19:59 05/24/17 21:16 100 MG Cholecalciferol (Vitamin D Tab) 1,000 inter.unit QAM PO 05/13/17 08:00 06/12/17 07:59 Future Hold 05/22/17 08:16 1,000 INTER.UNIT Lorazepam (Ativan Tab) 0.5 mg Q8 PRN PO 05/13/17 11:15 06/12/17 11:14 05/25/17 15:37 0.5 MG Polyethylene (Miralax Powder Packet) 17 gm BID PO 05/15/17 20:00 06/11/17 07:59 Future Hold 05/23/17 22:44 17 GM Naloxone HCl (Narcan Inj) 0.4 mg PRN PRN IV 05/16/17 09:15 06/15/17 09:14 05/19/17 23:21 0.4 MG Naloxone HCl (Narcan Inj) 0.4 mg PRN PRN IV 05/16/17 09:15 06/15/17 09:14 Magnesium Citrate (Citrate Of Magnesia Soln) 30 ml DAILY PRN PO 05/16/17 09:15 06/15/17 09:14 Ondansetron HCl (Zofran Inj) 4 mg Q6H IV 05/22/17 15:00 06/21/17 14:59 05/26/17 02:48 4 MG Enoxaparin Sodium (Lovenox Inj) 40 mg QAM SQ 05/23/17 08:00 06/22/17 07:59 05/25/17 09:22 40 MG Acetaminophen/ Hydrocodone Bitart ([place] 5/325 Tab) 1 tab Q4H PRN PO 05/23/17 09:30 06/06/17 09:29 Piperacillin Sod/ Tazobactam Sod 3.375 gm/Dextrose 115 ml @ 28.75 mls/ hr Q8H IV 05/25/17 14:00 05/30/17 08:59 05/26/17 06:01 28.75 MLS/HR Piperacillin Sod/ Tazobactam Sod (Consult) 1 ea UD PRN N/A 05/25/17 09:00 06/24/17 08:59 Ioversol (Optiray 320) 100 ml UD PRN IV 05/25/17 11:00 05/29/17 10:59 Dronabinol (Marinol Cap) 2.5 mg BID@0700,1600 PO 05/26/17 07:00 06/22/17 08:59 Potassium Chloride 40 meq/ Magnesium Sulfate 1 gm/Dextrose/ Sodium Chloride 1,022 ml @ 100 mls/hr [id number] IV 05/26/17 08:00 06/25/17 07:59 Famotidine 20 mg/ Syringe 5 ml @ 2.5 mls/min Q12H IV 05/26/17 09:00 06/25/17 08:59 Insulin Glargine (Lantus Solostar Pen) 6 units BID SC 05/26/17 20:00 06/25/17 19:59 UNV Objective Vital Signs Date Time Temp Pulse Resp B/P (MAP) Pulse Ox O2 Delivery O2 Flow Rate FiO2 05/26/17 03:40 36.9 67 18 107/61 (76) 97 Room Air 05/26/17 00:01 36.8 76 18 127/69 (88) 97 Room Air 05/26/17 00:00 Room Air 05/25/17 19:12 36.6 80 19 122/64 (83) 98 Room Air 05/25/17 16:08 98 Room Air 05/25/17 11:55 36.2 79 18 120/70 (87) 98 Room Air 05/25/17 10:47 Room Air Physical Exam General Appearance: + mild distress Neck: no JVD Respiratory/Chest: + decreased breath sounds Cardiovascular: regular rate, rhythm Abdomen: non tender, soft Skin: + jaundice Laboratory Results Last 24 Hours Test 05/25/17 09:47 05/25/17 11:49 05/25/17 11:52 05/25/17 16:28 White Blood Count 14.71 K/uL Red Blood Count 3.12 M/uL Hemoglobin 9.3 g/dL Hematocrit 27.2 % Mean Corpuscular Volume 87.2 fL Mean Corpuscular Hemoglobin 29.8 pg Mean Corpuscular Hemoglobin Concent 34.2 g/dl Platelet Count 206 K/uL Mean Platelet Volume 10.9 fL Neutrophils (%) (Auto) 88.3 % Lymphocytes (%) (Auto) 2.6 % Monocytes (%) (Auto) 7.3 % Eosinophils (%) (Auto) 1.1 % Basophils (%) (Auto) 0.2 % Neutrophils # (Auto) 12.98 K/uL Lymphocytes # (Auto) 0.38 K/uL Monocytes # (Auto) 1.08 K/uL Eosinophils # (Auto) 0.16 K/uL Basophils # (Auto) 0.03 K/uL RDW Standard Deviation 53.1 fL RDW Coefficient of Variation 16.7 % Immature Granulocyte % (Auto) 0.5 % Immature Granulocyte # (Auto) 0.08 K/uL Sodium Level 130 mmol/L Potassium Level 3.8 mmol/L Chloride Level 96 mmol/L Carbon Dioxide Level 22 mmol/L Anion Gap 12.0 mmol/L Blood Urea Nitrogen 19 mg/dl Creatinine 0.67 mg/dl Est Creatinine Clear Calc Drug Dose 119.0 ml/min Estimated GFR () 116.0 Estimated GFR (Non- 100.1 BUN/Creatinine Ratio 28.3 Random Glucose 175 mg/dl Calcium Level 8.2 mg/dl Total Bilirubin 14.7 mg/dl Aspartate Amino Transf (AST/SGOT) 43 U/L Alanine Aminotransferase (ALT/SGPT) 81 U/L Alkaline Phosphatase 254 U/L Total Protein 5.8 gm/dl Albumin 2.5 gm/dl Globulin 3.3 gm/dl Albumin/Globulin Ratio 0.8 Ammonia < 10.0 umol/L Bedside Glucose 160 mg/dl 169 mg/dl Test 05/25/17 20:23 05/26/17 06:00 05/26/17 07:48 Bedside Glucose 155 mg/dl 175 mg/dl White Blood Count 12.41 K/uL Red Blood Count 3.15 M/uL Hemoglobin 9.3 g/dL Hematocrit 27.2 % Mean Corpuscular Volume 86.3 fL Mean Corpuscular Hemoglobin 29.5 pg Mean Corpuscular Hemoglobin Concent 34.2 g/dl RDW Standard Deviation 53.3 fL RDW Coefficient of Variation 16.9 % Platelet Count 200 K/uL Mean Platelet Volume 10.9 fL Sodium Level 127 mmol/L Potassium Level 3.3 mmol/L Chloride Level 94 mmol/L Carbon Dioxide Level 25 mmol/L Anion Gap 8.0 mmol/L Blood Urea Nitrogen 13 mg/dl Creatinine 0.67 mg/dl Est Creatinine Clear Calc Drug Dose 119.0 ml/min Estimated GFR () 116.0 Estimated GFR (Non- 100.1 BUN/Creatinine Ratio 19.6 Random Glucose 204 mg/dl Calcium Level 7.9 mg/dl Assessment and Plan Patient with a history of a pancreatic neuroendocrine tumor which appears to 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 He is now developed biliary obstruction and ERCP has been requested for biliary decompression. Given the patient's overall condition and advanced nature of his malignancy he likely has a very poor long-term prognosis. This is previously been discussed with the patient with the internal medicine service and his oncologist. Recommendations Continue with broad-spectrum antibiotics ERCP plan for Tuesday Patient's or power of staff attorney will need to be available for consent on Tuesday
[2017-05-26] MEDS ORDERED: INSULIN GLARGINE SOLOSTAR 100 UNITS/ML 3 ML PEN SC ONE (09:00)
[2017-05-26] MEDS ORDERED: FAMOTIDINE IV INJ 20 MG in DEXTROSE 5% 100ML 100 ML IV SCH (09:00)
[2017-05-26] MEDS: MAG SULFATE IV SCH ×2 (09:04→19:19)
[2017-05-26] MEDS: POTASSIUM CHLORIDE IV SCH ×2 (09:04→19:19)
[2017-05-26] MEDS: FAMOTIDINE IV INJ 20 MG in SYRINGE 3 ML IV SCH ×2 (09:04→20:48)
[2017-05-26] MEDS: D5W AND NSS IV SCH ×2 (09:04→19:19)
[2017-05-26] MEDS: DRONABINOL 2.5 MG CAP PO SCH ×2 (09:05→15:41)
[2017-05-26] MEDS: DOCUSATE SODIUM 100 MG CAP PO SCH ×2 (09:05→20:46)
[2017-05-26] MEDS: ENOXAPARIN 40 MG/0.4 ML SYR SQ SCH (09:05)
[2017-05-26] MEDS: DULOXETINE HCL 60 MG CAP PO SCH (09:05)
[2017-05-26] MEDS: INSULIN ASPART 100 UNITS/ML 3 ML PEN SC SCH ×4 (09:09→20:43)
[2017-05-26 09:52] VITALS: BP 119/66; PULSE 68; TEMP 36.9; O2SAT 96
[2017-05-26 15:09] VITALS: BP 120/68; PULSE 91; TEMP 36.7; O2SAT 97
[2017-05-26 19:31] VITALS: BP 125/70; PULSE 80; TEMP 37; O2SAT 98
[2017-05-26] MEDS: INSULIN GLARGINE SOLOSTAR 100 UNITS/ML 3 ML PEN SC SCH (20:45)
--- NOTE | 2017-05-26 21:16 | Progress Note ---
Medicine Progress Note Date & Time of Visit: May 26, 2017 at 10:40 . Subjective Still confused. Abdominal pain well controlled- about 2/10. Nausea and vomiting last night. Last BM 2 days ago. No fever. . Objective Last 8 Hrs Date Time Temp Pulse Resp B/P (MAP) Pulse Ox O2 Delivery O2 Flow Rate FiO2 05/26/17 19:31 37.0 80 18 125/70 (88) 98 Room Air 05/26/17 16:00 Room Air 05/26/17 15:09 36.7 91 20 120/68 (85) 97 Physical Exam: General- lying in bed, no distress Eyes- sclerae icteric Lungs- clear Heart- RRR, no gallop Abdomen- + BS, soft, epigastric fullness with some tenderness Extremities- no pretibial edema or calf tenderness Neuro- confused Skin- icteric, warm & dry . Laboratory Results: Last 24 Hours Test 05/26/17 06:00 05/26/17 07:48 05/26/17 11:24 05/26/17 16:33 White Blood Count 12.41 K/uL Red Blood Count 3.15 M/uL Hemoglobin 9.3 g/dL Hematocrit 27.2 % Mean Corpuscular Volume 86.3 fL Mean Corpuscular Hemoglobin 29.5 pg Mean Corpuscular Hemoglobin Concent 34.2 g/dl RDW Standard Deviation 53.3 fL RDW Coefficient of Variation 16.9 % Platelet Count 200 K/uL Mean Platelet Volume 10.9 fL Sodium Level 127 mmol/L Potassium Level 3.3 mmol/L Chloride Level 94 mmol/L Carbon Dioxide Level 25 mmol/L Anion Gap 8.0 mmol/L Blood Urea Nitrogen 13 mg/dl Creatinine 0.67 mg/dl Est Creatinine Clear Calc Drug Dose 119.0 ml/min Estimated GFR () 116.0 Estimated GFR (Non- 100.1 BUN/Creatinine Ratio 19.6 Random Glucose 204 mg/dl Calcium Level 7.9 mg/dl Bedside Glucose 175 mg/dl 177 mg/dl 188 mg/dl Test 05/26/17 20:12 Bedside Glucose 174 mg/dl Assessment & Plan INTRACTABLE PAIN DUE TO PANCREATIC CA Presented with severe abdominal pain due to pancreatic cancer. Pain Management consulted. Unable to obtain adequate relief with safe dosing of systemic analgesics. Epidural trial went well. Intrathecal pump placed 05/19 with good results. Continue intrathecal morphine + oral hydromorphone PRN. Continue duloxetine. BILIARY TRACT OBSTRUCTION Has developed jaundice, probably due to underlying pancreatic Ca. Total bilirubin 14.7 yesterday. GI consulted. Gallbladder US demonstrated mild dilatation of CBD, distended gallbladder with wall thickening, sludge, stones. HIDA scan ordered, but could not be completed due to narcotic analgesics. Unable to hold narcotics due to severe cancer-related pain. CT demonstrating enlarging pancreatic mass with compression on common bile duct. ERCP with attempted biliary stent placement planned for tomorrow. NAUSEA / VOMITING Severe nausea and vomiting with minimal benefit from anti-emetics. Nausea and vomiting probably multifactorial, due to underlying pancreatic Ca + biliary tract disease. Upper endoscopic evaluation planned for tomorrow. OPIATE-INDUCED CONSTIPATION Continue docusate sodium, polyethylene, methylnaltrexone PRN. PANCREATIC CA Discussed with Medical Oncology. 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 Receiving palliative chemotherapy. Prognosis difficult to predict, but expected to be > 6 months. DM TYPE 2 Usually managed with metformin at home. Hgb A1C 7.6 on 05/03/17. Hold metformin during hospital stay. FBS today = 175. Continue NovoLog coverage. VITAMIN D DEFICIENCY 25-OH D = 21. Supplement. ANXIETY / DEPRESSION Secondary to pain and underlying malignancy. Receiving duloxetine for pain management. Added PRN lorazepam for anxiety or insomnia. UTI Urine culture 05/20 grew Pseudomonas aeruginosa. Treated initially with ciprofloxacin. Change treatment to piperacillin / tazobactam due to confusion. CONFUSION More confused past few days. CT negative for mass, vascular event. Confusion most likely secondary to meds. Was receiving scopolamine and ciprofloxacin, both of which have anticholinergic side effects. Scopolamine and ciprofloxacin discontinued. NUTRITION Oral intake has been poor due to GI symptoms. May need to consider enteral or parenteral nutritional support. VTE PROPHYLAXIS SQ enoxaparin- hold for invasive procedures. SCD's. Ambulate. DISPOSITION Expected discharge to home with home health services. Family Medicine follow-up with Dr. Bush. Medical Oncology follow-up with Dr. Hinojosa. Pain Management follow-up with Dr. Rogers. . Consultants: Pain Management-Dr. Venkatesh WAY-MARY Magdaleno Current Inpatient Medications: Current Inpatient Medications Medications (Trade) Dose Ordered Sig/Yolis Route Start Time Stop Time Status Last Admin Dose Admin Acetaminophen (Tylenol Tab) 650 mg Q4H PRN PO 05/10/17 11:15 06/09/17 11:14 05/25/17 03:37 650 MG Bisacodyl (Dulcolax Tab) 5 mg BID PRN PO 05/10/17 11:45 06/09/17 11:44 Polyethylene (Miralax Powder Packet) 17 gm DAILY PRN PO 05/10/17 11:45 06/09/17 11:44 05/11/17 07:49 17 GM Insulin Aspart (novoLOG ASPART) SLIDING SCALE If C... ACHS SC 05/10/17 16:30 06/09/17 16:29 05/26/17 20:43 1 UNITS Glucose (Glucose 40% Gel) 15-30 GRAMS 15 GRAMS... UD PRN PO 05/10/17 13:00 06/09/17 12:59 Glucose (Glucose Chew Tab) 4-8 Tablets 4 Tabl... UD PRN PO 05/10/17 13:00 06/09/17 12:59 Dextrose (Dextrose 50% 50ML Syringe) 25-50ML OF 50% DW IV FOR... UD PRN IV 05/10/17 13:00 06/09/17 12:59 Glucagon (Glucagon Inj) 1 mg UD PRN SQ 05/10/17 13:00 06/09/17 12:59 Miscellaneous (Iv Fluids Completed) 1 ea PRN PRN N/A 05/10/17 14:30 05/10/18 14:29 Duloxetine HCl (Cymbalta Cap) 60 mg QAM PO 05/12/17 10:00 06/11/17 09:59 05/22/17 08:17 60 MG Docusate Sodium (coLACE CAP) 100 mg BID PO 05/12/17 20:00 06/11/17 19:59 05/26/17 20:46 100 MG Cholecalciferol (Vitamin D Tab) 1,000 inter.unit QAM PO 05/13/17 08:00 06/12/17 07:59 Future Hold 05/22/17 08:16 1,000 INTER.UNIT Lorazepam (Ativan Tab) 0.5 mg Q8 PRN PO 05/13/17 11:15 06/12/17 11:14 05/25/17 15:37 0.5 MG Polyethylene (Miralax Powder Packet) 17 gm BID PO 05/15/17 20:00 06/11/17 07:59 Future Hold 05/23/17 22:44 17 GM Naloxone HCl (Narcan Inj) 0.4 mg PRN PRN IV 05/16/17 09:15 06/15/17 09:14 05/19/17 23:21 0.4 MG Naloxone HCl (Narcan Inj) 0.4 mg PRN PRN IV 05/16/17 09:15 06/15/17 09:14 Magnesium Citrate (Citrate Of Magnesia Soln) 30 ml DAILY PRN PO 05/16/17 09:15 06/15/17 09:14 Ondansetron HCl (Zofran Inj) 4 mg Q6H IV 05/22/17 15:00 06/21/17 14:59 05/26/17 20:48 4 MG Enoxaparin Sodium (Lovenox Inj) 40 mg QAM SQ 05/23/17 08:00 06/22/17 07:59 05/26/17 09:05 40 MG Acetaminophen/ Hydrocodone Bitart ([place] 5/325 Tab) 1 tab Q4H PRN PO 05/23/17 09:30 06/06/17 09:29 Piperacillin Sod/ Tazobactam Sod 3.375 gm/Dextrose 115 ml @ 28.75 mls/ hr Q8H IV 05/25/17 14:00 05/30/17 08:59 05/26/17 14:09 28.75 MLS/HR Piperacillin Sod/ Tazobactam Sod (Consult) 1 ea UD PRN N/A 05/25/17 09:00 06/24/17 08:59 Ioversol (Optiray 320) 100 ml UD PRN IV 05/25/17 11:00 05/29/17 10:59 Dronabinol (Marinol Cap) 2.5 mg BID@0700,1600 PO 05/26/17 07:00 06/22/17 08:59 Potassium Chloride 40 meq/ Magnesium Sulfate 1 gm/Dextrose/ Sodium Chloride 1,022 ml @ 100 mls/hr [id number] IV 05/26/17 08:00 06/25/17 07:59 05/26/17 19:19 100 MLS/HR Famotidine 20 mg/ Syringe 5 ml @ 2.5 mls/min Q12H IV 05/26/17 09:00 06/25/17 08:59 05/26/17 20:48 2.5 MLS/MIN Insulin Glargine (Lantus Solostar Pen) 6 units BID SC 05/26/17 20:00 06/25/17 19:59 05/26/17 20:45 6 UNITS
[2017-05-26 22:51] VITALS: BP 109/58; PULSE 84; TEMP 37; O2SAT 95
[2017-05-27] VITALS (8 sets, daily range): BP systolic 114–122; BP diastolic 67–76; PULSE 81–107; TEMP 36.7–37.3; O2SAT 96–100
[2017-05-27] MEDS: ONDANSETRON INJ 2 MG/ML 2 ML VIAL IV SCH ×4 (03:20→23:26)
[2017-05-27] MEDS: D5W AND NSS IV SCH ×2 (05:24→14:32)
[2017-05-27] MEDS: PIPERACILL/TAZOBAC IV 3.375 GM in DEXTROSE 5% 100ML 100 ML IV SCH ×3 (05:24→23:26)
[2017-05-27] MEDS: MAG SULFATE IV SCH ×2 (05:24→14:32)
[2017-05-27] MEDS: POTASSIUM CHLORIDE IV SCH ×2 (05:24→14:32)
[2017-05-27] MEDS: DRONABINOL 2.5 MG CAP PO SCH ×2 (05:43→15:44)
[2017-05-27 06:29] LABS: HEMATOCRIT 27.8 % (42-52); MEAN CELL VOLUME 86.1 fL (80-100); MEAN CORPUSCULAR HEMOGLOBIN 29.7 pg (25-34); MEAN CORPUSCULAR HGB CONC 34.5 g/dl (32-36); PLATELET COUNT 180 K/uL (130-400); RED BLOOD COUNT 3.23 M/uL (4.7-6.1); WHITE BLOOD COUNT 15.39 K/uL (4.8-10.8)
[2017-05-27] MEDS: INSULIN ASPART 100 UNITS/ML 3 ML PEN SC SCH ×4 (06:30→21:35)
[2017-05-27 07:16] LABS: MAGNESIUM 1.9 mg/dl (1.8-2.4); POTASSIUM 3.8 mmol/L (3.5-5.1)
[2017-05-27 07:17] LABS: ALB/GLOB RATIO 0.7 (0.9-2); BUN/CREATININE RATIO 12.2 (10-20); CALCIUM 7.8 mg/dl (8.5-10.1); CREATININE 0.65 mg/dl (0.60-1.40)
[2017-05-27] MEDS: DOCUSATE SODIUM 100 MG CAP PO SCH ×2 (07:59→21:35)
[2017-05-27] MEDS: DULOXETINE HCL 60 MG CAP PO SCH (08:00)
[2017-05-27] MEDS: INSULIN GLARGINE SOLOSTAR 100 UNITS/ML 3 ML PEN SC SCH ×2 (09:21→21:39)
[2017-05-27] MEDS: FAMOTIDINE IV INJ 20 MG in SYRINGE 3 ML IV SCH ×2 (09:22→23:26)
--- NOTE | 2017-05-27 09:40 | Progress Note ---
Medicine Progress Note Date & Time of Visit: May 27, 2017 at 09:10 . Subjective Ongoing nausea, intermittent vomiting. Abdominal pain 2/10. Less confused. No fever. No chest pain. No cough or SOB. Last documented BM 05/24. . Objective Last 8 Hrs Date Time Temp Pulse Resp B/P (MAP) Pulse Ox O2 Delivery O2 Flow Rate FiO2 05/27/17 03:14 36.7 81 18 119/76 (90) 97 Room Air Physical Exam: General- lying in bed, no distress Eyes- sclerae icteric Lungs- clear Heart- RRR, no gallop Abdomen- + BS, soft, epigastric fullness with some tenderness Extremities- no pretibial edema or calf tenderness Neuro- less confused; able to cite year, but not day of week; able to cite president with some difficulty Skin- icteric, warm & dry . Laboratory Results: Last 24 Hours Test 05/26/17 11:24 05/26/17 16:33 05/26/17 20:12 05/27/17 06:09 Bedside Glucose 177 mg/dl 188 mg/dl 174 mg/dl White Blood Count 15.39 K/uL Red Blood Count 3.23 M/uL Hemoglobin 9.6 g/dL Hematocrit 27.8 % Mean Corpuscular Volume 86.1 fL Mean Corpuscular Hemoglobin 29.7 pg Mean Corpuscular Hemoglobin Concent 34.5 g/dl RDW Standard Deviation 54.1 fL RDW Coefficient of Variation 17.0 % Platelet Count 180 K/uL Mean Platelet Volume 11.0 fL Sodium Level 124 mmol/L Potassium Level 3.8 mmol/L Chloride Level 93 mmol/L Carbon Dioxide Level 25 mmol/L Anion Gap 6.0 mmol/L Blood Urea Nitrogen 8 mg/dl Creatinine 0.65 mg/dl Est Creatinine Clear Calc Drug Dose 121.9 ml/min Estimated GFR () 117.5 Estimated GFR (Non- 101.4 BUN/Creatinine Ratio 12.2 Random Glucose 158 mg/dl Calcium Level 7.8 mg/dl Magnesium Level 1.9 mg/dl Total Bilirubin 14.8 mg/dl Aspartate Amino Transf (AST/SGOT) 38 U/L Alanine Aminotransferase (ALT/SGPT) 72 U/L Alkaline Phosphatase 221 U/L Total Protein 5.6 gm/dl Albumin 2.3 gm/dl Globulin 3.3 gm/dl Albumin/Globulin Ratio 0.7 Test 05/27/17 07:13 Bedside Glucose 147 mg/dl Assessment & Plan INTRACTABLE PAIN DUE TO PANCREATIC CA Presented with severe abdominal pain due to pancreatic cancer. Pain Management consulted. Unable to obtain adequate relief with safe dosing of systemic analgesics. Epidural trial went well. Intrathecal pump placed 05/19 with good results. Continue intrathecal morphine + oral hydromorphone PRN. Duloxetine ordered, but not able to administer at this time due to N/V. BILIARY TRACT OBSTRUCTION Has developed jaundice, probably due to underlying pancreatic Ca. Total bilirubin 14.7 yesterday. GI consulted. Gallbladder US demonstrated mild dilatation of CBD, distended gallbladder with wall thickening, sludge, stones. HIDA scan ordered, but could not be completed due to narcotic analgesics. Unable to hold narcotics due to severe cancer-related pain. CT demonstrating enlarging pancreatic mass with compression on common bile duct. ERCP with attempted biliary stent placement planned for today. NAUSEA / VOMITING Severe nausea and vomiting with minimal benefit from anti-emetics. Nausea and vomiting probably multifactorial, due to underlying pancreatic Ca + biliary tract disease. Upper endoscopic evaluation planned for today. OPIATE-INDUCED CONSTIPATION Continue docusate sodium, polyethylene, methylnaltrexone PRN. PANCREATIC CA Discussed with Medical Oncology. 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 Receiving palliative chemotherapy. Prognosis difficult to predict, but expected to be > 6 months. DM TYPE 2 Usually managed with metformin at home. Hgb A1C 7.6 on 05/03/17. Hold metformin during hospital stay. FBS today = 147. Continue Lantus / NovoLog per protocol. VITAMIN D DEFICIENCY 25-OH D = 21. Supplement. ANXIETY / DEPRESSION Secondary to pain and underlying malignancy. Receiving duloxetine for pain management (although being held for N/V). Added PRN lorazepam for anxiety or insomnia. UTI Urine culture 05/20 grew Pseudomonas aeruginosa. Treated initially with ciprofloxacin. Changed treatment to piperacillin / tazobactam due to confusion. CONFUSION More confused past few days. CT negative for mass, vascular event. Confusion most likely secondary to meds. Was receiving scopolamine and ciprofloxacin, both of which have anticholinergic side effects. Scopolamine and ciprofloxacin discontinued 05/24. Less confused today. NUTRITION Oral intake has been poor due to GI symptoms. May need to consider enteral or parenteral nutritional support. VTE PROPHYLAXIS SQ enoxaparin- hold for invasive procedures. SCD's. Ambulate. DISPOSITION Expected discharge to home with home health services. Family Medicine follow-up with Dr. Bush. Medical Oncology follow-up with Dr. Hinojosa. Pain Management follow-up with Dr. Rogers. . Consultants: Pain Management-Dr. Venkatesh WAY-MARY Magdaleno Current Inpatient Medications: Current Inpatient Medications Medications (Trade) Dose Ordered Sig/Yolis Route Start Time Stop Time Status Last Admin Dose Admin Acetaminophen (Tylenol Tab) 650 mg Q4H PRN PO 05/10/17 11:15 06/09/17 11:14 05/25/17 03:37 650 MG Bisacodyl (Dulcolax Tab) 5 mg BID PRN PO 05/10/17 11:45 06/09/17 11:44 Polyethylene (Miralax Powder Packet) 17 gm DAILY PRN PO 05/10/17 11:45 06/09/17 11:44 05/11/17 07:49 17 GM Insulin Aspart (novoLOG ASPART) SLIDING SCALE If C... ACHS SC 05/10/17 16:30 06/09/17 16:29 05/26/17 20:43 1 UNITS Glucose (Glucose 40% Gel) 15-30 GRAMS 15 GRAMS... UD PRN PO 05/10/17 13:00 06/09/17 12:59 Glucose (Glucose Chew Tab) 4-8 Tablets 4 Tabl... UD PRN PO 05/10/17 13:00 06/09/17 12:59 Dextrose (Dextrose 50% 50ML Syringe) 25-50ML OF 50% DW IV FOR... UD PRN IV 05/10/17 13:00 06/09/17 12:59 Glucagon (Glucagon Inj) 1 mg UD PRN SQ 05/10/17 13:00 06/09/17 12:59 Miscellaneous (Iv Fluids Completed) 1 ea PRN PRN N/A 05/10/17 14:30 05/10/18 14:29 Duloxetine HCl (Cymbalta Cap) 60 mg QAM PO 05/12/17 10:00 06/11/17 09:59 05/22/17 08:17 60 MG Docusate Sodium (coLACE CAP) 100 mg BID PO 05/12/17 20:00 06/11/17 19:59 05/26/17 20:46 100 MG Cholecalciferol (Vitamin D Tab) 1,000 inter.unit QAM PO 05/13/17 08:00 06/12/17 07:59 Future Hold 05/22/17 08:16 1,000 INTER.UNIT Lorazepam (Ativan Tab) 0.5 mg Q8 PRN PO 05/13/17 11:15 06/12/17 11:14 05/25/17 15:37 0.5 MG Polyethylene (Miralax Powder Packet) 17 gm BID PO 05/15/17 20:00 06/11/17 07:59 Future Hold 05/23/17 22:44 17 GM Naloxone HCl (Narcan Inj) 0.4 mg PRN PRN IV 05/16/17 09:15 06/15/17 09:14 05/19/17 23:21 0.4 MG Naloxone HCl (Narcan Inj) 0.4 mg PRN PRN IV 05/16/17 09:15 06/15/17 09:14 Magnesium Citrate (Citrate Of Magnesia Soln) 30 ml DAILY PRN PO 05/16/17 09:15 06/15/17 09:14 Ondansetron HCl (Zofran Inj) 4 mg Q6H IV 05/22/17 15:00 06/21/17 14:59 05/27/17 09:23 4 MG Enoxaparin Sodium (Lovenox Inj) 40 mg QAM SQ 05/23/17 08:00 06/22/17 07:59 Future Hold 05/26/17 09:05 40 MG Acetaminophen/ Hydrocodone Bitart ([place] 5/325 Tab) 1 tab Q4H PRN PO 05/23/17 09:30 06/06/17 09:29 Piperacillin Sod/ Tazobactam Sod 3.375 gm/Dextrose 115 ml @ 28.75 mls/ hr Q8H IV 05/25/17 14:00 05/30/17 08:59 05/27/17 05:24 28.75 MLS/HR Piperacillin Sod/ Tazobactam Sod (Consult) 1 ea UD PRN N/A 05/25/17 09:00 06/24/17 08:59 Ioversol (Optiray 320) 100 ml UD PRN IV 05/25/17 11:00 05/29/17 10:59 Dronabinol (Marinol Cap) 2.5 mg BID@0700,1600 PO 05/26/17 07:00 06/22/17 08:59 Potassium Chloride 40 meq/ Magnesium Sulfate 1 gm/Dextrose/ Sodium Chloride 1,022 ml @ 100 mls/hr [id number] IV 05/26/17 08:00 06/25/17 07:59 05/27/17 05:24 100 MLS/HR Famotidine 20 mg/ Syringe 5 ml @ 2.5 mls/min Q12H IV 05/26/17 09:00 06/25/17 08:59 05/27/17 09:22 2.5 MLS/MIN Insulin Glargine (Lantus Solostar Pen) 6 units BID SC 05/26/17 20:00 06/25/17 19:59 05/27/17 09:21 6 UNITS
--- NOTE | 2017-05-27 11:32 | Endo History and Physical ---
History & Physical Date of Service: May 27, 2017. Chief Complaint: Biliary obstruction Referring Physician: Dr. Kaur History of Present Illness Patient with nonresectable pancreatic neuroendocrine tumor now with jaundice, nausea and vomitting. ERCP requested for biliary decompression. Past Medical History Cancer Past Surgical History Hx Cardiac Surgery: No Hx Abdominal Surgery: Yes (laparotomy) Hx Post-Op Nausea and Vomiting: No Hx Cancer Surgery: No Hx Thoracic Surgery: No Hx Orthopedic: No Hx Urinary Tract Surgery: No Social History Smoking Status: Never Smoker Hx Substance Use: Yes (Intrathecal pain pump - morphine) Hx Alcohol Use: No Allergies Coded Allergies: No Known Allergies (Unverified , 05/02/17) Current Medications Reported Home Medications Medications Dose Route/Sig Max Daily Dose Days Date Category Metformin HCl 500 Mg Tab 500 Mg PO QDB 30 05/09/17 Rx Hydromorphone HCl 2 Mg Tab 4 Mg PO Q3HWA PRN 10 05/09/17 Rx Fentanyl 25 Mcg Tdsy 25 Mcg TD Q72H 10 05/09/17 Rx Fentanyl 100 Mcg Tdsy 100 Mcg TD Q72H 10 05/09/17 Rx Fentanyl 12 Mcg Tdsy 1 Patch TD Q72H 10 05/09/17 Rx Bisacodyl EC (Bisacodyl) 5 Mg Tabec 1 Tab PO BID PRN 04/26/17 Reported Miralax (Polyethylene Glycol 3350) 1 Pow Pow 17 Gm PO DAILY PRN 04/24/17 Reported Zofran (Ondansetron HCl) 8 Mg Tab 8 Mg PO Q8 PRN 04/11/17 Reported Vital Signs Weight (Kilograms): 77.100 Height (Feet): 6 Height (Inches): 0.00 Date Time Temp Pulse Resp B/P (MAP) Pulse Ox O2 Delivery O2 Flow Rate FiO2 05/27/17 08:00 Room Air 05/27/17 03:14 36.7 81 18 119/76 (90) 97 Room Air 05/27/17 00:00 Room Air 05/26/17 22:51 37.0 84 18 109/58 (75) 95 Room Air 05/26/17 19:31 37.0 80 18 125/70 (88) 98 Room Air 05/26/17 16:00 Room Air 05/26/17 15:09 36.7 91 20 120/68 (85) 97 Physical Exam General Appearance: + mild distress Respiratory/Chest: Respiratory effort: no dyspnea Auscultation: deminished air movement Cardiovascular: Heart Auscultation: RRR Abdomen: Inspection & Palpation: RUQ tenderness Assessment and Plan Evaluation for jaundice and nausea/vomiting with a prior history a nonresectable pancreatic neuroendocrine tumor. The history is somewhat concerning for Gastric Outlet Obstruction and we are planning for EGD today with enteral stenting if needed. We have discussed the risks of ERCP and EGD to include bleeding, infection, perforation, pain, pancreatitis, and failed cannulation. Plan EGD (r/o duodenal stricture + possible enteral stenting) ERCP (Biliary stent placement)
[2017-05-27] MEDS ORDERED: INDOMETHACIN 50 MG SUPP PR ONE (11:57)
[2017-05-27] MEDS ORDERED: FENTANYL CITRATE INJ 50 MCG/1 ML 2 ML VIAL ONE (12:00)
[2017-05-27] MEDS ORDERED: MIDAZOLAM HCL 1 MG/ML 2ML VIAL ONE (12:00)
[2017-05-27] MEDS ORDERED: PROPOFOL IV EMULSION 10 MG/ML 20 ML VIAL IV ONE (12:25)
[2017-05-27] MEDS ORDERED: ONDANSETRON INJ 2 MG/ML 2 ML VIAL ONE (12:25)
[2017-05-27] MEDS ORDERED: SUCCINYLCHOLINE 100MG/5ML SYR IV ONE (12:25)
[2017-05-27] MEDS ORDERED: LIDOCAINE HCL 2% 2 ML VIAL (20MG/ML) ONE (12:25)
[2017-05-27] MEDS ORDERED: ROCURONIUM BROMIDE 10 MG/ML 5 ML VIAL IV ONE (12:25)
--- NOTE | 2017-05-27 12:26 | GI REPORT ---
Procedure Date: 05/27/2017 11:56 AM Procedure: Upper GI endoscopy Indications: Abnormal MRI of the GI tract Medicines: General Anesthesia Complications: No immediate complications. Estimated blood loss: Minimal. Estimated Blood Loss: Estimated blood loss was minimal. Procedure: Pre-Anesthesia Assessment: - Prior to the procedure, a History and Physical was performed, and patient medications, allergies and sensitivities were reviewed. The patient's tolerance of previous anesthesia was reviewed. - The risks and benefits of the procedure and the sedation options and risks were discussed with the patient. All questions were answered and informed consent was obtained. - Patient identification and proposed procedure were verified prior to the procedure by the physician, the nurse and the conflicts analyst. The procedure was verified in the procedure room. - Pre-procedure physical examination revealed no contraindications to sedation. - ASA Grade Assessment: IV - A patient with severe systemic disease that is a constant threat to life. - After reviewing the risks and benefits, the patient was deemed in satisfactory condition to undergo the procedure. - The anesthesia plan was to use general anesthesia. - Immediately prior to administration of medications, the patient was re-assessed for adequacy to receive sedatives. - The heart rate, respiratory rate, oxygen saturations, blood pressure, adequacy of pulmonary ventilation, and response to care were monitored throughout the procedure. - The physical status of the patient was re-assessed after the procedure. After obtaining informed consent, the endoscope was passed under direct vision. Throughout the procedure, the patient's blood pressure, pulse, and oxygen saturations were monitored continuously. The upper GI endoscopy was accomplished without difficulty. The patient tolerated the procedure well. The scope was introduced through the mouth, and advanced to the third part of duodenum. Findings: LA Grade C (one or more mucosal breaks continuous between tops of 2 or more mucosal folds, less than 75% circumference) esophagitis with no bleeding was found 22 to 38 cm from the incisors. No gross lesions were noted in the entire examined stomach. One non-obstructing non-bleeding cratered duodenal ulcer with no stigmata of bleeding was found in the first part of the duodenum. The lesion was 15 mm in largest dimension. Biopsies were taken with a cold forceps for histology. Estimated blood loss was minimal. Multiple diffuse erosions without bleeding were found in the second part of the duodenum. Impression: - LA Grade C reflux esophagitis. - No gross lesions in the stomach. - One non-obstructing non-bleeding duodenal ulcer with no stigmata of bleeding. Biopsied. - Duodenal erosions without bleeding. Recommendation: - Perform an ERCP today. - Await pathology results. Gilmer Alexis D.O. Gilmer Alexis, 05/27/2017 12:26:38 PM This report has been signed electronically. Note Initiated On: 05/27/2017 11:56 AM I attest to the content of the Intraoperative Record and orders documented therein, exceptions below
[2017-05-27] MEDS ORDERED: ATROPINE SULFATE 0.1 MG/ML 5ML SYR IV PRN (12:45)
[2017-05-27] MEDS ORDERED: LABETALOL HCL IV 5 MG/ML 20ML IV PRN (12:45)
[2017-05-27] MEDS ORDERED: NALOXONE HCL 0.4 MG/1 ML VIAL/CARP IV PRN (12:45)
[2017-05-27] MEDS ORDERED: HYDROmorphone INJ 1 MG/ML SYR IV PRN (12:45)
[2017-05-27] MEDS ORDERED: ONDANSETRON INJ 2 MG/ML 2 ML VIAL IV PRN (12:45)
[2017-05-27] MEDS ORDERED: EpHEDrine SULFATE INJ 50 MG/ML AMP IV PRN (12:45)
[2017-05-27] MEDS ORDERED: PROMETHAZINE HCL INJ 12.5 MG in SODIUM CHLORIDE 0.9% 50ML 50 ML IV PRN (12:45)
[2017-05-27] MEDS ORDERED: FLUMAZENIL 0.1 MG/1 ML 10 ML VIAL IV PRN (12:45)
--- NOTE | 2017-05-27 12:55 | DIAGNOSTIC IMAGING REPORT ---
ERCP BILIARY DUCTAL CLINICAL HISTORY: ERCP IN [facility] COMPARISON STUDY: None FLUOROSCOPY TIME: 1 minute 29 seconds. FINDINGS: Fluoroscopic assistance is provided for ERCP with an associated stent placement. Images show retrograde opacification of components of the common bile duct as well as cystic duct. This is followed by successful stent placement. No evidence for contrast extravasation. IMPRESSION: Successful common bile duct stent placement. The above report was generated using voice recognition software. It may contain grammatical, syntax or spelling errors. Electronically signed by: Sergio Peck M.D. 05/27/2017 12:54 PM Dictated Date/Time: 05/27/2017 12:53 PM
--- NOTE | 2017-05-27 13:00 | GI REPORT ---
Procedure Date: 05/27/2017 12:26 PM Procedure: ERCP Indications: Abdominal pain of suspected biliary origin, Jaundice, Malignant tumor of the head of pancreas Medicines: General Anesthesia, Indocin 100 mg NV Complications: No immediate complications. Estimated blood loss: Minimal. Estimated Blood Loss: Estimated blood loss was minimal. Procedure: Pre-Anesthesia Assessment: - Prior to the procedure, a History and Physical was performed, and patient medications, allergies and sensitivities were reviewed. The patient's tolerance of previous anesthesia was reviewed. - The risks and benefits of the procedure and the sedation options and risks were discussed with the patient. All questions were answered and informed consent was obtained. - Patient identification and proposed procedure were verified prior to the procedure by the physician, the nurse and the strategic marketing specialist. The procedure was verified in the procedure room. - Pre-procedure physical examination revealed no contraindications to sedation. - ASA Grade Assessment: IV - A patient with severe systemic disease that is a constant threat to life. - After reviewing the risks and benefits, the patient was deemed in satisfactory condition to undergo the procedure. - The anesthesia plan was to use general anesthesia. - Immediately prior to administration of medications, the patient was re-assessed for adequacy to receive sedatives. - The heart rate, respiratory rate, oxygen saturations, blood pressure, adequacy of pulmonary ventilation, and response to care were monitored throughout the procedure. - The physical status of the patient was re-assessed after the procedure. After obtaining informed consent, the scope was passed under direct vision. Throughout the procedure, the patient's blood pressure, pulse, and oxygen saturations were monitored continuously. The Scope was introduced through the mouth, and advanced to the duodenum and used to inject contrast into the bile duct. The ERCP was accomplished without difficulty. The patient tolerated the procedure well. Findings: The total fluoroscopy exposure time was 1 minute and 28 seconds. The sueding and buffing machine operator film was normal. The esophagus was successfully intubated under direct vision. The scope was advanced from the mouth to the duodenum. The pharynx, larynx and associated structures, as well as the upper GI tract, were normal. The major papilla was erythematous. The bile duct was deeply cannulated with the short-nosed traction sphincterotome (Omni 35) and 0.025 Acrobat 2 guidewire during the 4th attempt (unable to cannulate with a 0.035 in Acrobat 2). Contrast was injected. I personally interpreted the bile duct images. Contrast extended to the hepatic ducts. The lower third of the main bile duct and middle third of the main bile duct contained a single segmental stenosis 35 to 40 mm mm in length, consistent with his known pancreatic malignancy. Biliary sphincterotomy was made with a monofilament short-tip traction sphincterotome using ERBE electrocautery. There was no post-sphincterotomy bleeding. One 10 Fr by 6 cm metal stent ([employer], LOT [id number], Ref [id number]) was placed 6 cm into the common bile duct. Dark, thick bile flowed through the stent. The stent was in good position. The endoscope was withdrawn from the patient. Impression: - The major papilla appeared erythematous. - A segmental biliary stricture was found. The stricture was malignant appearing. - A sphincterotomy was performed. - One 6 cm uncovered metal stent was placed into the common bile duct. Recommendation: - Avoid aspirin and nonsteroidal anti-inflammatory medicines for 1 week. - Return patient to [facility] for ongoing care. - Clear liquid diet today. - Continue antibiotic coverage for another 5 days. Gilmer Alexis D.O. Gilmer Alexis, 05/27/2017 1:00:25 PM This report has been signed electronically. Note Initiated On: 05/27/2017 12:26 PM I attest to the content of the Intraoperative Record and orders documented therein, exceptions below
--- NOTE | 2017-05-27 13:13 | [facility] Post Operative Brief Note ---
Immediate Operative Summary Operative Date May 27, 2017. Pre-Operative Diagnosis Biliary obstruction Post-Operative Diagnosis Biliary obstruction /duodenal ulcer Procedure(s) Performed Endoscopic Retrograde Cholangiopancreatogram, Sphincterotomy, Common bile duct stent placement, Esophagogastroduodenoscopy with biopsies Surgeon Dr. Gilmer Alexis Methods Engineer Surgeon(s) None Estimated Blood Loss 0 mL Findings Malignant biliary stricture 15 mm duodenal ulcer Specimens 1) Duodenal ulcer Drains Biliary stent placed Anesthesia General Complication(s) None Disposition Recovery Room / PACU
--- NOTE | 2017-05-27 13:15 | Progress Note ---
Progress Note Date of Service May 27, 2017. Progress Note The patient underwent upper endoscopy and ERCP this afternoon. Findings Large duodenal ulcer (biopsied) Malignant biliary stricture (stent placed) Recommendations Clear liquid diet today Continue IV antibiotics for at least 5 days Daily CMP Protonix 40 mg twice daily Avoid nonsteroidals
--- NOTE | 2017-05-27 13:43 | Anesthesiology Progress Note ---
Anesthesia Post Op Note Date & Time May 27, 2017 at 13:41 Vital Signs Pain Intensity: 0 Vital Signs Past 12 Hours Date Time Temp Pulse Resp B/P (MAP) Pulse Ox O2 Delivery O2 Flow Rate FiO2 05/27/17 13:30 36.7 94 16 114/73 100 Oxymask 4 05/27/17 13:20 94 18 117/76 100 Oxymask 4 05/27/17 13:10 96 14 118/72 100 Oxymask 10 05/27/17 13:00 97 18 111/72 100 Oxymask 10 05/27/17 12:56 36.1 99 16 97/67 100 Oxymask 10 05/27/17 11:22 36.9 107 18 115/72 (86) 98 Room Air 05/27/17 08:00 Room Air 05/27/17 03:14 36.7 81 18 119/76 (90) 97 Room Air Notes Mental Status: alert / awake / arousable, participated in evaluation, see Notes Pt Amnestic to Procedure: Yes Nausea / Vomiting: adequately controlled Pain: adequately controlled Airway Patency, RR, SpO2: stable & adequate BP & HR: stable & adequate Hydration State: stable & adequate Anesthetic Complications: no major complications apparent pt arrived to OR with obtunded sensorium;acting lethargic
[2017-05-27] MEDS: PANTOprazole SOD 40 MG TAB PO SCH (21:35)
[2017-05-28] MEDS: D5W AND NSS IV SCH ×2 (01:29→11:27)
[2017-05-28] MEDS: MAG SULFATE IV SCH ×2 (01:29→11:27)
[2017-05-28] MEDS: POTASSIUM CHLORIDE IV SCH ×2 (01:29→11:27)
[2017-05-28] MEDS: ONDANSETRON INJ 2 MG/ML 2 ML VIAL IV SCH ×4 (03:51→20:43)
[2017-05-28 05:15] VITALS: BP 111/70; PULSE 98; TEMP 36.6; O2SAT 99
[2017-05-28] MEDS: PIPERACILL/TAZOBAC IV 3.375 GM in DEXTROSE 5% 100ML 100 ML IV SCH ×3 (06:24→22:16)
[2017-05-28 06:45] LABS: HEMATOCRIT 27.1 % (42-52); MEAN CELL VOLUME 86.3 fL (80-100); MEAN CORPUSCULAR HEMOGLOBIN 29.6 pg (25-34); MEAN CORPUSCULAR HGB CONC 34.3 g/dl (32-36); MEAN PLATELET VOLUME 11.3 fL (7.4-10.4); PLATELET COUNT 200 K/uL (130-400); RED BLOOD COUNT 3.14 M/uL (4.7-6.1); WHITE BLOOD COUNT 17.49 K/uL (4.8-10.8)
[2017-05-28] MEDS: DRONABINOL 2.5 MG CAP PO SCH ×2 (07:00→16:00)
[2017-05-28 07:19] LABS: CALCIUM 7.9 mg/dl (8.5-10.1); CREATININE 0.81 mg/dl (0.60-1.40); POTASSIUM 3.9 mmol/L (3.5-5.1)
[2017-05-28 07:20] VITALS: BP 111/69; PULSE 82; TEMP 36.7; O2SAT 98
[2017-05-28 07:23] LABS: ALB/GLOB RATIO 0.7 (0.9-2)
[2017-05-28] MEDS: DULOXETINE HCL 60 MG CAP PO SCH (08:08)
[2017-05-28] MEDS: DOCUSATE SODIUM 100 MG CAP PO SCH ×2 (08:08→20:37)
[2017-05-28] MEDS: PANTOprazole SOD 40 MG TAB PO SCH ×2 (08:08→20:37)
[2017-05-28] MEDS: FAMOTIDINE IV INJ 20 MG in SYRINGE 3 ML IV SCH ×2 (08:12→20:43)
--- NOTE | 2017-05-28 08:40 | Gastroenterology Progress Note ---
Progress Note Date of Service: May 28, 2017 Subjective Pt evaluation today including: conversation w/ patient, physical exam Patient seated upright in bed today. He is able to carry a full conversation today. He does not appear to be confused and seems to be appropriate with affect and mental status. Review of Systems Constitutional: No fever, No sweats Respiratory: No cough, No wheezing Abdomen: No pain, No nausea, No vomiting Medications Current Inpatient Medications Medications (Trade) Dose Ordered Sig/Yolis Route Start Time Stop Time Status Last Admin Dose Admin Acetaminophen (Tylenol Tab) 650 mg Q4H PRN PO 05/10/17 11:15 06/09/17 11:14 05/25/17 03:37 650 MG Bisacodyl (Dulcolax Tab) 5 mg BID PRN PO 05/10/17 11:45 06/09/17 11:44 Polyethylene (Miralax Powder Packet) 17 gm DAILY PRN PO 05/10/17 11:45 06/09/17 11:44 05/11/17 07:49 17 GM Insulin Aspart (novoLOG ASPART) SLIDING SCALE If C... ACHS SC 05/10/17 16:30 06/09/17 16:29 05/27/17 18:41 1 UNITS Glucose (Glucose 40% Gel) 15-30 GRAMS 15 GRAMS... UD PRN PO 05/10/17 13:00 06/09/17 12:59 Glucose (Glucose Chew Tab) 4-8 Tablets 4 Tabl... UD PRN PO 05/10/17 13:00 06/09/17 12:59 Dextrose (Dextrose 50% 50ML Syringe) 25-50ML OF 50% DW IV FOR... UD PRN IV 05/10/17 13:00 06/09/17 12:59 Glucagon (Glucagon Inj) 1 mg UD PRN SQ 05/10/17 13:00 06/09/17 12:59 Miscellaneous (Iv Fluids Completed) 1 ea PRN PRN N/A 05/10/17 14:30 05/10/18 14:29 Duloxetine HCl (Cymbalta Cap) 60 mg QAM PO 05/12/17 10:00 06/11/17 09:59 05/28/17 08:08 60 MG Docusate Sodium (coLACE CAP) 100 mg BID PO 05/12/17 20:00 06/11/17 19:59 05/28/17 08:08 100 MG Cholecalciferol (Vitamin D Tab) 1,000 inter.unit QAM PO 05/13/17 08:00 06/12/17 07:59 Future Hold 05/22/17 08:16 1,000 INTER.UNIT Lorazepam (Ativan Tab) 0.5 mg Q8 PRN PO 05/13/17 11:15 06/12/17 11:14 05/25/17 15:37 0.5 MG Polyethylene (Miralax Powder Packet) 17 gm BID PO 05/15/17 20:00 06/11/17 07:59 Future Hold 05/23/17 22:44 17 GM Naloxone HCl (Narcan Inj) 0.4 mg PRN PRN IV 05/16/17 09:15 06/15/17 09:14 05/19/17 23:21 0.4 MG Naloxone HCl (Narcan Inj) 0.4 mg PRN PRN IV 05/16/17 09:15 06/15/17 09:14 Magnesium Citrate (Citrate Of Magnesia Soln) 30 ml DAILY PRN PO 05/16/17 09:15 06/15/17 09:14 Ondansetron HCl (Zofran Inj) 4 mg Q6H IV 05/22/17 15:00 06/21/17 14:59 05/28/17 08:12 4 MG Enoxaparin Sodium (Lovenox Inj) 40 mg QAM SQ 05/23/17 08:00 06/22/17 07:59 Future Hold 05/26/17 09:05 40 MG Acetaminophen/ Hydrocodone Bitart ([place] 5/325 Tab) 1 tab Q4H PRN PO 05/23/17 09:30 06/06/17 09:29 Piperacillin Sod/ Tazobactam Sod 3.375 gm/Dextrose 115 ml @ 28.75 mls/ hr Q8H IV 05/25/17 14:00 05/30/17 08:59 05/28/17 06:24 28.75 MLS/HR Piperacillin Sod/ Tazobactam Sod (Consult) 1 ea UD PRN N/A 05/25/17 09:00 06/24/17 08:59 Ioversol (Optiray 320) 100 ml UD PRN IV 05/25/17 11:00 05/29/17 10:59 Dronabinol (Marinol Cap) 2.5 mg BID@0700,1600 PO 05/26/17 07:00 06/22/17 08:59 Potassium Chloride 40 meq/ Magnesium Sulfate 1 gm/Dextrose/ Sodium Chloride 1,022 ml @ 100 mls/hr [id number] IV 05/26/17 08:00 06/25/17 07:59 05/27/17 14:32 100 MLS/HR Famotidine 20 mg/ Syringe 5 ml @ 2.5 mls/min Q12H IV 05/26/17 09:00 06/25/17 08:59 05/28/17 08:12 2.5 MLS/MIN Insulin Glargine (Lantus Solostar Pen) 6 units BID SC 05/26/17 20:00 06/25/17 19:59 05/27/17 21:39 6 UNITS Pantoprazole Sodium (Protonix Tab) 40 mg BID PO 05/27/17 20:00 06/26/17 19:59 05/28/17 08:08 40 MG Methylnaltrexone [place] (Relistor Inj) 12 mg Q2D SQ 05/28/17 10:00 06/27/17 09:59 Objective Vital Signs Date Time Temp Pulse Resp B/P (MAP) Pulse Ox O2 Delivery O2 Flow Rate FiO2 05/28/17 07:20 36.7 82 21 111/69 (83) 98 Room Air 05/28/17 05:15 36.6 98 18 111/70 (84) 99 Room Air 05/28/17 00:00 Room Air 05/27/17 23:21 36.7 81 20 122/70 (87) 100 Room Air 05/27/17 20:00 Room Air 05/27/17 19:02 37.2 05/27/17 18:49 95 18 119/67 (84) 96 05/27/17 15:45 Room Air 05/27/17 14:47 36.8 86 20 114/68 (83) 100 Room Air 05/27/17 13:57 37.3 88 20 115/73 (87) 100 Room Air 05/27/17 13:56 100 Room Air 05/27/17 13:30 36.7 94 16 114/73 100 Oxymask 4 05/27/17 13:20 94 18 117/76 100 Oxymask 4 05/27/17 13:10 96 14 118/72 100 Oxymask 10 05/27/17 13:00 97 18 111/72 100 Oxymask 10 05/27/17 12:56 36.1 99 16 97/67 100 Oxymask 10 05/27/17 11:22 36.9 107 18 115/72 (86) 98 Room Air Physical Exam General Appearance: no apparent distress Eyes: + pertinent finding (scleral icterus noted) Neck: no JVD Respiratory/Chest: lungs clear Cardiovascular: no JVD, no murmur Abdomen: soft Skin: + jaundice Laboratory Results Last 24 Hours Test 05/27/17 11:13 05/27/17 13:09 05/27/17 16:24 05/27/17 20:17 Bedside Glucose 186 mg/dl 158 mg/dl 166 mg/dl 146 mg/dl Test 05/28/17 06:04 05/28/17 07:44 White Blood Count 17.49 K/uL Red Blood Count 3.14 M/uL Hemoglobin 9.3 g/dL Hematocrit 27.1 % Mean Corpuscular Volume 86.3 fL Mean Corpuscular Hemoglobin 29.6 pg Mean Corpuscular Hemoglobin Concent 34.3 g/dl RDW Standard Deviation 54.5 fL RDW Coefficient of Variation 17.3 % Platelet Count 200 K/uL Mean Platelet Volume 11.3 fL Sodium Level 126 mmol/L Potassium Level 3.9 mmol/L Chloride Level 95 mmol/L Carbon Dioxide Level 22 mmol/L Anion Gap 9.0 mmol/L Creatinine 0.81 mg/dl Est Creatinine Clear Calc Drug Dose 98.5 ml/min Estimated GFR () 107.3 Estimated GFR (Non- 92.6 BUN/Creatinine Ratio 18.0 Random Glucose 159 mg/dl Calcium Level 7.9 mg/dl Total Bilirubin 8.5 mg/dl Aspartate Amino Transf (AST/SGOT) 16 U/L Alanine Aminotransferase (ALT/SGPT) 52 U/L Alkaline Phosphatase 181 U/L Total Protein 5.5 gm/dl Albumin 2.2 gm/dl Globulin 3.3 gm/dl Albumin/Globulin Ratio 0.7 Bedside Glucose 158 mg/dl Assessment and Plan 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 His bilirubin has fallen from 14-8 overnight although his white blood cell count is somewhat increased today. Of more importance is his mental status which is markedly improved compared to prior evaluations. Recommendations Continue with broad-spectrum antibiotics for another 10 days Continue to trend labs Advance diet as tolerated Protonix twice daily for 6 weeks then 1 time daily thereafter due to duodenal ulcer
[2017-05-28] MEDS: INSULIN ASPART 100 UNITS/ML 3 ML PEN SC SCH ×4 (09:32→20:36)
[2017-05-28] MEDS: INSULIN GLARGINE SOLOSTAR 100 UNITS/ML 3 ML PEN SC SCH ×2 (09:33→20:36)
[2017-05-28] MEDS ORDERED: METHYLNALTREXONE BROMIDE INJ 12 MG/0.6 ML SYR SQ SCH (10:00)
[2017-05-28 11:07] VITALS: BP 122/71; PULSE 92; TEMP 37.1; O2SAT 100
[2017-05-28 16:02] VITALS: BP 113/73; PULSE 85; TEMP 37; O2SAT 100
[2017-05-28 20:24] VITALS: BP 118/72; PULSE 79; TEMP 36.6; O2SAT 100
--- NOTE | 2017-05-28 20:39 | Progress Note ---
Medicine Progress Note Date & Time of Visit: May 28, 2017 at 09:05 . Subjective EGD and MRCP with biliary stent placement performed yesterday. Found to have esophagitis as well as a nonbleeding duodenal ulcer. Started on PPI. Feels significantly better today. Appetite improved; enjoying clear liquids for breakfast without nausea or vomiting. No significant abdominal pain. No bowel movement for several days. No cough or shortness of breath. . Objective Last 8 Hrs Date Time Temp Pulse Resp B/P (MAP) Pulse Ox O2 Delivery O2 Flow Rate FiO2 05/28/17 20:24 36.6 79 18 118/72 (87) 100 Room Air 05/28/17 16:02 37.0 85 20 113/73 (86) 100 Room Air 05/28/17 16:00 Room Air Physical Exam: General- lying in bed, no distress Eyes- sclerae icteric Lungs- clear Heart- RRR, no gallop Abdomen- + BS, soft, epigastric fullness, nontender Extremities- no pretibial edema or calf tenderness Neuro- more alert Skin- icteric, warm & dry . Laboratory Results: Last 24 Hours Test 05/28/17 00:00 05/28/17 06:04 05/28/17 07:44 05/28/17 11:36 Urine Osmolality 585 mOms/kg White Blood Count 17.49 K/uL Red Blood Count 3.14 M/uL Hemoglobin 9.3 g/dL Hematocrit 27.1 % Mean Corpuscular Volume 86.3 fL Mean Corpuscular Hemoglobin 29.6 pg Mean Corpuscular Hemoglobin Concent 34.3 g/dl RDW Standard Deviation 54.5 fL RDW Coefficient of Variation 17.3 % Platelet Count 200 K/uL Mean Platelet Volume 11.3 fL Sodium Level 126 mmol/L Potassium Level 3.9 mmol/L Chloride Level 95 mmol/L Carbon Dioxide Level 22 mmol/L Anion Gap 9.0 mmol/L Blood Urea Nitrogen 15 mg/dl Creatinine 0.81 mg/dl Est Creatinine Clear Calc Drug Dose 98.5 ml/min Estimated GFR () 107.3 Estimated GFR (Non- 92.6 BUN/Creatinine Ratio 18.0 Random Glucose 159 mg/dl Calcium Level 7.9 mg/dl Total Bilirubin 8.5 mg/dl Aspartate Amino Transf (AST/SGOT) 16 U/L Alanine Aminotransferase (ALT/SGPT) 52 U/L Alkaline Phosphatase 181 U/L Total Protein 5.5 gm/dl Albumin 2.2 gm/dl Globulin 3.3 gm/dl Albumin/Globulin Ratio 0.7 Bedside Glucose 158 mg/dl 191 mg/dl Test 05/28/17 16:51 05/28/17 20:01 Bedside Glucose 186 mg/dl 195 mg/dl Assessment & Plan INTRACTABLE PAIN DUE TO PANCREATIC CA Presented with severe abdominal pain due to pancreatic cancer. Pain Management consulted. Unable to obtain adequate relief with safe dosing of systemic analgesics. Epidural trial went well. Intrathecal pump placed 05/19 with good results. Continue intrathecal morphine + oral hydromorphone PRN. BILIARY TRACT OBSTRUCTION Has developed jaundice, probably due to underlying pancreatic Ca. Total bilirubin as high as 14.8. GI consulted. Gallbladder US demonstrated mild dilatation of CBD, distended gallbladder with wall thickening, sludge, stones. HIDA scan ordered, but could not be completed due to narcotic analgesics. CT demonstrating enlarging pancreatic mass with compression on common bile duct. ERCP with biliary stent placement performed by Dr. Alexis 05/27 with good results. Total bilirubin today = 8.5. Clinically improved. Continue piperacillin / tazobactam for possible cholangitis. NAUSEA / VOMITING Severe nausea and vomiting with minimal benefit from anti-emetics. Nausea and vomiting probably multifactorial, due to underlying pancreatic Ca + biliary tract disease. EGD demonstrated esophagitis and nonbleeding duodenal ulcer. Started on PPI. Biliary stent placed. Symptoms improved today. Advance diet as tolerated. OPIATE-INDUCED CONSTIPATION Continue docusate sodium, polyethylene, methylnaltrexone PRN. PANCREATIC CA Discussed with Medical Oncology. 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 Receiving palliative chemotherapy. Prognosis difficult to predict, but expected to be > 6 months. DM TYPE 2 Usually managed with metformin at home. Hgb A1C 7.6 on 05/03/17. Hold metformin during hospital stay. FBS today = 158. Continue Lantus / NovoLog per protocol. VITAMIN D DEFICIENCY 25-OH D = 21. Supplement. ANXIETY / DEPRESSION Secondary to pain and underlying malignancy. Receiving duloxetine for pain management (although being held for N/V). Added PRN lorazepam for anxiety or insomnia. ABNORMAL UA / BACTERURIA Urine appeared dirty 05/20. UA showed 1+ blood, positive nitrites, trace leukocyte esterase, 3+ bilirubin, no WBC's, no bacteria. Urine culture 05/20 grew Pseudomonas aeruginosa, but < 100,000 CFU. No dysuria. No fever. UTI unlikely in light of above findings. CONFUSION Increasing confusion 05/25. CT negative for mass, vascular event. Confusion most likely secondary to meds. Was receiving scopolamine and ciprofloxacin, both of which have anticholinergic side effects. Scopolamine and ciprofloxacin discontinued 05/24. Improved. NUTRITION Oral intake has been poor due to GI symptoms, but now improving. Advance diet as tolerated. Consult nutrition. VTE PROPHYLAXIS SQ enoxaparin- hold for invasive procedures. SCD's. Ambulate. DISPOSITION Expected discharge to home with home health services, but may need inpatient rehab. Family Medicine follow-up with Dr. Bush. Medical Oncology follow-up with Dr. Hinojosa. Pain Management follow-up with Dr. Rogers. . Consultants: Pain Management-Dr. Venkatesh WAY-[facility] Magdaleno Current Inpatient Medications: Current Inpatient Medications Medications (Trade) Dose Ordered Sig/Yolis Route Start Time Stop Time Status Last Admin Dose Admin Acetaminophen (Tylenol Tab) 650 mg Q4H PRN PO 05/10/17 11:15 06/09/17 11:14 05/25/17 03:37 650 MG Bisacodyl (Dulcolax Tab) 5 mg BID PRN PO 05/10/17 11:45 06/09/17 11:44 Polyethylene (Miralax Powder Packet) 17 gm DAILY PRN PO 05/10/17 11:45 06/09/17 11:44 05/11/17 07:49 17 GM Insulin Aspart (novoLOG ASPART) SLIDING SCALE If C... ACHS SC 05/10/17 16:30 06/09/17 16:29 05/28/17 17:35 1 UNITS Glucose (Glucose 40% Gel) 15-30 GRAMS 15 GRAMS... UD PRN PO 05/10/17 13:00 06/09/17 12:59 Glucose (Glucose Chew Tab) 4-8 Tablets 4 Tabl... UD PRN PO 05/10/17 13:00 06/09/17 12:59 Dextrose (Dextrose 50% 50ML Syringe) 25-50ML OF 50% DW IV FOR... UD PRN IV 05/10/17 13:00 06/09/17 12:59 Glucagon (Glucagon Inj) 1 mg UD PRN SQ 05/10/17 13:00 06/09/17 12:59 Miscellaneous (Iv Fluids Completed) 1 ea PRN PRN N/A 05/10/17 14:30 05/10/18 14:29 Duloxetine HCl (Cymbalta Cap) 60 mg QAM PO 05/12/17 10:00 06/11/17 09:59 05/28/17 08:08 60 MG Docusate Sodium (coLACE CAP) 100 mg BID PO 05/12/17 20:00 06/11/17 19:59 05/28/17 08:08 100 MG Cholecalciferol (Vitamin D Tab) 1,000 inter.unit QAM PO 05/13/17 08:00 06/12/17 07:59 Future Hold 05/22/17 08:16 1,000 INTER.UNIT Lorazepam (Ativan Tab) 0.5 mg Q8 PRN PO 05/13/17 11:15 06/12/17 11:14 05/25/17 15:37 0.5 MG Polyethylene (Miralax Powder Packet) 17 gm BID PO 05/15/17 20:00 06/11/17 07:59 Future Hold 05/23/17 22:44 17 GM Naloxone HCl (Narcan Inj) 0.4 mg PRN PRN IV 05/16/17 09:15 06/15/17 09:14 05/19/17 23:21 0.4 MG Naloxone HCl (Narcan Inj) 0.4 mg PRN PRN IV 05/16/17 09:15 06/15/17 09:14 Magnesium Citrate (Citrate Of Magnesia Soln) 30 ml DAILY PRN PO 05/16/17 09:15 06/15/17 09:14 Ondansetron HCl (Zofran Inj) 4 mg Q6H IV 05/22/17 15:00 06/21/17 14:59 05/28/17 16:16 4 MG Enoxaparin Sodium (Lovenox Inj) 40 mg QAM SQ 05/23/17 08:00 06/22/17 07:59 Future Hold 05/26/17 09:05 40 MG Acetaminophen/ Hydrocodone Bitart ([place] 5/325 Tab) 1 tab Q4H PRN PO 05/23/17 09:30 06/06/17 09:29 Piperacillin Sod/ Tazobactam Sod 3.375 gm/Dextrose 115 ml @ 28.75 mls/ hr Q8H IV 05/25/17 14:00 05/30/17 08:59 05/28/17 13:33 28.75 MLS/HR Piperacillin Sod/ Tazobactam Sod (Consult) 1 ea UD PRN N/A 05/25/17 09:00 06/24/17 08:59 Ioversol (Optiray 320) 100 ml UD PRN IV 05/25/17 11:00 05/29/17 10:59 Dronabinol (Marinol Cap) 2.5 mg BID@0700,1600 PO 05/26/17 07:00 06/22/17 08:59 Potassium Chloride 40 meq/ Magnesium Sulfate 1 gm/Dextrose/ Sodium Chloride 1,022 ml @ 100 mls/hr [id number] IV 05/26/17 08:00 06/25/17 07:59 05/28/17 11:27 100 MLS/HR Famotidine 20 mg/ Syringe 5 ml @ 2.5 mls/min Q12H IV 05/26/17 09:00 06/25/17 08:59 05/28/17 08:12 2.5 MLS/MIN Insulin Glargine (Lantus Solostar Pen) 6 units BID SC 05/26/17 20:00 06/25/17 19:59 05/28/17 09:33 6 UNITS Pantoprazole Sodium (Protonix Tab) 40 mg BID PO 05/27/17 20:00 06/26/17 19:59 05/28/17 08:08 40 MG Methylnaltrexone [place] (Relistor Inj) 12 mg Q2D SQ 05/28/17 10:00 06/27/17 09:59 05/28/17 09:33 12 MG
[2017-05-28 23:56] VITALS: BP 120/74; PULSE 79; TEMP 36.9; O2SAT 98
[2017-05-29] MEDS: ONDANSETRON INJ 2 MG/ML 2 ML VIAL IV SCH ×4 (04:00→21:00)
[2017-05-29 04:17] VITALS: BP 123/77; PULSE 76; TEMP 36.9; O2SAT 99
[2017-05-29] MEDS: PIPERACILL/TAZOBAC IV 3.375 GM in DEXTROSE 5% 100ML 100 ML IV SCH ×3 (05:26→21:33)
[2017-05-29] MEDS: INSULIN ASPART 100 UNITS/ML 3 ML PEN SC SCH ×4 (06:30→20:22)
[2017-05-29 06:36] LABS: HEMATOCRIT 25.7 % (42-52); MEAN CELL VOLUME 86.5 fL (80-100); MEAN CORPUSCULAR HEMOGLOBIN 29.3 pg (25-34); MEAN CORPUSCULAR HGB CONC 33.9 g/dl (32-36); MEAN PLATELET VOLUME 10.4 fL (7.4-10.4); PLATELET COUNT 201 K/uL (130-400); RED BLOOD COUNT 2.97 M/uL (4.7-6.1); WHITE BLOOD COUNT 16.65 K/uL (4.8-10.8)
[2017-05-29 07:01] LABS: BUN/CREATININE RATIO 22.2 (10-20); CALCIUM 8.1 mg/dl (8.5-10.1); CREATININE 0.67 mg/dl (0.60-1.40); POTASSIUM 3.9 mmol/L (3.5-5.1)
[2017-05-29 07:17] VITALS: BP 122/73; PULSE 87; TEMP 37; O2SAT 97
[2017-05-29] MEDS: FAMOTIDINE IV INJ 20 MG in SYRINGE 3 ML IV SCH ×2 (08:08→20:59)
[2017-05-29] MEDS: DOCUSATE SODIUM 100 MG CAP PO SCH ×2 (08:08→19:51)
[2017-05-29] MEDS: PANTOprazole SOD 40 MG TAB PO SCH ×2 (08:08→19:51)
[2017-05-29] MEDS: BISACODYL 5 MG TABEC PO PRN (08:08)
[2017-05-29] MEDS: DULOXETINE HCL 60 MG CAP PO SCH (08:08)
[2017-05-29] MEDS: DRONABINOL 2.5 MG CAP PO SCH ×2 (08:15→16:17)
[2017-05-29] MEDS ORDERED: ONDANSETRON INJ 2 MG/ML 2 ML VIAL IV ONE (09:15)
[2017-05-29] MEDS ORDERED: SOAP SUDS ENEMA PR ONE (09:15)
[2017-05-29] MEDS: INSULIN GLARGINE SOLOSTAR 100 UNITS/ML 3 ML PEN SC SCH ×2 (09:27→19:52)
[2017-05-29] MEDS: ENOXAPARIN 40 MG/0.4 ML SYR SQ SCH (09:28)
[2017-05-29 11:23] VITALS: BP 100/57; PULSE 86; TEMP 36.9; O2SAT 96
--- NOTE | 2017-05-29 11:36 | Gastroenterology Progress Note ---
Progress Note Date of Service: May 29, 2017 Subjective Pt evaluation today including: conversation w/ patient, physical exam The patient is able to answer questions today. He does note having some nausea and is not tolerating by mouth solids well. Review of Systems Respiratory: No cough, No wheezing, No dyspnea at rest Cardiac: No chest pain, No PND, No palpitations Abdomen: No pain, No constipation Medications Current Inpatient Medications Medications (Trade) Dose Ordered Sig/Yolis Route Start Time Stop Time Status Last Admin Dose Admin Acetaminophen (Tylenol Tab) 650 mg Q4H PRN PO 05/10/17 11:15 06/09/17 11:14 05/25/17 03:37 650 MG Bisacodyl (Dulcolax Tab) 5 mg BID PRN PO 05/10/17 11:45 06/09/17 11:44 05/29/17 08:08 5 MG Polyethylene (Miralax Powder Packet) 17 gm DAILY PRN PO 05/10/17 11:45 06/09/17 11:44 05/11/17 07:49 17 GM Insulin Aspart (novoLOG ASPART) SLIDING SCALE If C... ACHS SC 05/10/17 16:30 06/09/17 16:29 05/28/17 20:36 1 UNITS Glucose (Glucose 40% Gel) 15-30 GRAMS 15 GRAMS... UD PRN PO 05/10/17 13:00 06/09/17 12:59 Glucose (Glucose Chew Tab) 4-8 Tablets 4 Tabl... UD PRN PO 05/10/17 13:00 06/09/17 12:59 Dextrose (Dextrose 50% 50ML Syringe) 25-50ML OF 50% DW IV FOR... UD PRN IV 05/10/17 13:00 06/09/17 12:59 Glucagon (Glucagon Inj) 1 mg UD PRN SQ 05/10/17 13:00 06/09/17 12:59 Miscellaneous (Iv Fluids Completed) 1 ea PRN PRN N/A 05/10/17 14:30 05/10/18 14:29 Duloxetine HCl (Cymbalta Cap) 60 mg QAM PO 05/12/17 10:00 06/11/17 09:59 05/29/17 08:08 60 MG Docusate Sodium (coLACE CAP) 100 mg BID PO 05/12/17 20:00 06/11/17 19:59 05/29/17 08:08 100 MG Cholecalciferol (Vitamin D Tab) 1,000 inter.unit QAM PO 05/13/17 08:00 06/12/17 07:59 Future Hold 05/22/17 08:16 1,000 INTER.UNIT Lorazepam (Ativan Tab) 0.5 mg Q8 PRN PO 05/13/17 11:15 06/12/17 11:14 05/25/17 15:37 0.5 MG Polyethylene (Miralax Powder Packet) 17 gm BID PO 05/15/17 20:00 06/11/17 07:59 Future Hold 05/23/17 22:44 17 GM Naloxone HCl (Narcan Inj) 0.4 mg PRN PRN IV 05/16/17 09:15 06/15/17 09:14 05/19/17 23:21 0.4 MG Naloxone HCl (Narcan Inj) 0.4 mg PRN PRN IV 05/16/17 09:15 06/15/17 09:14 Magnesium Citrate (Citrate Of Magnesia Soln) 30 ml DAILY PRN PO 05/16/17 09:15 06/15/17 09:14 Ondansetron HCl (Zofran Inj) 4 mg Q6H IV 05/22/17 15:00 06/21/17 14:59 05/29/17 08:13 4 MG Enoxaparin Sodium (Lovenox Inj) 40 mg QAM SQ 05/23/17 08:00 06/22/17 07:59 Future hold 05/29/17 09:28 40 MG Acetaminophen/ Hydrocodone Bitart ([place] 5/325 Tab) 1 tab Q4H PRN PO 05/23/17 09:30 06/06/17 09:29 Piperacillin Sod/ Tazobactam Sod 3.375 gm/Dextrose 115 ml @ 28.75 mls/ hr Q8H IV 05/25/17 14:00 05/30/17 08:59 05/29/17 05:26 28.75 MLS/HR Piperacillin Sod/ Tazobactam Sod (Consult) 1 ea UD PRN N/A 05/25/17 09:00 06/24/17 08:59 Dronabinol (Marinol Cap) 2.5 mg BID@0700,1600 PO 05/26/17 07:00 06/22/17 08:59 05/29/17 08:15 2.5 MG Famotidine 20 mg/ Syringe 5 ml @ 2.5 mls/min Q12H IV 05/26/17 09:00 06/25/17 08:59 05/29/17 08:08 2.5 MLS/MIN Insulin Glargine (Lantus Solostar Pen) 6 units BID SC 05/26/17 20:00 06/25/17 19:59 05/29/17 09:27 6 UNITS Pantoprazole Sodium (Protonix Tab) 40 mg BID PO 05/27/17 20:00 06/26/17 19:59 05/29/17 08:08 40 MG Objective Vital Signs Date Time Temp Pulse Resp B/P (MAP) Pulse Ox O2 Delivery O2 Flow Rate FiO2 05/29/17 11: 36.9 86 18 100/57 (71) 96 Room Air 05/29/17 08:00 Room Air 05/29/17 07:17 37.0 87 18 122/73 (89) 97 Room Air 05/29/17 04:17 36.9 76 18 123/77 (92) 99 Room Air 05/29/17 03:00 Room Air 05/28/17 23:56 36.9 79 20 120/74 (89) 98 Room Air 05/28/17 20:24 36.6 79 18 118/72 (87) 100 Room Air 05/28/17 20:00 Room Air 05/28/17 16:02 37.0 85 20 113/73 (86) 100 Room Air 05/28/17 16:00 Room Air Physical Exam General Appearance: + mild distress Eyes: PERRL Respiratory/Chest: lungs clear Cardiovascular: regular rate, rhythm Abdomen: normal bowel sounds, non tender, soft Skin: + jaundice Laboratory Results Last 24 Hours Test 05/28/17 11:36 05/28/17 16:51 05/28/17 20:01 05/29/17 06:09 Bedside Glucose 191 mg/dl 186 mg/dl 195 mg/dl White Blood Count 16.65 K/uL Red Blood Count 2.97 M/uL Hemoglobin 8.7 g/dL Hematocrit 25.7 % Mean Corpuscular Volume 86.5 fL Mean Corpuscular Hemoglobin 29.3 pg Mean Corpuscular Hemoglobin Concent 33.9 g/dl RDW Standard Deviation 55.3 fL RDW Coefficient of Variation 17.7 % Platelet Count 201 K/uL Mean Platelet Volume 10.4 fL Sodium Level 130 mmol/L Potassium Level 3.9 mmol/L Chloride Level 97 mmol/L Carbon Dioxide Level 25 mmol/L Anion Gap 8.0 mmol/L Blood Urea Nitrogen 15 mg/dl Creatinine 0.67 mg/dl Est Creatinine Clear Calc Drug Dose 119.0 ml/min Estimated GFR () 116.0 Estimated GFR (Non- 100.1 BUN/Creatinine Ratio 22.2 Random Glucose 131 mg/dl Calcium Level 8.1 mg/dl Magnesium Level 2.0 mg/dl Total Bilirubin 6.4 mg/dl Direct Bilirubin 4.7 mg/dl Aspartate Amino Transf (AST/SGOT) 11 U/L Alanine Aminotransferase (ALT/SGPT) 39 U/L Alkaline Phosphatase 157 U/L Total Protein 5.6 gm/dl Albumin 2.1 gm/dl Test 05/29/17 07:39 Bedside Glucose 118 mg/dl Assessment and Plan Patient with 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 His bilirubin has fallen from 14-6 over the past 2 days although his white blood cell count is still somewhat increased. At this time, it appears that the stent is working well. I'm not certain of the mechanism of his nausea but perhaps this is related to the duodenal ulcer that was seen during his examination yesterday. Recommendations Continue with broad-spectrum antibiotics for another 10 days Continue to trend labs Liquid diet today Protonix twice daily for 6 weeks then 1 time daily thereafter due to duodenal ulcer
[2017-05-29 14:59] VITALS: BP 99/60; PULSE 85; TEMP 36.9; O2SAT 97
[2017-05-29] MEDS ORDERED: BISACODYL 10 MG SUPP PR ONE (16:00)
[2017-05-29] MEDS ORDERED: BISACODYL 10 MG SUPP ONE (18:15)
[2017-05-29 19:34] VITALS: BP 103/68; PULSE 83; TEMP 37.1; O2SAT 97
--- NOTE | 2017-05-29 22:59 | Progress Note ---
Medicine Progress Note Date & Time of Visit: May 29, 2017 at 09:40 . Subjective Worsening nausea this morning. No significant abdominal pain. Last bowel movement was 05/24. No fever. No cough or shortness of breath. No chest pain. . Objective Last 8 Hrs Date Time Temp Pulse Resp B/P (MAP) Pulse Ox O2 Delivery O2 Flow Rate FiO2 05/29/17 19:34 37.1 83 20 103/68 (80) 97 Room Air 05/29/17 16:00 Room Air 05/29/17 14:59 36.9 85 18 99/60 (73) 97 Room Air Physical Exam: General- lying in bed, no distress Eyes- sclerae icteric Lungs- clear Heart- RRR, no gallop Abdomen- + BS, soft, epigastric fullness, nontender Extremities- no pretibial edema or calf tenderness Neuro- more alert Skin- icteric, warm & dry; incisions from intrathecal pump without erythema or drainage . Laboratory Results: Last 24 Hours Test 05/29/17 06:09 05/29/17 07:39 05/29/17 11:38 05/29/17 16:44 White Blood Count 16.65 K/uL Red Blood Count 2.97 M/uL Hemoglobin 8.7 g/dL Hematocrit 25.7 % Mean Corpuscular Volume 86.5 fL Mean Corpuscular Hemoglobin 29.3 pg Mean Corpuscular Hemoglobin Concent 33.9 g/dl RDW Standard Deviation 55.3 fL RDW Coefficient of Variation 17.7 % Platelet Count 201 K/uL Mean Platelet Volume 10.4 fL Sodium Level 130 mmol/L Potassium Level 3.9 mmol/L Chloride Level 97 mmol/L Carbon Dioxide Level 25 mmol/L Anion Gap 8.0 mmol/L Blood Urea Nitrogen 15 mg/dl Creatinine 0.67 mg/dl Est Creatinine Clear Calc Drug Dose 119.0 ml/min Estimated GFR () 116.0 Estimated GFR (Non- 100.1 BUN/Creatinine Ratio 22.2 Random Glucose 131 mg/dl Calcium Level 8.1 mg/dl Magnesium Level 2.0 mg/dl Total Bilirubin 6.4 mg/dl Direct Bilirubin 4.7 mg/dl Aspartate Amino Transf (AST/SGOT) 11 U/L Alanine Aminotransferase (ALT/SGPT) 39 U/L Alkaline Phosphatase 157 U/L Total Protein 5.6 gm/dl Albumin 2.1 gm/dl Bedside Glucose 118 mg/dl 128 mg/dl 89 mg/dl Test 05/29/17 19:52 Bedside Glucose 93 mg/dl Assessment & Plan INTRACTABLE PAIN DUE TO PANCREATIC CA Presented with severe abdominal pain due to pancreatic cancer. Pain Management consulted. Unable to obtain adequate relief with safe dosing of systemic analgesics. Epidural trial was effective. Intrathecal pump placed 05/19 with good results. Continue intrathecal morphine + oral hydrocodone/acetaminophen PRN. BILIARY TRACT OBSTRUCTION Developed jaundice. Total bilirubin as high as 14.8. GI consulted. Gallbladder US demonstrated mild dilatation of CBD, distended gallbladder with wall thickening, sludge, stones. HIDA scan ordered, but could not be completed due to narcotic analgesics. CT demonstrated enlarging pancreatic mass with compression on common bile duct. ERCP with biliary stent placement performed by Dr. Alexis 05/27 with good results. Total bilirubin today = 6.4. Clinically improved. Continue piperacillin / tazobactam for possible cholangitis. NAUSEA / VOMITING Severe nausea and vomiting with minimal benefit from anti-emetics. Nausea and vomiting probably multifactorial, due to underlying pancreatic Ca + biliary tract disease. EGD demonstrated esophagitis and nonbleeding duodenal ulcer. Biliary stent placed. Symptoms improved yesterday, but worse today. Continue antiemetics. Clear liquids. Advance diet as tolerated. DUODENAL ULCER EGD 05/27 demonstrated esophagitis and nonbleeding duodenal ulcer. Continue IV famotidine and oral pantoprazole. OPIATE-INDUCED CONSTIPATION Last bowel movement 05/24. Received methylnaltrexone yesterday without results. Try soapsuds enema today. Continue docusate sodium, polyethylene, methylnaltrexone PRN. PANCREATIC CA Discussed with Medical Oncology. 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 Receiving palliative chemotherapy. Prognosis difficult to predict, but expected to be > 6 months. DM TYPE 2 Usually managed with metformin at home. Hgb A1C 7.6 on 05/03/17. Hold metformin during hospital stay. FBS today = 118. Continue Lantus / NovoLog per protocol. VITAMIN D DEFICIENCY 25-OH D = 21. Supplement. ANXIETY / DEPRESSION Secondary to pain and underlying malignancy. Receiving duloxetine for pain management. Added PRN lorazepam for anxiety or insomnia. ABNORMAL UA / BACTERURIA Urine appeared dirty 05/20. UA showed 1+ blood, positive nitrites, trace leukocyte esterase, 3+ bilirubin, no WBC's, no bacteria. Urine culture 05/20 grew Pseudomonas aeruginosa, but < 100,000 CFU. No dysuria. No fever. UTI unlikely in light of above findings. CONFUSION Increasing confusion 05/25. CT negative for mass, vascular event. Confusion most likely secondary to meds. Was receiving scopolamine and ciprofloxacin, both of which have anticholinergic side effects. Scopolamine and ciprofloxacin discontinued 05/24. Improved. Avoid anticholinergic meds whenever possible. NUTRITION Oral intake has been poor due to GI symptoms. Nutrition consulted. Advance diet as tolerated. ?? TPN or enteral nutritional support. GENERAL DEBILITATION PT / OT as tolerated. VTE PROPHYLAXIS SQ enoxaparin- hold for invasive procedures. SCD's. Ambulate. DISPOSITION Expected discharge to home with home health services, but functional status is poor and may need inpatient rehab. Family Medicine follow-up with Dr. Bush. Medical Oncology follow-up with Dr. Hinojosa. Pain Management follow-up with Dr. Rogers. . Consultants: Pain Management-Dr. Venkatesh WAY-[facility] Current Inpatient Medications: Current Inpatient Medications Medications (Trade) Dose Ordered Sig/Yolis Route Start Time Stop Time Status Last Admin Dose Admin Acetaminophen (Tylenol Tab) 650 mg Q4H PRN PO 05/10/17 11:15 06/09/17 11:14 05/25/17 03:37 650 MG Bisacodyl (Dulcolax Tab) 5 mg BID PRN PO 05/10/17 11:45 06/09/17 11:44 05/29/17 08:08 5 MG Polyethylene (Miralax Powder Packet) 17 gm DAILY PRN PO 05/10/17 11:45 06/09/17 11:44 05/11/17 07:49 17 GM Insulin Aspart (novoLOG ASPART) SLIDING SCALE If C... ACHS SC 05/10/17 16:30 06/09/17 16:29 05/28/17 20:36 1 UNITS Glucose (Glucose 40% Gel) 15-30 GRAMS 15 GRAMS... UD PRN PO 05/10/17 13:00 06/09/17 12:59 Glucose (Glucose Chew Tab) 4-8 Tablets 4 Tabl... UD PRN PO 05/10/17 13:00 06/09/17 12:59 Dextrose (Dextrose 50% 50ML Syringe) 25-50ML OF 50% DW IV FOR... UD PRN IV 05/10/17 13:00 06/09/17 12:59 Glucagon (Glucagon Inj) 1 mg UD PRN SQ 05/10/17 13:00 06/09/17 12:59 Miscellaneous (Iv Fluids Completed) 1 ea PRN PRN N/A 05/10/17 14:30 05/10/18 14:29 Duloxetine HCl (Cymbalta Cap) 60 mg QAM PO 05/12/17 10:00 06/11/17 09:59 05/29/17 08:08 60 MG Docusate Sodium (coLACE CAP) 100 mg BID PO 05/12/17 20:00 06/11/17 19:59 05/29/17 19:51 100 MG Cholecalciferol (Vitamin D Tab) 1,000 inter.unit QAM PO 05/13/17 08:00 06/12/17 07:59 Future Hold 05/22/17 08:16 1,000 INTER.UNIT Lorazepam (Ativan Tab) 0.5 mg Q8 PRN PO 05/13/17 11:15 06/12/17 11:14 05/25/17 15:37 0.5 MG Polyethylene (Miralax Powder Packet) 17 gm BID PO 05/15/17 20:00 06/11/17 07:59 Future Hold 05/23/17 22:44 17 GM Naloxone HCl (Narcan Inj) 0.4 mg PRN PRN IV 05/16/17 09:15 06/15/17 09:14 05/19/17 23:21 0.4 MG Naloxone HCl (Narcan Inj) 0.4 mg PRN PRN IV 05/16/17 09:15 06/15/17 09:14 Magnesium Citrate (Citrate Of Magnesia Soln) 30 ml DAILY PRN PO 05/16/17 09:15 06/15/17 09:14 Ondansetron HCl (Zofran Inj) 4 mg Q6H IV 05/22/17 15:00 06/21/17 14:59 05/29/17 21:00 4 MG Enoxaparin Sodium (Lovenox Inj) 40 mg QAM SQ 05/23/17 08:00 06/22/17 07:59 Future hold 05/29/17 09:28 40 MG Acetaminophen/ Hydrocodone Bitart ([place] 5/325 Tab) 1 tab Q4H PRN PO 05/23/17 09:30 06/06/17 09:29 Piperacillin Sod/ Tazobactam Sod 3.375 gm/Dextrose 115 ml @ 28.75 mls/ hr Q8H IV 05/25/17 14:00 06/04/17 13:59 05/29/17 21:33 28.75 MLS/HR Piperacillin Sod/ Tazobactam Sod (Consult) 1 ea UD PRN N/A 05/25/17 09:00 06/24/17 08:59 Dronabinol (Marinol Cap) 2.5 mg BID@0700,1600 PO 05/26/17 07:00 06/22/17 08:59 05/29/17 16:17 2.5 MG Famotidine 20 mg/ Syringe 5 ml @ 2.5 mls/min Q12H IV 05/26/17 09:00 06/25/17 08:59 05/29/17 20:59 2.5 MLS/MIN Insulin Glargine (Lantus Solostar Pen) 6 units BID SC 05/26/17 20:00 06/25/17 19:59 05/29/17 09:27 6 UNITS Pantoprazole Sodium (Protonix Tab) 40 mg BID PO 05/27/17 20:00 06/26/17 19:59 05/29/17 19:51 40 MG
[2017-05-29 23:53] VITALS: BP 117/73; PULSE 86; TEMP 36.9; O2SAT 96
[2017-05-30] VITALS (7 sets, daily range): BP systolic 102–123; BP diastolic 58–77; PULSE 84–102; TEMP 36.6–37; O2SAT 96–98
[2017-05-30] MEDS: ONDANSETRON INJ 2 MG/ML 2 ML VIAL IV SCH ×4 (03:30→20:38)
[2017-05-30] MEDS: PIPERACILL/TAZOBAC IV 3.375 GM in DEXTROSE 5% 100ML 100 ML IV SCH ×3 (05:34→21:40)
[2017-05-30] MEDS: INSULIN ASPART 100 UNITS/ML 3 ML PEN SC SCH ×4 (06:30→20:40)
[2017-05-30 07:42] LABS: HEMATOCRIT 25.6 % (42-52); MEAN CELL VOLUME 87.7 fL (80-100); MEAN CORPUSCULAR HEMOGLOBIN 29.8 pg (25-34); MEAN PLATELET VOLUME 11.2 fL (7.4-10.4); PLATELET COUNT 201 K/uL (130-400); RED BLOOD COUNT 2.92 M/uL (4.7-6.1); WHITE BLOOD COUNT 15.09 K/uL (4.8-10.8)
[2017-05-30 08:15] LABS: ALB/GLOB RATIO 0.6 (0.9-2); BUN/CREATININE RATIO 28.6 (10-20); CALCIUM 8.3 mg/dl (8.5-10.1); CREATININE 0.59 mg/dl (0.60-1.40); POTASSIUM 4.1 mmol/L (3.5-5.1)
[2017-05-30] MEDS: DRONABINOL 2.5 MG CAP PO SCH ×2 (08:19→17:10)
[2017-05-30] MEDS: PANTOprazole SOD 40 MG TAB PO SCH ×2 (08:19→20:39)
[2017-05-30] MEDS: DOCUSATE SODIUM 100 MG CAP PO SCH ×2 (08:19→20:38)
[2017-05-30] MEDS: DULOXETINE HCL 60 MG CAP PO SCH (08:20)
[2017-05-30] MEDS: ENOXAPARIN 40 MG/0.4 ML SYR SQ SCH (08:20)
[2017-05-30] MEDS: FAMOTIDINE IV INJ 20 MG in SYRINGE 3 ML IV SCH (08:20)
[2017-05-30] MEDS: INSULIN GLARGINE SOLOSTAR 100 UNITS/ML 3 ML PEN SC SCH ×2 (08:24→20:45)
[2017-05-30] MEDS ORDERED: METHYLNALTREXONE BROMIDE INJ 12 MG/0.6 ML SYR SQ ONE (09:00)
--- NOTE | 2017-05-30 14:17 | Gastroenterology Progress Note ---
Progress Note Date of Service: May 30, 2017 Subjective Pt evaluation today including: conversation w/ patient, physical exam, chart review, lab review, review of inpatient medication list Pt denies any abd pain, n/v today. LFTs coming down some. Review of Systems Constitutional: No fever, No chills Respiratory: No cough, No shortness of breath Cardiac: No chest pain Abdomen: No pain, No nausea, No vomiting Skin: No rash, No itch Medications Current Inpatient Medications Medications (Trade) Dose Ordered Sig/Yolis Route Start Time Stop Time Status Last Admin Dose Admin Acetaminophen (Tylenol Tab) 650 mg Q4H PRN PO 05/10/17 11:15 06/09/17 11:14 05/25/17 03:37 650 MG Bisacodyl (Dulcolax Tab) 5 mg BID PRN PO 05/10/17 11:45 06/09/17 11:44 05/29/17 08:08 5 MG Polyethylene (Miralax Powder Packet) 17 gm DAILY PRN PO 05/10/17 11:45 06/09/17 11:44 05/11/17 07:49 17 GM Insulin Aspart (novoLOG ASPART) SLIDING SCALE If C... ACHS SC 05/10/17 16:30 06/09/17 16:29 05/28/17 20:36 1 UNITS Glucose (Glucose 40% Gel) 15-30 GRAMS 15 GRAMS... UD PRN PO 05/10/17 13:00 06/09/17 12:59 Glucose (Glucose Chew Tab) 4-8 Tablets 4 Tabl... UD PRN PO 05/10/17 13:00 06/09/17 12:59 Dextrose (Dextrose 50% 50ML Syringe) 25-50ML OF 50% DW IV FOR... UD PRN IV 05/10/17 13:00 06/09/17 12:59 Glucagon (Glucagon Inj) 1 mg UD PRN SQ 05/10/17 13:00 06/09/17 12:59 Miscellaneous (Iv Fluids Completed) 1 ea PRN PRN N/A 05/10/17 14:30 05/10/18 14:29 Duloxetine HCl (Cymbalta Cap) 60 mg QAM PO 05/12/17 10:00 06/11/17 09:59 05/30/17 08:20 60 MG Docusate Sodium (coLACE CAP) 100 mg BID PO 05/12/17 20:00 06/11/17 19:59 05/30/17 08:19 100 MG Cholecalciferol (Vitamin D Tab) 1,000 inter.unit QAM PO 05/13/17 08:00 06/12/17 07:59 Future Hold 05/22/17 08:16 1,000 INTER.UNIT Lorazepam (Ativan Tab) 0.5 mg Q8 PRN PO 05/13/17 11:15 06/12/17 11:14 05/25/17 15:37 0.5 MG Polyethylene (Miralax Powder Packet) 17 gm BID PO 05/15/17 20:00 06/11/17 07:59 Future Hold 05/23/17 22:44 17 GM Naloxone HCl (Narcan Inj) 0.4 mg PRN PRN IV 05/16/17 09:15 06/15/17 09:14 05/19/17 23:21 0.4 MG Naloxone HCl (Narcan Inj) 0.4 mg PRN PRN IV 05/16/17 09:15 06/15/17 09:14 Magnesium Citrate (Citrate Of Magnesia Soln) 30 ml DAILY PRN PO 05/16/17 09:15 06/15/17 09:14 Ondansetron HCl (Zofran Inj) 4 mg Q6H IV 05/22/17 15:00 06/21/17 14:59 05/30/17 08:20 4 MG Enoxaparin Sodium (Lovenox Inj) 40 mg QAM SQ 05/23/17 08:00 06/22/17 07:59 Future hold 05/30/17 08:20 40 MG Acetaminophen/ Hydrocodone Bitart ([place] 5/325 Tab) 1 tab Q4H PRN PO 05/23/17 09:30 06/06/17 09:29 Piperacillin Sod/ Tazobactam Sod 3.375 gm/Dextrose 115 ml @ 28.75 mls/ hr Q8H IV 05/25/17 14:00 06/04/17 13:59 05/30/17 13:16 28.75 MLS/HR Piperacillin Sod/ Tazobactam Sod (Consult) 1 ea UD PRN N/A 05/25/17 09:00 06/24/17 08:59 Dronabinol (Marinol Cap) 2.5 mg BID@0700,1600 PO 05/26/17 07:00 06/22/17 08:59 05/30/17 08:19 2.5 MG Insulin Glargine (Lantus Solostar Pen) 6 units BID SC 05/26/17 20:00 06/25/17 19:59 05/30/17 08:24 6 UNITS Pantoprazole Sodium (Protonix Tab) 40 mg BID PO 05/27/17 20:00 06/26/17 19:59 05/30/17 08:19 40 MG Sucralfate (Carafate Susp) 1 gm ACHS PO 05/30/17 16:30 06/29/17 16:29 Objective Vital Signs Date Time Temp Pulse Resp B/P (MAP) Pulse Ox O2 Delivery O2 Flow Rate FiO2 05/30/17 11:21 36.6 98 18 109/71 (84) 97 05/30/17 08:00 96 Room Air 05/30/17 07:36 36.9 85 16 113/72 (86) 96 Room Air 05/30/17 04:43 37.0 84 18 123/75 (91) 97 Room Air 05/30/17 00:00 Room Air 05/29/17 23:53 36.9 86 20 117/73 (88) 96 Room Air 05/29/17 19:34 37.1 83 20 103/68 (80) 97 Room Air 05/29/17 16:00 Room Air 05/29/17 14:59 36.9 85 18 99/60 (73) 97 Room Air Physical Exam General Appearance: WD/WN, no apparent distress Eyes: EOMI, + pertinent finding (mild icteric sclera) Neck: supple, no JVD, trachea midline Respiratory/Chest: normal breath sounds, no respiratory distress, no accessory muscle use Cardiovascular: regular rate, rhythm, no gallop, no murmur Abdomen: normal bowel sounds, non tender, soft, + pertinent finding (RLQ incision CDI ) Extremities: normal inspection, no pedal edema, no calf tenderness Neurologic/Psych: alert, normal mood/affect, oriented x 3 Skin: + jaundice Laboratory Results Last 24 Hours Test 05/29/17 16:44 05/29/17 19:52 05/30/17 06:42 05/30/17 08:06 Bedside Glucose 89 mg/dl 93 mg/dl 112 mg/dl White Blood Count 15.09 K/uL Red Blood Count 2.92 M/uL Hemoglobin 8.7 g/dL Hematocrit 25.6 % Mean Corpuscular Volume 87.7 fL Mean Corpuscular Hemoglobin 29.8 pg Mean Corpuscular Hemoglobin Concent 34.0 g/dl RDW Standard Deviation 56.4 fL RDW Coefficient of Variation 17.6 % Platelet Count 201 K/uL Mean Platelet Volume 11.2 fL Sodium Level 126 mmol/L Potassium Level 4.1 mmol/L Chloride Level 94 mmol/L Carbon Dioxide Level 23 mmol/L Anion Gap 9.0 mmol/L Blood Urea Nitrogen 17 mg/dl Creatinine 0.59 mg/dl Est Creatinine Clear Calc Drug Dose 135.2 ml/min Estimated GFR () 122.3 Estimated GFR (Non- 105.5 BUN/Creatinine Ratio 28.6 Random Glucose 99 mg/dl Calcium Level 8.3 mg/dl Total Bilirubin 5.7 mg/dl Aspartate Amino Transf (AST/SGOT) 14 U/L Alanine Aminotransferase (ALT/SGPT) 34 U/L Alkaline Phosphatase 140 U/L Total Protein 5.6 gm/dl Albumin 2.1 gm/dl Globulin 3.5 gm/dl Albumin/Globulin Ratio 0.6 Test 05/30/17 12:04 Bedside Glucose 122 mg/dl Assessment and Plan Pt is a 67 y/o male w advanced non resectable neuroendocrine tumor of pancreas s /p ERCP 05/27 for biliary obstruction, biliary metal stent placement, sphincterectomy. LFTs are improving. EGD performed on 05/27 also noted LA Grade C esophagitis, duodenal erosions, non bleeding ulcers. Over weekend, primary hospital mentioned pt c/o abd pain, n/v. But today he feels well, benign abd exam. - Trial add of Carafate 1g QID. Continue Protonix 40mg BID - Advanced to [place] diet. - Avoid ASA, NSAIDs 1 week after sphincterectomy - Continue Zosyn IV. - Had nausea at afternoon rounds: Will increase Marinol to 5mg BID, trial Emend 150mg IV x 1 dose
[2017-05-30] MEDS: SUCRALFATE 1 GM/10 ML UDC PO SCH ×2 (17:10→20:46)
[2017-05-30] MEDS ORDERED: FOSAPREPITANT DIMEGLUMINE INJ 150 MG in SODIUM CHLORIDE 0.9% 150ML 145 ML IV ONE (18:45)
--- NOTE | 2017-05-30 23:57 | Progress Note ---
Medicine Progress Note Date & Time of Visit: May 30, 2017 at 10:00 . Subjective Abdominal pain well-controlled. Persistent nausea. Moved bowels yesterdays after receiving enema and Dulcolax. No fever. No chest pain. No cough or SOB. Ambulating in room. . Objective Last 8 Hrs Date Time Temp Pulse Resp B/P (MAP) Pulse Ox O2 Delivery O2 Flow Rate FiO2 05/30/17 23:25 37.0 85 16 102/58 (73) 96 Room Air 05/30/17 19:35 36.7 102 18 114/77 (89) 98 Room Air 05/30/17 16:15 Room Air Physical Exam: General- sitting on side of bed, no distress Eyes- sclerae icteric Lungs- clear Heart- RRR, no gallop Abdomen- + BS, soft, nontender Extremities- no pretibial edema or calf tenderness Neuro- alert Skin- icteric, warm & dry; incisions from intrathecal pump without erythema or drainage . Laboratory Results: Last 24 Hours Test 05/30/17 06:42 05/30/17 08:06 05/30/17 12:04 05/30/17 16:33 White Blood Count 15.09 K/uL Red Blood Count 2.92 M/uL Hemoglobin 8.7 g/dL Hematocrit 25.6 % Mean Corpuscular Volume 87.7 fL Mean Corpuscular Hemoglobin 29.8 pg Mean Corpuscular Hemoglobin Concent 34.0 g/dl RDW Standard Deviation 56.4 fL RDW Coefficient of Variation 17.6 % Platelet Count 201 K/uL Mean Platelet Volume 11.2 fL Sodium Level 126 mmol/L Potassium Level 4.1 mmol/L Chloride Level 94 mmol/L Carbon Dioxide Level 23 mmol/L Anion Gap 9.0 mmol/L Blood Urea Nitrogen 17 mg/dl Creatinine 0.59 mg/dl Est Creatinine Clear Calc Drug Dose 135.2 ml/min Estimated GFR () 122.3 Estimated GFR (Non- 105.5 BUN/Creatinine Ratio 28.6 Random Glucose 99 mg/dl Calcium Level 8.3 mg/dl Total Bilirubin 5.7 mg/dl Aspartate Amino Transf (AST/SGOT) 14 U/L Alanine Aminotransferase (ALT/SGPT) 34 U/L Alkaline Phosphatase 140 U/L Total Protein 5.6 gm/dl Albumin 2.1 gm/dl Globulin 3.5 gm/dl Albumin/Globulin Ratio 0.6 Bedside Glucose 112 mg/dl 122 mg/dl 143 mg/dl Test 05/30/17 20:11 Bedside Glucose 120 mg/dl Assessment & Plan INTRACTABLE PAIN DUE TO PANCREATIC CA Presented with severe abdominal pain due to pancreatic cancer. Pain Management consulted. Unable to obtain adequate relief with safe dosing of systemic analgesics. Epidural trial was effective. Intrathecal pump placed 05/19 with good results. Continue intrathecal morphine + oral hydrocodone/acetaminophen PRN. BILIARY TRACT OBSTRUCTION Developed jaundice. Total bilirubin as high as 14.8. GI consulted. Gallbladder US demonstrated mild dilatation of CBD, distended gallbladder with wall thickening, sludge, stones. HIDA scan ordered, but could not be completed due to narcotic analgesics. CT demonstrated enlarging pancreatic mass with compression on common bile duct. ERCP with biliary stent placement performed by Dr. Alexis 05/27 with good results. Total bilirubin today = 5.7. Clinically improved. Continue piperacillin / tazobactam x 10 days for possible cholangitis. NAUSEA / VOMITING Severe nausea and vomiting with minimal benefit from anti-emetics. Nausea and vomiting probably multifactorial, due to underlying pancreatic Ca + biliary tract disease. EGD demonstrated esophagitis and nonbleeding duodenal ulcer. Biliary stent placed. Symptoms improved yesterday, but worse today. Continue antiemetics (but avoid those with anticholinergic side effects). Clear liquids. Advance diet as tolerated. DUODENAL ULCER EGD 05/27 demonstrated esophagitis and nonbleeding duodenal ulcer. Continue IV famotidine and oral pantoprazole. OPIATE-INDUCED CONSTIPATION Last bowel movement 05/24. Received methylnaltrexone yesterday without results. Try soapsuds enema today. Continue docusate sodium, polyethylene, methylnaltrexone PRN. PANCREATIC CA Discussed with Medical Oncology. 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 Receiving palliative chemotherapy. Prognosis difficult to predict, but expected to be > 6 months. DM TYPE 2 Usually managed with metformin at home. Hgb A1C 7.6 on 05/03/17. Hold metformin during hospital stay. FBS today = 112. Continue Lantus / NovoLog per protocol. VITAMIN D DEFICIENCY 25-OH D = 21. Supplement as tolerated. ANXIETY / DEPRESSION Secondary to pain and underlying malignancy. Receiving duloxetine for pain management. Lorazepam PRN for anxiety or insomnia. ABNORMAL UA / BACTERURIA Urine appeared dirty 05/20. UA showed 1+ blood, positive nitrites, trace leukocyte esterase, 3+ bilirubin, no WBC's, no bacteria. Urine culture 05/20 grew Pseudomonas aeruginosa, but < 100,000 CFU. No dysuria. No fever. UTI unlikely in light of above findings. CONFUSION Increasing confusion 05/25. CT negative for mass, vascular event. Confusion most likely secondary to meds. Was receiving scopolamine and ciprofloxacin, both of which have anticholinergic side effects. Scopolamine and ciprofloxacin discontinued 05/24. Improved. Avoid anticholinergic meds whenever possible. NUTRITION Oral intake has been poor due to GI symptoms. Nutrition consulted and following. Advance diet as tolerated. ?? TPN or enteral nutritional support. GENERAL DEBILITATION PT / OT as tolerated. VTE PROPHYLAXIS SQ enoxaparin- hold for invasive procedures. SCD's. Ambulate. DISPOSITION Expected discharge to home with home health services, but functional status is poor and may need inpatient rehab. Family Medicine follow-up with Dr. Bush. Medical Oncology follow-up with Dr. Hinojosa. Pain Management follow-up with Dr. Rogers. . Consultants: Pain Management-Dr. Venkatesh WAY-[facility] Current Inpatient Medications: Current Inpatient Medications Medications (Trade) Dose Ordered Sig/Yolis Route Start Time Stop Time Status Last Admin Dose Admin Acetaminophen (Tylenol Tab) 650 mg Q4H PRN PO 05/10/17 11:15 06/09/17 11:14 05/25/17 03:37 650 MG Bisacodyl (Dulcolax Tab) 5 mg BID PRN PO 05/10/17 11:45 06/09/17 11:44 05/29/17 08:08 5 MG Polyethylene (Miralax Powder Packet) 17 gm DAILY PRN PO 05/10/17 11:45 06/09/17 11:44 05/11/17 07:49 17 GM Insulin Aspart (novoLOG ASPART) SLIDING SCALE If C... ACHS SC 05/10/17 16:30 06/09/17 16:29 05/28/17 20:36 1 UNITS Glucose (Glucose 40% Gel) 15-30 GRAMS 15 GRAMS... UD PRN PO 05/10/17 13:00 06/09/17 12:59 Glucose (Glucose Chew Tab) 4-8 Tablets 4 Tabl... UD PRN PO 05/10/17 13:00 06/09/17 12:59 Dextrose (Dextrose 50% 50ML Syringe) 25-50ML OF 50% DW IV FOR... UD PRN IV 05/10/17 13:00 06/09/17 12:59 Glucagon (Glucagon Inj) 1 mg UD PRN SQ 05/10/17 13:00 06/09/17 12:59 Miscellaneous (Iv Fluids Completed) 1 ea PRN PRN N/A 05/10/17 14:30 05/10/18 14:29 Duloxetine HCl (Cymbalta Cap) 60 mg QAM PO 05/12/17 10:00 06/11/17 09:59 05/30/17 08:20 60 MG Docusate Sodium (coLACE CAP) 100 mg BID PO 05/12/17 20:00 06/11/17 19:59 05/30/17 20:38 100 MG Cholecalciferol (Vitamin D Tab) 1,000 inter.unit QAM PO 05/13/17 08:00 06/12/17 07:59 Future Hold 05/22/17 08:16 1,000 INTER.UNIT Lorazepam (Ativan Tab) 0.5 mg Q8 PRN PO 05/13/17 11:15 06/12/17 11:14 05/25/17 15:37 0.5 MG Polyethylene (Miralax Powder Packet) 17 gm BID PO 05/15/17 20:00 06/11/17 07:59 Future Hold 05/23/17 22:44 17 GM Naloxone HCl (Narcan Inj) 0.4 mg PRN PRN IV 05/16/17 09:15 06/15/17 09:14 05/19/17 23:21 0.4 MG Naloxone HCl (Narcan Inj) 0.4 mg PRN PRN IV 05/16/17 09:15 06/15/17 09:14 Magnesium Citrate (Citrate Of Magnesia Soln) 30 ml DAILY PRN PO 05/16/17 09:15 06/15/17 09:14 Ondansetron HCl (Zofran Inj) 4 mg Q6H IV 05/22/17 15:00 06/21/17 14:59 05/30/17 20:38 4 MG Enoxaparin Sodium (Lovenox Inj) 40 mg QAM SQ 05/23/17 08:00 06/22/17 07:59 Future hold 05/30/17 08:20 40 MG Acetaminophen/ Hydrocodone Bitart ([place] 5/325 Tab) 1 tab Q4H PRN PO 05/23/17 09:30 06/06/17 09:29 Piperacillin Sod/ Tazobactam Sod 3.375 gm/Dextrose 115 ml @ 28.75 mls/ hr Q8H IV 05/25/17 14:00 06/04/17 13:59 05/30/17 21:40 28.75 MLS/HR Piperacillin Sod/ Tazobactam Sod (Consult) 1 ea UD PRN N/A 05/25/17 09:00 06/24/17 08:59 Insulin Glargine (Lantus Solostar Pen) 6 units BID SC 05/26/17 20:00 06/25/17 19:59 05/30/17 20:45 6 UNITS Pantoprazole Sodium (Protonix Tab) 40 mg BID PO 05/27/17 20:00 06/26/17 19:59 05/30/17 20:39 40 MG Sucralfate (Carafate Susp) 1 gm ACHS PO 05/30/17 16:30 06/29/17 16:29 05/30/17 20:46 1 GM Dronabinol (Marinol Cap) 5 mg BID@0700,1600 PO 05/31/17 07:00 06/22/17 08:59
[2017-05-31] VITALS (8 sets, daily range): BP systolic 86–119; BP diastolic 49–74; PULSE 80–98; TEMP 36.4–36.9; O2SAT 96–99
[2017-05-31] MEDS: ONDANSETRON INJ 2 MG/ML 2 ML VIAL IV SCH ×4 (02:33→20:29)
[2017-05-31 06:01] LABS: HEMATOCRIT 26.2 % (42-52); MEAN CELL VOLUME 87.6 fL (80-100); MEAN CORPUSCULAR HEMOGLOBIN 29.8 pg (25-34); MEAN PLATELET VOLUME 10.9 fL (7.4-10.4); PLATELET COUNT 192 K/uL (130-400); RED BLOOD COUNT 2.99 M/uL (4.7-6.1); WHITE BLOOD COUNT 13.89 K/uL (4.8-10.8)
[2017-05-31] MEDS: PIPERACILL/TAZOBAC IV 3.375 GM in DEXTROSE 5% 100ML 100 ML IV SCH ×3 (06:13→22:37)
[2017-05-31] MEDS: DRONABINOL 2.5 MG CAP PO SCH ×3 (06:13→20:29)
[2017-05-31] MEDS: SUCRALFATE 1 GM/10 ML UDC PO SCH ×5 (06:13→22:46)
[2017-05-31 06:52] LABS: ALB/GLOB RATIO 0.6 (0.9-2); BUN/CREATININE RATIO 28.7 (10-20); CALCIUM 7.6 mg/dl (8.5-10.1); CREATININE 0.6 mg/dl (0.60-1.40); POTASSIUM 3.8 mmol/L (3.5-5.1)
[2017-05-31] MEDS: DOCUSATE SODIUM 100 MG CAP PO SCH ×2 (08:18→20:25)
[2017-05-31] MEDS: PANTOprazole SOD 40 MG TAB PO SCH ×2 (08:18→20:25)
[2017-05-31] MEDS: DULOXETINE HCL 60 MG CAP PO SCH (08:18)
[2017-05-31] MEDS: INSULIN ASPART 100 UNITS/ML 3 ML PEN SC SCH ×4 (08:19→20:30)
[2017-05-31] MEDS: ENOXAPARIN 40 MG/0.4 ML SYR SQ SCH (08:19)
[2017-05-31] MEDS: INSULIN GLARGINE SOLOSTAR 100 UNITS/ML 3 ML PEN SC SCH ×2 (08:22→20:00)
--- NOTE | 2017-05-31 10:09 | Gastroenterology Progress Note ---
Progress Note Date of Service: May 31, 2017 Subjective Pt evaluation today including: conversation w/ patient, physical exam, chart review, lab review, review of studies, review of inpatient medication list Mr. Engle is a 67 yr old male with pancreatic neuroendocrine tumor (non resectable) who underwent ERCP 05/27/17 for distal CBD obstruction by the tumor. Metal stent was placed in the CBD after sphincterotomy. EGD 05/27 with esophagitis. Pt continues with generally decreasing energy/stamina and tells me that he is unable to eat any liquids or solids due to nausea. Emend given yesterday doesn't seem to have improved this. Other products that has not been effective include phenergan, compazine, scopolamine patch, zofran. Relistor also does not seem to help the nausea, though he did pass one BM yesterday. Labs: WBC 13.8 (was 17), total bili 15 (was 14.8 prior to ERCP). Review of Systems Constitutional: + weakness, + fatigue, No fever ENT: No hearing loss Respiratory: No cough Cardiac: No chest pain Abdomen: + pain (much improved with the morphine pump), + nausea, + constipation, No diarrhea Male : No dysuria Neuro: No memory loss Psych: No depression symptoms Heme: No abnormal bleeding/bruising Endo: + fatigue Skin: + jaundice (much improved) Medications Current Inpatient Medications Medications (Trade) Dose Ordered Sig/Yolis Route Start Time Stop Time Status Last Admin Dose Admin Acetaminophen (Tylenol Tab) 650 mg Q4H PRN PO 05/10/17 11:15 06/09/17 11:14 05/25/17 03:37 650 MG Bisacodyl (Dulcolax Tab) 5 mg BID PRN PO 05/10/17 11:45 06/09/17 11:44 05/29/17 08:08 5 MG Polyethylene (Miralax Powder Packet) 17 gm DAILY PRN PO 05/10/17 11:45 06/09/17 11:44 05/11/17 07:49 17 GM Insulin Aspart (novoLOG ASPART) SLIDING SCALE If C... ACHS SC 05/10/17 16:30 06/09/17 16:29 05/28/17 20:36 1 UNITS Glucose (Glucose 40% Gel) 15-30 GRAMS 15 GRAMS... UD PRN PO 05/10/17 13:00 06/09/17 12:59 Glucose (Glucose Chew Tab) 4-8 Tablets 4 Tabl... UD PRN PO 05/10/17 13:00 06/09/17 12:59 Dextrose (Dextrose 50% 50ML Syringe) 25-50ML OF 50% DW IV FOR... UD PRN IV 05/10/17 13:00 06/09/17 12:59 Glucagon (Glucagon Inj) 1 mg UD PRN SQ 05/10/17 13:00 06/09/17 12:59 Miscellaneous (Iv Fluids Completed) 1 ea PRN PRN N/A 05/10/17 14:30 05/10/18 14:29 Duloxetine HCl (Cymbalta Cap) 60 mg QAM PO 05/12/17 10:00 06/11/17 09:59 05/31/17 08:18 60 MG Docusate Sodium (coLACE CAP) 100 mg BID PO 05/12/17 20:00 06/11/17 19:59 05/31/17 08:18 100 MG Cholecalciferol (Vitamin D Tab) 1,000 inter.unit QAM PO 05/13/17 08:00 06/12/17 07:59 Future Hold 05/22/17 08:16 1,000 INTER.UNIT Lorazepam (Ativan Tab) 0.5 mg Q8 PRN PO 05/13/17 11:15 06/12/17 11:14 05/25/17 15:37 0.5 MG Polyethylene (Miralax Powder Packet) 17 gm BID PO 05/15/17 20:00 06/11/17 07:59 Future Hold 05/23/17 22:44 17 GM Naloxone HCl (Narcan Inj) 0.4 mg PRN PRN IV 05/16/17 09:15 06/15/17 09:14 05/19/17 23:21 0.4 MG Naloxone HCl (Narcan Inj) 0.4 mg PRN PRN IV 05/16/17 09:15 06/15/17 09:14 Magnesium Citrate (Citrate Of Magnesia Soln) 30 ml DAILY PRN PO 05/16/17 09:15 06/15/17 09:14 Ondansetron HCl (Zofran Inj) 4 mg Q6H IV 05/22/17 15:00 12/19/17 14:59 05/31/17 08:14 4 MG Enoxaparin Sodium (Lovenox Inj) 40 mg QAM SQ 05/23/17 08:00 06/22/17 07:59 Future hold 05/31/17 08:19 40 MG Acetaminophen/ Hydrocodone Bitart ([place] 5/325 Tab) 1 tab Q4H PRN PO 05/23/17 09:30 06/06/17 09:29 Piperacillin Sod/ Tazobactam Sod 3.375 gm/Dextrose 115 ml @ 28.75 mls/ hr Q8H IV 05/25/17 14:00 06/04/17 13:59 05/31/17 06:13 28.75 MLS/HR Piperacillin Sod/ Tazobactam Sod (Consult) 1 ea UD PRN N/A 05/25/17 09:00 06/24/17 08:59 Insulin Glargine (Lantus Solostar Pen) 6 units BID SC 05/26/17 20:00 06/25/17 19:59 05/31/17 08:22 6 UNITS Pantoprazole Sodium (Protonix Tab) 40 mg BID PO 05/27/17 20:00 06/26/17 19:59 05/31/17 08:18 40 MG Sucralfate (Carafate Susp) 1 gm ACHS PO 05/30/17 16:30 06/29/17 16:29 05/30/17 20:46 1 GM Dronabinol (Marinol Cap) 5 mg BID@0700,1600 PO 05/31/17 07:00 06/22/17 08:59 05/31/17 06:13 5 MG Objective Vital Signs Date Time Temp Pulse Resp B/P (MAP) Pulse Ox O2 Delivery O2 Flow Rate FiO2 05/31/17 07:25 36.6 84 18 114/73 (87) 98 Room Air 05/31/17 03:09 36.9 80 16 116/62 (80) 96 Room Air 05/30/17 23:48 Room Air 05/30/17 23:25 37.0 85 16 102/58 (73) 96 Room Air 05/30/17 19:35 36.7 102 18 114/77 (89) 98 Room Air 05/30/17 16:15 Room Air 05/30/17 15:20 36.9 91 18 114/71 (85) 97 05/30/17 11:21 36.6 98 18 109/71 (84) 97 Physical Exam General Appearance: + mild distress (from nausea) Neck: no JVD Respiratory/Chest: lungs clear Cardiovascular: regular rate, rhythm, no JVD, no murmur Abdomen: soft, + tenderness (mild upper abdomen tenderness) Extremities: no pedal edema Neurologic/Psych: alert, normal mood/affect, oriented x 3 Skin: + jaundice (improved) Laboratory Results Last 24 Hours Test 05/30/17 12:04 05/30/17 16:33 05/30/17 20:11 05/31/17 05:49 Bedside Glucose 122 mg/dl 143 mg/dl 120 mg/dl White Blood Count 13.89 K/uL Red Blood Count 2.99 M/uL Hemoglobin 8.9 g/dL Hematocrit 26.2 % Mean Corpuscular Volume 87.6 fL Mean Corpuscular Hemoglobin 29.8 pg Mean Corpuscular Hemoglobin Concent 34.0 g/dl RDW Standard Deviation 55.9 fL RDW Coefficient of Variation 17.3 % Platelet Count 192 K/uL Mean Platelet Volume 10.9 fL Sodium Level 123 mmol/L Potassium Level 3.8 mmol/L Chloride Level 91 mmol/L Carbon Dioxide Level 25 mmol/L Anion Gap 7.0 mmol/L Blood Urea Nitrogen 17 mg/dl Creatinine 0.60 mg/dl Est Creatinine Clear Calc Drug Dose 132.9 ml/min Estimated GFR () 121.4 Estimated GFR (Non- 104.8 BUN/Creatinine Ratio 28.7 Random Glucose 96 mg/dl Calcium Level 7.6 mg/dl Total Bilirubin 5.2 mg/dl Aspartate Amino Transf (AST/SGOT) 14 U/L Alanine Aminotransferase (ALT/SGPT) 32 U/L Alkaline Phosphatase 127 U/L Total Protein 5.7 gm/dl Albumin 2.1 gm/dl Globulin 3.6 gm/dl Albumin/Globulin Ratio 0.6 Test 05/31/17 07:36 Bedside Glucose 111 mg/dl Assessment and Plan Mr. Engle is a 67 yr old male with a large non resectable neuroendocrine tumor. Nausea is likely multifactorial including the bile duct obstruction, narcotics and the cancer itself. Plan: 1. Agree with trial of increased Drabinal to 5mg BID (ordered this morning). 2. No diet restrictions. 3. Continue to follow LFTs periodically.
--- NOTE | 2017-05-31 13:30 | Progress Note ---
Internal Med Progress Note Date of Service: May 31, 2017. Provider Documentation: SUBJECTIVE: The patient was seen and examined Generally weak and lethargic Denies any pain at rest Noted to have Postural hypotension with symptoms OBJECTIVE: Vital Signs-as noted below Exam: General-No distress at rest Eyes-Normal ENT-normal Neck-supple Lungs-Clear to ausucltate bilaterally Heart-Regular,no murmur Abdomen-Soft,intraabdominal device in place Extremities-No edema Neuro-AAOX3 Generally weak Lab data as noted below. ASSESSMENT & PLAN: Postural Hypotension With symptoms May have component of Dehydration Will try IV NS INTRACTABLE PAIN DUE TO PANCREATIC CA Presented with severe abdominal pain due to pancreatic cancer. Appreciate Pain Management input Epidural trial was effective. Intrathecal pump placed 05/19 with good results. Continue intrathecal morphine + oral hydrocodone/acetaminophen PRN. Pain seems to be reasonably controlled now PANCREATIC CA Discussed with Medical Oncology. 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 Receiving palliative chemotherapy. Prognosis difficult to predict, but expected to be > 6 months. BILIARY TRACT OBSTRUCTION Developed jaundice. Total bilirubin as high as 14.8. Gallbladder US demonstrated mild dilatation of CBD, distended gallbladder with wall thickening, sludge, stones. HIDA scan ordered, but could not be completed due to narcotic analgesics. CT demonstrated enlarging pancreatic mass with compression on common bile duct. Appreciate GI input ERCP with biliary stent placement performed by Dr. Alexis 05/27 with good results. Total bilirubin today = 5.7. Continue piperacillin / tazobactam x 10 days for possible cholangitis. Clinically better NAUSEA / VOMITING Severe nausea and vomiting with minimal benefit from anti-emetics. Nausea and vomiting probably multifactorial, due to underlying pancreatic Ca + biliary tract disease. EGD demonstrated esophagitis and nonbleeding duodenal ulcer. Biliary stent placed Clinically improved Tolerating oral diet DUODENAL ULCER EGD 05/27 demonstrated esophagitis and nonbleeding duodenal ulcer. Continue IV famotidine and oral pantoprazole. OPIATE-INDUCED CONSTIPATION Last bowel movement 05/24. Received methylnaltrexone yesterday without results. Try soapsuds enema today. Continue docusate sodium, polyethylene, methylnaltrexone PRN. No acute issue now DM TYPE 2 Usually managed with metformin at home. Hgb A1C 7.6 on 05/03/17. Hold metformin during hospital stay. Continue Lantus / NovoLog per protocol. VITAMIN D DEFICIENCY 25-OH D = 21. Supplement as tolerated. ANXIETY / DEPRESSION Secondary to pain and underlying malignancy. Receiving duloxetine for pain management. Lorazepam PRN for anxiety or insomnia. UTI secondary to Pseudomonas 50K coloney count Urine appeared dirty 05/20. UA showed 1+ blood, positive nitrites, trace leukocyte esterase, 3+ bilirubin, no WBC's, no bacteria. Urine culture 05/20 grew Pseudomonas aeruginosa, but < 100,000 CFU. No dysuria. No fever. CONFUSION Increasing confusion 05/25. CT negative for mass, vascular event. Confusion most likely secondary to meds. Was receiving scopolamine and ciprofloxacin, both of which have anticholinergic side effects. Scopolamine and ciprofloxacin discontinued 05/24. Improved. Avoid anticholinergic meds whenever possible. NUTRITION Oral intake has been poor due to GI symptoms. Nutrition consulted and following. Advance diet as tolerated. ?? TPN or enteral nutritional support. GENERAL DEBILITATION PT / OT as tolerated. VTE PROPHYLAXIS SQ enoxaparin- hold for invasive procedures. SCD's. Ambulate. DISPOSITION Expected discharge to home with home health services, but functional status is poor and may need inpatient rehab. Family Medicine follow-up with Dr. Bush. Medical Oncology follow-up with Dr. Hinojosa. Pain Management follow-up with Dr. Rogers. . Consultants: Pain Management-Dr. Venkatesh WAY-[facility] Magdaleno Vital Signs: Date Time Temp Pulse Resp B/P (MAP) Pulse Ox O2 Delivery O2 Flow Rate FiO2 05/31/17 11:50 36.4 90 18 102/67 (79) 98 Room Air 05/31/17 11:48 98/70 (79) 05/31/17 11:47 107/63 (78) 86/49 (61) 05/31/17 08:00 Room Air 05/31/17 07:25 36.6 84 18 114/73 (87) 98 Room Air 05/31/17 03:09 36.9 80 16 116/62 (80) 96 Room Air 05/30/17 23:48 Room Air 05/30/17 23:25 37.0 85 16 102/58 (73) 96 Room Air 05/30/17 19:35 36.7 102 18 114/77 (89) 98 Room Air 05/30/17 16:15 Room Air 05/30/17 15:20 36.9 91 18 114/71 (85 97 Lab Results: Results Past 24 Hours Test 05/30/17 16:33 05/30/17 20:11 05/31/17 05:49 05/31/17 07:36 Range/Units Bedside Glucose 143 120 111 70-99 mg/dl White Blood Count 13.89 4.8-10.8 K/uL Red Blood Count 2.99 4.7-6.1 M/uL Hemoglobin 8.9 14.0-18.0 g/dL Hematocrit 26.2 42-52 % Mean Corpuscular Volume 87.6 80-100 fL Mean Corpuscular Hemoglobin 29.8 25-34 pg Mean Corpuscular Hemoglobin Concent 34.0 32-36 g/dl RDW Standard Deviation 55.9 36.4-46.3 fL RDW Coefficient of Variation 17.3 11.5-14.5 % Platelet Count 192 130-400 K/uL Mean Platelet Volume 10.9 7.4-10.4 fL Sodium Level 123 136-145 mmol/L Potassium Level 3.8 3.5-5.1 mmol/L Chloride Level 91 98-107 mmol/L Carbon Dioxide Level 25 21-32 mmol/L Anion Gap 7.0 3-11 mmol/L Blood Urea Nitrogen 17 7-18 mg/dl Creatinine 0.60 0.60-1.40 mg/dl Est Creatinine Clear Calc Drug Dose 132.9 ml/min Estimated GFR () 121.4 Estimated GFR (Non- 104.8 BUN/Creatinine Ratio 28.7 10-20 Random Glucose 96 70-99 mg/dl Calcium Level 7.6 8.5-10.1 mg/dl Total Bilirubin 5.2 0.2-1 mg/dl Aspartate Amino Transf (AST/SGOT) 14 15-37 U/L Alanine Aminotransferase (ALT/SGPT) 32 12-78 U/L Alkaline Phosphatase 127 45-117 U/L Total Protein 5.7 6.4-8.2 gm/dl Albumin 2.1 3.4-5.0 gm/dl Globulin 3.6 2.5-4.0 gm/dl Albumin/Globulin Ratio 0.6 0.9-2 Test 05/31/17 11:32 Range/Units Bedside Glucose 85 70-99 mg/dl
[2017-05-31] MEDS: NSS + 20MEQ KCL 1000ML 1,000 ML IV SCH (14:03)
[2017-06-01] VITALS (8 sets, daily range): BP systolic 104–121; BP diastolic 66–75; PULSE 78–95; TEMP 36.3–36.9; O2SAT 96–100
[2017-06-01] MEDS: NSS + 20MEQ KCL 1000ML 1,000 ML IV SCH (01:33)
[2017-06-01] MEDS: ONDANSETRON INJ 2 MG/ML 2 ML VIAL IV SCH ×4 (03:36→20:57)
[2017-06-01] MEDS: SUCRALFATE 1 GM/10 ML UDC PO SCH ×4 (05:46→20:57)
[2017-06-01] MEDS: PIPERACILL/TAZOBAC IV 3.375 GM in DEXTROSE 5% 100ML 100 ML IV SCH ×3 (05:46→21:30)
[2017-06-01] MEDS: ENOXAPARIN 40 MG/0.4 ML SYR SQ SCH (08:07)
[2017-06-01 08:10] LABS: HEMATOCRIT 26.9 % (42-52); MEAN CELL VOLUME 88.2 fL (80-100); MEAN CORPUSCULAR HEMOGLOBIN 29.2 pg (25-34); MEAN CORPUSCULAR HGB CONC 33.1 g/dl (32-36); MEAN PLATELET VOLUME 11.1 fL (7.4-10.4); PLATELET COUNT 204 K/uL (130-400); RED BLOOD COUNT 3.05 M/uL (4.7-6.1); WHITE BLOOD COUNT 13.36 K/uL (4.8-10.8)
[2017-06-01] MEDS: INSULIN GLARGINE SOLOSTAR 100 UNITS/ML 3 ML PEN SC SCH ×2 (08:15→21:01)
[2017-06-01 08:41] LABS: CREATININE 0.68 mg/dl (0.60-1.40)
[2017-06-01] MEDS: INSULIN ASPART 100 UNITS/ML 3 ML PEN SC SCH ×4 (09:31→20:57)
[2017-06-01] MEDS: PANTOprazole SOD 40 MG TAB PO SCH ×2 (09:32→20:57)
[2017-06-01] MEDS: DULOXETINE HCL 60 MG CAP PO SCH (09:32)
[2017-06-01] MEDS: DOCUSATE SODIUM 100 MG CAP PO SCH ×2 (09:32→20:56)
[2017-06-01] MEDS: DRONABINOL 2.5 MG CAP PO SCH ×3 (09:32→20:56)
--- NOTE | 2017-06-01 14:32 | Progress Note ---
Internal Med Progress Note Date of Service: Jun 01, 2017. Provider Documentation: SUBJECTIVE: The patient was seen and examined Generally weak and lethargic Denies any pain at rest Noted to have Postural hypotension with symptoms Getting downhill with the cancer Complains of Nausea ,no vomiting OBJECTIVE: Vital Signs-as noted below Exam: General-No distress at rest Depressed and looks lethargic Eyes-Normal ENT-normal Neck-supple Lungs-Clear to ausucltate bilaterally Heart-Regular,no murmur Abdomen-Soft,intraabdominal device in place Extremities-No edema Neuro-AAOX3 Generally weak Lab data as noted below. ASSESSMENT & PLAN: Postural Hypotension With symptoms May have component of Dehydration Will try IV NS Clinically better Continue PT/OT INTRACTABLE PAIN DUE TO PANCREATIC CA Presented with severe abdominal pain due to pancreatic cancer. Appreciate Pain Management input Epidural trial was effective. Intrathecal pump placed 05/19 with good results. Continue intrathecal morphine + oral hydrocodone/acetaminophen PRN. Pain seems to be reasonably controlled now Has Nausea -getting symptomatic medication PANCREATIC CA Discussed with Medical Oncology. 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 Receiving palliative chemotherapy. Prognosis difficult to predict, but expected to be > 6 months. Overall condition is deteriorating Discussed with the patient-will consult Palliative care BILIARY TRACT OBSTRUCTION Developed jaundice. Total bilirubin as high as 14.8. Gallbladder US demonstrated mild dilatation of CBD, distended gallbladder with wall thickening, sludge, stones. HIDA scan ordered, but could not be completed due to narcotic analgesics. CT demonstrated enlarging pancreatic mass with compression on common bile duct. Appreciate GI input ERCP with biliary stent placement performed by Dr. Alexis 05/27 with good results. Total bilirubin today = 5.7. Continue piperacillin / tazobactam x 10 days for possible cholangitis. Clinically better NAUSEA / VOMITING Severe nausea and vomiting with minimal benefit from anti-emetics. Nausea and vomiting probably multifactorial, due to underlying pancreatic Ca + biliary tract disease. EGD demonstrated esophagitis and nonbleeding duodenal ulcer. Biliary stent placed Clinically improved Tolerating oral diet DUODENAL ULCER EGD 05/27 demonstrated esophagitis and nonbleeding duodenal ulcer. Continue IV famotidine and oral pantoprazole. OPIATE-INDUCED CONSTIPATION Last bowel movement 05/24. Received methylnaltrexone yesterday without results. Try soapsuds enema today. Continue docusate sodium, polyethylene, methylnaltrexone PRN. No acute issue now DM TYPE 2 Usually managed with metformin at home. Hgb A1C 7.6 on 05/03/17. Hold metformin during hospital stay. Continue Lantus / NovoLog per protocol. VITAMIN D DEFICIENCY 25-OH D = 21. Supplement as tolerated. ANXIETY / DEPRESSION Secondary to pain and underlying malignancy. Receiving duloxetine for pain management. Lorazepam PRN for anxiety or insomnia. UTI secondary to Pseudomonas 50K coloney count Urine appeared dirty 05/20. UA showed 1+ blood, positive nitrites, trace leukocyte esterase, 3+ bilirubin, no WBC's, no bacteria. Urine culture 05/20 grew Pseudomonas aeruginosa, but < 100,000 CFU. No dysuria. No fever. CONFUSION Increasing confusion 05/25. CT negative for mass, vascular event. Confusion most likely secondary to meds. Was receiving scopolamine and ciprofloxacin, both of which have anticholinergic side effects. Scopolamine and ciprofloxacin discontinued 05/24. Improved. Avoid anticholinergic meds whenever possible. NUTRITION Oral intake has been poor due to GI symptoms. Nutrition consulted and following. Advance diet as tolerated. ?? TPN or enteral nutritional support. GENERAL DEBILITATION PT / OT as tolerated. VTE PROPHYLAXIS SQ enoxaparin- hold for invasive procedures. SCD's. Ambulate. DISPOSITION Expected discharge to home with home health services, but functional status is poor and may need inpatient rehab. Family Medicine follow-up with Dr. Bush. Medical Oncology follow-up with Dr. Hinojosa. Pain Management follow-up with Dr. Rogers. . Consultants: Pain Management-Dr. Venkatesh WAY-[facility] Magdaleno Vital Signs: Date Time Temp Pulse Resp B/P (MAP) Pulse Ox O2 Delivery O2 Flow Rate FiO2 06/01/17 11:03 36.4 83 20 115/70 (85) 96 Room Air 06/01/17 09:43 97 Room Air 06/01/17 08:10 Room Air 06/01/17 07:26 36.8 78 20 121/72 (88) 97 Room Air 06/01/17 04:22 36.6 85 18 118/75 (89) 100 Room Air 06/01/17 03:18 Room Air 05/31/17 23:14 36.6 96 18 119/74 (89) 97 Room Air 05/31/17 21:20 Room Air 05/31/17 20:17 36.8 93 20 111/68 (82) 99 Room Air 05/31/17 15:35 Room Air 05/31/17 14:43 36.8 98 18 111/70 (84) 97 Room Air Lab Results: Results Past 24 Hours Test 05/31/17 16:20 05/31/17 20:04 06/01/17 07:23 06/01/17 07:51 Range/Units Bedside Glucose 106 86 117 70-99 mg/dl White Blood Count 13.36 4.8-10.8 K/uL Red Blood Count 3.05 4.7-6.1 M/uL Hemoglobin 8.9 14.0-18.0 g/dL Hematocrit 26.9 42-52 % Mean Corpuscular Volume 88.2 80-100 fL Mean Corpuscular Hemoglobin 29.2 25-34 pg Mean Corpuscular Hemoglobin Concent 33.1 32-36 g/dl RDW Standard Deviation 56.8 36.4-46.3 fL RDW Coefficient of Variation 17.4 11.5-14.5 % Platelet Count 204 130-400 K/uL Mean Platelet Volume 11.1 7.4-10.4 fL Creatinine 0.68 0.60-1.40 mg/dl Est Creatinine Clear Calc Drug Dose 115.5 ml/min Estimated GFR () 115.3 Estimated GFR (Non- 99.5 Test 06/01/17 11:01 Range/Units Bedside Glucose 107 70-99 mg/dl
--- NOTE | 2017-06-01 17:09 | Gastroenterology Progress Note ---
Progress Note Date of Service: Jun 01, 2017 Subjective Pt evaluation today including: conversation w/ patient, physical exam, chart review, lab review, review of studies, review of inpatient medication list Mr. Engle is a 67 yr old male with large, inoperable pancreatic neuroendocrine tumor. Main issue is nausea, weight loss. EGD with esophagitis - on PPI BID and Carafate. ERCP with sphincterotomy for distal bile duct obstruction with metal stent placed. Improved bilirubin level but did not improve nausea. For nausea, on Marinol 5mg TID. Review of Systems Constitutional: + weakness, + fatigue, No fever ENT: No hearing loss Respiratory: + cough (occasional, mild) Cardiac: No chest pain Abdomen: + nausea (present persistently, becomes severe if he tries to eat any solids. Able to eat liquid formulas), No pain Musculoskeletal: + joint pain Male : No dysuria Neuro: No memory loss Psych: + depression symptoms (possibly, very quiet) Heme: No abnormal bleeding/bruising Endo: + fatigue Skin: + rash, + jaundice (improved) Medications Current Inpatient Medications Medications (Trade) Dose Ordered Sig/Yolis Route Start Time Stop Time Status Last Admin Dose Admin Acetaminophen (Tylenol Tab) 650 mg Q4H PRN PO 05/10/17 11:15 06/09/17 11:14 05/25/17 03:37 650 MG Bisacodyl (Dulcolax Tab) 5 mg BID PRN PO 05/10/17 11:45 06/09/17 11:44 05/29/17 08:08 5 MG Polyethylene (Miralax Powder Packet) 17 gm DAILY PRN PO 05/10/17 11:45 06/09/17 11:44 05/11/17 07:49 17 GM Insulin Aspart (novoLOG ASPART) SLIDING SCALE If C... ACHS SC 05/10/17 16:30 06/09/17 16:29 05/28/17 20:36 1 UNITS Glucose (Glucose 40% Gel) 15-30 GRAMS 15 GRAMS... UD PRN PO 05/10/17 13:00 06/09/17 12:59 Glucose (Glucose Chew Tab) 4-8 Tablets 4 Tabl... UD PRN PO 05/10/17 13:00 06/09/17 12:59 Dextrose (Dextrose 50% 50ML Syringe) 25-50ML OF 50% DW IV FOR... UD PRN IV 05/10/17 13:00 06/09/17 12:59 Glucagon (Glucagon Inj) 1 mg UD PRN SQ 05/10/17 13:00 06/09/17 12:59 Miscellaneous (Iv Fluids Completed) 1 ea PRN PRN N/A 05/10/17 14:30 05/10/18 14:29 Duloxetine HCl (Cymbalta Cap) 60 mg QAM PO 05/12/17 10:00 06/11/17 09:59 06/01/17 09:32 60 MG Docusate Sodium (coLACE CAP) 100 mg BID PO 05/12/17 20:00 06/11/17 19:59 06/01/17 09:32 100 MG Cholecalciferol (Vitamin D Tab) 1,000 inter.unit QAM PO 05/13/17 08:00 06/12/17 07:59 Future Hold 05/22/17 08:16 1,000 INTER.UNIT Lorazepam (Ativan Tab) 0.5 mg Q8 PRN PO 05/13/17 11:15 06/12/17 11:14 05/25/17 15:37 0.5 MG Polyethylene (Miralax Powder Packet) 17 gm BID PO 05/15/17 20:00 06/11/17 07:59 Future Hold 05/23/17 22:44 17 GM Naloxone HCl (Narcan Inj) 0.4 mg PRN PRN IV 05/16/17 09:15 06/15/17 09:14 05/19/17 23:21 0.4 MG Naloxone HCl (Narcan Inj) 0.4 mg PRN PRN IV 05/16/17 09:15 06/15/17 09:14 Magnesium Citrate (Citrate Of Magnesia Soln) 30 ml DAILY PRN PO 05/16/17 09:15 06/15/17 09:14 Ondansetron HCl (Zofran Inj) 4 mg Q6H IV 05/22/17 15:00 06/21/17 14:59 06/01/17 14:43 4 MG Enoxaparin Sodium (Lovenox Inj) 40 mg QAM SQ 05/23/17 08:00 06/22/17 07:59 Future hold 06/01/17 08:07 40 MG Acetaminophen/ Hydrocodone Bitart ([place] 5/325 Tab) 1 tab Q4H PRN PO 05/23/17 09:30 06/06/17 09:29 Piperacillin Sod/ Tazobactam Sod 3.375 gm/Dextrose 115 ml @ 28.75 mls/ hr Q8H IV 05/25/17 14:00 06/04/17 13:59 06/01/17 13:45 28.75 MLS/HR Piperacillin Sod/ Tazobactam Sod (Consult) 1 ea UD PRN N/A 05/25/17 09:00 06/24/17 08:59 Insulin Glargine (Lantus Solostar Pen) 6 units BID SC 05/26/17 20:00 06/25/17 19:59 06/01/17 08:15 6 UNITS Pantoprazole Sodium (Protonix Tab) 40 mg BID PO 05/27/17 20:00 06/26/17 19:59 06/01/17 09:32 40 MG Sucralfate (Carafate Susp) 1 gm ACHS PO 05/30/17 16:30 06/29/17 16:29 06/01/17 16:15 1 GM Dronabinol (Marinol Cap) 5 mg TID PO 05/31/17 20:00 06/22/17 08:59 06/01/17 13:47 5 MG Objective Vital Signs Date Time Temp Pulse Resp B/P (MAP) Pulse Ox O2 Delivery O2 Flow Rate FiO2 06/01/17 15:06 36.3 80 18 116/72 (87) 98 Room Air 06/01/17 11:03 36.4 83 20 115/70 (85) 96 Room Air 06/01/17 09:43 97 Room Air 06/01/17 08:10 Room Air 06/01/17 07:26 36.8 78 20 121/72 (88) 97 Room Air 06/01/17 04:22 36.6 85 18 118/75 (89) 100 Room Air 06/01/17 03:18 Room Air 05/31/17 23:14 36.6 96 18 119/74 (89) 97 Room Air 05/31/17 21:20 Room Air 05/31/17 20:17 36.8 93 20 111/68 (82) 99 Room Air Physical Exam General Appearance: + moderate distress (mostly from the nausea), + cachetic Neck: no JVD Respiratory/Chest: lungs clear Cardiovascular: regular rate, rhythm, no murmur Abdomen: non tender, soft Neurologic/Psych: alert, normal mood/affect, oriented x 3 Skin: + jaundice (mild, improved) Laboratory Results Last 24 Hours Test 05/31/17 20:04 06/01/17 07:23 06/01/17 07:51 06/01/17 11:01 Bedside Glucose 86 mg/dl 117 mg/dl 107 mg/dl White Blood Count 13.36 K/uL Red Blood Count 3.05 M/uL Hemoglobin 8.9 g/dL Hematocrit 26.9 % Mean Corpuscular Volume 88.2 fL Mean Corpuscular Hemoglobin 29.2 pg Mean Corpuscular Hemoglobin Concent 33.1 g/dl RDW Standard Deviation 56.8 fL RDW Coefficient of Variation 17.4 % Platelet Count 204 K/uL Mean Platelet Volume 11.1 fL Creatinine 0.68 mg/dl Est Creatinine Clear Calc Drug Dose 115.5 ml/min Estimated GFR () 115.3 Estimated GFR (Non- 99.5 Test 06/01/17 16:30 Bedside Glucose 102 mg/dl Assessment and Plan Mr. Engle is a 67 yr old male with a large non resectable neuroendocrine tumor. Nausea is likely multifactorial, from narcotics tumor encroaching the stomach and the cancer itself. Plan: 1. Cont. Drabinal to 5mg TID. 2. No diet restrictions. 3. Continue to follow LFTs periodically. 4. Will continue to follow peripherally but little other options to improve his nausea. Consider palliative care.
[2017-06-02] VITALS (7 sets, daily range): BP systolic 114–128; BP diastolic 44–79; PULSE 80–94; TEMP 36.5–37; O2SAT 91–99
[2017-06-02] MEDS: ONDANSETRON INJ 2 MG/ML 2 ML VIAL IV SCH ×4 (03:00→20:55)
[2017-06-02] MEDS: PIPERACILL/TAZOBAC IV 3.375 GM in DEXTROSE 5% 100ML 100 ML IV SCH ×3 (05:49→21:47)
[2017-06-02] MEDS: SUCRALFATE 1 GM/10 ML UDC PO SCH ×5 (05:51→21:00)
[2017-06-02] MEDS: DULOXETINE HCL 60 MG CAP PO SCH (08:29)
[2017-06-02] MEDS: DOCUSATE SODIUM 100 MG CAP PO SCH ×2 (08:29→20:54)
[2017-06-02] MEDS: DRONABINOL 2.5 MG CAP PO SCH ×3 (08:29→20:55)
[2017-06-02] MEDS: PANTOprazole SOD 40 MG TAB PO SCH ×2 (08:29→20:55)
[2017-06-02] MEDS: ENOXAPARIN 40 MG/0.4 ML SYR SQ SCH (08:30)
[2017-06-02] MEDS: INSULIN GLARGINE SOLOSTAR 100 UNITS/ML 3 ML PEN SC SCH ×2 (08:36→21:01)
[2017-06-02] MEDS: INSULIN ASPART 100 UNITS/ML 3 ML PEN SC SCH ×4 (08:37→20:47)
--- NOTE | 2017-06-02 11:48 | Palliative Care Consultation ---
Consultation Date of Consultation: Jun 02, 2017. Requesting Physician: Dr. Hernández Attending Physician: Dr. Hernández Reason for Consultation: Goals of care History of Present Illness This 67 year old male patient with high-grade neuroendocrine tumor of the pancreas, presented to the hospital 23 days ago with c/o intractable abdominal pain and nausea/vomiting. Patient diagnosed back in 2013, completed 4 rounds of chemo and XRT in 2014. He had an intrathecal pain pump placed during this admission, it infuses 1mg morphine daily. Pain is now 2-3/10 and patient is happy with this number. Had CT abd/pelvis which showed progression of pancreatic CA. Patient had some trouble with increased confusion- UA was found to be dirty, patient started on IV Rocephin. He continued to be lethargic, even had to receive narcan one night and his PRN narcotics were cut. He began having symptoms of opioid withdrawal, he improved with small doses of PRN Dilaudid. Unfortunately, his nausea/vomiting is severe and intractable. GI was consulted on 05/23 for increased bilirubin and LFTs- CBD stent was placed a few days ago. Patient Palliative care is now consulted for symptom management and for goals of care. I met with patient in room 417. He is drowsy, awake and oriented x4. He states that his pain is well-controlled at this time,but his nausea is still severe. He has not been able to eat/drink anything significant for days. His goal is for the nausea to improve so he can eat, get stronger, and continue taking his chemotherapy. I asked if he has had any conversations recently with his oncologist about progression of disease/prognosis/etc. Patient said no, but he would like to know where he stands with his cancer. I spoke with patient's Kat on the phone. She too would like to know where patient is at in the disease process as she thinks that patient's symptoms and drowsiness could simply be related to progression of disease. If this is true and patient is not going to be receiving any more chemo, she'd probably like to take him home on hospice. Past Medical/Surgical History Medical History: Stage IV pancreatic cancer renal calculi Exploratory lap in [facility] [place] 2014 showing unresectable disease Social History Smoking Status: Never Smoker History of Alcohol Use: No Marital Status: Housing Status: lives with family Review of Systems Constitutional: + weakness, + fatigue ENT: No trouble swallowing Respiratory: No cough, No shortness of breath Cardiac: No chest pain, No edema Abdomen: + pain (well-controlled at 2-3/10), + nausea, + vomiting Male : No problem reported Psychiatric: No depression symptoms, No anxiety Allergies Coded Allergies: No Known Allergies (Unverified , 05/02/17) Medications Current Inpatient Medications Medications (Trade) Dose Ordered Sig/Yolis Route Start Time Stop Time Status Last Admin Dose Admin Acetaminophen (Tylenol Tab) 650 mg Q4H PRN PO 05/10/17 11:15 06/09/17 11:14 05/25/17 03:37 650 MG Bisacodyl (Dulcolax Tab) 5 mg BID PRN PO 05/10/17 11:45 06/09/17 11:44 05/29/17 08:08 5 MG Polyethylene (Miralax Powder Packet) 17 gm DAILY PRN PO 05/10/17 11:45 06/09/17 11:44 05/11/17 07:49 17 GM Insulin Aspart (novoLOG ASPART) SLIDING SCALE If C... ACHS SC 05/10/17 16:30 06/09/17 16:29 05/28/17 20:36 1 UNITS Glucose (Glucose 40% Gel) 15-30 GRAMS 15 GRAMS... UD PRN PO 05/10/17 13:00 06/09/17 12:59 Glucose (Glucose Chew Tab) 4-8 Tablets 4 Tabl... UD PRN PO 05/10/17 13:00 06/09/17 12:59 Dextrose (Dextrose 50% 50ML Syringe) 25-50ML OF 50% DW IV FOR... UD PRN IV 05/10/17 13:00 06/09/17 12:59 Glucagon (Glucagon Inj) 1 mg UD PRN SQ 05/10/17 13:00 06/09/17 12:59 Miscellaneous (Iv Fluids Completed) 1 ea PRN PRN N/A 05/10/17 14:30 05/10/18 14:29 Duloxetine HCl (Cymbalta Cap) 60 mg QAM PO 05/12/17 10:00 06/11/17 09:59 06/02/17 08:29 60 MG Docusate Sodium (coLACE CAP) 100 mg BID PO 05/12/17 20:00 06/11/17 19:59 06/02/17 08:29 100 MG Cholecalciferol (Vitamin D Tab) 1,000 inter.unit QAM PO 05/13/17 08:00 06/12/17 07:59 Future Hold 05/22/17 08:16 1,000 INTER.UNIT Lorazepam (Ativan Tab) 0.5 mg Q8 PRN PO 05/13/17 11:15 06/12/17 11:14 05/25/17 15:37 0.5 MG Polyethylene (Miralax Powder Packet) 17 gm BID PO 05/15/17 20:00 06/11/17 07:59 Future Hold 05/23/17 22:44 17 GM Naloxone HCl (Narcan Inj) 0.4 mg PRN PRN IV 05/16/17 09:15 06/15/17 09:14 05/19/17 23:21 0.4 MG Naloxone HCl (Narcan Inj) 0.4 mg PRN PRN IV 05/16/17 09:15 06/15/17 09:14 Magnesium Citrate (Citrate Of Magnesia Soln) 30 ml DAILY PRN PO 05/16/17 09:15 06/15/17 09:14 Ondansetron HCl (Zofran Inj) 4 mg Q6H IV 05/22/17 15:00 06/21/17 14:59 06/02/17 08:30 4 MG Enoxaparin Sodium (Lovenox Inj) 40 mg QAM SQ 05/23/17 08:00 06/22/17 07:59 Future hold 06/02/17 08:30 40 MG Acetaminophen/ Hydrocodone Bitart (Clemons 5/325 Tab) 1 tab Q4H PRN PO 05/23/17 09:30 06/06/17 09:29 Piperacillin Sod/ Tazobactam Sod 3.375 gm/Dextrose 115 ml @ 28.75 mls/ hr Q8H IV 05/25/17 14:00 06/04/17 13:59 06/02/17 05:49 28.75 MLS/HR Piperacillin Sod/ Tazobactam Sod (Consult) 1 ea UD PRN N/A 05/25/17 09:00 06/24/17 08:59 Insulin Glargine (Lantus Solostar Pen) 6 units BID SC 05/26/17 20:00 06/25/17 19:59 06/01/17 21:01 6 UNITS Pantoprazole Sodium (Protonix Tab) 40 mg BID PO 05/27/17 20:00 06/26/17 19:59 06/02/17 08:29 40 MG Sucralfate (Carafate Susp) 1 gm ACHS PO 05/30/17 16:30 06/29/17 16:29 06/02/17 05:51 1 GM Dronabinol (Marinol Cap) 5 mg TID PO 05/31/17 20:00 06/22/17 08:59 06/02/17 08:29 5 MG Physical Exam Date Time Temp Pulse Resp B/P (MAP) Pulse Ox O2 Delivery O2 Flow Rate FiO2 06/02/17 08:00 Room Air 06/02/17 07:30 36.6 89 18 124/74 (91) 98 Room Air 06/02/17 04:06 36.5 80 16 115/72 (86) 99 Room Air 06/02/17 00:00 Room Air 06/01/17 23:46 36.9 95 16 104/66 (79) 98 Room Air 06/01/17 19:33 36.9 86 18 119/72 (88) 98 Room Air 06/01/17 16:00 98 Room Air 06/01/17 15:06 36.3 80 18 116/72 (87) 98 Room Air 06/01/17 11:03 36.4 83 20 115/70 (85) 96 Room Air General Appearance: + pertinent finding (chronically ill appearing) ENT: hearing grossly normal Neck: supple, no JVD Respiratory: lungs clear, no respiratory distress, no accessory muscle use Cardiovascular: regular rate, rhythm, no edema, + normal peripheral pulses Abdomen: normal bowel sounds, non tender, soft Neurologic/Psychiatric: normal mood/affect, oriented x 3, + pertinent finding ( drowsy) Skin: + jaundice Laboratory Results Last 24 Hours Test 06/01/17 11:01 06/01/17 16:30 06/01/17 20:29 06/02/17 07:33 Bedside Glucose 107 mg/dl 102 mg/dl 89 mg/dl 91 mg/dl Assessment & Plan Problem list: Abdominal pain- well-controlled at this time Intractable nausea High grade neuroendocrine pancreatic tumor CBD dilatation and obstruction- s/p stent placement Duodenal ulcer Goals of care (Z51.5) Palliative care recs: -Code status not discussed by me at this time. Will readdress this at later time. -Would try haldol 1mg PO Q4h for the nausea. Can increase to 2mg if needed. -No additional pain meds needed at this time. -Please ask Dr. Hinojosa to see patient or do phone conference with patient and to discuss disease progression and plan as far as chemo vs. stopping chemo. -Patient's would be interested in taking patient home on hospice if there is no further plan of chemo. She seemed to be leaning in this direction. -Continue all other medical treatment as is for now. -Further goals of care to be determined. Thank you kindly for this consult. I will follow.
[2017-06-02] MEDS: HALOPERIDOL 1 MG TAB PO PRN ×2 (13:40→19:51)
--- NOTE | 2017-06-02 16:59 | Progress Note ---
Internal Med Progress Note Date of Service: Jun 02, 2017. Provider Documentation: SUBJECTIVE: The patient was seen and examined Generally weak and lethargic and not getting any better Denies any pain at rest Complains of some Nausea OBJECTIVE: Vital Signs-as noted below Exam: General-No distress at rest Depressed and looks lethargic Eyes-Normal ENT-normal Neck-supple Lungs-Clear to ausucltate bilaterally Heart-Regular,no murmur Abdomen-Soft,intraabdominal device in place Extremities-No edema Neuro-AAOX3 Generally weak Lab data as noted below. ASSESSMENT & PLAN: Postural Hypotension With symptoms May have component of Dehydration Will try IV NS Clinically better Continue PT/OT Will start NS -a little better today INTRACTABLE PAIN DUE TO PANCREATIC CA Presented with severe abdominal pain due to pancreatic cancer. Appreciate Pain Management input Epidural trial was effective. Intrathecal pump placed 05/19 with good results. Continue intrathecal morphine + oral hydrocodone/acetaminophen PRN. Pain seems to be reasonably controlled now Has Nausea -getting symptomatic medication Pain is controlled PANCREATIC CA Discussed with Medical Oncology. 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 Receiving palliative chemotherapy. Prognosis difficult to predict, but expected to be > 6 months. Overall condition is deteriorating Discussed with the patient-will consult Palliative care Appreciate Palliative care input Will discuss with Dr Hinojosa about further management of the cancer BILIARY TRACT OBSTRUCTION Developed jaundice. Total bilirubin as high as 14.8. Gallbladder US demonstrated mild dilatation of CBD, distended gallbladder with wall thickening, sludge, stones. HIDA scan ordered, but could not be completed due to narcotic analgesics. CT demonstrated enlarging pancreatic mass with compression on common bile duct. Appreciate GI input ERCP with biliary stent placement performed by Dr. Alexis 05/27 with good results. Total bilirubin today = 5.7. Continue piperacillin / tazobactam x 10 days for possible cholangitis. Clinically better NAUSEA / VOMITING Severe nausea and vomiting with minimal benefit from anti-emetics. Nausea and vomiting probably multifactorial, due to underlying pancreatic Ca + biliary tract disease. EGD demonstrated esophagitis and nonbleeding duodenal ulcer. Biliary stent placed Clinically improved Tolerating oral diet Will try oral Haldol DUODENAL ULCER EGD 05/27 demonstrated esophagitis and nonbleeding duodenal ulcer. Continue IV famotidine and oral pantoprazole. OPIATE-INDUCED CONSTIPATION Last bowel movement 05/24. Received methylnaltrexone yesterday without results. Try soapsuds enema today. Continue docusate sodium, polyethylene, methylnaltrexone PRN. No acute issue now DM TYPE 2 Usually managed with metformin at home. Hgb A1C 7.6 on 05/03/17. Hold metformin during hospital stay. Continue Lantus / NovoLog per protocol. VITAMIN D DEFICIENCY 25-OH D = 21. Supplement as tolerated. ANXIETY / DEPRESSION Secondary to pain and underlying malignancy. Receiving duloxetine for pain management. Lorazepam PRN for anxiety or insomnia. UTI secondary to Pseudomonas 50K coloney count Urine appeared dirty 05/20. UA showed 1+ blood, positive nitrites, trace leukocyte esterase, 3+ bilirubin, no WBC's, no bacteria. Urine culture 05/20 grew Pseudomonas aeruginosa, but < 100,000 CFU. No dysuria. No fever. CONFUSION Increasing confusion 05/25. CT negative for mass, vascular event. Confusion most likely secondary to meds. Was receiving scopolamine and ciprofloxacin, both of which have anticholinergic side effects. Scopolamine and ciprofloxacin discontinued 05/24. Improved. Avoid anticholinergic meds whenever possible. NUTRITION Oral intake has been poor due to GI symptoms. Nutrition consulted and following. Advance diet as tolerated. ?? TPN or enteral nutritional support. GENERAL DEBILITATION PT / OT as tolerated. VTE PROPHYLAXIS SQ enoxaparin- hold for invasive procedures. SCD's. Ambulate. DISPOSITION Expected discharge to home with home health services, but functional status is poor and may need inpatient rehab. Family Medicine follow-up with Dr. Bush. Medical Oncology follow-up with Dr. Hinojosa. Pain Management follow-up with Dr. Rogers. . Consultants: Pain Management-Dr. Venkatesh WAY-[facility] Magdaleno Discussed with the in detailed Vital Signs: Date Time Temp Pulse Resp B/P (MAP) Pulse Ox O2 Delivery O2 Flow Rate FiO2 06/02/17 16:00 99 Room Air 06/02/17 15:12 37.0 94 18 119/75 (90) 99 Room Air 06/02/17 11:19 36.6 88 20 118/44 (68) 99 Room Air 06/02/17 08:00 Room Air 06/02/17 07:30 36.6 89 18 124/74 (91) 98 Room Air 06/02/17 04:06 36.5 80 16 115/72 (86) 99 Room Air 06/02/17 00:00 Room Air 06/01/17 23:46 36.9 95 16 104/66 (79) 98 Room Air 06/01/17 19:33 36.9 86 18 119/72 (88) 98 Room Air Lab Results: Results Past 24 Hours Test 06/01/17 20:29 06/02/17 07:33 06/02/17 11:23 06/02/17 16:07 Range/Units Bedside Glucose 89 91 100 89 70-99 mg/dl
[2017-06-02] MEDS: D5NSS + 20MEQ KCL 1,000 ML IV SCH (17:51)
[2017-06-02] MEDS: BOOST GLUCOSE CONTROL PO SCH (20:00)
[2017-06-03] VITALS (9 sets, daily range): BP systolic 100–160; BP diastolic 64–78; PULSE 69–92; TEMP 36.4–36.9; O2SAT 92–100
[2017-06-03] MEDS: ONDANSETRON INJ 2 MG/ML 2 ML VIAL IV SCH ×4 (03:13→21:34)
[2017-06-03] MEDS: PIPERACILL/TAZOBAC IV 3.375 GM in DEXTROSE 5% 100ML 100 ML IV SCH ×3 (05:35→21:38)
[2017-06-03] MEDS: SUCRALFATE 1 GM/10 ML UDC PO SCH ×4 (05:36→21:16)
[2017-06-03] MEDS: HALOPERIDOL 1 MG TAB PO PRN ×3 (05:52→18:10)
[2017-06-03] MEDS: INSULIN ASPART 100 UNITS/ML 3 ML PEN SC SCH ×4 (07:47→21:20)
[2017-06-03] MEDS: BOOST GLUCOSE CONTROL PO SCH ×4 (08:00→21:17)
[2017-06-03] MEDS: ENOXAPARIN 40 MG/0.4 ML SYR SQ SCH (09:33)
[2017-06-03] MEDS: DRONABINOL 2.5 MG CAP PO SCH ×3 (09:33→21:34)
[2017-06-03] MEDS: INSULIN GLARGINE SOLOSTAR 100 UNITS/ML 3 ML PEN SC SCH ×2 (09:35→21:21)
[2017-06-03] MEDS: PANTOprazole SOD 40 MG TAB PO SCH ×2 (09:44→21:17)
[2017-06-03] MEDS: DOCUSATE SODIUM 100 MG CAP PO SCH ×2 (09:44→21:17)
[2017-06-03] MEDS: DULOXETINE HCL 60 MG CAP PO SCH (09:44)
[2017-06-03] MEDS: HYDROCODONE/ACETAMOPHEN 5/325MG TAB PO PRN ×2 (09:57→17:39)
[2017-06-03] MEDS ORDERED: HYDROmorphone INJ 0.5 MG/0.5 ML SYR IV ONE (10:11)
--- NOTE | 2017-06-03 11:38 | Palliative Care Progress Note ---
Palliative Care Progress Note Date of Service Jun 03, 2017. Subjective -Patient was sleeping soundly this morning when I went to visit him. He had just had a dose of norco for increased abdominal pain and was finally sleeping. -He has had three doses of the PO Haldol since yesterday. Patient did c/o some nausea early this morning. Last had Haldol at 0550 this AM. His primary nurse states he has not been vomiting this morning for her. -Still hasn't been able to eat/drink much. Did take about 4oz. of water with marinol and norco. Review of Systems Did not obtain ROS at this time due to patient sleeping Objective Vital Signs Date Time Temp Pulse Resp B/P (MAP) Pulse Ox O2 Delivery O2 Flow Rate FiO2 06/03/17 11:20 36.9 92 18 100/64 (76) 97 Room Air 06/03/17 08:30 98 Room Air 06/03/17 07:16 36.9 69 20 131/78 (95) 98 Room Air 06/03/17 04:06 36.6 79 19 122/75 (91) 100 Room Air 06/03/17 00:00 Room Air 06/02/17 23:40 36.8 86 18 114/65 (81) 97 Room Air 06/02/17 19:20 36.6 88 18 128/79 (95) 91 Room Air 06/02/17 16:00 99 Room Air 06/02/17 15:12 37.0 94 18 119/75 (90) 99 Room Air Physical Exam General Appearance: no apparent distress Respiratory/Chest: no respiratory distress, no accessory muscle use Neurologic/Psychiatric: + pertinent finding (sleeping soundly) Comments: full physical exam not completed at this time due to patient sleeping Laboratory Results Last 24 Hours Test 06/02/17 16:07 06/02/17 20:37 06/03/17 07:41 Bedside Glucose 89 mg/dl 122 mg/dl 143 mg/dl Assessment and Plan Problem list: Abdominal pain s/p intrathecal pump placement- morphine 1mg daily Intractable nausea High grade neuroendocrine pancreatic tumor CBD dilatation and obstruction- s/p stent placement Duodenal ulcer Goals of care (Z51.5) Palliative care recs: -Please schedule haldol for Q4h around the clock unless sleeping. This can be increased to 2mg if needed. -Patient still has not been able to take in much as far as nutrition. -If he is okay with going home and allowing nature to take its course, he can go home with hospice and his Kat. If he improves at home with hospice and is able to eat/get stronger- he can decide at that time whether or not to continue chemotherapy. -If patient is not okay with going home without means of nutrition, then I think we need to offer him a trial of TPN. The trial could be limited to two weeks. And again, if he improves with the TPN- he can decide if he wants to continue with chemo or not. If patient does want the TPN of course he would need to go home with home health instead of hospice. -Would consider rechecking bilirubin to see if stent is working. Recheck labs for a snapshot of where we are. -Will check with Dr. Hernández to see if Dr. Hinojosa was contacted. I attempted to call patient's , left a message. Thank you again for this consult. I will continue to follow. Discharge planning: uncertain
[2017-06-03] MEDS: D5NSS + 20MEQ KCL 1,000 ML IV SCH (12:09)
--- NOTE | 2017-06-03 16:43 | Progress Note ---
Internal Med Progress Note Date of Service: Jun 03, 2017. Provider Documentation: SUBJECTIVE: The patient was seen and examined Generally weak and lethargic and not getting any better Denies any pain at rest Complains of some Nausea and persisting Discussed with the and the patient 06/03/17 OBJECTIVE: Vital Signs-as noted below Exam: General-No distress at rest Depressed and looks lethargic Eyes-Normal ENT-normal Neck-supple Lungs-Clear to ausucltate bilaterally Heart-Regular,no murmur Abdomen-Soft,intraabdominal device in place Extremities-No edema Neuro-AAOX3 Generally weak Lab data as noted below. ASSESSMENT & PLAN: PANCREATIC CA Discussed with Medical Oncology. 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 Receiving palliative chemotherapy. Prognosis difficult to predict, but expected to be > 6 months. Overall condition is deteriorating Discussed with the patient-will consult Palliative care Appreciate Palliative care input Discussed with Dr Hinojosa -no chemotherapy now,plan for Hospice acre at home or in a facility Discussed with the and the patient Social Service and palliative care aware Postural Hypotension With symptoms May have component of Dehydration Will try IV NS Clinically better Continue PT/OT Will start NS -a little better today INTRACTABLE PAIN DUE TO PANCREATIC CA Presented with severe abdominal pain due to pancreatic cancer. Appreciate Pain Management input Epidural trial was effective. Intrathecal pump placed 05/19 with good results. Continue intrathecal morphine + oral hydrocodone/acetaminophen PRN. Pain seems to be reasonably controlled now Has Nausea -getting symptomatic medication Pain is controlled -requiring occasional doses of extra pain med BILIARY TRACT OBSTRUCTION Developed jaundice. Total bilirubin as high as 14.8. Gallbladder US demonstrated mild dilatation of CBD, distended gallbladder with wall thickening, sludge, stones. HIDA scan ordered, but could not be completed due to narcotic analgesics. CT demonstrated enlarging pancreatic mass with compression on common bile duct. Appreciate GI input ERCP with biliary stent placement performed by Dr. Alexis 05/27 with good results. Total bilirubin today = 5.7. Continue piperacillin / tazobactam x 10 days for possible cholangitis. Clinically better NAUSEA / VOMITING Severe nausea and vomiting with minimal benefit from anti-emetics. Nausea and vomiting probably multifactorial, due to underlying pancreatic Ca + biliary tract disease. EGD demonstrated esophagitis and nonbleeding duodenal ulcer. Biliary stent placed Clinically improved Tolerating oral diet Will try oral Haldol and the dose increased DUODENAL ULCER EGD 11/24 demonstrated esophagitis and nonbleeding duodenal ulcer. Continue IV famotidine and oral pantoprazole. OPIATE-INDUCED CONSTIPATION Last bowel movement 05/24. Received methylnaltrexone yesterday without results. Try soapsuds enema today. Continue docusate sodium, polyethylene, methylnaltrexone PRN. No acute issue now DM TYPE 2 Usually managed with metformin at home. Hgb A1C 7.6 on 05/03/17. Hold metformin during hospital stay. Continue Lantus / NovoLog per protocol. VITAMIN D DEFICIENCY 25-OH D = 21. Supplement as tolerated. ANXIETY / DEPRESSION Secondary to pain and underlying malignancy. Receiving duloxetine for pain management. Lorazepam PRN for anxiety or insomnia. UTI secondary to Pseudomonas 50K coloney count Urine appeared dirty 05/20. UA showed 1+ blood, positive nitrites, trace leukocyte esterase, 3+ bilirubin, no WBC's, no bacteria. Urine culture 05/20 grew Pseudomonas aeruginosa, but < 100,000 CFU. No dysuria. No fever. CONFUSION-resolved Increasing confusion 05/25. CT negative for mass, vascular event. Confusion most likely secondary to meds. Was receiving scopolamine and ciprofloxacin, both of which have anticholinergic side effects. Scopolamine and ciprofloxacin discontinued 05/24. Improved. Avoid anticholinergic meds whenever possible. NUTRITION Oral intake has been poor due to GI symptoms. Nutrition consulted and following. Advance diet as tolerated. GENERAL DEBILITATION PT / OT as tolerated. VTE PROPHYLAXIS SQ enoxaparin- hold for invasive procedures. SCD's. Ambulate. DISPOSITION Expected discharge to home with home health services, but functional status is poor and may need inpatient rehab. Family Medicine follow-up with Dr. Bush. Medical Oncology follow-up with Dr. Hinojosa. Pain Management follow-up with Dr. Rogers. . Consultants: Pain Management-Dr. Venkatesh WAY-[facility] Magdaleno Discussed with the and the care providers involved in detailed Hospice home or in a facility Vital Signs: Date Time Temp Pulse Resp B/P (MAP) Pulse Ox O2 Delivery O2 Flow Rate FiO2 06/03/17 16:00 98 Room Air 06/03/17 14:50 36.5 86 18 112/70 (84) 99 Room Air 06/03/17 12:25 36.4 85 20 160/65 (96) 92 Nasal Cannula 1.0 06/03/17 11:20 36.9 92 18 100/64 (76) 97 Room Air 06/03/17 08:30 98 Room Air 06/03/17 07:16 36.9 69 20 131/78 (95) 98 Room Air 06/03/17 04:06 36.6 79 19 122/75 (91) 100 Room Air 06/03/17 00:00 Room Air 06/02/17 23:40 36.8 86 18 114/65 (81) 97 Room Air 06/02/17 19:20 36.6 88 18 128/79 (95) 91 Room Air Lab Results: Results Past 24 Hours Test 06/02/17 20:37 06/03/17 07:41 06/03/17 11:22 06/03/17 16:31 Range/Units Bedside Glucose 122 143 165 187 70-99 mg/dl
[2017-06-04] MEDS: D5NSS + 20MEQ KCL 1,000 ML IV SCH ×2 (01:17→13:28)
[2017-06-04] MEDS: HYDROCODONE/ACETAMOPHEN 5/325MG TAB PO PRN ×4 (01:20→23:08)
[2017-06-04 03:47] VITALS: BP 117/69; PULSE 76; TEMP 36.5; O2SAT 97
[2017-06-04] MEDS: ONDANSETRON INJ 2 MG/ML 2 ML VIAL IV SCH ×4 (04:10→21:21)
[2017-06-04] MEDS: HYDROmorphone INJ 0.5 MG/0.5 ML SYR IV PRN (04:52)
[2017-06-04] MEDS: PIPERACILL/TAZOBAC IV 3.375 GM in DEXTROSE 5% 100ML 100 ML IV SCH (05:59)
[2017-06-04] MEDS: SUCRALFATE 1 GM/10 ML UDC PO SCH ×4 (06:00→21:21)
[2017-06-04 06:54] LABS: HEMATOCRIT 28.6 % (42-52); MEAN CELL VOLUME 89.1 fL (80-100); MEAN CORPUSCULAR HEMOGLOBIN 29.6 pg (25-34); MEAN CORPUSCULAR HGB CONC 33.2 g/dl (32-36); PLATELET COUNT 214 K/uL (130-400); RED BLOOD COUNT 3.21 M/uL (4.7-6.1); WHITE BLOOD COUNT 9.61 K/uL (4.8-10.8)
[2017-06-04 07:22] VITALS: BP 121/72; PULSE 76; TEMP 36.2; O2SAT 98
[2017-06-04 07:25] LABS: CREATININE 0.53 mg/dl (0.60-1.40)
[2017-06-04] MEDS: DRONABINOL 2.5 MG CAP PO SCH ×3 (08:03→21:21)
[2017-06-04] MEDS: ENOXAPARIN 40 MG/0.4 ML SYR SQ SCH (08:03)
[2017-06-04] MEDS: DOCUSATE SODIUM 100 MG CAP PO SCH ×2 (08:03→21:21)
[2017-06-04] MEDS: HALOPERIDOL 1 MG TAB PO PRN (08:03)
[2017-06-04] MEDS: PANTOprazole SOD 40 MG TAB PO SCH ×2 (08:03→21:21)
[2017-06-04] MEDS: DULOXETINE HCL 60 MG CAP PO SCH (08:03)
[2017-06-04] MEDS: INSULIN GLARGINE SOLOSTAR 100 UNITS/ML 3 ML PEN SC SCH ×2 (08:12→21:24)
[2017-06-04] MEDS: INSULIN ASPART 100 UNITS/ML 3 ML PEN SC SCH ×4 (08:12→21:23)
[2017-06-04] MEDS: BOOST GLUCOSE CONTROL PO SCH ×3 (08:30→20:00)
--- NOTE | 2017-06-04 13:15 | Progress Note ---
Internal Med Progress Note Date of Service: Jun 04, 2017. Provider Documentation: SUBJECTIVE: The patient was seen and examined Generally weak and lethargic and not getting any better Pain is controlled today Hiccup is better as well OBJECTIVE: Vital Signs-as noted below Exam: General-No distress at rest Depressed and looks lethargic Eyes-Normal ENT-normal Neck-supple Lungs-Clear to ausucltate bilaterally Heart-Regular,no murmur Abdomen-Soft,intraabdominal device in place Extremities-No edema Neuro-AAOX3 Generally weak Lab data as noted below. ASSESSMENT & PLAN: PANCREATIC CA Discussed with Medical Oncology. 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 Receiving palliative chemotherapy. Prognosis difficult to predict, but expected to be > 6 months. Overall condition is deteriorating Discussed with the patient-will consult Palliative care Appreciate Palliative care input Discussed with Dr Hinojosa -no chemotherapy now,plan for Hospice acre at home or in a facility Discussed with the and the patient Social Service and palliative care aware Remains stable -awaiting placement/home with hospice Postural Hypotension With symptoms May have component of Dehydration Will try IV NS Clinically better Continue PT/OT Will start NS -a little better today BP is reasonably controlled INTRACTABLE PAIN DUE TO PANCREATIC CA-controlled now Presented with severe abdominal pain due to pancreatic cancer. Appreciate Pain Management input Epidural trial was effective. Intrathecal pump placed 05/19 with good results. Continue intrathecal morphine + oral hydrocodone/acetaminophen PRN. Pain seems to be reasonably controlled now Has Nausea -getting symptomatic medication Pain is controlled -requiring occasional doses of extra pain med BILIARY TRACT OBSTRUCTION Developed jaundice. Total bilirubin as high as 14.8. Gallbladder US demonstrated mild dilatation of CBD, distended gallbladder with wall thickening, sludge, stones. HIDA scan ordered, but could not be completed due to narcotic analgesics. CT demonstrated enlarging pancreatic mass with compression on common bile duct. Appreciate GI input ERCP with biliary stent placement performed by Dr. Alexis 05/27 with good results. Total bilirubin today = 5.7. Continue piperacillin / tazobactam x 10 days for possible cholangitis. Has mild Jaundice otherwise better NAUSEA / VOMITING Severe nausea and vomiting with minimal benefit from anti-emetics. Nausea and vomiting probably multifactorial, due to underlying pancreatic Ca + biliary tract disease. EGD demonstrated esophagitis and nonbleeding duodenal ulcer. Biliary stent placed Clinically improved Tolerating oral diet Will try oral Haldol and the dose increased DUODENAL ULCER EGD 05/27 demonstrated esophagitis and nonbleeding duodenal ulcer. Continue IV famotidine and oral pantoprazole. OPIATE-INDUCED CONSTIPATION Last bowel movement 05/24. Received methylnaltrexone yesterday without results. Try soapsuds enema today. Continue docusate sodium, polyethylene, methylnaltrexone PRN. No acute issue now DM TYPE 2 Usually managed with metformin at home. Hgb A1C 7.6 on 05/03/17. Hold metformin during hospital stay. Continue Lantus / NovoLog per protocol. VITAMIN D DEFICIENCY 25-OH D = 21. Supplement as tolerated. ANXIETY / DEPRESSION Secondary to pain and underlying malignancy. Receiving duloxetine for pain management. Lorazepam PRN for anxiety or insomnia. UTI secondary to Pseudomonas 50K coloney count Urine appeared dirty 05/20. UA showed 1+ blood, positive nitrites, trace leukocyte esterase, 3+ bilirubin, no WBC's, no bacteria. Urine culture 05/20 grew Pseudomonas aeruginosa, but < 100,000 CFU. No dysuria. No fever. CONFUSION-resolved Increasing confusion 05/25. CT negative for mass, vascular event. Confusion most likely secondary to meds. Was receiving scopolamine and ciprofloxacin, both of which have anticholinergic side effects. Scopolamine and ciprofloxacin discontinued 05/24. Improved. Avoid anticholinergic meds whenever possible. NUTRITION Oral intake has been poor due to GI symptoms. Nutrition consulted and following. Advance diet as tolerated. Advised to try small amount of food with increased frequency Discussed about the limited benefit with other modalities of Nutrition GENERAL DEBILITATION PT / OT as tolerated. VTE PROPHYLAXIS SQ enoxaparin- hold for invasive procedures. SCD's. Ambulate. DISPOSITION Expected discharge to home with home health services, but functional status is poor and may need inpatient rehab. Family Medicine follow-up with Dr. Bush. Medical Oncology follow-up with Dr. Hinojosa. Pain Management follow-up with Dr. Rogers. . Consultants: Pain Management-Dr. Venkatesh WAY-[facility] Magdaleno Discussed with the and the care providers involved in detailed Hospice home or in a facility Vital Signs: Date Time Temp Pulse Resp B/P (MAP) Pulse Ox O2 Delivery O2 Flow Rate FiO2 06/04/17 09:00 Room Air 06/04/17 07:22 36.2 76 22 121/72 (88) 98 Room Air 06/04/17 03:47 36.5 76 18 117/69 (85) 97 Room Air 06/03/17 23:59 Room Air 06/03/17 22:58 36.4 76 18 119/73 (88) 99 Room Air 06/03/17 20:00 Room Air 06/03/17 19:11 36.4 83 16 117/73 (88) 99 Room Air 06/03/17 16:00 98 Room Air 06/03/17 14:50 36.5 86 18 112/70 (84) 99 Room Air Lab Results: Results Past 24 Hours Test 06/03/17 16:31 06/03/17 20:17 06/04/17 06:13 06/04/17 07:36 Range/Units Bedside Glucose 187 196 175 70-99 mg/dl White Blood Count 9.61 4.8-10.8 K/uL Red Blood Count 3.21 4.7-6.1 M/uL Hemoglobin 9.5 14.0-18.0 g/dL Hematocrit 28.6 42-52 % Mean Corpuscular Volume 89.1 80-100 fL Mean Corpuscular Hemoglobin 29.6 25-34 pg Mean Corpuscular Hemoglobin Concent 33.2 32-36 g/dl RDW Standard Deviation 55.8 36.4-46.3 fL RDW Coefficient of Variation 17.0 11.5-14.5 % Platelet Count 214 130-400 K/uL Mean Platelet Volume 11.0 7.4-10.4 fL Creatinine 0.53 0.60-1.40 mg/dl Est Creatinine Clear Calc Drug Dose 147.8 ml/min Estimated GFR () 127.8 Estimated GFR (Non- 110.3 Test 06/04/17 11:17 Range/Units Bedside Glucose 166 70-99 mg/dl
[2017-06-04 13:26] VITALS: BP 115/76; PULSE 87; TEMP 36; O2SAT 99
[2017-06-04 19:47] VITALS: BP 109/66; PULSE 82; TEMP 36.3; O2SAT 94
[2017-06-04 22:25] VITALS: BP 109/62; PULSE 86; TEMP 37.5; O2SAT 100
[2017-06-05] MEDS: D5NSS + 20MEQ KCL 1,000 ML IV SCH ×2 (02:37→13:07)
[2017-06-05] MEDS: ONDANSETRON INJ 2 MG/ML 2 ML VIAL IV SCH ×4 (02:41→21:11)
[2017-06-05] MEDS: HYDROCODONE/ACETAMOPHEN 5/325MG TAB PO PRN ×4 (03:50→19:05)
[2017-06-05 04:32] VITALS: BP 110/66; PULSE 72; TEMP 36.9; O2SAT 93
[2017-06-05] MEDS: SUCRALFATE 1 GM/10 ML UDC PO SCH ×4 (06:09→21:00)
[2017-06-05 07:20] VITALS: BP 101/63; PULSE 76; TEMP 36.3; O2SAT 98
[2017-06-05] MEDS: HALOPERIDOL 1 MG TAB PO PRN ×3 (07:50→17:45)
[2017-06-05] MEDS: DOCUSATE SODIUM 100 MG CAP PO SCH ×2 (07:50→21:02)
[2017-06-05] MEDS: DULOXETINE HCL 60 MG CAP PO SCH (07:50)
[2017-06-05] MEDS: BISACODYL 5 MG TABEC PO PRN ×2 (07:50→21:11)
[2017-06-05] MEDS: PANTOprazole SOD 40 MG TAB PO SCH ×2 (07:50→21:03)
[2017-06-05] MEDS: DRONABINOL 2.5 MG CAP PO SCH ×3 (07:50→21:11)
[2017-06-05] MEDS: ENOXAPARIN 40 MG/0.4 ML SYR SQ SCH (07:51)
[2017-06-05] MEDS: INSULIN GLARGINE SOLOSTAR 100 UNITS/ML 3 ML PEN SC SCH ×2 (07:55→21:14)
[2017-06-05] MEDS: INSULIN ASPART 100 UNITS/ML 3 ML PEN SC SCH ×5 (08:30→21:13)
[2017-06-05] MEDS: BOOST GLUCOSE CONTROL PO SCH ×3 (08:30→21:04)
[2017-06-05] MEDS: HYDROmorphone INJ 0.5 MG/0.5 ML SYR IV PRN (09:23)
[2017-06-05 12:12] VITALS: BP 114/63; PULSE 84; TEMP 36; O2SAT 98
--- NOTE | 2017-06-05 13:13 | Progress Note ---
Internal Med Progress Note Date of Service: Jun 05, 2017. Provider Documentation: SUBJECTIVE: The patient was seen and examined Generally weak and lethargic and not getting any better Pain is controlled today Hiccup is better as well Remains generally weak and complains of more pain OBJECTIVE: Vital Signs-as noted below Exam: General-No distress at rest Depressed and looks lethargic Eyes-Normal ENT-normal Neck-supple Lungs-Clear to ausucltate bilaterally Heart-Regular,no murmur Abdomen-Soft,intraabdominal device in place Extremities-No edema Neuro-AAOX3 Generally weak Lab data as noted below. ASSESSMENT & PLAN: PANCREATIC CA Discussed with Medical Oncology. 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 Receiving palliative chemotherapy. Prognosis difficult to predict, but expected to be > 6 months. Overall condition is deteriorating Discussed with the patient-will consult Palliative care Appreciate Palliative care input Discussed with Dr Hinojosa -no chemotherapy now,plan for Hospice acre at home or in a facility Discussed with the and the patient Social Service and palliative care aware Remains stable -awaiting placement/home with hospice Postural Hypotension With symptoms May have component of Dehydration Will try IV NS Clinically better Continue PT/OT Will start NS -a little better today BP is reasonably controlled Not been ambulating due to extreme weakness INTRACTABLE PAIN DUE TO PANCREATIC CA-controlled now Presented with severe abdominal pain due to pancreatic cancer. Appreciate Pain Management input Epidural trial was effective. Intrathecal pump placed 05/19 with good results. Continue intrathecal morphine + oral hydrocodone/acetaminophen PRN. Pain seems to be reasonably controlled now Has Nausea -getting symptomatic medication Pain is controlled -requiring occasional doses of extra pain med Intravenous Dilaudid is increased to control pain BILIARY TRACT OBSTRUCTION Developed jaundice. Total bilirubin as high as 14.8. Gallbladder US demonstrated mild dilatation of CBD, distended gallbladder with wall thickening, sludge, stones. HIDA scan ordered, but could not be completed due to narcotic analgesics. CT demonstrated enlarging pancreatic mass with compression on common bile duct. Appreciate GI input ERCP with biliary stent placement performed by Dr. Alexis 05/27 with good results. Total bilirubin today = 5.7. Continue piperacillin / tazobactam x 10 days for possible cholangitis. Has mild Jaundice otherwise better Check LFT tomorrow NAUSEA / VOMITING Severe nausea and vomiting with minimal benefit from anti-emetics. Nausea and vomiting probably multifactorial, due to underlying pancreatic Ca + biliary tract disease. EGD demonstrated esophagitis and nonbleeding duodenal ulcer. Biliary stent placed Clinically improved Tolerating oral diet Will try oral Haldol and the dose increased and reasonably working DUODENAL ULCER EGD 05/27 demonstrated esophagitis and nonbleeding duodenal ulcer. Continue IV famotidine and oral pantoprazole. OPIATE-INDUCED CONSTIPATION Last bowel movement 05/24. Received methylnaltrexone yesterday without results. Try soapsuds enema today. Continue docusate sodium, polyethylene, methylnaltrexone PRN. No acute issue now DM TYPE 2 Usually managed with metformin at home. Hgb A1C 7.6 on 05/03/17. Hold metformin during hospital stay. Continue Lantus / NovoLog per protocol. VITAMIN D DEFICIENCY 25-OH D = 21. Supplement as tolerated. ANXIETY / DEPRESSION Secondary to pain and underlying malignancy. Receiving duloxetine for pain management. Lorazepam PRN for anxiety or insomnia. UTI secondary to Pseudomonas 50K coloney count Urine appeared dirty 05/20. UA showed 1+ blood, positive nitrites, trace leukocyte esterase, 3+ bilirubin, no WBC's, no bacteria. Urine culture 05/20 grew Pseudomonas aeruginosa, but < 100,000 CFU. No dysuria. No fever. CONFUSION-resolved Increasing confusion 05/25. CT negative for mass, vascular event. Confusion most likely secondary to meds. Was receiving scopolamine and ciprofloxacin, both of which have anticholinergic side effects. Scopolamine and ciprofloxacin discontinued 05/24. Improved. Avoid anticholinergic meds whenever possible. NUTRITION Oral intake has been poor due to GI symptoms. Nutrition consulted and following. Advance diet as tolerated. Advised to try small amount of food with increased frequency Discussed about the limited benefit with other modalities of Nutrition GENERAL DEBILITATION PT / OT as tolerated. VTE PROPHYLAXIS SQ enoxaparin- hold for invasive procedures. SCD's. Ambulate. DISPOSITION Expected discharge to home with home health services, but functional status is poor and may need inpatient rehab. Family Medicine follow-up with Dr. Bush. Medical Oncology follow-up with Dr. Hinojosa. Pain Management follow-up with Dr. Rogers. . Consultants: Pain Management-Dr. Venkatesh WAY-[facility] Magdaleno Discussed with the and the care providers involved in detailed Hospice home or in a facility Prognosis is poor Vital Signs: Date Time Temp Pulse Resp B/P (MAP) Pulse Ox O2 Delivery O2 Flow Rate FiO2 12/3/17 12:12 36.0 84 20 114/63 (80) 98 06/05/17 09:00 Room Air 06/05/17 07:20 36.3 76 20 101/63 (76) 98 Room Air 06/05/17 04:32 36.9 72 16 110/66 (81) 93 Room Air 06/05/17 00:00 Room Air 06/04/17 22:25 37.5 86 16 109/62 (78) 100 Room Air 06/04/17 20:00 Room Air 06/04/17 19:47 36.3 82 18 109/66 (80) 94 Room Air 06/04/17 16:30 Room Air 06/04/17 13:26 36.0 87 18 115/76 (89) 99 Room Air Lab Results: Results Past 24 Hours Test 06/04/17 16:35 06/04/17 19:58 06/05/17 07:34 06/05/17 12:05 Range/Units Bedside Glucose 183 199 155 160 70-99 mg/dl
[2017-06-05 15:43] VITALS: BP 121/75; PULSE 88; TEMP 36.6; O2SAT 97
[2017-06-05 16:10] VITALS: BP_SYST 106; BP_SYST 107; BP_SYST 112; BP_DIAS 68; BP_DIAS 69; BP_DIAS 71; PULSE 86
[2017-06-05 19:43] VITALS: BP 109/73; PULSE 95; TEMP 36.3; O2SAT 99
[2017-06-06] MEDS: HYDROmorphone INJ 1 MG/ML SYR IV PRN ×3 (00:13→10:53)
[2017-06-06 00:15] VITALS: BP 113/70; PULSE 89; TEMP 36.5; O2SAT 97
[2017-06-06] MEDS: D5NSS + 20MEQ KCL 1,000 ML IV SCH ×2 (02:47→14:42)
[2017-06-06] MEDS: ONDANSETRON INJ 2 MG/ML 2 ML VIAL IV SCH ×4 (02:47→20:55)
[2017-06-06] MEDS: HYDROCODONE/ACETAMOPHEN 5/325MG TAB PO PRN ×3 (03:27→16:14)
[2017-06-06 03:50] VITALS: BP 123/80; PULSE 90; TEMP 36.2; O2SAT 97
[2017-06-06 06:48] LABS: HEMATOCRIT 27.9 % (42-52); MEAN CORPUSCULAR HEMOGLOBIN 29.7 pg (25-34); MEAN PLATELET VOLUME 10.6 fL (7.4-10.4); PLATELET COUNT 197 K/uL (130-400); WHITE BLOOD COUNT 12.84 K/uL (4.8-10.8)
[2017-06-06] MEDS: SUCRALFATE 1 GM/10 ML UDC PO SCH ×4 (07:06→20:47)
[2017-06-06 07:14] VITALS: BP 124/81; PULSE 90; TEMP 36.4; O2SAT 97
[2017-06-06 07:23] LABS: CALCIUM 8.3 mg/dl (8.5-10.1); CREATININE 0.47 mg/dl (0.60-1.40)
[2017-06-06 07:26] LABS: ALB/GLOB RATIO 0.7 (0.9-2)
[2017-06-06] MEDS: PANTOprazole SOD 40 MG TAB PO SCH ×2 (07:52→20:47)
[2017-06-06] MEDS: BISACODYL 5 MG TABEC PO PRN ×2 (07:52→20:55)
[2017-06-06] MEDS: DULOXETINE HCL 60 MG CAP PO SCH (07:52)
[2017-06-06] MEDS: DOCUSATE SODIUM 100 MG CAP PO SCH ×2 (07:52→20:46)
[2017-06-06] MEDS: DRONABINOL 2.5 MG CAP PO SCH ×3 (07:52→20:46)
[2017-06-06] MEDS: BOOST GLUCOSE CONTROL PO SCH ×3 (07:53→20:00)
[2017-06-06] MEDS: HALOPERIDOL 1 MG TAB PO PRN (07:53)
[2017-06-06] MEDS: ENOXAPARIN 40 MG/0.4 ML SYR SQ SCH (07:54)
[2017-06-06] MEDS: INSULIN GLARGINE SOLOSTAR 100 UNITS/ML 3 ML PEN SC SCH ×2 (07:58→21:01)
[2017-06-06] MEDS: INSULIN ASPART 100 UNITS/ML 3 ML PEN SC SCH ×4 (09:11→21:02)
[2017-06-06 12:30] VITALS: BP 117/73; PULSE 93; TEMP 36.4; O2SAT 96
--- NOTE | 2017-06-06 13:44 | Palliative Care Progress Note ---
Palliative Care Progress Note Date of Service Jun 06, 2017. Subjective Pt evaluation today including: conversation w/ patient, conversation w/ family Pain: 3/10 PO Intake: minimal Voiding: no voiding problems -Patient is slightly drowsy but awake and oriented x4. Yesterday morning started having increased abdominal pain that he describes as coming on quickly and being sharp. At the worst it is 10/10 pain. PRN IV Dilaudid helps-- he has had 3mg IV Dilaudid in last 12 hours. -Nausea is slightly better, comes and goes. Zofran does not seem to help, but haldol does. -Received call from patient's this morning-- she had some questions about hospice. She thinks she would like to take patient home. I asked pillowcase sewer to contact her about choosing an agency. Referral will be made accordingly. Review of Systems Constitutional: + weakness ENT: No trouble swallowing Respiratory: No shortness of breath Cardiac: No chest pain Abdomen: + pain, + nausea, + vomiting Male : No problem reported Psychiatric: No anxiety Objective Vital Signs Date Time Temp Pulse Resp B/P (MAP) Pulse Ox O2 Delivery O2 Flow Rate FiO2 06/06/17 12:30 36.4 93 18 117/73 (88) 96 Room Air 06/06/17 08:30 Room Air 06/06/17 07:14 36.4 90 20 124/81 (95) 97 06/06/17 03:50 36.2 90 18 123/80 (94) 97 06/06/17 00:15 36.5 89 20 113/70 (84) 97 06/06/17 00:00 Room Air 06/05/17 20:00 Room Air 06/05/17 19:43 36.3 95 18 109/73 (85) 99 Room Air 06/05/17 16:30 Room Air 06/05/17 16:10 86 112/69 (83) 106/71 (83) 107/68 (81) 06/05/17 15:43 36.6 88 18 121/75 (90) 97 Room Air Physical Exam General Appearance: no apparent distress ENT: hearing grossly normal Neck: supple, no JVD Respiratory/Chest: no respiratory distress, no accessory muscle use Neurologic/Psychiatric: alert, normal mood/affect, oriented x 3 Skin: + jaundice (improved) Laboratory Results Last 24 Hours Test 06/05/17 16:48 12/3/17 19:56 06/06/17 06:20 06/06/17 07:55 Bedside Glucose 129 mg/dl 170 mg/dl 154 mg/dl White Blood Count 12.84 K/uL Red Blood Count 3.10 M/uL Hemoglobin 9.2 g/dL Hematocrit 27.9 % Mean Corpuscular Volume 90.0 fL Mean Corpuscular Hemoglobin 29.7 pg Mean Corpuscular Hemoglobin Concent 33.0 g/dl RDW Standard Deviation 56.4 fL RDW Coefficient of Variation 17.2 % Platelet Count 197 K/uL Mean Platelet Volume 10.6 fL Sodium Level 127 mmol/L Potassium Level 4.0 mmol/L Chloride Level 93 mmol/L Carbon Dioxide Level 28 mmol/L Anion Gap 6.0 mmol/L Blood Urea Nitrogen 7 mg/dl Creatinine 0.47 mg/dl Est Creatinine Clear Calc Drug Dose 169.5 ml/min Estimated GFR () 134.3 Estimated GFR (Non- 115.8 BUN/Creatinine Ratio 15.0 Random Glucose 158 mg/dl Calcium Level 8.3 mg/dl Total Bilirubin 2.3 mg/dl Aspartate Amino Transf (AST/SGOT) 9 U/L Alanine Aminotransferase (ALT/SGPT) 29 U/L Alkaline Phosphatase 95 U/L Total Protein 5.8 gm/dl Albumin 2.4 gm/dl Globulin 3.4 gm/dl Albumin/Globulin Ratio 0.7 Test 06/06/17 11:28 Bedside Glucose 159 mg/dl Assessment and Plan Problem list: Abdominal pain s/p intrathecal pump placement- morphine 1mg daily Intractable nausea High grade neuroendocrine pancreatic tumor CBD dilatation and obstruction- s/p stent placement Duodenal ulcer Goals of care (Z51.5) Palliative care recs: -Please schedule haldol for Q4h around the clock unless sleeping. This can be increased to 2mg if needed. -Per Dr. Hernández, patient management will be changing the intrathecal pump. Unsure of what dose they are increasing to. -Will reassess pain med needs tomorrow. He needs to be controlled without PRN IV pain medication in order to go home (preferably). -Would change ondansetron to sublingual and change it to PRN. -Per , goal at this point is to get patient home with hospice with comfort as the goal. We discussed the fact that he is still nauseated and not eating much-- states that she and the patient are aware of this and okay with it. Thank you again for this consult. I will continue to follow. Discharge planning: home with Hospice
[2017-06-06] MEDS ORDERED: ONDANSETRON 8MG OD TAB PO PRN (13:45)
[2017-06-06 16:00] VITALS: BP 132/77; PULSE 90; TEMP 36.4; O2SAT 97
[2017-06-06] MEDS ORDERED: MEGESTROL ACETATE SUSP 400 MG/10 ML UDC PO ONE (16:00)
[2017-06-06] MEDS: HALOPERIDOL 1 MG TAB PO SCH ×2 (16:14→20:46)
[2017-06-06 16:30] VITALS: O2SAT 97
--- NOTE | 2017-06-06 18:07 | Progress Note ---
Internal Med Progress Note Date of Service: Jun 06, 2017. Provider Documentation: SUBJECTIVE: The patient was seen and examined Generally weak and lethargic and not getting any better Pain is not controlled Hiccup is better as well Getting regular IV Dilaudid Poor appetite OBJECTIVE: Vital Signs-as noted below Exam: General-No distress at rest Depressed and looks lethargic Eyes-Normal ENT-normal Neck-supple Lungs-Clear to ausucltate bilaterally Heart-Regular,no murmur Abdomen-Soft,intraabdominal device in place Extremities-No edema Neuro-AAOX3 Generally weak Lab data as noted below. ASSESSMENT & PLAN: PANCREATIC CA Discussed with Medical Oncology. 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 Receiving palliative chemotherapy. Prognosis difficult to predict, but expected to be > 6 months. Overall condition is deteriorating Discussed with the patient-will consult Palliative care Appreciate Palliative care input Discussed with Dr Hinojosa -no chemotherapy now,plan for Hospice acre at home or in a facility Discussed with the and the patient Social Service and palliative care aware Remains stable -awaiting placement/home with hospice Started on Megace to stimulate appetite Postural Hypotension With symptoms May have component of Dehydration Will try IV NS Clinically better Continue PT/OT Will start NS -a little better today BP is reasonably controlled Not been ambulating due to extreme weakness INTRACTABLE PAIN DUE TO PANCREATIC CA-controlled now Presented with severe abdominal pain due to pancreatic cancer. Appreciate Pain Management input Epidural trial was effective. Intrathecal pump placed 05/19 with good results. Continue intrathecal morphine + oral hydrocodone/acetaminophen PRN. Pain seems to be reasonably controlled now Has Nausea -getting symptomatic medication Pain is controlled -requiring occasional doses of extra pain med Intravenous Dilaudid is increased to control pain Pain therapy service will see him tomorrow to increase pain med BILIARY TRACT OBSTRUCTION Developed jaundice. Total bilirubin as high as 14.8. Gallbladder US demonstrated mild dilatation of CBD, distended gallbladder with wall thickening, sludge, stones. HIDA scan ordered, but could not be completed due to narcotic analgesics. CT demonstrated enlarging pancreatic mass with compression on common bile duct. Appreciate GI input ERCP with biliary stent placement performed by Dr. Alexis 05/27 with good results. Total bilirubin today = 5.7. Continue piperacillin / tazobactam x 10 days for possible cholangitis. Has mild Jaundice otherwise better Check LFT tomorrow-reasonable NAUSEA / VOMITING Severe nausea and vomiting with minimal benefit from anti-emetics. Nausea and vomiting probably multifactorial, due to underlying pancreatic Ca + biliary tract disease. EGD demonstrated esophagitis and nonbleeding duodenal ulcer. Biliary stent placed Clinically improved Tolerating oral diet Will try oral Haldol and the dose increased and reasonably working ODT -Zofran given DUODENAL ULCER EGD 05/27 demonstrated esophagitis and nonbleeding duodenal ulcer. Continue IV famotidine and oral pantoprazole. OPIATE-INDUCED CONSTIPATION Last bowel movement 05/24. Received methylnaltrexone yesterday without results. Try soapsuds enema today. Continue docusate sodium, polyethylene, methylnaltrexone PRN. No acute issue now DM TYPE 2 Usually managed with metformin at home. Hgb A1C 7.6 on 05/03/17. Hold metformin during hospital stay. Continue Lantus / NovoLog per protocol. VITAMIN D DEFICIENCY 25-OH D = 21. Supplement as tolerated. ANXIETY / DEPRESSION Secondary to pain and underlying malignancy. Receiving duloxetine for pain management. Lorazepam PRN for anxiety or insomnia. UTI secondary to Pseudomonas 50K coloney count Urine appeared dirty 05/20. UA showed 1+ blood, positive nitrites, trace leukocyte esterase, 3+ bilirubin, no WBC's, no bacteria. Urine culture 05/20 grew Pseudomonas aeruginosa, but < 100,000 CFU. No dysuria. No fever. CONFUSION-resolved Increasing confusion 05/25. CT negative for mass, vascular event. Confusion most likely secondary to meds. Was receiving scopolamine and ciprofloxacin, both of which have anticholinergic side effects. Scopolamine and ciprofloxacin discontinued 05/24. Improved. Avoid anticholinergic meds whenever possible. NUTRITION Oral intake has been poor due to GI symptoms. Nutrition consulted and following. Advance diet as tolerated. Advised to try small amount of food with increased frequency Discussed about the limited benefit with other modalities of Nutrition GENERAL DEBILITATION PT / OT as tolerated. VTE PROPHYLAXIS SQ enoxaparin- hold for invasive procedures. SCD's. Ambulate. DISPOSITION Expected discharge to home with home health services, but functional status is poor and may need inpatient rehab. Family Medicine follow-up with Dr. Bush. Medical Oncology follow-up with Dr. Hinojosa. Pain Management follow-up with Dr. Rogers. . Consultants: Pain Management-Dr. Venkatesh WAY-[facility] Magdaleno Discussed with the and the care providers involved in detailed Hospice home or in a facility when accepted Prognosis is poor Vital Signs: Date Time Temp Pulse Resp B/P (MAP) Pulse Ox O2 Delivery O2 Flow Rate FiO2 06/06/17 16:30 97 Room Air 06/06/17 16:00 36.4 90 18 132/77 (95) 97 Room Air 06/06/17 12:30 36.4 93 18 117/73 (88) 96 Room Air 06/06/17 08:30 Room Air 06/06/17 07:14 36.4 90 20 124/81 (95) 97 06/06/17 03:50 36.2 90 18 123/80 (94) 97 06/06/17 00:15 36.5 89 20 113/70 (84) 97 06/06/17 00:00 Room Air 06/05/17 20:00 Room Air 06/05/17 19:43 36.3 95 18 109/73 (85) 99 Room Air Lab Results: Results Past 24 Hours Test 06/05/17 19:56 06/06/17 06:20 06/06/17 07:55 06/06/17 11:28 Range/Units Bedside Glucose 170 154 159 70-99 mg/dl White Blood Count 12.84 4.8-10.8 K/uL Red Blood Count 3.10 4.7-6.1 M/uL Hemoglobin 9.2 14.0-18.0 g/dL Hematocrit 27.9 42-52 % Mean Corpuscular Volume 90.0 80-100 fL Mean Corpuscular Hemoglobin 29.7 25-34 pg Mean Corpuscular Hemoglobin Concent 33.0 32-36 g/dl RDW Standard Deviation 56.4 36.4-46.3 fL RDW Coefficient of Variation 17.2 11.5-14.5 % Platelet Count 197 130-400 K/uL Mean Platelet Volume 10.6 7.4-10.4 fL Sodium Level 127 136-145 mmol/L Potassium Level 4.0 3.5-5.1 mmol/L Chloride Level 93 98-107 mmol/L Carbon Dioxide Level 28 21-32 mmol/L Anion Gap 6.0 3-11 mmol/L Blood Urea Nitrogen 7 7-18 mg/dl Creatinine 0.47 0.60-1.40 mg/dl Est Creatinine Clear Calc Drug Dose 169.5 ml/min Estimated GFR () 134.3 Estimated GFR (Non- 115.8 BUN/Creatinine Ratio 15.0 10-20 Random Glucose 158 70-99 mg/dl Calcium Level 8.3 8.5-10.1 mg/dl Total Bilirubin 2.3 0.2-1 mg/dl Aspartate Amino Transf (AST/SGOT) 9 15-37 U/L Alanine Aminotransferase (ALT/SGPT) 29 12-78 U/L Alkaline Phosphatase 95 45-117 U/L Total Protein 5.8 6.4-8.2 gm/dl Albumin 2.4 3.4-5.0 gm/dl Globulin 3.4 2.5-4.0 gm/dl Albumin/Globulin Ratio 0.7 0.9-2 Test 06/06/17 17:00 Range/Units Bedside Glucose 148 70-99 mg/dl
[2017-06-07] VITALS (7 sets, daily range): BP systolic 116–125; BP diastolic 67–79; PULSE 86–100; TEMP 36.4–36.9; O2SAT 97–99
[2017-06-07] MEDS: HALOPERIDOL 1 MG TAB PO SCH ×6 (00:01→20:38)
[2017-06-07] MEDS: ONDANSETRON INJ 2 MG/ML 2 ML VIAL IV SCH ×4 (04:18→20:47)
[2017-06-07] MEDS: D5NSS + 20MEQ KCL 1,000 ML IV SCH ×2 (04:18→17:17)
[2017-06-07] MEDS: SUCRALFATE 1 GM/10 ML UDC PO SCH ×4 (06:23→20:38)
[2017-06-07] MEDS: ENOXAPARIN 40 MG/0.4 ML SYR SQ SCH (08:33)
[2017-06-07] MEDS: HYDROCODONE/ACETAMOPHEN 5/325MG TAB PO PRN ×4 (08:39→22:44)
[2017-06-07] MEDS: INSULIN GLARGINE SOLOSTAR 100 UNITS/ML 3 ML PEN SC SCH ×2 (08:41→21:03)
[2017-06-07] MEDS: INSULIN ASPART 100 UNITS/ML 3 ML PEN SC SCH ×4 (08:42→21:04)
--- NOTE | 2017-06-07 09:34 | Palliative Care Progress Note ---
Palliative Care Progress Note Date of Service Jun 07, 2017. Subjective Pt evaluation today including: conversation w/ patient, physical exam, chart review, conversation w/ physician practice consultant (Dr. Rae), review of inpatient medication list Pain: 08/13 PO Intake: minimal Voiding: no voiding problems -Patient's pain is controlled. Intrathecal pump increased by pain management this morning to 1.05mg/day. -Patient has not had a BM since 05/30. Is passing gas, belly soft. Tried to take Mirilax, but vomited after. -Referral made to [facility] yesterday. Review of Systems Constitutional: + weakness ENT: No trouble swallowing Respiratory: No cough, No shortness of breath Cardiac: No chest pain, No edema Abdomen: + pain (but is controlled), + nausea, + vomiting Male : No problem reported Psychiatric: No anxiety Objective Vital Signs Date Time Temp Pulse Resp B/P (MAP) Pulse Ox O2 Delivery O2 Flow Rate FiO2 06/07/17 08:05 36.4 96 18 118/67 (84) 98 Room Air 06/07/17 04:22 36.4 89 18 125/79 (94) 97 Room Air 06/07/17 00:00 36.8 91 16 118/73 (88) 98 Room Air 06/07/17 00:00 Room Air 06/06/17 16:30 97 Room Air 06/06/17 16:00 36.4 90 18 132/77 (95) 97 Room Air 06/06/17 12:30 36.4 93 18 117/73 (88) 96 Room Air Physical Exam General Appearance: no apparent distress ENT: hearing grossly normal Neck: supple, no JVD Respiratory/Chest: no respiratory distress, no accessory muscle use Cardiovascular: regular rate, rhythm, no edema, + normal peripheral pulses Abdomen: normal bowel sounds, non tender, soft Neurologic/Psychiatric: normal mood/affect (midly flat), oriented x 3 Skin: + jaundice (but improved), + pallor Laboratory Results Last 24 Hours Test 06/06/17 11:28 06/06/17 17:00 06/06/17 21:00 06/07/17 07:52 Bedside Glucose 159 mg/dl 148 mg/dl 169 mg/dl 172 mg/dl Assessment and Plan Problem list: Abdominal pain s/p intrathecal pump placement- morphine 1mg daily Intractable nausea High grade neuroendocrine pancreatic tumor CBD dilatation and obstruction- s/p stent placement Duodenal ulcer Goals of care (Z51.5) Palliative care recs: -Discussed code status with patient. He would like to be DO NOT RESUSCITATE/ level 5. -Please order Dulcolax suppository x1 now. Can do enema if ineffective. -Scheduled Haldol for Q4h around the clock unless sleeping. This can be increased to 2mg if needed. -Zofran ordered 8mg ODT Q4h PRN nausea/vomiting. -Pain management changed intrathecal pump to 1.05mg/day. -Would order Roxanol 10mg Q2h PRN pain or SOB on discharge. -Per , goal at this point is to get patient home with hospice. Yesterday, we discussed the fact that he is still nauseated and not eating much-- states that she and the patient are aware of this and okay with it. Thank you again for this consult. I will continue to follow. Palliative Performance Scale: 30 % Discharge planning: home with Hospice
[2017-06-07] MEDS: DOCUSATE SODIUM 100 MG CAP PO SCH ×2 (09:37→20:39)
[2017-06-07] MEDS: PANTOprazole SOD 40 MG TAB PO SCH ×2 (09:37→21:02)
[2017-06-07] MEDS: DRONABINOL 2.5 MG CAP PO SCH ×3 (09:37→21:01)
[2017-06-07] MEDS: MEGESTROL ACETATE SUSP 400 MG/10 ML UDC PO SCH (09:37)
[2017-06-07] MEDS: BISACODYL 5 MG TABEC PO PRN (09:37)
[2017-06-07] MEDS: DULOXETINE HCL 60 MG CAP PO SCH (09:37)
[2017-06-07] MEDS: BOOST GLUCOSE CONTROL PO SCH ×3 (09:37→20:37)
[2017-06-07] MEDS ORDERED: BISACODYL 10 MG SUPP PR STA (11:44)
--- NOTE | 2017-06-07 17:50 | Progress Note ---
Medicine Progress Note Date & Time of Visit: Jun 07, 2017 at 17:50. Subjective Patient denies any complaints, did have a great deal of nausea/vomiting this morning. Still has not had a BM but thought he was going to have one earlier while on bedpan. No overnight events noted. Has not been able to take much PO today. Pain is controlled. Objective Last 8 Hrs Date Time Temp Pulse Resp B/P (MAP) Pulse Ox O2 Delivery O2 Flow Rate FiO2 06/07/17 16:10 Room Air 06/07/17 15:29 36.8 89 16 118/75 (89) 98 Room Air 06/07/17 11:59 36.9 90 20 122/78 (93) 99 Room Air Physical Exam: GENERAL: Patient is in no acute distress. Appears thin. HEENT: No acute trauma, normocephalic, mucous membranes moist, no nasal congestion, no scleral icterus. NECK: No stridor, trachea is midline. LUNGS: Clear to auscultation bilaterally, no wheeze, no rhonchi, breath sounds equal. HEART: Without murmurs gallops or rubs, regular rate and rhythm. ABDOMEN: Soft, nontender, bowel sounds positive EXTREMITIES: No cyanosis or edema NEUROLOGIC: Oriented x 3, no acute motor or sensory deficits, no focal weakness. SKIN: No rash, no jaundice, no diaphoresis. Laboratory Results: Last 24 Hours Test 06/06/17 21:00 06/07/17 07:52 06/07/17 11:22 06/07/17 16:32 Bedside Glucose 169 mg/dl 172 mg/dl 165 mg/dl 174 mg/dl Assessment & Plan PANCREATIC CA -as per prior attending discussion with Oncology, cancer is unresectable per surgical exploration -Pathology showed neuroendocrine. -was receiving palliative chemotherapy, but functional status has declined considerably -prognosis difficult to predict, but expected to be < 6 months as patient continues to deteriorate -Palliative care consulted, patient wishes to have level 5 DNR, would like to go home with hospice -Oncology Dr Hinojosa: no chemotherapy now, plan for Hospice at home or in a facility SYMPTOMATIC POSTURAL HYPOTENSION: -possible component of dehydration; treated with IV NS -Clinically better -continued on PT/OT but activity limited due to weakness and fatigue INTRACTABLE ABDOMINAL PAIN: -secondary to pancreatic CA; now controlled -presented with severe abdominal pain due to pancreatic cancer. -Pain Management consulted, appreciate intervention -initially had epidural trial which was effective, then Intrathecal pump placed 05/19 -continued on intrathecal morphine + oral hydrocodone/acetaminophen PRN. Intrathecal morphine dose was adjusted by PM today -Pain is better controlled - requiring only occasional doses of extra pain med -Intravenous Dilaudid is increased to control pain BILIARY TRACT OBSTRUCTION: -developed jaundice with Total bilirubin as high as 14.8. -Gallbladder US: demonstrated mild dilatation of CBD, distended gallbladder with wall thickening, sludge, stones. -HIDA scan ordered, but could not be completed due to narcotic analgesics. -CT demonstrated enlarging pancreatic mass with compression on common bile duct. -GI consulted, appreciate intervention; ERCP with biliary stent placement performed by Dr. Alexis 05/27 with good results. -treated with piperacillin/tazobactam x 10 days for possible cholangitis. -mild Jaundice otherwise better RECURRENT NAUSEA/VOMITING: -severe nausea and vomiting with minimal benefit from anti-emetics. -multifactorial, due to underlying pancreatic Ca + biliary tract disease. -EGD demonstrated esophagitis and nonbleeding duodenal ulcer. -Biliary stent placed -still has intermittent N/V but overall better -oral Haldol added and the dose increased and seems to be working -ODT -Zofran given DUODENAL ULCER: -EGD 05/27 demonstrated esophagitis and nonbleeding duodenal ulcer. -continue famotidine and pantoprazole. OPIATE-INDUCED CONSTIPATION: -Last bowel movement 05/24. -received methylnaltrexone without results. -PRN soapsuds enema -continue docusate sodium, polyethylene, methylnaltrexone PRN. -remains an ongoing issue DM TYPE II: -metformin held -Hgb A1C 7.6 on 05/03/17. -continue Lantus/NovoLog per protocol; has not required much coverage due to poor oral intake VITAMIN D DEFICIENCY: -25-OH D = 21. -Supplement as tolerated. ANXIETY/DEPRESSION: -secondary to pain, underlying malignancy and terminal nature of the cancer -on duloxetine for pain management already -on Lorazepam PRN for anxiety or insomnia. -also getting haldol UTI: -urine culture grew Pseudomonas (50K colony count) -urine culture 05/20 grew Pseudomonas aeruginosa, but < 100,000 CFU. -No dysuria. No fever. -s/p treatment CONFUSION: resolved -had increasing confusion 05/25. -CT head negative. -most likely secondary to meds. -was receiving scopolamine and ciprofloxacin, both of which have anticholinergic side effects. Scopolamine and ciprofloxacin discontinued 05/24. -mentation improved -avoid anticholinergic meds whenever possible. NUTRITION: -oral intake remains poor due to GI symptoms -Nutrition consulted and following. -encouraged to try small amount of food with increased frequency -continued on appetite stimulating medications GENERAL WEAKNESS/DEBILITY: -multifactorial from progression of disease and poor nutritional status as well as a component of depression -PT/OT as tolerated. Discharge planning: home with Hospice Consultants: Pain Management-Dr. Venkatesh WAY-MARY Magdaleno Current Inpatient Medications: Current Inpatient Medications Medications (Trade) Dose Ordered Sig/Yolis Route Start Time Stop Time Status Last Admin Dose Admin Acetaminophen (Tylenol Tab) 650 mg Q4H PRN PO 05/10/17 11:15 06/09/17 11:14 05/25/17 03:37 650 MG Bisacodyl (Dulcolax Tab) 5 mg BID PRN PO 05/10/17 11:45 06/09/17 11:44 06/07/17 09:37 5 MG Polyethylene (Miralax Powder Packet) 17 gm DAILY PRN PO 05/10/17 11:45 06/09/17 11:44 05/11/17 07:49 17 GM Insulin Aspart (novoLOG ASPART) SLIDING SCALE If C... ACHS SC 05/10/17 16:30 06/09/17 16:29 06/07/17 12:19 1 UNITS Glucose (Glucose 40% Gel) 15-30 GRAMS 15 GRAMS... UD PRN PO 05/10/17 13:00 06/09/17 12:59 Glucose (Glucose Chew Tab) 4-8 Tablets 4 Tabl... UD PRN PO 05/10/17 13:00 06/09/17 12:59 Dextrose (Dextrose 50% 50ML Syringe) 25-50ML OF 50% DW IV FOR... UD PRN IV 05/10/17 13:00 06/09/17 12:59 Glucagon (Glucagon Inj) 1 mg UD PRN SQ 05/10/17 13:00 06/09/17 12:59 Miscellaneous (Iv Fluids Completed) 1 ea PRN PRN N/A 05/10/17 14:30 11/7/18 14:29 Duloxetine HCl (Cymbalta Cap) 60 mg QAM PO 05/12/17 10:00 06/11/17 09:59 06/07/17 09:37 60 MG Docusate Sodium (coLACE CAP) 100 mg BID PO 05/12/17 20:00 06/11/17 19:59 06/07/17 09:37 100 MG Cholecalciferol (Vitamin D Tab) 1,000 inter.unit QAM PO 05/13/17 08:00 06/12/17 07:59 Future Hold 05/22/17 08:16 1,000 INTER.UNIT Lorazepam (Ativan Tab) 0.5 mg Q8 PRN PO 05/13/17 11:15 06/12/17 11:14 05/25/17 15:37 0.5 MG Polyethylene (Miralax Powder Packet) 17 gm BID PO 05/15/17 20:00 06/11/17 07:59 Future Hold 05/23/17 22:44 17 GM Naloxone HCl (Narcan Inj) 0.4 mg PRN PRN IV 05/16/17 09:15 06/15/17 09:14 05/19/17 23:21 0.4 MG Naloxone HCl (Narcan Inj) 0.4 mg PRN PRN IV 05/16/17 09:15 06/15/17 09:14 Magnesium Citrate (Citrate Of Magnesia Soln) 30 ml DAILY PRN PO 05/16/17 09:15 06/15/17 09:14 06/07/17 08:32 30 ML Ondansetron HCl (Zofran Inj) 4 mg Q6H IV 05/22/17 15:00 06/21/17 14:59 06/07/17 14:57 4 MG Enoxaparin Sodium (Lovenox Inj) 40 mg QAM SQ 05/23/17 08:00 06/22/17 07:59 Future hold 06/07/17 08:33 40 MG Insulin Glargine (Lantus Solostar Pen) 6 units BID SC 05/26/17 20:00 06/25/17 19:59 06/07/17 08:41 6 UNITS Pantoprazole Sodium (Protonix Tab) 40 mg BID PO 05/27/17 20:00 06/26/17 19:59 12/5/17 09:37 40 MG Sucralfate (Carafate Susp) 1 gm ACHS PO 05/30/17 16:30 06/29/17 16:29 06/06/17 20:47 1 GM Dronabinol (Marinol Cap) 5 mg TID PO 05/31/17 20:00 06/22/17 08:59 06/07/17 14:57 5 MG Enteral Nutritional Formula (Boost Glucose Control) 1 can TID PO 06/02/17 20:00 07/02/17 19:59 06/03/17 13:37 1 CAN Potassium Chloride/Dextrose/ Sod Cl 1,000 ml @ 75 mls/hr [id number] IV 06/02/17 17:30 07/02/17 17:29 06/07/17 17:17 75 MLS/HR Hydromorphone HCl (Dilaudid Inj) 1 mg Q4H PRN IV 06/05/17 11:45 06/17/17 10:14 06/06/17 10:53 1 MG Haloperidol (Haldol Tab) 1 mg Q4H PO 06/06/17 16:00 07/02/17 15:59 06/07/17 14:58 1 MG Acetaminophen/ Hydrocodone Bitart ([place] 5/325 Tab) 1 tab Q4H PRN PO 06/06/17 13:45 06/20/17 13:44 06/07/17 14:57 1 TAB Ondansetron HCl (Zofran Odt) 8 mg Q4H PRN PO 06/06/17 13:45 07/06/17 13:44 Megestrol Acetate (Megace Susp) 400 mg QAM PO 06/07/17 08:00 07/07/17 07:59 06/07/17 09:37 400 MG
[2017-06-07] MEDS: LORAZEPAM 0.5 MG TAB PO PRN (22:44)
[2017-06-08] MEDS: HALOPERIDOL 1 MG TAB PO SCH ×6 (04:12→21:46)
[2017-06-08] MEDS: SUCRALFATE 1 GM/10 ML UDC PO SCH ×4 (04:12→20:50)
[2017-06-08 04:14] VITALS: BP 128/80; PULSE 99; TEMP 36.6; O2SAT 97
[2017-06-08] MEDS: ONDANSETRON INJ 2 MG/ML 2 ML VIAL IV SCH ×4 (04:18→21:53)
[2017-06-08] MEDS: HYDROCODONE/ACETAMOPHEN 5/325MG TAB PO PRN ×2 (06:09→12:54)
[2017-06-08] MEDS: D5NSS + 20MEQ KCL 1,000 ML IV SCH ×2 (06:10→18:51)
[2017-06-08 07:47] VITALS: BP 107/65; PULSE 85; TEMP 36.6; O2SAT 98
[2017-06-08] MEDS: PANTOprazole SOD 40 MG TAB PO SCH ×2 (08:38→21:46)
[2017-06-08] MEDS: DOCUSATE SODIUM 100 MG CAP PO SCH ×2 (08:38→21:43)
[2017-06-08] MEDS: DRONABINOL 2.5 MG CAP PO SCH ×3 (08:38→21:53)
[2017-06-08] MEDS: DULOXETINE HCL 60 MG CAP PO SCH (08:38)
[2017-06-08] MEDS: INSULIN GLARGINE SOLOSTAR 100 UNITS/ML 3 ML PEN SC SCH ×2 (08:54→21:53)
[2017-06-08] MEDS: INSULIN ASPART 100 UNITS/ML 3 ML PEN SC SCH ×4 (08:54→21:52)
[2017-06-08] MEDS: BOOST GLUCOSE CONTROL PO SCH ×3 (08:57→20:00)
[2017-06-08] MEDS: ENOXAPARIN 40 MG/0.4 ML SYR SQ SCH (08:57)
[2017-06-08] MEDS: MEGESTROL ACETATE SUSP 400 MG/10 ML UDC PO SCH (09:59)
[2017-06-08] MEDS ORDERED: CYM60 PO (14:30)
[2017-06-08] MEDS ORDERED: ZFRODT/8 PO (14:30)
[2017-06-08] MEDS ORDERED: PRT40 PO (14:30)
[2017-06-08] MEDS ORDERED: MGCUDL400 PO (14:30)
[2017-06-08] MEDS ORDERED: MRN25 PO (14:30)
[2017-06-08] MEDS ORDERED: NUTR-7 PO (14:30)
[2017-06-08] MEDS ORDERED: ATV5 PO (14:30)
[2017-06-08] MEDS ORDERED: ACET-1047 PO (14:30)
[2017-06-08] MEDS ORDERED: CLC100 PO (14:30)
[2017-06-08] MEDS ORDERED: BISA10SU5 PR (14:30)
[2017-06-08] MEDS ORDERED: HLD1 PO (14:30)
[2017-06-08] MEDS ORDERED: CRFUDL PO (14:30)
[2017-06-08] MEDS ORDERED: MRLP17 PO (14:30)
[2017-06-08] MEDS ORDERED: MRPL10 SL (14:33)
[2017-06-08 15:31] VITALS: BP 126/76; PULSE 91; TEMP 36.8; O2SAT 100
--- NOTE | 2017-06-08 19:47 | Progress Note ---
Medicine Progress Note Date & Time of Visit: Jun 08, 2017 at 19:47. Subjective Patient denies any complaints today, appetite remains poor. No overnight events noted. Still has some mild nausea. No BM yet. Objective Last 8 Hrs Date Time Temp Pulse Resp B/P (MAP) Pulse Ox O2 Delivery O2 Flow Rate FiO2 06/08/17 16:00 Room Air 06/08/17 15:31 36.8 91 18 126/76 (93) 100 Room Air Physical Exam: GENERAL: Patient is in no acute distress. Appears thin. HEENT: No acute trauma, normocephalic, mucous membranes moist, no nasal congestion, no scleral icterus. NECK: No stridor, trachea is midline. LUNGS: Clear to auscultation bilaterally, no wheeze, no rhonchi, breath sounds equal. HEART: Without murmurs gallops or rubs, regular rate and rhythm. ABDOMEN: Soft, nontender, bowel sounds positive EXTREMITIES: No cyanosis or edema NEUROLOGIC: Oriented x 3, no acute motor or sensory deficits, no focal weakness. SKIN: No rash, no jaundice, no diaphoresis. Laboratory Results: Last 24 Hours Test 06/07/17 20:07 06/08/17 07:41 06/08/17 11:31 06/08/17 16:43 Bedside Glucose 155 mg/dl 174 mg/dl 158 mg/dl 158 mg/dl Assessment & Plan PANCREATIC CA -as per prior attending discussion with Oncology, cancer is unresectable per surgical exploration -Pathology showed neuroendocrine. -was receiving palliative chemotherapy, but functional status has declined considerably -prognosis difficult to predict, but expected to be < 6 months as patient continues to deteriorate -Palliative care consulted, patient wishes to have level 5 DNR, would like to go home with hospice -Oncology Dr Hinojosa: no chemotherapy now, plan for Hospice at home or in a facility SYMPTOMATIC POSTURAL HYPOTENSION: -possible component of dehydration; treated with IV NS -Clinically better -continued on PT/OT but activity limited due to weakness and fatigue INTRACTABLE ABDOMINAL PAIN: -secondary to pancreatic CA; now controlled -presented with severe abdominal pain due to pancreatic cancer. -Pain Management consulted, appreciate intervention -initially had epidural trial which was effective, then Intrathecal pump placed 05/19 -continued on intrathecal morphine + oral hydrocodone/acetaminophen PRN. Intrathecal morphine dose was adjusted by PM today -Pain is better controlled - requiring only occasional doses of extra pain med -Intravenous Dilaudid is increased to control pain BILIARY TRACT OBSTRUCTION: -developed jaundice with Total bilirubin as high as 14.8. -Gallbladder US: demonstrated mild dilatation of CBD, distended gallbladder with wall thickening, sludge, stones. -HIDA scan ordered, but could not be completed due to narcotic analgesics. -CT demonstrated enlarging pancreatic mass with compression on common bile duct. -GI consulted, appreciate intervention; ERCP with biliary stent placement performed by Dr. Alexis 05/27 with good results. -treated with piperacillin/tazobactam x 10 days for possible cholangitis. -mild Jaundice otherwise better RECURRENT NAUSEA/VOMITING: -severe nausea and vomiting with minimal benefit from anti-emetics. -multifactorial, due to underlying pancreatic Ca + biliary tract disease. -EGD demonstrated esophagitis and nonbleeding duodenal ulcer. -Biliary stent placed -still has intermittent N/V but overall better -oral Haldol added and the dose increased and seems to be working -ODT -Zofran given DUODENAL ULCER: -EGD 05/27 demonstrated esophagitis and nonbleeding duodenal ulcer. -continue famotidine and pantoprazole. OPIATE-INDUCED CONSTIPATION: -Last bowel movement 05/24. -received methylnaltrexone without results. -PRN soapsuds enema -continue docusate sodium, polyethylene, methylnaltrexone PRN. -remains an ongoing issue DM TYPE II: -metformin held -Hgb A1C 7.6 on 05/03/17. -continue Lantus/NovoLog per protocol; has not required much coverage due to poor oral intake VITAMIN D DEFICIENCY: -25-OH D = 21. -Supplement as tolerated. ANXIETY/DEPRESSION: -secondary to pain, underlying malignancy and terminal nature of the cancer -on duloxetine for pain management already -on Lorazepam PRN for anxiety or insomnia. -also getting haldol UTI: -urine culture grew Pseudomonas (50K colony count) -urine culture 05/20 grew Pseudomonas aeruginosa, but < 100,000 CFU. -No dysuria. No fever. -s/p treatment CONFUSION: resolved -had increasing confusion 05/25. -CT head negative. -most likely secondary to meds. -was receiving scopolamine and ciprofloxacin, both of which have anticholinergic side effects. Scopolamine and ciprofloxacin discontinued 05/24. -mentation improved -avoid anticholinergic meds whenever possible. NUTRITION: -oral intake remains poor due to GI symptoms -Nutrition consulted and following. -encouraged to try small amount of food with increased frequency -continued on appetite stimulating medications GENERAL WEAKNESS/DEBILITY: -multifactorial from progression of disease and poor nutritional status as well as a component of depression -PT/OT as tolerated. Dispo: Home with hospice care Discharge planning: home with Hospice Consultants: Pain Management-Dr. Venkatesh WAY-MARY Magdaleno Current Inpatient Medications: Current Inpatient Medications Medications (Trade) Dose Ordered Sig/Yolis Route Start Time Stop Time Status Last Admin Dose Admin Acetaminophen (Tylenol Tab) 650 mg Q4H PRN PO 05/10/17 11:15 06/09/17 11:14 05/25/17 03:37 650 MG Bisacodyl (Dulcolax Tab) 5 mg BID PRN PO 05/10/17 11:45 06/09/17 11:44 06/07/17 09:37 5 MG Polyethylene (Miralax Powder Packet) 17 gm DAILY PRN PO 05/10/17 11:45 06/09/17 11:44 05/11/17 07:49 17 GM Insulin Aspart (novoLOG ASPART) SLIDING SCALE If C... ACHS SC 05/10/17 16:30 06/09/17 16:29 06/08/17 18:06 1 UNITS Glucose (Glucose 40% Gel) 15-30 GRAMS 15 GRAMS... UD PRN PO 05/10/17 13:00 07/08/17 12:59 Glucose (Glucose Chew Tab) 4-8 Tablets 4 Tabl... UD PRN PO 05/10/17 13:00 07/08/17 12:59 Dextrose (Dextrose 50% 50ML Syringe) 25-50ML OF 50% DW IV FOR... UD PRN IV 05/10/17 13:00 07/08/17 12:59 Glucagon (Glucagon Inj) 1 mg UD PRN SQ 05/10/17 13:00 07/08/17 12:59 Miscellaneous (Iv Fluids Completed) 1 ea PRN PRN N/A 05/10/17 14:30 05/10/18 14:29 Duloxetine HCl (Cymbalta Cap) 60 mg QAM PO 05/12/17 10:00 06/11/17 09:59 06/08/17 08:38 60 MG Docusate Sodium (coLACE CAP) 100 mg BID PO 05/12/17 20:00 06/11/17 19:59 06/08/17 08:38 100 MG Cholecalciferol (Vitamin D Tab) 1,000 inter.unit QAM PO 05/13/17 08:00 06/12/17 07:59 Future Hold 05/22/17 08:16 1,000 INTER.UNIT Lorazepam (Ativan Tab) 0.5 mg Q8 PRN PO 05/13/17 11:15 06/12/17 11:14 06/07/17 22:44 0.5 MG Polyethylene (Miralax Powder Packet) 17 gm BID PO 05/15/17 20:00 06/11/17 07:59 Future Hold 05/23/17 22:44 17 GM Naloxone HCl (Narcan Inj) 0.4 mg PRN PRN IV 05/16/17 09:15 06/15/17 09:14 05/19/17 23:21 0.4 MG Naloxone HCl (Narcan Inj) 0.4 mg PRN PRN IV 05/16/17 09:15 06/15/17 09:14 Magnesium Citrate (Citrate Of Magnesia Soln) 30 ml DAILY PRN PO 05/16/17 09:15 06/15/17 09:14 06/07/17 08:32 30 ML Ondansetron HCl (Zofran Inj) 4 mg Q6H IV 05/22/17 15:00 06/21/17 14:59 06/08/17 14:24 4 MG Enoxaparin Sodium (Lovenox Inj) 40 mg QAM SQ 05/23/17 08:00 06/22/17 07:59 Future hold 06/08/17 08:57 40 MG Insulin Glargine (Lantus Solostar Pen) 6 units BID SC 05/26/17 20:00 06/25/17 19:59 06/08/17 08:54 6 UNITS Pantoprazole Sodium (Protonix Tab) 40 mg BID PO 05/27/17 20:00 06/26/17 19:59 06/08/17 08:38 40 MG Sucralfate (Carafate Susp) 1 gm ACHS PO 05/30/17 16:30 06/29/17 16:29 06/08/17 16:50 1 GM Dronabinol (Marinol Cap) 5 mg TID PO 05/31/17 20:00 06/22/17 08:59 06/08/17 14:24 5 MG Enteral Nutritional Formula (Boost Glucose Control) 1 can TID PO 06/02/17 20:00 07/02/17 19:59 06/07/17 20:37 1 CAN Potassium Chloride/Dextrose/ Sod Cl 1,000 ml @ 75 mls/hr [id number] IV 06/02/17 17:30 07/02/17 17:29 06/08/17 18:51 75 MLS/HR Hydromorphone HCl (Dilaudid Inj) 1 mg Q4H PRN IV 06/05/17 11:45 06/17/17 10:14 06/06/17 10:53 1 MG Haloperidol (Haldol Tab) 1 mg Q4H PO 06/06/17 16:00 07/02/17 15:59 06/08/17 16:50 1 MG Acetaminophen/ Hydrocodone Bitart ([place] 5/325 Tab) 1 tab Q4H PRN PO 06/06/17 13:45 06/20/17 13:44 06/08/17 12:54 1 TAB Ondansetron HCl (Zofran Odt) 8 mg Q4H PRN PO 06/06/17 13:45 07/06/17 13:44 06/07/17 17:55 8 MG Megestrol Acetate (Megace Susp) 400 mg QAM PO 06/07/17 08:00 07/07/17 07:59 06/08/17 09:59 400 MG
[2017-06-08 19:56] VITALS: BP 111/67; PULSE 90; TEMP 36.9; O2SAT 98
[2017-06-08] MEDS: HYDROmorphone INJ 1 MG/ML SYR IV PRN (20:49)
[2017-06-08 22:47] VITALS: BP 122/82; PULSE 110; TEMP 36.4; O2SAT 99
[2017-06-09] MEDS: HALOPERIDOL 1 MG TAB PO SCH ×4 (00:17→12:03)
[2017-06-09] MEDS: ONDANSETRON INJ 2 MG/ML 2 ML VIAL IV SCH ×3 (03:27→14:24)
[2017-06-09] MEDS: HYDROCODONE/ACETAMOPHEN 5/325MG TAB PO PRN ×2 (03:28→14:27)
[2017-06-09 04:22] VITALS: BP 110/69; PULSE 97; TEMP 36.4; O2SAT 98
[2017-06-09 07:18] VITALS: BP 117/74; PULSE 94; TEMP 36.3; O2SAT 98
[2017-06-09] MEDS: DRONABINOL 2.5 MG CAP PO SCH ×2 (08:29→14:24)
[2017-06-09] MEDS: PANTOprazole SOD 40 MG TAB PO SCH (08:30)
[2017-06-09] MEDS: DULOXETINE HCL 60 MG CAP PO SCH (08:30)
[2017-06-09] MEDS: MEGESTROL ACETATE SUSP 400 MG/10 ML UDC PO SCH ×2 (08:30→08:45)
[2017-06-09] MEDS: DOCUSATE SODIUM 100 MG CAP PO SCH (08:30)
[2017-06-09] MEDS: SUCRALFATE 1 GM/10 ML UDC PO SCH ×2 (08:31→12:04)
[2017-06-09] MEDS: D5NSS + 20MEQ KCL 1,000 ML IV SCH (08:31)
[2017-06-09] MEDS: BOOST GLUCOSE CONTROL PO SCH ×2 (08:31→14:00)
[2017-06-09] MEDS: ENOXAPARIN 40 MG/0.4 ML SYR SQ SCH (08:31)
[2017-06-09] MEDS: INSULIN ASPART 100 UNITS/ML 3 ML PEN SC SCH ×2 (08:32→12:06)
[2017-06-09] MEDS: INSULIN GLARGINE SOLOSTAR 100 UNITS/ML 3 ML PEN SC SCH (08:35)
--- NOTE | 2017-06-09 09:16 | Discharge Instructions ---
Discharge Instructions Date of Service Jun 09, 2017. Admission Reason for Admission: Intractable Abdominal Pain Discharge Discharge Diagnosis / Problem: intractable abdominal pain, nausea, vomiting, jaundice Discharge Goals Goal(s): Decrease discomfort Activity Recommendations Activity Limitations: as noted below Lifting Limitations: gradually increase as tolerated Exercise/Sports Limitations: gradually increase as tolerated . Instructions / Follow-Up Instructions / Follow-Up Please follow up with Primary Care Physician as needed For pain medications: you can take the Dilaudid as needed for breakthrough pain as prescribed, but if you have any difficulty swallowing pills or you become nauseous and vomit, you could use the alternative medication Roxanol (oral morphine sulfate) under the tongue, but do not use both together. Current Hospital Diet Patient's current hospital diet: Full Liquid Diet Discharge Diet Recommended Diet: Full Liquid Diet (Patient is able to have whatever he finds easiest to swalllow and keep down; soft foods, slippery foods and liquids might be easiest for the patient) Procedures Procedures Performed: Endoscopic Retrograde Cholangiopancreatogram, Sphincterotomy, Common bile duct stent placement, Esophagogastroduodenoscopy with biopsies Pending Studies Studies pending at discharge: no Laboratory Results Hemoglobin A1c Test 05/03/17 06:10 Range/Units Estimated Average Glucose 171 mg/dl Hemoglobin A1c 7.6 H 4.5-5.6 % Medical Emergencies . Who to Call and When: Medical Emergencies: If at any time you feel your situation is an emergency, please call 911 immediately. . Non-Emergent Contact Non-Emergency issues call your: Primary Care Provider . . "Provider Documentation" section prepared by Deidra Rae. . Blind Lacer Recommendations Blind Lacer Recommendations: Postoperative intrathecal pump instructions: Please do not lift greater than 15 pounds for the next 4 weeks. Please perform daily dressing changes to both the back and belly incisions. If you notice any redness, drainage or opening of the wound please contact the pain clinic at [facility] immediately Please do not take any soaking hot tub baths until your follow-up visit. Please do not remove the purpleish tape dressings over your incisions. Please wear your abdominal binder for 24 hours a day for the first 4 weeks and then while awake for an additional 4 weeks. If you have any fevers, chills, concerns, problems with pain please contact the pain clinic A prescription of Dilaudid 4 mg by mouth up to 4 times a day as needed for pain was provided for 120 tablets. Follow-up appointments have been made at the [facility] pain clinic at [address] in [facility] phone number is( [phone]) 05/25/2017 at 2:45 PM with Leander Rivera PA-C 2) 06/01/2017 at 1:20 PM with Sandra KAY You will be instructed on the PTM (personal occupational therapy supervisor) device at one of these follow-up visits so please ensure that you have a family member with use of the 2 people may hear the instructions on how to give yourself additional medication through your pump. VTE Core Measure Inpt VTE Proph given/why not?: Enoxaparin (Lovenox)SQ [place] Drug Monitoring Program Search Results: patient reviewed within database
[2017-06-09] MEDS ORDERED: METHYLNALTREXONE BROMIDE INJ 12 MG/0.6 ML SYR SQ SCH (11:00)
[2017-06-09 11:42] VITALS: BP 122/76; PULSE 97; TEMP 36.7; O2SAT 100
[2017-06-09 13:06] VITALS: BP 122/76; PULSE 97; TEMP 36.7; O2SAT 100
[2017-06-09 14:47] VITALS: BP 127/77; PULSE 93; TEMP 36.2; O2SAT 98
--- NOTE | 2017-06-13 08:35 | Discharge Summary ---
Discharge Summary Date of Service Jun 13, 2017. Discharge Summary Admission Date: May 11, 2017 at 17:11 Discharge Date: Jun 09, 2017 Discharge Disposition: Home with services Principal Diagnosis: Intractable abdominal pain, intractable nausea/vomiting, biliary tract obstruction, encephalopathy Procedures: Intrathecal pump placement, ERCP with biliary stent Consultations: Pain Management GI Medication Reconciliation New Medications: Bisacodyl (Bisacodyl) 10 Mg Sup 1 SUPP SC DAILY, #30 SUPP Morphine Sulfate (Morphine Sulfate) 2 Mg/1 Ml Soln 1-2 ML SL Q2H PRN for Pain, #50 ML Acetaminophen (Mapap) 325 Mg Tab 650 MG PO Q4H PRN for Pain or Fever, #30 TAB Docusate Sodium (Docusate Sodium) 100 Mg Cap 100 MG PO BID, #60 CAP Dronabinol (Dronabinol) 2.5 Mg Cap 5 MG PO TID for 7 Days, CAP Duloxetine HCl (Duloxetine HCl) 60 Mg Cap 60 MG PO QAM, #30 CAP Haloperidol (Haloperidol) 1 Mg Tab 1 MG PO Q4H for 7 Days, #28 TAB Lorazepam (Lorazepam) 0.5 Mg Tab 0.5 MG PO Q8 PRN for anxiety for 7 Days, #21 TAB Megestrol Acetate (Megestrol Acetate) 400 Mg/10 Ml Susp 400 MG PO QAM, #14 TAB Nutritional Supplements (Boost) 1 Liq Liq 1 CAN PO TID, #30 CAN Ondansetron (Ondansetron Odt) 8 Mg Soltab 8 MG PO Q4H PRN for Nausea for 7 Days, #28 TABS Pantoprazole (Pantoprazole Sodium) 40 Mg Tab 40 MG PO BID, #60 TAB Polyethylene (Miralax) 17 Gm Pow 17 GM PO BID, #60 DOSE Sucralfate (Sucralfate) 1 Gm/10 Ml Susp 1 GM PO ACHS for 42 Days, #1680 ML Continued Medications: Bisacodyl (Bisacodyl EC) 5 Mg Tabec 1 TAB PO BID PRN for Constipation Metformin HCl (Metformin HCl) 500 Mg Tab 500 MG PO QDB for 30 Days, #30 TAB 2 Refills Ondansetron Hcl (Zofran) 8 Mg Tab 8 MG PO Q8 PRN for Nausea, TAB Polyethylene Glycol 3350 (Miralax) 1 Pow Pow 17 GM PO DAILY PRN for Constipation, #255 GM Discontinued Medications: Fentanyl (Fentanyl) 12 Mcg Tdsy 1 PATCH TD Q72H for 10 Days, #3 PATCH 0 Refills Fentanyl (Fentanyl) 100 Mcg Tdsy 100 MCG TD Q72H for 10 Days, #3 PATCH 0 Refills Fentanyl (Fentanyl) 25 Mcg Tdsy 25 MCG TD Q72H for 10 Days, #3 PATCH 0 Refills Hydromorphone HCl (Hydromorphone HCl) 2 Mg Tab 4 MG PO Q3HWA PRN for Pain for 10 Days, #20 TAB 0 Refills Admission Information HPI (per Admitting provider): 67 year old male who presents to the ED with abdominal pain. Patient has unresectable pancreatic cancer and has been admitted to [facility] recently for intractable pain due to the cancer. He was just discharged yesterday after being admitted since 05/02. During that admission, patient's Fentanyl patch and PO Dilaudid doses were increased. He also received a Celiac blokc on 05/04. During his last two days in the hospital, patient did not require any additional IV Dilaudid for break through pain. He reports his appetite was good and he was eating well. After returning home, patient reports he woke up in the middle of the night in severe abdominal pain. He reports he always had some degree of abdominal pain in the RUQ however when the pain is severe it is located over the entire abdomen. Patient reports one episode of vomiting this morning but feels like it was due to severe pain. No hematemesis or coffee ground emesis. He reports a normal bowel movement yesterday. No diarrhea. He denies chest pain and shortness of breath. No lightheadedness, dizziness, diaphoresis, or syncopal events. He denies fever and chills. No urinary symptoms. In the ED, patient was given Dilaudid 4mg IV and reports much improvement in his pain. Labs are unremarkable. Vitals are stable. Physical Exam (per Admitting): General Appearance: WD/WN, no apparent distress Head: normocephalic, atraumatic Eyes: normal inspection, EOMI, sclerae normal ENT: hearing grossly normal, + pertinent finding (mucous membranes moist) Neck: supple, no JVD, trachea midline Respiratory/Chest: lungs clear, normal breath sounds, no respiratory distress Cardiovascular: regular rate, rhythm, no edema, normal peripheral pulses Abdomen/GI: normal bowel sounds, soft, no organomegaly, + tenderness (RUQ) Extremities/Musculoskelatal: normal inspection, no calf tenderness, normal capillary refill Neurologic/Psych: no motor/sensory deficits, alert, normal mood/affect, oriented x 3 Skin: normal color, warm/dry Hospital Course PANCREATIC CA -as per prior attending discussion with Oncology, cancer is unresectable per surgical exploration -Pathology showed neuroendocrine. -was receiving palliative chemotherapy, but functional status has declined considerably -prognosis difficult to predict, but expected to be < 6 months as patient continues to deteriorate -Palliative care consulted, patient wishes to have level 5 DNR, would like to go home with hospice -Oncology Dr Hinojosa: no chemotherapy now, plan for Hospice at home or in a facility SYMPTOMATIC POSTURAL HYPOTENSION: -possible component of dehydration; treated with IV NS -Clinically better -continued on PT/OT but activity limited due to weakness and fatigue INTRACTABLE ABDOMINAL PAIN: -secondary to pancreatic CA; now controlled -presented with severe abdominal pain due to pancreatic cancer. -Pain Management consulted, appreciate intervention -initially had epidural trial which was effective, then Intrathecal pump placed 05/19 -continued on intrathecal morphine + oral hydrocodone/acetaminophen PRN. Intrathecal morphine dose was adjusted by PM today -Pain is better controlled - requiring only occasional doses of extra pain med -Intravenous Dilaudid is increased to control pain BILIARY TRACT OBSTRUCTION: -developed jaundice with Total bilirubin as high as 14.8. -Gallbladder US: demonstrated mild dilatation of CBD, distended gallbladder with wall thickening, sludge, stones. -HIDA scan ordered, but could not be completed due to narcotic analgesics. -CT demonstrated enlarging pancreatic mass with compression on common bile duct. -GI consulted, appreciate intervention; ERCP with biliary stent placement performed by Dr. Alexis 05/27 with good results. -treated with piperacillin/tazobactam x 10 days for possible cholangitis. -mild Jaundice otherwise better RECURRENT NAUSEA/VOMITING: -severe nausea and vomiting with minimal benefit from anti-emetics. -multifactorial, due to underlying pancreatic Ca + biliary tract disease. -EGD demonstrated esophagitis and nonbleeding duodenal ulcer. -Biliary stent placed -still has intermittent N/V but overall better -oral Haldol added and the dose increased and seems to be working -ODT -Zofran given DUODENAL ULCER: -EGD 05/27 demonstrated esophagitis and nonbleeding duodenal ulcer. -continue famotidine and pantoprazole. OPIATE-INDUCED CONSTIPATION: -Last bowel movement 05/24. -received methylnaltrexone without results. -PRN soapsuds enema -continue docusate sodium, polyethylene, methylnaltrexone PRN. -remains an ongoing issue DM TYPE II: -metformin held -Hgb A1C 7.6 on 05/03/17. -continue Lantus/NovoLog per protocol; has not required much coverage due to poor oral intake VITAMIN D DEFICIENCY: -25-OH D = 21. -Supplement as tolerated. ANXIETY/DEPRESSION: -secondary to pain, underlying malignancy and terminal nature of the cancer -on duloxetine for pain management already -on Lorazepam PRN for anxiety or insomnia. -also getting haldol UTI: -urine culture grew Pseudomonas (50K colony count) -urine culture 05/20 grew Pseudomonas aeruginosa, but < 100,000 CFU. -No dysuria. No fever. -s/p treatment CONFUSION: resolved -had increasing confusion 05/25. -CT head negative. -most likely secondary to meds. -was receiving scopolamine and ciprofloxacin, both of which have anticholinergic side effects. Scopolamine and ciprofloxacin discontinued 05/24. -mentation improved -avoid anticholinergic meds whenever possible. NUTRITION: -oral intake remains poor due to GI symptoms -Nutrition consulted and following. -encouraged to try small amount of food with increased frequency -continued on appetite stimulating medications GENERAL WEAKNESS/DEBILITY: -multifactorial from progression of disease and poor nutritional status as well as a component of depression -PT/OT as tolerated. PHYSICAL EXAM ON DAY OF DISCHARGE: GENERAL: Patient is in no acute distress. Appears thin HEENT: No acute trauma, normocephalic, mucous membranes moist, no nasal congestion, no scleral icterus. NECK: No stridor, trachea is midline. LUNGS: Clear to auscultation bilaterally, no wheeze, no rhonchi, breath sounds equal. HEART: Without murmurs gallops or rubs, regular rate and rhythm. ABDOMEN: Soft, nontender, bowel sounds positive EXTREMITIES: No cyanosis or edema, full range of motion of all the joints without pain or difficulty NEUROLOGIC: Oriented x 3, no acute motor or sensory deficits, no focal weakness. SKIN: No rash, no jaundice, no diaphoresis. Total time spent on discharge = 37 This includes examination of the patient, discharge planning, medication reconciliation, and communication with other providers. Discharge Instructions see patient instructions
== END 2017-06-09 15:46 | disposition hospice, home (50) | DRG 939 ==
LOC: C.EDB 09:28 → C.4E 11:08 → ENRESERV 11:29 → OBSVTOIN 05-11 17:11 → C.4E 05-15 12:30 → ENRESERV 05-16 11:22 → C.2E 05-16 12:08 → C.4E 05-21 15:08 → ENRESERV 05-21 15:29
PROVIDERS: ADMIT Family Medicine; ATTEND Internal Medicine
PROC: 00HU33Z Insertion of Infusion Device into Spinal Canal, Percutaneous Approach (ICD-10-PCS; 2017-05-16)
PROC: 0JH70VZ Insertion of Infusion Pump into Back Subcutaneous Tissue and Fascia, Open Approach (ICD-10-PCS; principal; 2017-05-19 09:00)
PROC: 0F798DZ Dilation of Common Bile Duct with Intraluminal Device, Via Natural or Artificial Opening Endoscopic (ICD-10-PCS; 2017-05-27)
PROC: BF14YZZ Fluoroscopy of Gallbladder, Bile Ducts and Pancreatic Ducts using Other Contrast (ICD-10-PCS; 2017-05-27)
PROC: 0DB Gastrointestinal System, Excision (ICD-10-PCS; 2017-05-27)
DX: G89.3 Neoplasm related pain (acute) (chronic) (principal); K83.1 Obstruction of bile duct; C25.0 Malignant neoplasm of head of pancreas; N39.0 Urinary tract infection, site not specified; R17 Unspecified jaundice; E22.2 Syndrome of inappropriate secretion of antidiuretic hormone; Z51.5 Encounter for palliative care; K59.03 Drug induced constipation; T40.605A Adverse effect of unspecified narcotics, initial encounter; B96.5 Pseudomonas (aeruginosa) (mallei) (pseudomallei) as the cause of diseases classified elsewhere; E11.9 Type 2 diabetes mellitus without complications; E55.9 Vitamin D deficiency, unspecified; I95.1 Orthostatic hypotension; K20.9 Esophagitis, unspecified; K26.9 Duodenal ulcer, unspecified as acute or chronic, without hemorrhage or perforation; F41.9 Anxiety disorder, unspecified; F32.9 Major depressive disorder, single episode, unspecified; Z51.81 Encounter for therapeutic drug level monitoring; Z79.891 Long term (current) use of opiate analgesic; Z79.84 Long term (current) use of oral hypoglycemic drugs; Z66 Do not resuscitate; Z87.442 Personal history of urinary calculi; Z82.49 Family history of ischemic heart disease and other diseases of the circulatory system; Z84.89 Family history of other specified conditions; Z84.1 Family history of disorders of kidney and ureter